=== PATIENT | female | born 1960 | race Caucasian/White ===

== ENCOUNTER → 2018-02-04 09:52 | Outpatient (CLI) | payer OTHER, SELFPAY ==
[2018-02-04 10:41] LABS: Cholesterol 270 mg/dL (200); High Density Lipoprotein 55 mg/dL; Triglycerides 98 mg/dL; Very Low Density Lipoprotein 20 mg/dL (5-40)
== END ==
LOC: LAB.FUTURE 08-08 00:41 → BFHLAB 04-24 11:56
PROVIDERS: Family Provider Internal Medicine; PCP Internal Medicine; Visit Provider Internal Medicine
DX: Z79.899 Other long term (current) drug therapy (principal)
CPT/HCPCS: 36415; 80061

== ENCOUNTER → 2018-04-27 11:24 | Outpatient (CLI) | payer OTHER, SELFPAY ==
[2018-04-27 13:14] LABS: AST(SGOT) 29 U/L (15-37); Alanine Aminotransfer ALT/SGPT 41 U/L (13-56); Albumin, Serum 3.7 g/dL (3.2-5.0); Alkaline Phosphatase 93 U/L (45-117); Anion Gap 7 (5-15); BUN 8 mg/dL (7-18); BUN/Creat Ratio 10.7 RATIO (10-20); Chloride 107 mmol/L (98-107); Creatinine, Serum 0.75 mg/dL (0.55-1.02); EST Glomerular Filtration Rate 85 mL/min (>60); Est Glom Filt Rate - Afr Amer 102 mL/min (>60); Globulin 3.7 g/dL (2.2-4.2); Glucose 87 mg/dL (74-106); Lipase 260 U/L (73-393); Potassium 3.9 mmol/L (3.5-5.1); Protein, Total 7.4 g/dL (6.4-8.2); Sodium Level 142 mmol/L (136-145); Thyroid Stim Hormone (TSH) 1.55 uIU/mL (0.358-3.74)
== END ==
PROVIDERS: Family Provider Family Medicine; PCP Family Medicine; Visit Provider Family Medicine
DX: R10.32 Left lower quadrant pain (principal); M79.7 Fibromyalgia
CPT/HCPCS: 36415; 80053; 83690; 84443

== ENCOUNTER → 2018-05-03 10:37 | Outpatient (CLI) | payer OTHER, SELFPAY ==
--- NOTE | 2018-05-03 10:41 | US_ITS ---
STUDY: ABDOMINAL ULTRASOUND - RIGHT UPPER QUADRANT REASON FOR VISIT: Female, 57 years old. Abdominal pain. Chronic gastroesophageal reflux. TECHNIQUE: Ultrasound evaluation of the right upper quadrant was performed with real-time and static garcia-scale imaging. TECHNICAL QUALITY: Limited. Examination limited by bowel gas. COMPARISON: None. FINDINGS: Liver: The liver measures 11.6 cm. There is normal echogenicity of the liver. The bile ducts are within normal limits. There is hepatic color flow. The direction of portal flow is hepatopetal. There is no demonstrated mass lesion. Gallbladder: Normal distended gallbladder. The gallbladder wall measures 3.0 mm. There is a negative sonographic Mansfield's sign. There is no pericholecystic fluid. There are no gallstones. Common Bile Duct (C.B.D.): The common bile duct measures 3.0 mm. Pancreas: Normal size of the head, body of the pancreas. The tail portion is obscured due to overlying bowel gas. There is normal echogenicity of the pancreas. There is no demonstrated pancreatic mass or cyst. Right Kidney: Normal size of the right kidney. The right kidney measures 9.2 cm x 3.2 cm x 3.7 cm. Normal renal cortex. The right cortex measures 1.0 cm. There is no demonstrated renal mass or cyst. There is no right hydronephrosis. US/Abdomen Limited IMPRESSION: Normal right upper quadrant ultrasound examination. Electronically Signed: Ranulfo Jon MD at 15:36 EDT Tel [phone], Service support ,
== END ==
PROVIDERS: Family Provider Family Medicine; PCP Family Medicine; Visit Provider Family Medicine
DX: R10.32 Left lower quadrant pain (principal); K58.9 Irritable bowel syndrome, unspecified
CPT/HCPCS: 76705

== ENCOUNTER → 2018-05-25 12:35 | Outpatient (CLI) | payer OTHER, SELFPAY ==
--- NOTE | 2018-05-25 12:37 | CT_ITS ---
STUDY: CT ABDOMEN AND PELVIS WITH CONTRAST REASON FOR EXAM: Female, 57 years old. 4 quadrant pain, chronic reflux and diarrhea. History of ESTEE/BSO, possible appendectomy. RADIATION DOSAGE (If Supplied By Facility): CTDIvol = ( 11.65 ) mGy, DLP = ( 604.15 ) mGycm TECHNIQUE: Transaxial images were obtained from the dome of the diaphragm to the symphysis pubis with oral contrast. 100CC ml of Isovue 300 contrast was administered. Sagittal and coronal images were reconstructed. Individualized dose optimization techniques were used for this CT. COMPARISON: CT abdomen August 27, 2014; right upper quadrant ultrasound May 03, 2018. FINDINGS: Curvilinear subsegmental atelectasis noted in the inferior lower lobes. The visualized portions of the heart are within normal limits. Normal liver. The patent portal vein diameter is 10.5 mm. Normal gallbladder and extrahepatic biliary system. Normal spleen. Normal pancreas. Normal bilateral adrenal glands. Normal right kidney. Normal left kidney. No hydronephrosis. Normal visualized stomach. Normal small intestine. Normal colon. There is non-visualization of the appendix. Normal abdominal aorta. Normal inferior vena cava. There are nonspecific periaortic lymph nodes of the retroperitoneum. Normal urinary bladder. There is absence of the uterus consistent with a prior hysterectomy. There is a small umbilical hernia containing fat. There is a small left-sided inguinal hernia containing adipose tissue. There is a smaller right-sided inguinal hernia containing adipose tissue. There is a 12 degree levoscoliosis of the spine centered at L2-3, and 11.6 degree dextroscoliosis centered at L5-S1. There is degenerative disc disease and reactive endplate osteophyte formation at L5-S1. CT/Abdomen/Pelvis WITH Contrast IMPRESSION: 1. No demonstrated abdominal/pelvic mass or fluid collection. 2. The bowel is unremarkable without signs of obstruction. The appendix is not visualized. 3. No hydronephrosis. 4. Prior hysterectomy. 5. Stable, small fat-containing umbilical hernia. 6. Degenerative changes L5-S1 have progressed since 2013. Electronically Signed: Hal Recinos MD at 18:43 EDT , Service support ,
== END ==
PROVIDERS: Family Provider Family Medicine; PCP Family Medicine; Visit Provider Family Medicine
DX: R10.32 Left lower quadrant pain (principal); K58.9 Irritable bowel syndrome, unspecified
CPT/HCPCS: 74177; Q9967

== ENCOUNTER → 2018-09-17 08:18 | Outpatient (CLI) | payer OTHER, SELFPAY ==
--- NOTE | 2018-09-17 08:28 | BI_ITS ---
MAMMOGRAPHY - BILATERAL SCREENING REASON FOR EXAM: Female, 57 years old. Routine annual screening examination. PERTINENT HISTORY: Non-contributory. Prior bilateral stereotactic breast biopsies. TECHNIQUE: Digital bilateral breast yvette (3D mammographic acquisition) in the CC and MLO projections. 2-D mediolateral oblique (MLO) and craniocaudad (CC) views of both breasts were obtained. CAD: Full Field Digital Mammography with Computer Added Detection was performed. COMPARISON: Comparison is made with prior study dated September 08, 2017 and September 04, 2015. FINDINGS: Breast Composition: The breasts are heterogeneously dense, which may obscure small masses. There are no dominant masses or suspicious calcifications. A tissue clip marker is seen in the anterior superior retroareolar region of the right breast. No other significant abnormalities are identified. There has been no significant change since the prior study. BI/SCREENING MAMM (CAD), BILAT IMPRESSION: Stable bilateral screening mammogram. Yearly follow-up mammogram recommended. (A) ASSESSMENT CATEGORY: BIRADS Category 2: Benign. A letter regarding these results will be sent to the patient by the facility within 30 days. Approximately 10% of breast cancers are not detected by mammography. A normal mammogram should not delay biopsy of a clinically suspicious abnormality. [id number] Electronically Signed: Ranulfo Jon MD at 14:33 EST Tel [phone], Service support ,
== END ==
PROVIDERS: Family Provider Family Medicine; PCP Family Medicine; Referring Provider Family Medicine; Visit Provider Family Medicine
DX: Z12.31 Encounter for screening mammogram for malignant neoplasm of breast (principal)
CPT/HCPCS: 77063; 77067

== ENCOUNTER → 2018-10-13 14:09 | Outpatient (CLI) | payer OTHER, SELFPAY ==
[2018-10-13 16:54] LABS: Vitamin D,25 Hydroxy 20.6 ng/mL (29.95-100.01)
--- OUTSIDE RECORDS SUMMARY | 2018-11-29 11:19 | XMS RPT_ITS ---
:1960 Author Organization OHIP Support Name Relationship Address Phone BAKARI GRIMES Unavailable [address] + [address] [place] [address] ODENKIRK, BRITTNEY Unavailable [address] + [place] [address] UE Unavailable Unavailable Unavailable BRADMARY ANNBAKARI Unavailable [address] [place] [address] ODENKIRK, BRITTNEY Unavailable [address] + [place] [address] UE Unavailable Unavailable Unavailable SYDNEYBAKARI Unavailable [address] [place] [address] ODENKIRK, BRITTNEY Unavailable [address] + [place] [address] UE Unavailable Unavailable Unavailable BAKARI GRIMES Unavailable [address] [place] [address] ODENKIRK, BRITTNEY Unavailable [address] + [place] [address] UE Unavailable Unavailable Unavailable SYDNEY BAKARI Unavailable [address] + [address] [place] [address] ODENKIRK, BRITTNEY Unavailable [address] + [place] [address] UE Unavailable Unavailable Unavailable SYDNEYBAKARI Unavailable [address] [place] [address] ODENKIRK, BRITTNEY Unavailable [address] + [place] [address] UE Unavailable Unavailable Unavailable Care Team Providers Name Role Phone PAUL SLAUGHTER Attending Unavailable PAUL SLAUGHTER Referring Unavailable TALAMPAS, FRANTZ Ivan Attending Unavailable Fascione, Queneie Attending Unavailable Fascione, Queenie Referring Unavailable Miedel, Mary Primary Care Unavailable Talampas, Frantz Attending Unavailable Talampas, Frantz Primary Care Unavailable Miedel, Mary Attending Unavailable Miedel, Mary Referring Unavailable Miedel, Mary Primary Care Unavailable Miedel, Mary Attending Unavailable Miedel, Mary Referring Unavailable Miedel, Mary Primary Care Unavailable Miedel, Mary Attending Unavailable Miedel, Mary Referring Unavailable Miedel, Mary Primary Care Unavailable Miedel, Mary Attending Unavailable Miedel, Mary Primary Care Unavailable Miedel, Mary Referring Unavailable PROBLEMS PROBLEMS DATE TYPE CONDITION / CODE ATTENDING STATUS SOURCE 10/13/2018 Unknown E55.9 - Vitamin D [facility]ione, Active [facility] E[facility]9(ICD-10[facility] Rep[facility] 04/27/2018 Unknown R10.32 - Left Miedel, Mary Active [place] lower quadrant Community pain / Hospital R10.32(ICD-10) Repository 04/27/2018 Unknown M79.7 - Miedel, Mary Active [place] Fibromyalgia / Community M79.7(ICD-10) Hospital Repository PROCEDURES PROCEDURES No Procedure Records FoundRESULTS RESULTS VITAMIN D,25 HYDROXY Collected: 10/13/2018 Status: F Source: [place] 2:[place] [facility] [place] CODE TESTS RESULT OUT OF REFERENCE UNITS RANGE LAB L506.1000 29.95-100.01 ng/mL Low Vitamin D 20.6 25-OH Result Comment: Vitamin D 25(OH) Status Range Deficiency <20 ng/mL (50nmol/L) Insuffciency 20 - 30 ng/mL (50 - 75 nmol/L) Sufficiency 30 - 100 ng/mL (75 - 250 nmol/L) Toxicity >100 ng/mL (>250 nmol/L) Performed By: #### L506.1000 #### [facility] [address] [place], [address] SCREENING MAMM (CAD), Observed: 09/17/2018 Status: F Source: [place] 8:28 AM [facility] [place] [facility] Imaging Services [address] [place] [address] SCREENING MAMM (CAD), BILAT MR#: [id number] Acct: [id number] Name: DARIELA GRIMES Rep #: [id number] : 1960 F 57 From: Ranulfo Jon MD PCP: Mary Ponce MD Status: REG CLI Study: SCREENING MAMM (CAD), BILAT Date of Exam: 09/17/18 Exam# [id number] Ordering Dr: Mary Ponce MD MAMMOGRAPHY - BILATERAL SCREENING REASON FOR EXAM: Female, 57 years old. Routine annual screening examination. PERTINENT HISTORY: Non-contributory. Prior bilateral stereotactic breast biopsies. TECHNIQUE: Digital bilateral breast yvette (3D mammographic acquisition) in the CC and MLO projections. 2-D mediolateral oblique (MLO) and craniocaudad (CC) views of both breasts were obtained. CAD: Full Field Digital Mammography with Computer Added Detection was performed. COMPARISON: Comparison is made with prior study dated September 08, 2017 and September 04, 2015. FINDINGS: Breast Composition: The breasts are heterogeneously dense, which may obscure small masses. There are no dominant masses or suspicious calcifications. A tissue clip marker is seen in the anterior superior retroareolar region of the right breast. No other significant abnormalities are identified. There has been no significant change since the prior study. BI/SCREENING MAMM (CAD), BILAT IMPRESSION: Stable bilateral screening mammogram. Yearly follow-up mammogram recommended. (A) ASSESSMENT CATEGORY: BIRADS Category 2: Benign. A letter regarding these results will be sent to the patient by the facility within 30 days. Approximately 10% of breast cancers are not detected by mammography. A normal mammogram should not delay biopsy of a clinically suspicious abnormality. [id number] Electronically Signed: Ranulfo Jon MD at 14:33 EST Tel [phone], Service support , CC: Mary Ponce MD Wire Coiner: Signed ABDOMEN/PELVIS WITH Observed: 05/25/2018 Status: F Source: [place] 12:38 PM [facility] [place] [facility] Imaging Services [address] [place] [address] Abdomen/Pelvis WITH Contrast MR#: [id number] Acct: [id number] Name: DARIELA GRIMES Rep #: [id number] : 1960 F 57 From: Fabio Recinos MD PCP: Mary Ponce MD Status: REG CLI Study: Abdomen/Pelvis WITH Contrast Date of Exam: 05/25/18 Exam# [id number] Ordering Dr: Mary Ponce MD STUDY: CT ABDOMEN AND PELVIS WITH CONTRAST REASON FOR EXAM: Female, 57 years old. 4 quadrant pain, chronic reflux and diarrhea. History of ESTEE/BSO, possible appendectomy. RADIATION DOSAGE (If Supplied By Facility): CTDIvol = ( 11.65 ) mGy, DLP = ( 604.15 ) mGycm TECHNIQUE: Transaxial images were obtained from the dome of the diaphragm to the symphysis pubis with oral contrast. 100CC ml of Isovue 300 contrast was administered. Sagittal and coronal images were reconstructed. Individualized dose optimization techniques were used for this CT. COMPARISON: CT abdomen August 27, 2014; right upper quadrant ultrasound May 03, 2018. FINDINGS: Curvilinear subsegmental atelectasis noted in the inferior lower lobes. The visualized portions of the heart are within normal limits. Normal liver. The patent portal vein diameter is 10.5 mm. Normal gallbladder and extrahepatic biliary system. Normal spleen. Normal pancreas. Normal bilateral adrenal glands. Normal right kidney. Normal left kidney. No hydronephrosis. Normal visualized stomach. Normal small intestine. Normal colon. There is non-visualization of the appendix. Normal abdominal aorta. Normal inferior vena cava. There are nonspecific periaortic lymph nodes of the retroperitoneum. Normal urinary bladder. There is absence of the uterus consistent with a prior hysterectomy. There is a small umbilical hernia containing fat. There is a small left-sided inguinal hernia containing adipose tissue. There is a smaller right-sided inguinal hernia containing adipose tissue. There is a 12 degree levoscoliosis of the spine centered at L2-3, and 11.6 degree dextroscoliosis centered at L5-S1. There is degenerative disc disease and reactive endplate osteophyte formation at L5-S1. CT/Abdomen/Pelvis WITH Contrast IMPRESSION: 1. No demonstrated abdominal/pelvic mass or fluid collection. 2. The bowel is unremarkable without signs of obstruction. The appendix is not visualized. 3. No hydronephrosis. 4. Prior hysterectomy. 5. Stable, small fat-containing umbilical hernia. 6. Degenerative changes L5-S1 have progressed since 2013. Electronically Signed: Hal Recinos MD at 18:43 EDT , Service support , CC: Mary Ponce MD Wire Coiner: Signed ABDOMEN LIMITED Observed: 05/03/2018 Status: F Source: [place] 10:41 AM [facility] [place] [facility] Imaging Services [address] [place] [address] Abdomen Limited MR#: [id number] Acct: [id number] Name: DARIELA GRIMES Rep #: [id number] : 1960 F 57 From: Ranulfo Jon MD PCP: Mary Ponce MD Status: REG CLI Study: Abdomen Limited Date of Exam: 05/03/18 Exam# [id number] Ordering Dr: Mary Ponce MD STUDY: ABDOMINAL ULTRASOUND - RIGHT UPPER QUADRANT REASON FOR VISIT: Female, 57 years old. Abdominal pain. Chronic gastroesophageal reflux. TECHNIQUE: Ultrasound evaluation of the right upper quadrant was performed with real-time and static garcia-scale imaging. TECHNICAL QUALITY: Limited. Examination limited by bowel gas. COMPARISON: None. FINDINGS: Liver: The liver measures 11.6 cm. There is normal echogenicity of the liver. The bile ducts are within normal limits. There is hepatic color flow. The direction of portal flow is hepatopetal. There is no demonstrated mass lesion. Gallbladder: Normal distended gallbladder. The gallbladder wall measures 3.0 mm. There is a negative sonographic Mansfield's sign. There is no pericholecystic fluid. There are no gallstones. Common Bile Duct (C.B.D.): The common bile duct measures 3.0 mm. Pancreas: Normal size of the head, body of the pancreas. The tail portion is obscured due to overlying bowel gas. There is normal echogenicity of the pancreas. There is no demonstrated pancreatic mass or cyst. Right Kidney: Normal size of the right kidney. The right kidney measures 9.2 cm x 3.2 cm x 3.7 cm. Normal renal cortex. The right cortex measures 1.0 cm. There is no demonstrated renal mass or cyst. There is no right hydronephrosis. US/Abdomen Limited IMPRESSION: Normal right upper quadrant ultrasound examination. Electronically Signed: Ranulfo Jon MD at 15:36 EDT Tel [phone], Service support , CC: Mary Ponce MD Wire Coiner: Signed COMPREHENSIVE METABOLIC Collected: 04/27/2018 Status: F Source: [place] 11:28 AM [facility] [place] TYPE CODE TESTS RESULT OUT OF RANGE REFERENCE UNITS LAB L501.0100 74-106 mg/dL Normal GLU 87 Result Comment: Please note revised GLUCOSE reference range effective 2017. LAB L501.1000 7-18 mg/dL Normal BUN 8 LAB L501.1100 0.55-1.02 mg/dL Normal CREAT,SERUM 0.75 Result Comment: The validity of the calculated GFR AND GFRAA in patients over 70 years has not been determined. Clinical correlation is essential. LAB L501.1110 >60 mL/min Normal EST GFR 85 Result Comment: Non- GFR Calc LAB L501.1115 >60 mL/min Normal EST GFR - AA 102 Result Comment: GFR Calc LAB L501.1300 10-20 RATIO Normal BUN/CRE 10.7 LAB L501.1500 6.4-8.2 g/dL T Normal PROT 7.4 LAB L501.1800 3.2-5.0 g/dL Normal ALB 3.7 LAB L501.1950 2.2-4.2 g/dL Normal GLOB 3.7 LAB L501.2000 0.9-2.4 RATIO Normal A/G 1.0 LAB L501.2200 8.5-10.1 mg/dL CA Normal 9.0 LAB L501.4100 15-37 U/L Normal AST 29 LAB L501.4305 45-117 U/L Normal ALK P 93 LAB L501.4405 13-56 U/L Normal ALT 41 LAB L501.4600 0.20-1.00 mg/dL T Normal BILI 0.70 LAB L501.5300 136-145 mmol/L NA Normal 142 LAB L501.5600 3.5-5.1 mmol/L K Normal 3.9 LAB L501.5900 98-107 mmol/L CL Normal 107 LAB L501.6100 21.0-32.0 mmol/L Normal CO2 28.0 LAB L501.6200 5-15 Normal GAP 7 Performed By: #### L500.4050, L501.2450, L501.9520 #### [facility] [address] [address] [place], [place], [address] LIPASE Collected: 04/27/2018 Status: F Source: [place] 11:28 AM [facility] [place] TYPE CODE TESTS RESULT OUT OF RANGE REFERENCE UNITS LAB L501.2450 73-393 U/L Normal LIPASE 260 Performed By: #### L500.4050, L501.2450, L501.9520 #### [facility] [address] [place], [place], [id number] THYROID STIM HORMONE Collected: 04/27/2018 Status: F Source: [place] (TSH) 11:28 AM [facility] [place] TYPE CODE TESTS RESULT OUT OF RANGE REFERENCE UNITS LAB L501.9520 0.358-3.74 uIU/mL Normal TSH 1.55 Performed By: #### L500.4050, L501.2450, L501.9520 #### [facility] [address] [place], [address] PROGRESS Observed: 02/15/2018 Status: COMPLETED Source: [place] 11:45 AM [facility] [place] RE[place] HNO ID: [id number] Author: Frantz Severino Service: (none) Author Type: Physician Type: Progress Notes Filed: 02/20/2018 10:58 PM Note Text: Patient presents with: Recheck SUBJECTIVE: Dariela Grimes is a 57 year old year old lady here today for 3 month follow up appointment for review of medical conditions. Headaches better. 3 to 4 times a monthly. Less severe. Ocular migraines still. Somewhat worse Left eye can be blurry or garcia spot. Suns sensitivity. Blood shot some AMs No crusting. No eye pain. Happens daily off and on. Did not tolerate Elavil--weight gain, breast more swollen and tender. Stopped after 3 weeks Aching along left jaw noted. Vertigo type issues noted. PAST MEDICAL HISTORY Diagnosis Date - Abdominal pain, left lower quadrant - Abdominal pain, left upper quadrant - Allergic rhinitis, cause unspecified - Backache, unspecified - Disorder of bone and cartilage, unspecified - Diverticulosis of colon (without mention of hemorrhage) - Dyspepsia and other specified disorders of function of stomach - Endometriosis 2004 - Headache(784.0) - Intramural leiomyoma of uterus 2004 - Irritable bowel syndrome Irritable bowel - Migraine with aura, without mention of intractable migraine without mention of status migrainosus - Muscle weakness (generalized) - Myalgia and myositis, unspecified - Osteoporosis - Other seborrheic keratosis - Pain in joint, lower leg - Personal history of colonic polyps - PMH - PAST MEDICAL HISTORY OF fibromyalgia - PMH - PAST MEDICAL HISTORY OF yeast infection - Unspecified symptom associated with female genital organs 2003 PAIN PELVIC (FEMALE) - Unspecified tinnitus Current Outpatient Prescriptions: Psyllium Seed-Sucrose (FIBER THERAPY, PSYLLIUM,) powd Take 0.3 Tablespoonsful by mouth every other day. COMPOUNDED PRESCRIPTION Lab draw: Lipids, Vitamin D25-OH , CMP, CBC Diagnoses: (E78.00) Hypercholesterolemia; (E55.9) Vitamin D deficiency; (Z79.899) Encounter for long-term (current) use of medications ranitidine (ZANTAC) 150 mg tablet Take 1 tablet by mouth once daily. Take as directed for 2 weeks to 2 months. May increase to twice daily if needed acetaminophen (TYLENOL) 325 mg tablet Take 650 mg by mouth every 6 hours as needed for Pain. Cholecalciferol, Vitamin D3, 1,000 unit ORAL Cap Take 1 capsule by mouth once daily. diphenhydrAMINE (BENADRYL) 25 mg ORAL Cap Take one(1) tablet daily as needed No current facility-administered medications for this visit. OBJECTIVE: BP 118/68 Pulse 80 Resp 17 Wt 66.7 kg (147 lb) BMI 24.84 kg/m2 Patient is alert, oriented times 3, no apparent distress, affect is bright, reactive. Last 5 Encounter BP Readings: Date: BP: 02/15/2018 118/68 02/02/2018 102/64 11/02/2017 102/72 08/04/2017 112/82 04/23/2017 110/72 HEENT: NCAT; no resting nystagmus; sclera clear; lids normal without crusting Heart: Regular rate, rhythm, no murmurs, gallops, rubs. Lungs: Clear to auscultation, bilaterally, breathing non labored. Ext: No cyanosis, clubbing, or edema. Neuro: no gross focal deficits; normal gait ASSESSMENT AND PLAN: Encounter Diagnosis ICD-10-CM 1. Ocular migraine G43.109 2. Vertigo R42 3. Need for vaccination Z23 TDAP VACCINE AGE 7+ IM Above issues addressed with patient. Patient involved in shared decision making for management of her medical issues. History and medications reviewed. Epic updated as needed Refills taken care of and meds adjusted as indicated after reviewed history, exam and labs. Health Maintenance reviewed. Updated record and/or ordered tests as recorded. Encouraged on efforts at healthy diet and regular exercise and adequate sleep. Further evaluation and treatment as indicated. Referral to ENT and/or neurology as indicated. Also follow up with ophthalmology as needed. The majority of the visit was spent counseling and/or coordinating care for the patient. Savo-gd-xjry time was at least 20 minutes. Frantz Severino MD CNOV Observed: 02/15/2018 Status: COMPLETED Source: [place] 11:20 AM [facility] REPOSITORY Office Visit (INTMWS) DARIELA GRIMES ([id number]) 1960 F Date Time Provider Department 02/15/18 11:20 AM FRANTZ SEVERINO INTMWS During your visit today, we recorded the following information about you: Pulse Respiration Blood pressure Weight 80/minute 17/minute 118/68 66.7 kg Frantz Severino MD 02/20/2018 10:58 PM Signed Patient presents with: Recheck SUBJECTIVE: Darielaalec Grimes is a 57 year old year old lady here today for 3 month follow up appointment for review of medical conditions. Headaches better. 3 to 4 times a monthly. Less severe. Ocular migraines still. Somewhat worse Left eye can be blurry or garcia spot. Suns sensitivity. Blood shot some AMs No crusting. No eye pain. Happens daily off and on. Did not tolerate Elavil--weight gain, breast more swollen and tender. Stopped after 3 weeks Aching along left jaw noted. Vertigo type issues noted. PAST MEDICAL HISTORY Diagnosis Date - Abdominal pain, left lower quadrant - Abdominal pain, left upper quadrant - Allergic rhinitis, cause unspecified - Backache, unspecified - Disorder of bone and cartilage, unspecified - Diverticulosis of colon (without mention of hemorrhage) - Dyspepsia and other specified disorders of function of stomach - Endometriosis 2003 - Headache(784.0) - Intramural leiomyoma of uterus 2003 - Irritable bowel syndrome Irritable bowel - Migraine with aura, without mention of intractable migraine without mention of status migrainosus - Muscle weakness (generalized) - Myalgia and myositis, unspecified - Osteoporosis - Other seborrheic keratosis - Pain in joint, lower leg - Personal history of colonic polyps - PMH - PAST MEDICAL HISTORY OF fibromyalgia - PMH - PAST MEDICAL HISTORY OF yeast infection - Unspecified symptom associated with female genital organs 2003 PAIN PELVIC (FEMALE) - Unspecified tinnitus Current Outpatient Prescriptions: Psyllium Seed-Sucrose (FIBER THERAPY, PSYLLIUM,) powd Take 0.3 Tablespoonsful by mouth every other day. COMPOUNDED PRESCRIPTION Lab draw: Lipids, Vitamin D25-OH , CMP, CBC Diagnoses: (E78.00) Hypercholesterolemia; (E55.9) Vitamin D deficiency; (Z79.899) Encounter for long-term (current) use of medications ranitidine (ZANTAC) 150 mg tablet Take 1 tablet by mouth once daily. Take as directed for 2 weeks to 2 months. May increase to twice daily if needed acetaminophen (TYLENOL) 325 mg tablet Take 650 mg by mouth every 6 hours as needed for Pain. Cholecalciferol, Vitamin D3, 1,000 unit ORAL Cap Take 1 capsule by mouth once daily. diphenhydrAMINE (BENADRYL) 25 mg ORAL Cap Take one(1) tablet daily as needed No current facility-administered medications for this visit. OBJECTIVE: BP 118/68 Pulse 80 Resp 17 Wt 66.7 kg (147 lb) BMI 24.84 kg/m2 Patient is alert, oriented times 3, no apparent distress, affect is bright, reactive. Last 5 Encounter BP Readings: Date: BP: 02/15/2018 118/68 02/02/2018 102/64 11/02/2017 102/72 08/04/2017 112/82 04/23/2017 110/72 HEENT: NCAT; no resting nystagmus; sclera clear; lids normal without crusting Heart: Regular rate, rhythm, no murmurs, gallops, rubs. Lungs: Clear to auscultation, bilaterally, breathing non labored. Ext: No cyanosis, clubbing, or edema. Neuro: no gross focal deficits; normal gait ASSESSMENT AND PLAN: Encounter Diagnosis ICD-10-CM 1. Ocular migraine G43.109 2. Vertigo R42 3. Need for vaccination Z23 TDAP VACCINE AGE 7+ IM Above issues addressed with patient. Patient involved in shared decision making for management of her medical issues. History and medications reviewed. Epic updated as needed Refills taken care of and meds adjusted as indicated after reviewed history, exam and labs. Health Maintenance reviewed. Updated record and/or ordered tests as recorded. Encouraged on efforts at healthy diet and regular exercise and adequate sleep. Further evaluation and treatment as indicated. Referral to ENT and/or neurology as indicated. Also follow up with ophthalmology as needed. The majority of the visit was spent counseling and/or coordinating care for the patient. Qtee-we-owmg time was at least 20 minutes. MD Frantz Hudson MD 02/15/2018 12:24 PM Signed Red Yeast Rice--has something like lovastatin that seems to help with lowering LDL without the muscle pain. [place] 3 oils to get HDL up as high as can get it. Consider Crestor 5mg half pill weekly (rosuvastatin) to see if might be able to tolerate. Referring Provider: SELF [200] Allergies As of Date: 02/15/2018 Noted Allergy Reaction ASPIRIN 04/01/2016 8 - GI Upset Comments: reflux and stomach pain CODEINE 04/27/2006 ELAVIL (AMITRIPTYLINE) 02/15/2018 14 - Other: See Comments Comments: Weight gain and breast swelling with tenderness (within 3 weeks) FLAGYL (METRONIDAZOLE HCL) 06/29/2007 NSAIDS (NON-STEROIDAL ANTI-INFLAM*07/08/2016 8 - GI Upset Comments: stomach pain and reflux PRILOSEC (OMEPRAZOLE) 04/01/2016 2 - Rash Comments: generalized rash; tried a second time and rash came back TIGAN (TRIMETHOBENZAMIDE HCL) 06/29/2007 Date Reviewed: 02/15/2018 Reviewed by: Felisha Trivedi Medical Insurance Clerk - Fully Assessed Reason for Visit: Recheck [92] Primary Visit Diagnosis:Ocular migraine [G43.109] Other Visit Diagnoses:Vertigo [R42] Need for vaccination [Z23] Order(s):TDAP VACCINE AGE 7+ IM [[id number]] Order #: [id number] Prescriptions as of 02/15/2018 Sig: PSYLLIUM SEED (SUGAR) ORAL PO* Take 0.3 Tablespoonsful by mo* COMPOUNDED PRESCRIPTION Lab draw: Lipids, Vitamin D2* RANITIDINE 150 MG TABLET Take 1 tablet by mouth once d* ACETAMINOPHEN 325 MG TABLET Take 650 mg by mouth every 6 * CHOLECALCIFEROL (VITAMIN D3) * Take 1 capsule by mouth once * BENADRYL 25 MG CAPSULE Take one(1) tablet daily as n* Problem List As Of Date 02/15/2018 Noted Resolved DIFFUS CYSTIC MASTOPATHY [N60.19] INVALID FOR* BONE AND CARTILAGE DIS NOS [M89.9, M94.9] INVALID FOR* ATROPHIC VAGINITIS [N95.2] INVALID FOR* ABDOMINAL PAIN UNSPEC SITE [R10.9] Osteoporosis [M81.0] Gastroesophageal reflux disease [K21.9] INVALID FOR* Dyspepsia and other specified disorders of func* Other instructions from your clinician: Red Yeast Rice--has something like lovastatin that seems to help with lowering LDL without the muscle pain. [place] 3 oils to get HDL up as high as can get it. Consider Crestor 5mg half pill weekly (rosuvastatin) to see if might be able to tolerate. Disposition: Return for Add August 3 months FU. Follow-up and Disposition History Recorded Encounter Status:Closed by FRANTZ SEVERINO MD on 02/20/18 LIPID PROFILE Collected: 02/04/2018 Status: F Source: [place] 9:[place] AM [facility] [place] CODE TESTS RESULT OUT OF RANGE REFERENCE UNITS LAB L501.4900 200 mg/dL High CHOL 270 Result Comment: <200 mg/dL Desirable 200-240 mg/dL Borderline >240 mg/dL High Risk LAB L501.5000 mg/dL Normal TRIG 98 Result Comment: The drugs N-Acetylcysteine and Metamizole may falsely depress this assay. Serum Triglycerides Reference Interval Normal <150 mg/dL Borderline high 150 - 199 mg/dL High 200 - 499 mg/dL Very High > or = 500 mg/dL LAB L501.6400 mg/dL Normal HDL 55 Result Comment: The drugs N-Acetylcysteine and Metamizole may falsely depress this assay. Reference Range HDL <40 mg/dL Low HDL Cholesterol HDL >or= 60 mg/dL High HDL Cholesterol LAB L501.6500 0-130 mg/dL High LDL 195 LAB L501.6600 5-40 mg/dL Normal VLDL 20 Performed By: #### L500.4100 #### [facility] [address] [place], [address] PROGRESS Observed: 02/02/2018 Status: COMPLETED Source: [place] 11:44 AM [facility] [place] REPOSITORY HNO ID: [id number] Author: Paul Slaughter Service: (none) Author Type: Physician Type: Progress Notes Filed: 02/02/2018 12:10 PM Note Text: Dariela Grimes is a 57 year old who presents for her annual gynecologic exam without complaints. Postmenopausal: yes HRT use: No. Last Pap: 2007 normal HPV: n/a N/A History of abnormal pap: Yes Last mammogram: 2016 normal History of abnormal mammogram: No Sexually active: No Obstetric History T0 L0 SAB0 TAB0 Ectopic0 Multiple0 Live Births0 PAST MEDICAL HISTORY Diagnosis Date - Abdominal pain, left lower quadrant - Abdominal pain, left upper quadrant - Allergic rhinitis, cause unspecified - Backache, unspecified - Disorder of bone and cartilage, unspecified - Diverticulosis of colon (without mention of hemorrhage) - Dyspepsia and other specified disorders of function of stomach - Endometriosis 2003 - Headache(784.0) - Intramural leiomyoma of uterus 2003 - Irritable bowel syndrome Irritable bowel - Migraine with aura, without mention of intractable migraine without mention of status migrainosus - Muscle weakness (generalized) - Myalgia and myositis, unspecified - Osteoporosis - Other seborrheic keratosis - Pain in joint, lower leg - Personal history of colonic polyps - PMH - PAST MEDICAL HISTORY OF fibromyalgia - PMH - PAST MEDICAL HISTORY OF yeast infection - Unspecified symptom associated with female genital organs 2003 PAIN PELVIC (FEMALE) - Unspecified tinnitus PAST SURGICAL HISTORY Procedure Laterality Date - BREAST BIOPSY 08/09 right - COLONOSCOP W/ OR W/O [facility] SPEC 11/05/04 Colonoscopy, normal - COLONOSCOP W/ OR W/O [facility] SPEC 2014 Colonoscopy - EGD - EGD W/O OR W/BRUSH/WASH 12/31/2016 EGD - TOTAL ABDOM HYSTERECTOMY 12/27/2003 Hysterectomy, ESTEE,BSO FAMILY HISTORY Problem Relation Age of Onset - Cancer Father melanoma - COPD Mother - Hypertension Mother - Stroke Mother - Other [OTHER] Mother kidney problems - Cancer Other maternal great aunt with possible ovarian cancer - Hypertension Sister - rheumatoid arthritis [OTHER] Sister - Hypertension Sister - rheumatoid arthritis [OTHER] Sister SOCIAL HISTORY Social History Substance Use Topics - Smoking status: Never Smoker - Smokeless tobacco: Never Used - Alcohol use No REVIEW OF SYSTEMS Abdomen: No abdominal pain, nausea, vomiting, diarrhea, or constipation. No bloating, early satiety, indigestion, or increased flatulence. Bladder: No dysuria, gross hematuria, urinary frequency, urinary urgency, or incontinence Breast: No breast lumps, nipple d/c, overlying skin changes, redness or skin retraction Allergies and current medication updated:Yes EXAM: Ht 5' 4.5 (1.64m) Wt 148 lb (67.1kg) BMI 25.02 kg/(m2). GENERAL: pleasant, female in no apparent distress HEENT: Normocephalic, atraumatic, mucus membranes moist and no lesions NECK: Supple, full range of motion, no adenopathy and thyroid normal DERMATOLOGY: Normal, without lesions, non-icteric and non-hirsute BREAST: soft, non-tender, symmetric, no dominant mass, normal nipple-areolar complex, no lymphadenopathy and no nipple discharge CHEST: Normal inspiratory effort ABDOMEN: soft, non-tender and no masses PELVIC: external genitalia normal, normal Bartholin's glands, urethra, Pioneer's glands, no vulvar lesions, good vaginal support, physiologic discharge present, normal appearing perineal body and perianal region, cervix surgically absent, tight introitus, atrophci BIMANUAL: no adnexal masses, non-tender and uterus surgically absent RECTOVAGINAL: deferred. NEURO: alert and oriented x3,exam grossly non-focal EXTREMITIES: normal ASSESSMENT/PLAN: 1) Health maintenance: Pap/HPV screening no longer needed Mammogram ordered Colon cancer screening: up to date with screening 2) Follow up one year or sooner as needed Paul Slaughter MD CNOV Observed: 02/02/2018 Status: COMPLETED Source: [place] 11:40 AM [facility] REPOSITORY Office Visit (WOOB) DARIELA GRIMES ([id number]) 1960 F Date Time Provider Department 02/02/18 11:40 AM PAUL SLAUGHTER During your visit today, we recorded the following information about you: Blood pressure Weight Height 102/64 67.1 kg 1.638 m Paul Slaughter MD 02/02/2018 12:10 PM Signed Dariela Grimes is a 57 year old who presents for her annual gynecologic exam without complaints. Postmenopausal: yes HRT use: No. Last Pap: 2007 normal HPV: n/a N/A History of abnormal pap: Yes Last mammogram: 2016 normal History of abnormal mammogram: No Sexually active: No Obstetric History T0 L0 SAB0 TAB0 Ectopic0 Multiple0 Live Births0 PAST MEDICAL HISTORY Diagnosis Date - Abdominal pain, left lower quadrant - Abdominal pain, left upper quadrant - Allergic rhinitis, cause unspecified - Backache, unspecified - Disorder of bone and cartilage, unspecified - Diverticulosis of colon (without mention of hemorrhage) - Dyspepsia and other specified disorders of function of stomach - Endometriosis 2003 - Headache(784.0) - Intramural leiomyoma of uterus 2003 - Irritable bowel syndrome Irritable bowel - Migraine with aura, without mention of intractable migraine without mention of status migrainosus - Muscle weakness (generalized) - Myalgia and myositis, unspecified - Osteoporosis - Other seborrheic keratosis - Pain in joint, lower leg - Personal history of colonic polyps - PMH - PAST MEDICAL HISTORY OF fibromyalgia - PMH - PAST MEDICAL HISTORY OF yeast infection - Unspecified symptom associated with female genital organs 2003 PAIN PELVIC (FEMALE) - Unspecified tinnitus PAST SURGICAL HISTORY Procedure Laterality Date - BREAST BIOPSY 08/09 right - COLONOSCOP W/ OR W/O [facility] SPEC 11/05/04 Colonoscopy, normal - COLONOSCOP W/ OR W/O [facility] SPEC 2014 Colonoscopy - EGD - EGD W/O OR W/BRUSH/WASH 12/31/2016 EGD - TOTAL ABDOM HYSTERECTOMY 12/27/2003 Hysterectomy, ESTEE,BSO FAMILY HISTORY Problem Relation Age of Onset - Cancer Father melanoma - COPD Mother - Hypertension Mother - Stroke Mother - Other [OTHER] Mother kidney problems - Cancer Other maternal great aunt with possible ovarian cancer - Hypertension Sister - rheumatoid arthritis [OTHER] Sister - Hypertension Sister - rheumatoid arthritis [OTHER] Sister SOCIAL HISTORY Social History Substance Use Topics - Smoking status: Never Smoker - Smokeless tobacco: Never Used - Alcohol use No REVIEW OF SYSTEMS Abdomen: No abdominal pain, nausea, vomiting, diarrhea, or constipation. No bloating, early satiety, indigestion, or increased flatulence. Bladder: No dysuria, gross hematuria, urinary frequency, urinary urgency, or incontinence Breast: No breast lumps, nipple d/c, overlying skin changes, redness or skin retraction Allergies and current medication updated:Yes EXAM: Ht 5' 4.5ANDquot; (1.64m) Wt 148 lb (67.1kg) BMI 25.02 kg/(m2). GENERAL: pleasant, female in no apparent distress HEENT: Normocephalic, atraumatic, mucus membranes moist and no lesions NECK: Supple, full range of motion, no adenopathy and thyroid normal DERMATOLOGY: Normal, without lesions, non-icteric and non-hirsute BREAST: soft, non-tender, symmetric, no dominant mass, normal nipple-areolar complex, no lymphadenopathy and no nipple discharge CHEST: Normal inspiratory effort ABDOMEN: soft, non-tender and no masses PELVIC: external genitalia normal, normal Bartholin's glands, urethra, Pioneer's glands, no vulvar lesions, good vaginal support, physiologic discharge present, normal appearing perineal body and perianal region, cervix surgically absent, tight introitus, atrophci BIMANUAL: no adnexal masses, non-tender and uterus surgically absent RECTOVAGINAL: deferred. NEURO: alert and oriented x3,exam grossly non-focal EXTREMITIES: normal ASSESSMENT/PLAN: 1) Health maintenance: Pap/HPV screening no longer needed Mammogram ordered Colon cancer screening: up to date with screening 2) Follow up one year or sooner as needed MD Maru Griffith Ma 02/02/2018 12:13 PM Signed Addended by: MARU PRAJAPATI MA on: 02/02/2018 12:13 PM Modules accepted: SmartSet Referring Provider: PAUL SLAUGHTER [[id number]] Allergies As of Date: 02/02/2018 Noted Allergy Reaction ASPIRIN 04/01/2016 8 - GI Upset Comments: reflux and stomach pain CODEINE 04/27/2006 FLAGYL (METRONIDAZOLE HCL) 06/29/2007 NSAIDS (NON-STEROIDAL ANTI-INFLAM*07/08/2016 8 - GI Upset Comments: stomach pain and reflux PRILOSEC (OMEPRAZOLE) 04/01/2016 2 - Rash Comments: generalized rash; tried a second time and rash came back TIGAN (TRIMETHOBENZAMIDE HCL) 06/29/2007 Date Reviewed: 02/02/2018 Reviewed by: Paul Slaughter - Fully Assessed Primary Visit Diagnosis:Encounter for gynecological examination (general) (routine) without abnormal findings [Z01.419] Prescriptions as of 02/02/2018 Sig: COMPOUNDED PRESCRIPTION Lab draw: Lipids, Vitamin D2* RANITIDINE 150 MG TABLET Take 1 tablet by mouth once d* ACETAMINOPHEN 325 MG TABLET Take 650 mg by mouth every 6 * CHOLECALCIFEROL (VITAMIN D3) * Take 1 capsule by mouth once * BENADRYL 25 MG CAPSULE Take one(1) tablet daily as n* PSYLLIUM SEED (SUGAR) ORAL PO* Take 0.3 Tablespoonsful by mo* Patient not taking: Reported on 02/02/2018 Problem List As Of Date 02/02/2018 Noted Resolved DIFFUS CYSTIC MASTOPATHY [N60.19] INVALID FOR* BONE AND CARTILAGE DIS NOS [M89.9, M94.9] INVALID FOR* ATROPHIC VAGINITIS [N95.2] INVALID FOR* ABDOMINAL PAIN UNSPEC SITE [R10.9] Osteoporosis [M81.0] Gastroesophageal reflux disease [K21.9] INVALID FOR* Dyspepsia and other specified disorders of func* Medications Discontinued During This Encounter amitriptyline (ELAVIL) 10 mg tablet 60 t* 1 11/02/2017 02/02/2018 Route: ORAL Sig: Take 1-2 tablets by mouth daily at bedtime. Patient not taking: Reported on 02/02/2018 Disc: Discontinued by Patient Disposition: Return in 1 year (on 02/02/2019) for Annual Exam. Follow-up and Disposition History Recorded Encounter Status:Closed by PAUL SLAUGHTER MD on 02/02/18 ELENTOUTREA Observed: 02/01/2018 Status: COMPLETED Source: [place] 12:00 AM [facility] REPOSIT[facility] Patient Outreach (FAMPST) DARIELA GRIMES ([id number]) 1960 F Date Time Provider Department 02/01/18 FRANTZ SEVERINO During your visit today, we recorded the following information about you: Allergies As of Date: 02/01/2018 Noted Allergy Reaction ASPIRIN 04/01/2016 8 - GI Upset Comments: reflux and stomach pain CODEINE 04/27/2006 FLAGYL (METRONIDAZOLE HCL) 06/29/2007 NSAIDS (NON-STEROIDAL ANTI-INFLAM*07/08/2016 8 - GI Upset Comments: stomach pain and reflux PRILOSEC (OMEPRAZOLE) 04/01/2016 2 - Rash Comments: generalized rash; tried a second time and rash came back TIGAN (TRIMETHOBENZAMIDE HCL) 06/29/2007 Date Reviewed: 11/02/2017 Reviewed by: Felisha Trivedi Medical Insurance Clerk - Fully Assessed Visit Diagnosis:Medication management [Z79.899] Order(s):LIPID PANEL BASIC [SQLIPB] Order #: [id number] FUTURE Prescriptions as of 02/01/2018 Sig: X AMITRIPTYLINE 10 MG TABLET Take 1-2 tablets by mouth lamar* Patient not taking: Reported on 02/02/2018 PSYLLIUM SEED (SUGAR) ORAL PO* Take 0.3 Tablespoonsful by mo* COMPOUNDED PRESCRIPTION Lab draw: Lipids, Vitamin D2* RANITIDINE 150 MG TABLET Take 1 tablet by mouth once d* ACETAMINOPHEN 325 MG TABLET Take 650 mg by mouth every 6 * CHOLECALCIFEROL (VITAMIN D3) * Take 1 capsule by mouth once * BENADRYL 25 MG CAPSULE Take one(1) tablet daily as n* Problem List As Of Date 02/01/2018 Noted Resolved DIFFUS CYSTIC MASTOPATHY [N60.19] INVALID FOR* BONE AND CARTILAGE DIS NOS [M89.9, M94.9] INVALID FOR* ATROPHIC VAGINITIS [N95.2] INVALID FOR* ABDOMINAL PAIN UNSPEC SITE [R10.9] Osteoporosis [M81.0] Gastroesophageal reflux disease [K21.9] INVALID FOR* Dyspepsia and other specified disorders of func* Encounter Status:Closed by CORTNEY PRODUSER on 08/12/18 ALLERGIES ALLERGIES DATE TYPE / NAME / CODE REACTION SEVERITY SOURCE CODE 07/08/2016 Drug NSAIDS (NON-STEROIDAL GI UPSET [place] Class/4195 ANTI-INFLAMMATORY DRUG) Clinic Main [id number](SNOM [place] [facility]) Repository 04/01/2016 DRUG ASPIRIN GI UPSET [place] [address] Clinic Main [id number]( [place] [facility]) Repository 04/01/2016 DRUG OMEPRAZOLE RASH [place] [address] Clinic Main [id number]( [place] [facility]) Repository 06/29/2007 DRUG METRONIDAZOLE HCL [address] Main [id number]( [place] [facility]) Repository 06/29/2007 DRUG TRIMETHOBENZAMIDE HCL [place] [address] Clinic Main [id number]( [place] [facility]) Repository 04/27/2006 DRUG CODEINE [address] Main [id number]([facility]) Repository ENCOUNTERS ENCOUNTERS ADMIT/DISCHARGE ACCOUNT ADMITTING ENCOUNTER LOCATION SOURCE NUMBER CLASS 10/13/2018 [id number] [facility] ing:LAB Repository 09/17/2018 [id number] [facility] ing:OPBI Repository 05/25/2018 [id number] [facility] ing:CT Repository 05/03/2018 [id number] [facility] ing:US Repository 04/27/2018 [id number] [facility] ing:LAB Repository 02/15/2018/02/23/20 [id number] Ambulatory [address] Repository 02/04/2018 [id number] [facility] ing:LAB.FUTUR Repository E 02/02/2018/02/05/20 [id number] Ambulatory [address] Repository PAYERS PAYERS ENCOUNTER GUARANTOR PAYER SUBSCRIBER SOURCE 10/13/2018 BAKARI Bailey [id number] Insurance:MEDICAL AUGENSTEINDOB: [facility] [id number] Number: Repository [address]Uen: [phone] [id number] [phone] () e Date:[id number] [address] [place] [address]XE: 10/13/2018 Secondary NOT GIVENUNK [place] Insurance:SELF PAY [facility] Number: Effective Repository Date:2018-10-13 09/17/2018 BAKARI Jefferson Primary DARIELA Jefferson [place] [id number] Insurance:MEDICAL AUGENSTEINDOB: [facility] [id number] Number: Repository [address]Ybk: 330 [id number] [phone] () e Date:8134-83-73IN [address] [address]MU: 09/17/2018 Secondary NOT GIVENUNK [place] Insurance:SELF PAY [facility] Number: Effective Repository Date:2018-08-17 05/25/2018 BAKARI Jefferson Primary DARIELA Jefferson [place] [id number] Insurance:MEDICAL AUGENSTEINDOB: [facility] [id number] Number: Repository [id number]: 330 [id number] [phone] () e Date:[id number] [address]AC: 05/25/2018 Secondary NOT GIVENUNK [place] Insurance:SELF PAY [facility] Number: Effective Repository Date:2018-05-06 05/03/2018 BAKARI [place] Primary DARIELA Jefferson [place] [id number] Insurance:MEDICAL AUGENSTEINDOB: [facility] [id number] Number: Repository [id number]: 330 [id number] [phone] () e Date:5386-75-06MQ [address] [place] [address]WR: 05/03/2018 Secondary NOT GIVENUNK [place] Insurance:SELF PAY [facility] Number: Effective Repository Date:2018-04-29 04/27/2018 BAKARI Jefferson Primary DARIELA Jefferson [place] [id number] Insurance:MEDICAL AUGENSTEINDOB: [facility] [id number] Number: Repository [id number]: 330 [id number] [phone] () e Date:[id number] [address] [address]CJ: 04/27/2018 Secondary NOT GIVENUNK [place] Insurance:SELF PAY [facility] Number: Effective Repository Date:2018-04-27 02/04/2018 BAKARI Bailey [id number] Insurance:MEDICAL AUGENSTEINDOB: [facility] [id number] Number: Repository [id number]: 330 [id number] [phone] () e Date:[id number] [address]GG: 02/04/2018 Secondary NOT GIVENUNK [place] Insurance:SELF PAY [facility] Number: Effective Repository Date:2018-02-03
== END ==
PROVIDERS: Family Provider Family Medicine; PCP Family Medicine; Referring Provider Podiatrist; Visit Provider Podiatrist
DX: E55.9 Vitamin D deficiency, unspecified (principal); S92.333A Displaced fracture of third metatarsal bone, unspecified foot, initial encounter for closed fracture
CPT/HCPCS: 36415; 82306

== ENCOUNTER → 2018-12-28 11:17 | Outpatient (CLI) | payer OTHER, SELFPAY ==
[2018-12-28 12:23] LABS: Absolute Lymphocyte Count 1.76 X10^3/ul (0.83-4.51); Absolute Neutrophil Count 2.3 X10^3/uL (2.0-7.7); Basophil# 0.08 X10^3/uL; Basophil% 1.7 % (0-1); Eosinophil# 0.07 X10^3/uL; Eosinophils% 1.5 % (0-5); Hematocrit 44.7 % (37-47); Hemoglobin 13.9 g/dl (12.0-15.0); Lymphocyte # 1.76 X10^3/ul (4.0); Lymphocyte % 37.4 % (19-41); Mean Corp Hgb Conc 31.1 g/gl (32-36); Mean Corpuscular Hgb 29.9 pg (27.0-32.0); Mean Corpuscular Volume 96.1 fL (81-99); Mean Platelet Vol. 11.2 fl (6.2-12.0); Monocyte# 0.52 X10^3/uL; Monocyte% 11.1 % (0-10); Neutrophil # 2.27 X10^3/uL (2.7-7.7); Neutrophil % 48.3 % (47-70); Platelet Count 324 K/mm3 (150-450); RBC Distribution Width CV 13.8 % (11.6-14.6); RBC Distribution Width SD 48.2 fl (35.1-43.9); Red Blood Count 4.65 M/mm3 (4.2-5.4); White Blood Count 4.7 K/mm3 (4.4-11.0)
[2018-12-28 12:28] LABS: POSITIVE COUNT NO; POSITIVE DIFFERENTIAL NO; POSITIVE MORPHOLOGY NO
[2018-12-28 13:24] LABS: Vitamin D,25 Hydroxy 30.6 ng/mL (29.95-100.01)
== END ==
PROVIDERS: Family Provider Family Medicine; PCP Family Medicine; Referring Provider Family Medicine; Visit Provider Family Medicine
DX: E55.9 Vitamin D deficiency, unspecified (principal); R53.83 Other fatigue
CPT/HCPCS: 36415; 82306; 85025

== ENCOUNTER → 2019-01-24 12:27 | Outpatient (CLI) | payer OTHER, SELFPAY ==
--- NOTE | 2019-01-24 12:33 | MRI_ITS ---
STUDY: MRI LEFT FOREFOOT WITHOUT CONTRAST REASON FOR EXAM: Female, 58 years old. Left foot pain. Stress fracture. Capsulitis. Nonhealing injury. Toe curling. TECHNIQUE: Standardized fat and water weighted pulse sequences were obtained in all 3 orthogonal planes. COMPARISON: None. FINDINGS: No acute fracture, dislocation or osseous destruction. Normal navicular cuneiform articulations. Normal tarsal metatarsal articulations. Normal Lisfranc ligament (axial image 11 series 6). Normal metatarsophalangeal articular cartilage. Normal first interphalangeal articular cartilage. Mild joint space narrowing at the distal interphalangeal joints with mild cartilage thinning. 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 Normal proximal interphalangeal joints at the second through fifth digits. Normal third through fifth metatarsophalangeal joints. Small volume first metatarsophalangeal joint effusion. Mild inflammatory changes surrounding the second metatarsal phalangeal joint without capsular tear (sagittal image 13 series 5). Normal flexor tendons. Normal extensor tendons. Mild dorsal soft tissue swelling. No focal collection. MRI/Lower Ext/No Jt/w/o IMPRESSION: No acute fracture, dislocation or bone marrow edema/stress reaction Mild second MTP joint capsular edema/capsulitis Small first MTP joint effusion Mild DIP joint space narrowing Mild soft tissue swelling without focal collection Electronically Signed: Carlos Basurto DO at 13:37 EDT Tel , Service support ,
== END ==
PROVIDERS: Family Provider Family Medicine; PCP Family Medicine; Referring Provider Podiatrist; Visit Provider Podiatrist
DX: M84.374D Stress fracture, right foot, subsequent encounter for fracture with routine healing (principal); M79.672 Pain in left foot; M77.52 Other enthesopathy of left foot and ankle
CPT/HCPCS: 73718

== ENCOUNTER 2019-02-12 18:48 | Emergency (ER) | payer OTHER, SELFPAY ==
[2019-02-12 18:49] VITALS: BP 148/93; PULSE 101; RESP 16; TEMP 36.7; O2SAT 98; BMI 24.9
[2019-02-12] MEDS: HYDROcodone Bitartrate/Apap 5/325 Tablet PO ×2 (19:19→20:22)
--- NOTE | 2019-02-12 19:20 | RAD_ITS ---
STUDY: X-RAY - LEFT FOOT CLINICAL: Female, 58 years old. Pain, trauma TECHNIQUE: 3 view(s) of the foot. COMPARISON: MRI 01/24/2019. FINDINGS: Normal talus, calcaneus, and tarsal bones. Normal visualized subtalar, talonavicular, calcaneocuboid, tarsal and tarsometatarsal articulations. There are no fractures of the phalanges however the exam is somewhat limited due to underpenetration. There is mild cortical deformity base of the fifth metatarsal on the AP view. RAD/Foot min 3 Views IMPRESSION: Soft tissue edema Mild cortical irregularity base of fifth metatarsal likely due to are overlap of bony artifact, if the patient is symptomatic in this region CT could be performed to exclude fracture. Electronically Signed: Ta Lema, at 19:54 EDT Tel , Service support ,
--- NOTE | 2019-02-12 19:53 | ED.VISSUMM ---
- ER Visit Summary Date of Service: 02/12/19 Chief Complaint: [Injury to left foot] History of Present Illness: The patient is a 58 F [presents to the emergency department complaint of injury to her left foot that occurred earlier today when she tripped over her dog. Patient states that she felt a pop in the foot and she is not having a hard time bearing weight. Patient states that she had been treated by book mender for stress fracture in her foot since October 2018. Patient had an MRI about 3 weeks ago that did not show any evidence of fracture. Patient denies any other injuries. Patient has history of fibromyalgia.] Physical Examination: [Left foot-patient has tenderness over the distal foot over the areas of the second, third, and fourth metatarsals. There is no ecchymosis or bruising. There is no significant soft tissue swelling noted. She is neurovascularly intact. No pain at the medial or lateral malleolus.] Test Results: [X-rays of the left foot obtained read by myself as no acute fractures. There was osteopenia noted. Official report from radiology pending.] Emergency Department Course and Treatment: [Patient will be given crutches and she has a walking boot.] Treatment Plan: [Patient will be given a prescription for [place] for pain and advised ice and elevate the extremity. Patient to follow-up with her book mender within the next 3-5 days.] Disposition: [Discharged home in stable condition] Impression: Left foot sprain] This note was generated with [employer] dictation software. It may contain incorrect words, spelling, and punctuation that were not noted in review of the chart prior to signing ED Disposition - Plan for ED Patient: Referrals: Mary Ponce MD [Primary Care Provider] -
--- NOTE | 2019-02-12 19:56 | ED.DCSUM_ITS ---
- ER Visit Summary Date of Service: 02/12/19 Chief Complaint: [Injury to left foot] History of Present Illness: The patient is a 58 F [presents to the emergency department complaint of injury to her left foot that occurred earlier today when she tripped over her dog. Patient states that she felt a pop in the foot and she is not having a hard time bearing weight. Patient states that she had been treated by lan engineer for stress fracture in her foot since October 2018. Patient had an MRI about 3 weeks ago that did not show any evidence of fracture. Patient denies any other injuries. Patient has history of fibromyalgia.] Physical Examination: [Left foot-patient has tenderness over the distal foot over the areas of the second, third, and fourth metatarsals. There is no ecchymosis or bruising. There is no significant soft tissue swelling noted. She is neurovascularly intact. No pain at the medial or lateral malleolus.] Test Results: [X-rays of the left foot obtained read by myself as no acute fractures. There was osteopenia noted. Official report from radiology pending.] Emergency Department Course and Treatment: [Patient will be given crutches and she has a walking boot.] Treatment Plan: [Patient will be given a prescription for [place] for pain and advised ice and elevate the extremity. Patient to follow-up with her lan engineer within the next 3-5 days.] Disposition: [Discharged home in stable condition] Impression: Left foot sprain] This note was generated with [employer] dictation software. It may contain incorrect words, spelling, and punctuation that were not noted in review of the chart prior to signing ED Disposition - Plan for ED Patient: Referrals: Mary Ponce MD [Primary Care Provider] -
--- NOTE | 2019-02-12 19:56 | ED.DEP ---
ED Disposition - Plan for ED Patient: Instructions: ED Sprain Foot Prescriptions: Hydrocodone Bitart/Apap 5-325 [[place] 5MG-325MG] 1 tab PO Q4H PRN PRN 2 Days #10 tab PRN Reason: Pain Referrals: Mary Ponce MD [Primary Care Provider] - Queenie Acosta DPM [STAFF PHYSICIAN] - 3-5 Days
[2019-02-12 20:29] VITALS: BP 134/71
== END 2019-02-12 20:30 | disposition home or self-care (01) ==
PROVIDERS: Emergency Provider Emergency Medicine; Family Provider Family Medicine; PCP Family Medicine
DX: S93.602A Unspecified sprain of left foot, initial encounter (principal); W01.0XXA Fall on same level from slipping, tripping and stumbling without subsequent striking against object, initial encounter; Y93.9 Activity, unspecified; Y92.9 Unspecified place or not applicable; Y99.9 Unspecified external cause status; M79.7 Fibromyalgia
CPT/HCPCS: 73630; 99284

== ENCOUNTER → 2019-09-18 10:55 | Outpatient (CLI) | payer OTHER, SELFPAY ==
--- NOTE | 2019-09-18 10:57 | BI_ITS ---
MAMMOGRAPHY - BILATERAL SCREENING REASON FOR EXAM: Female, 58 years old. Routine annual screening examination. PERTINENT HISTORY: Non-contributory. Remote bilateral stereotactic breast biopsies. TECHNIQUE: Digital bilateral breast tianna (3D mammographic acquisition) in the CC and MLO projections. 2-D mediolateral oblique (MLO) and craniocaudad (CC) views of both breasts were obtained. CAD: Full Field Digital Mammography with Computer Added Detection was performed. COMPARISON: Comparison is made with prior study dated September 17, 2018 and September 08, 2017. FINDINGS: Breast Composition: The breasts are heterogeneously dense, which may obscure small masses. There are no dominant masses or suspicious calcifications. A tissue clip marker is seen in the superior retroareolar region of the right breast. Stable small benign-appearing bilateral axillary lymph nodes. No other significant abnormalities are identified. There has been no significant change since the prior study. BI/SCREEN MAMM (CAD) W/TIANNA BILAT IMPRESSION: Stable bilateral screening mammogram. Yearly follow-up mammogram recommended. (A) ASSESSMENT CATEGORY: BIRADS Category 2: Benign. A letter regarding these results will be sent to the patient by the facility within 30 days. Approximately 10% of breast cancers are not detected by mammography. A normal mammogram should not delay biopsy of a clinically suspicious abnormality. [id number] Electronically Signed: Ranulfo Jon, at 13:06 EST , Service support ,
== END ==
PROVIDERS: Family Provider Family Medicine; PCP Family Medicine; Referring Provider Obstetrics & Gynecology; Visit Provider Obstetrics & Gynecology
DX: Z12.31 Encounter for screening mammogram for malignant neoplasm of breast (principal)
CPT/HCPCS: 77063; 77067

== ENCOUNTER → 2020-04-23 15:55 | Outpatient (CLI) | payer OTHER, SELFPAY ==
--- NOTE | 2020-04-23 15:59 | RAD_ITS ---
STUDY: X-RAY - CERVICAL SPINE REASON FOR EXAM: Female, 59 years old. Radiating neck pain TECHNIQUE: 7 view(s) of the cervical spine were obtained. COMPARISON: None FINDINGS: Normal anterior atlantoaxial articulation. Normal odontoid process. There is straightening of the normal cervical lordosis, this may be due to positioning or pain. There is multi-level endplate spondylosis. There is multi-level degenerative disc disease with multilevel disc space narrowing. Mild bilateral foraminal narrowing. The soft tissue structures are unremarkable. There is no demonstrated fracture of the cervical spine. RAD/Cerv Spine 4 or 5 Views IMPRESSION: Mild degenerative changes, no acute findings Electronically Signed: Hal Sam MD at 7:40 EDT , Service support ,
[2020-04-23 18:01] LABS: Absolute Lymphocyte Count 2.05 X10^3/uL (0.83-4.51); Absolute Neutrophil Count 3.5 X10^3/uL (2.0-7.7); Basophil# 0.07 X10^3/uL; Basophil% 1.1 % (0-1); Eosinophil# 0.06 X10^3/uL; Hematocrit 44.2 % (37-47); Lymphocyte # 2.05 X10^3/ul (4.0); Lymphocyte % 33.2 % (19-41); Mean Corp Hgb Conc 31.7 g/dL (32-36); Mean Corpuscular Hgb 30.8 pg (27.0-32.0); Mean Corpuscular Volume 97.1 fL (81-99); Mean Platelet Vol. 11.4 fl (6.2-12.0); Monocyte# 0.47 X10^3/uL; Monocyte% 7.6 % (0-10); NRBC Flagged by Analyzer 0 % (0-5); Neutrophil # 3.51 X10^3/uL (2.7-7.7); Neutrophil % 56.8 % (47-70); Platelet Count 345 K/mm3 (150-450); RBC Distribution Width CV 13.6 % (11.6-14.6); RBC Distribution Width SD 48.5 fl (35.1-43.9); Red Blood Count 4.55 M/mm3 (4.2-5.4); White Blood Count 6.2 K/mm3 (4.4-11.0)
== END ==
PROVIDERS: PCP Family Medicine; Referring Provider Family Medicine; Visit Provider Family Medicine
DX: M54.2 Cervicalgia (principal); K21.9 Gastro-esophageal reflux disease without esophagitis
CPT/HCPCS: 36415; 72050; 85025

== ENCOUNTER → 2020-07-19 08:22 | Outpatient (CLI) | payer OTHER, SELFPAY ==
[2020-07-16 14:24] VITALS: BMI 24.9
[2020-07-19 10:38] LABS: ALB/GLOB Ratio 1.1 RATIO (0.9-2.4); AST(SGOT) 21 U/L (15-37); Alanine Aminotransfer ALT/SGPT 30 U/L (13-56); Albumin, Serum 3.8 g/dL (3.2-5.0); Alkaline Phosphatase 92 U/L (45-117); Anion Gap 8 (5-15); BUN 9 mg/dL (7-18); BUN/Creat Ratio 11.4 RATIO (10-20); Calcium,Total 8.9 mg/dL (8.5-10.1); Chloride 106 mmol/L (98-107); Cholesterol 279 mg/dL (200); Creatinine, Serum 0.79 mg/dL (0.55-1.02); EST Glomerular Filtration Rate 79 mL/min (>60); Est Glom Filt Rate - Afr Amer 96 mL/min (>60); Globulin 3.6 g/dL (2.2-4.2); Glucose 87 mg/dL (74-106); High Density Lipoprotein 53 mg/dL; Potassium 3.6 mmol/L (3.5-5.1); Protein, Total 7.4 g/dL (6.4-8.2); Sodium Level 142 mmol/L (136-145); Thyroid Stim Hormone (TSH) 3.14 uIU/mL (0.358-3.74); Triglycerides 129 mg/dL; Very Low Density Lipoprotein 26 mg/dL (5-40)
== END ==
PROVIDERS: PCP Family Medicine; Referring Provider Obstetrics & Gynecology; Visit Provider Obstetrics & Gynecology
DX: Z01.411 Encounter for gynecological examination (general) (routine) with abnormal findings (principal); Z13.220 Encounter for screening for lipoid disorders; Z13.1 Encounter for screening for diabetes mellitus
CPT/HCPCS: 36415; 80053; 80061; 84443

== ENCOUNTER → 2020-09-19 10:08 | Outpatient (CLI) | payer OTHER, SELFPAY ==
[2020-07-16 14:24] VITALS: BMI 24.9
[2020-08-13 10:36] VITALS: BMI 24.2
--- NOTE | 2020-09-19 10:09 | BI_ITS ---
MAMMOGRAPHY - BILATERAL SCREENING REASON FOR EXAM: Female, 59 years old. Routine annual screening examination. PERTINENT HISTORY: Non-contributory. Remote bilateral stereotactic breast biopsies. TECHNIQUE: Digital bilateral breast tianna (3D mammographic acquisition) in the CC and MLO projections. 2-D mediolateral oblique (MLO) and craniocaudad (CC) views of both breasts were obtained. CAD: Full Field Digital Mammography with Computer Added Detection was performed. COMPARISON: Comparison is made with prior study dated 09/18/2019 and 09/17/2018. FINDINGS: Breast Composition: The breasts are heterogeneously dense, which may obscure small masses. There are no dominant masses or suspicious calcifications. A tissue clip marker was again seen in the superior retroareolar region of the right breast. Stable small benign appearing bilateral axillary lymph nodes. No other significant abnormalities are identified. There has been no significant change since the prior study. BI/SCREEN MAMM (CAD) W/TIANNA BILAT IMPRESSION: Stable bilateral screening mammogram. Yearly follow-up mammogram recommended. (A) ASSESSMENT CATEGORY: BIRADS Category 2: Benign. A letter regarding these results will be sent to the patient by the facility within 30 days. Approximately 10% of breast cancers are not detected by mammography. A normal mammogram should not delay biopsy of a clinically suspicious abnormality. [id number] Electronically Signed: Ranulfo Jon, at 11:15 EST , Service support ,
== END ==
PROVIDERS: PCP Family Medicine; Referring Provider Obstetrics & Gynecology; Visit Provider Obstetrics & Gynecology
DX: Z12.31 Encounter for screening mammogram for malignant neoplasm of breast (principal)
CPT/HCPCS: 77063; 77067

== ENCOUNTER → 2021-03-19 09:42 | Outpatient (CLI) | payer OTHER, SELFPAY ==
[2021-03-18 08:11] VITALS: BMI 24.2
[2021-03-19 11:09] LABS: Erythrocyte Sedimentation Rate 11 mm/hr (0-30)
[2021-03-19 11:10] LABS: Hematocrit 42.2 % (37-47); Hemoglobin 13.5 g/dL (12.0-15.0); Mean Corpuscular Hgb 30.3 pg (27.0-32.0); Mean Corpuscular Volume 94.8 fL (81-99); Mean Platelet Vol. 11.3 fl (6.2-12.0); Platelet Count 307 K/mm3 (150-450); RBC Distribution Width CV 13.5 % (11.6-14.6); RBC Distribution Width SD 47.2 fl (35.1-43.9); Red Blood Count 4.45 M/mm3 (4.2-5.4)
[2021-03-19 11:22] LABS: Vitamin B12 429 pg/mL (211-911)
[2021-03-19 11:56] LABS: ALB/GLOB Ratio 1.1 RATIO (0.9-2.4); AST(SGOT) 30 U/L (15-37); Alanine Aminotransfer ALT/SGPT 48 U/L (13-56); Albumin, Serum 3.8 g/dL (3.2-5.0); Alkaline Phosphatase 96 U/L (45-117); Anion Gap 4 (5-15); BUN 11 mg/dL (7-18); BUN/Creat Ratio 14.3 RATIO (10-20); CPK Total, Creatine Kinase 80 U/L (26-192); CRP < 2.90 mg/L (0.0-3.0); Calcium,Total 8.9 mg/dL (8.5-10.1); Chloride 110 mmol/L (98-107); Creatinine, Serum 0.77 mg/dL (0.55-1.02); EST Glomerular Filtration Rate 81 mL/min (>60); Est Glom Filt Rate - Afr Amer 98 mL/min (>60); Globulin 3.5 g/dL (2.2-4.2); Glucose 93 mg/dL (74-106); Potassium 3.8 mmol/L (3.5-5.1); Protein, Total 7.3 g/dL (6.4-8.2); Sodium Level 141 mmol/L (136-145); Thyroid Stim Hormone (TSH) 1.68 uIU/mL (0.358-3.74)
[2021-03-21 16:08] LABS: Vitamin D 1,25-Dihydroxy 59.6 pg/mL (19.9-79.3)
[2021-03-21 16:37] LABS: ANTINUCLEAR ANTIBODIES DIRECT Negative (Negative)
== END ==
PROVIDERS: PCP Family Medicine; Referring Provider Psychiatry & Neurology Neurology; Visit Provider Psychiatry & Neurology Neurology
DX: R53.83 Other fatigue (principal); E55.9 Vitamin D deficiency, unspecified
CPT/HCPCS: 36415; 80053; 82550; 82607; 82652; 82746; 84425; 84443; 85027; 85652; 86038; 86140; 86225; 86235

== ENCOUNTER → 2021-04-04 15:19 | Outpatient (CLI) | payer OTHER, SELFPAY ==
[2021-03-18 08:11] VITALS: BMI 24.2
--- NOTE | 2021-04-04 15:21 | MRI_ITS ---
STUDY: MRI CERVICAL SPINE WITHOUT CONTRAST REASON FOR EXAM: Female, 60 years old. neck pain; paresthesias TECHNIQUE: Standardized fat and water weighted pulse sequences were obtained in the sagittal and axial following administration of . COMPARISON: 23 April 2020 plain films FINDINGS: Normal foramen magnum and brainstem-cervical cord junction. Normal craniovertebral junction. Normal anterior atlantoaxial articulation. Normal odontoid process. Canal is congenitally stenotic. Normal cervical lordosis. Normal vertebral bodies and posterior osseous elements. C2-3: Mildly degenerated endplates. Normal disc height, signal and mildly degenerated morphology. Normal central canal and intervertebral neural foramina. C3-4: Mildly degenerated endplates. Normal disc height, signal and degenerative morphology. There is mild canal stenosis and cord compression. Facets are mildly degenerated. Foramina are patent. C4-5: Mildly degenerated endplates. Normal disc height, signal and degenerative morphology. Spinal cord is mildly compressed. There is mild left foraminal stenosis due to facet hypertrophic degenerative change. C5-6: Normal endplates. Normal disc height, signal and degenerative morphology. Spinal cord is mildly compressed. Foramina are patent. C6-7: Normal endplates. Normal disc height, signal and degenerative morphology. There is mild canal stenosis without cord compression. Foramina are patent. C7-T1: Normal endplates. Normal disc height, signal and degenerative morphology. Canal is mildly stenotic without cord compression. Foramina are patent. Spinal cord is normal in size and signal with minor flattening at the compressing levels. Normal visualized soft tissue structures. MRI/Spine Cervical (Routine) IMPRESSION: 1. 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 Neurosurgical consultation is advised. Electronically Signed: Nell Medrano MD at 20:26 EDT Tel , Service support ,
--- NOTE | 2021-04-04 15:21 | MRI_ITS ---
STUDY: MRI BRAIN WITH AND WITHOUT CONTRAST REASON FOR EXAM: Female, 60 years old. Migraine headaches; paresthesias TECHNIQUE: Standardized multiplanar fat and water weighted pulse sequences were obtained. 13ML Dotarem via IV was administered for the contrast portion of the examination. COMPARISON: 31 August 2014 FINDINGS: Normal size of the ventricles and extra-axial spaces for the patient''s age. Normal white matter tracts of the supratentorial brain. Normal bilateral basal ganglia. Normal thalami. There is no extra-axial fluid accumulation. Normal flow voids within the major intracranial circulation suggesting patency by spin echo criteria. Normal venous enhancement. There is no enhancing intra-axial or extra-axial abnormality. Normal sella turcica, pituitary gland, infundibular stalk, optic chiasm and hypothalamus. Normal tectal plate and pineal gland. Normal midbrain, olive and medulla. Normal cerebellum. Normal basal cisterns. Normal bilateral temporal bones. Normal bilateral internal auditory canals. No demonstrated orbital abnormality, within the constraints of a routine brain study. Normal visualized paranasal sinuses. Normal calvarium and skull base. Normal visualized soft tissue structures. Normal visualized upper cervical spine. MRI/Brain W/WO Contrast IMPRESSION: Normal brain. Electronically Signed: Nell Medrano MD at 17:39 EDT Tel , Service support ,
== END ==
PROVIDERS: PCP Family Medicine; Referring Provider Psychiatry & Neurology Neurology; Visit Provider Psychiatry & Neurology Neurology
DX: M54.2 Cervicalgia (principal); R20.2 Paresthesia of skin; G43.909 Migraine, unspecified, not intractable, without status migrainosus
CPT/HCPCS: 70553; 72141; A9575

== ENCOUNTER → 2021-05-23 14:27 | Outpatient (CLI) | payer OTHER, SELFPAY ==
[2021-04-28 14:51] VITALS: BMI 24.2
[2021-05-23 17:38] LABS: AST(SGOT) 22 U/L (15-37); Alanine Aminotransfer ALT/SGPT 33 U/L (13-56); Albumin, Serum 3.8 g/dL (3.2-5.0); Alkaline Phosphatase 88 U/L (45-117); Amylase 76 U/L (25-115); Bilirubin, Direct 0.14 mg/dL (0.00-0.30); Globulin 3.5 g/dL (2.2-4.2); Lipase 202 U/L (73-393); Protein, Total 7.3 g/dL (6.4-8.2)
== END ==
PROVIDERS: PCP Family Medicine; Visit Provider Family Medicine
DX: R10.12 Left upper quadrant pain (principal)
CPT/HCPCS: 36415; 80076; 82150; 83690

== ENCOUNTER → 2021-06-03 10:17 | Outpatient (CLI) | payer OTHER, SELFPAY ==
[2021-04-28 14:51] VITALS: BMI 24.2
[2021-05-26 13:18] VITALS: BMI 24.2
--- NOTE | 2021-06-03 10:21 | US_ITS ---
CLINICAL HISTORY: 60 years Female, LUQ AND EPIGASTRIC PAIN COMPARISON: Previous CT scan of the abdomen and pelvis obtained on 05/25/2018 TECHNIQUE: Serial longitudinal and transverse scans of the upper abdomen were obtained utilizing a real-time sector scanner. FINDINGS: The gallbladder is normal in size and shape. No echogenic structures are noted within the gallbladder which are casting acoustic shadows. The common bile duct measures 4 mm., which is normal. The liver is normal, and measures 13.3 cm in length.. The hepatic veins are patent and hepatopetal flow is noted in the main portal vein. The head, body and tail of the pancreas were examined and appear to be normal. The right and left kidneys are anatomically normal with the following measurements: Right Kidney: 10.0 cm. x 4.7 cm. x 4.0 cm. in size with a cortex measuring 0.8 cm in thickness. Left Kidney: 9.6 cm. x 5.4 cm. x 4.4 cm. in size with a cortex measuring 10.0 cm in thickness. No fluid is noted in Morison''s pouch. The right renal parenchyma has normal echogenic relationship to the liver. The spleen is normal in size measuring 9.1 cm. in length. The visualized abdominal aorta is normal and measures 2.3 cm in AP dimension proximally and 1.8 cm in AP dimension and 1.5 cm in AP dimension distally.. The intrahepatic portion of the inferior vena cava is normal. US/Abdomen Complete IMPRESSION: Normal abdomen ultrasound. Electronically Signed: Bob Aquino DO at 15:28 EDT Tel , Service support ,
== END ==
PROVIDERS: PCP Family Medicine; Referring Provider Family Medicine; Visit Provider Family Medicine
DX: R10.12 Left upper quadrant pain (principal)
CPT/HCPCS: 76700

== ENCOUNTER → 2021-07-03 08:45 | Outpatient (CLI) | payer OTHER, SELFPAY ==
--- NOTE | 2021-07-03 08:49 | NM_ITS ---
CLINICAL: 60-year-old female with reported history of abdominal pain and nausea. RADIONUCLIDE HEPATOBILIARY SCINTIGRAPHY COMPARISON: Abdominal ultrasound report 06/03/2021 FINDINGS: Following the intravenous administration of 5.3 mCi of 99m Tc Mebrofenin, hepatobiliary images reveal: 1. Relatively prompt and homogeneous radiopharmaceutical concentration is noted by a normal sized liver. No parenchymal defects are identified. 2. Gallbladder activity is identified at 15 minutes post radiopharmaceutical administration. 3. Small intestinal tract is observed at 30 minutes following tracer injection. 4. Washout of the radiopharmaceutical by the hepatic parenchyma appears qualitatively normal. The patient was administered a fatty meal (8 ounces BOOST-26 grams fat). The post fatty meal consumption gallbladder ejection fraction calculated at 20 minutes was noted to be 47.0% (normal greater than 30%). AR/Hepatobilliary Img w/Pharm Int IMPRESSION: 1. NORMAL 99m Tc Mebrofenin hepatobiliary imaging examination with fatty meal ingestion. A. A gallbladder ejection fraction calculated to be greater than 30% following the administration of a consumed fatty meal makes the probability of functional hepatobiliary disease (gallbladder and/or sphincter of Oddi dyskinesia) and/or organic hepatobiliary disease (chronic acalculous cholecystitis and/or cystic duct syndrome) to be low. (Dulce and Tray, J Nucl Med 43: 1603, 2002). Electronically Signed: Thierno Ortega DO at 23:01 EDT Tel , Service support ,
== END ==
PROVIDERS: PCP Family Medicine; Referring Provider Family Medicine; Visit Provider Family Medicine
DX: R10.12 Left upper quadrant pain (principal)
CPT/HCPCS: 78227; A9537

== ENCOUNTER → 2021-09-03 09:33 | Outpatient (CLI) | payer OTHER, SELFPAY ==
--- NOTE | 2021-09-03 09:52 | CT_ITS ---
STUDY: CT ABDOMEN AND PELVIS WITH CONTRAST REASON FOR EXAM: Female, 60 years old. LLQ PAIN RADIATION DOSAGE (If Supplied By Facility): CTDIvol = ( 12.85 ) mGy, DLP = ( 631.98 ) mGycm TECHNIQUE: Transaxial images were obtained from the dome of the diaphragm to the symphysis pubis with oral contrast. Oral and amp;amp; IV Gastrografin and amp;amp; 100mL Isovue-300 was administered. Sagittal and coronal images were reconstructed. Individualized dose optimization techniques were used for this CT. COMPARISON: Comparison is made with prior study dated 05/25/2018. FINDINGS: The visualized lung bases are unremarkable. The visualized portions of the heart are within normal limits. Normal liver. Normal gallbladder and extrahepatic biliary system. Normal spleen. Normal pancreas. Normal bilateral adrenal glands. Normal right kidney. Normal left kidney. Normal visualized stomach. Normal small intestine. Normal colon. The appendix is visualized and appears normal. Normal abdominal aorta. Normal inferior vena cava. Normal retroperitoneum. Normal urinary bladder. There is absence of the uterus consistent with a prior hysterectomy. Small bilateral inguinal hernias containing fat. There are mild degenerative changes of the visualized lumbar spine. Minimal levoscoliosis. CT/Abdomen/Pelvis WITH Contrast IMPRESSION: No acute abnormality is seen. Electronically Signed: Ranulfo Jon MD at 12:30 EDT , Service support ,
== END ==
PROVIDERS: PCP Family Medicine; Referring Provider Family Medicine; Visit Provider Family Medicine
DX: R10.32 Left lower quadrant pain (principal)
CPT/HCPCS: 74177; Q9967

== ENCOUNTER → 2021-09-22 10:49 | Outpatient (CLI) | payer OTHER, SELFPAY ==
--- NOTE | 2021-09-22 10:51 | BI_ITS ---
MAMMOGRAPHY - BILATERAL SCREENING 3-D TOMOSYNTHESIS REASON FOR EXAM: Female, 60 years old. Routine screening PERTINENT HISTORY: Previous biopsies. TECHNIQUE: 2-D mammograms and 3-D Tomosynthesis of the breast (s) were performed. CAD was performed. COMPARISON: 09/19/2020 FINDINGS: The breast composition is heterogeneously dense that can obscure small breast masses. Scattered benign calcifications are seen. No dense spiculated masses or suspicious microcalcifications are identified. No architectural distortion is identified. There is no skin thickening or retraction. There has been no significant change since the prior study. BI/SCRN MAMM (CAD)W/TIANNA BILAT IMPRESSION: No mammographic signs of malignancy. Routine yearly mammograms recommended. ASSESSMENT CATEGORY: BIRADS Category 2: Benign. A letter regarding these results will be sent to the patient by the facility within 30 days. FOLLOW UP RECOMMENDATION: Yearly follow up mammogram recommended. (A) Approximately 10% of breast cancers are not detected by mammography. A normal mammogram should not delay biopsy of a clinically suspicious abnormality. Electronically Signed: Hal Sam MD at 14:34 EST , Service support ,
== END ==
PROVIDERS: PCP Family Medicine; Referring Provider Family Medicine; Visit Provider Family Medicine
DX: Z12.31 Encounter for screening mammogram for malignant neoplasm of breast (principal)
CPT/HCPCS: 77063; 77067

== ENCOUNTER 2021-12-03 11:41 | Outpatient (CLI) | payer OTHER, SELFPAY ==
[2021-12-03 12:46] LABS: AST(SGOT) 25 U/L (15-37); Alanine Aminotransfer ALT/SGPT 34 U/L (13-56); Albumin, Serum 3.8 g/dL (3.2-5.0); Alkaline Phosphatase 90 U/L (45-117); Bilirubin, Direct 0.15 mg/dL (0.00-0.30); Cholesterol 277 mg/dL (200); Globulin 3.5 g/dL (2.2-4.2); High Density Lipoprotein 62 mg/dL; Protein, Total 7.3 g/dL (6.4-8.2); Triglycerides 110 mg/dL; Very Low Density Lipoprotein 22 mg/dL (5-40)
== END 2021-12-03 23:59 | disposition short-term general hospital (02) ==
LOC: LAB 11:43
PROVIDERS: PCP Family Medicine; Visit Provider Internal Medicine Cardiovascular Disease
DX: E78.5 Hyperlipidemia, unspecified (principal)
CPT/HCPCS: 36415; 80061; 80076

== ENCOUNTER 2022-01-20 09:58 | Outpatient (CLI) | payer OTHER, SELFPAY ==
[2022-01-20 11:22] LABS: Anion Gap 1 (5-15); BUN 13 mg/dL (7-18); BUN/Creat Ratio 15.9 RATIO (10-20); Calcium,Total 9.5 mg/dL (8.5-10.1); Chloride 107 mmol/L (98-107); Creatinine, Serum 0.82 mg/dL (0.55-1.02); EST Glomerular Filtration Rate 76 mL/min (>60); Est Glom Filt Rate - Afr Amer 91 mL/min (>60); Glucose 99 mg/dL (74-106); Magnesium 2.2 mg/dL (1.6-2.6); Sodium Level 140 mmol/L (136-145); Thyroid Stim Hormone (TSH) 2.62 uIU/mL (0.358-3.74)
== END 2022-01-20 23:59 | disposition home or self-care (01) ==
LOC: LAB 09:59
PROVIDERS: PCP Family Medicine; Referring Provider Internal Medicine Cardiovascular Disease; Visit Provider Internal Medicine Cardiovascular Disease
DX: R00.2 Palpitations (principal); R00.0 Tachycardia, unspecified; R53.82 Chronic fatigue, unspecified
CPT/HCPCS: 36415; 80048; 83735; 84443

== ENCOUNTER 2022-03-04 08:43 | Day surgery (SDC) | payer OTHER, SELFPAY ==
[2022-03-04] VITALS (8 sets, daily range): BP systolic 96–122; BP diastolic 53–66; PULSE 57–82; RESP 16; TEMP 36.1–36.4; O2SAT 98–100; BMI 24.2
--- NOTE | 2022-03-04 | IMM_PTH ---
PATIENT: CHAPITO GRIMES LOC: EN U#:[id number] AGE/SX: 61/F ROOM: RE03/04/[address]: Dr. Floyd Bellamy DO : 1960 BED: DIS: 03/04/2022 SPEC #: [id number] RECD: 03/06/22 13:51 STATUS: STEVIE REQ #: [id number] JESSY: 03/04/22 00:[address]: Floyd Bellamy DEPT: IMMUNOHISTOCHEMISTRY RECD BY: Donna Mckenzie ENTERED: 03/06/22 13:53 SP TYPE: IMMUNO OTHR DR: MD Dr. Mary Gilbert MD Tissues: B - Esophagus, NOS Procedures: P53 (initial) KI-67 (add) PHYSICIAN & INSTITUTION [place] [id number] SPECIMEN INFORMATION: Tissue Source: B ? Distal esophagus Clinical Info: Diarrhea Specimen Number: [id number] CPT code: 93637, 26771 METHODOLOGY: Deparaffinized sections of prefer/formalin-fixed tissue or PAP/DQ stained slides are incubated with monoclonal/polyclonal antibodies/oligonucleotide probes. Localization is made via biotin free immunoperoxidase method. Appropriate controls are performed and reacted as expected. Results on target cell population are indicated in the following table: RESULTS: ANTIBODY / CLONE RESULT Block B P53 (DO-7) negative Ki-67 (30-9) positive, low These tests were developed and their performance characteristics determined by [facility]. They may not have been cleared or approved by the U.S. Food and Drug Administration. The FDA has determined that such clearance or approval is not necessary. The above immunohistochemical/dualISH markers are ordered and reviewed by the Pathologist. INTERPRETATION: B. Distal esophagus, biopsy: No evidence of dysplasia. AM:vipin 03/09/2022
--- NOTE | 2022-03-04 | COLBX_PTH ---
PATIENT: CHAPITO GRIMES LOC: EN U#:[id number] AGE/SX: 61/F ROOM: RE03/04/[address]: Dr. Floyd Bellamy DO : 1960 BED: DIS: 03/04/2022 SPEC #: [id number] RECD: 03/04/22 13:11 STATUS: STEVIE REQ #: [id number] JESSY: 03/04/22 00:[address]: Floyd Bellamy DEPT: SURGICAL PATHOLOGY RECD BY: John Issa ENTERED: 03/05/22 07:58 SP TYPE: COLON BX OTHR DR: MD Dr. Mary Gilbert MD Tissues: A - Duodenum, NOS B - Esophageal mucous membrane Procedures: Special Stain Group II Surgery Specimen Level IV Alcian Blue/PAS (control) HEADER OPERATION: Colonoscopy, EGD ([facility]) PRE-OP DIAGNOSIS: Diarrhea TISSUE SUBMITTED: A ? Duodenum Biopsy, B - Distal Esophagus MICROSCOPIC DIAGNOSIS A. Duodenum, biopsy: No pathologic change. B. Distal esophagus, biopsy: Gastroesophageal junctional mucosa with chronic inflammation. Focal changes of reflux. Focal goblet cell metaplasia. No evidence of dysplasia. See comment. AM:vipin 03/06/2022 COMMENT B. Immunohistochemistry ([id number]) for P53 and Ki-67 will be performed and results will be reported separately. Alcian blue/PAS stain with matched control supports the above diagnosis. MICROSCOPIC DESCRIPTION Slides are reviewed. GROSS DESCRIPTION A - Received in fixative is one container labeled with the patient's name and designated duodenum biopsy. The specimen consists of multiple irregular fragments of light guevara soft tissue that in aggregate measure 1.2 x 0.3 x 0.1 cm. The specimen is totally submitted in one cassette. B - Received in fixative is one container labeled with the patient's name and designated distal esophagus biopsy. The specimen consists of multiple irregular fragments of light guevara soft tissue that in aggregate measure 1.5 x 0.8 x 0.1 cm. The specimen is totally submitted in one cassette. / SJ:vipin 03/05/2022 TC: CPT: 02047 x2, 15968
[2022-03-04] MEDS: Lactated Ringers 1,000 ML 15 ML IV (09:20)
--- NOTE | 2022-03-04 09:28 | HP.PCM_ITS ---
History and Physical Date of Admission: 03/04/22 CHAPITO GRIMES, is a 61 F who presents to the office today for For recent memory, with worsening in intensity and frequency in the last five years, she has been having difficulty with abdominal pain in the upper abdomen, acid reflux/chest pain, burning sensation in her mouth/tongue, bloating. Has attempted omeprazole in the pat (developed a rash and stopped), currently taking famotidine 20mg QD which has been helpful but does not stop symptoms. Reports last EGD 2016, colonoscopy last performed almost ten years prior. Reports history of irritable bowel. Has not identified triggers with her irritable bowel. She will get cramping with diarrhea and occasional abdominal pain. Occurs a couple day a month minimum. She does not treat with medications and symptoms resolve spontaneously. States she does not do well with medications as she often has weird reactions, this is common in her family. US abd 8..21 with no acute or chronic findings. HIDA scan performed 07.03.21 CT abd/pel 09.03.21 found bilateral inguinal hernias containing fat. Mild degenerative changes of lumbar spine. Minimal levoscoliosis. Additional medical history of hyperlipidemia, vitamin D deficiency, endometriosis status post hysterectomy and bilateral oophorectomy in 2003, gastroesophageal reflux disease, depression, anxiety, osteoporosis. She sees Dr. Carranza, neurologist for fibromyalgia, fatigue, migraine headache, cervical spinal stenosis. ROS Const Constitutional: No anorexia, fatigue, fever(s), weight change or sleep problems Eyes Eyes: No change in vision ENT ENT: No abnormal hearing, difficulty swallowing, mouth lesions, tongue swelling or throat swelling Resp Respiratory: No cough or shortness of breath Cardio Cardiology: No chest pain at rest, chest pain with exertion, shortness of breath or dyspnea on exertion Gastro GI: No difficulty swallowing Genitourinary-Female: No difficulty urinating or burning urination Musc Musculoskeletal: No joint pain, joint swelling, muscle weakness or decreased muscle mass Skin Skin: No hair loss in leg, yellowing of the eye, itchy eyes, rash, skin ulcer or skin swelling Neuro Neurology: No abnormal hearing, abnormal movements, confusion, unsteady gait/balance or memory loss Psych Psychiatric: No anxiety, No confusion and No memory loss Endo Endocrine: No fatigue or weight change Aller/Imm Allergy/Immunologic: No itchy eyes, throat swelling or tongue swelling Bryan/Lymp Hematologic/Lymphatic: No easy bleeding, easy bruising or enlarged lymph nodes Exam Const General: cooperative and comfortable Nutritional Appearance: average body habitus and well nourished [facility] Head: normal to inspection Ears: hearing grossly normal bilaterally Nose: external nose normal Face and sinus: normal facial exam Mouth: oral mucosae normal Throat: posterior oropharynx normal Eyes General: appearance normal, both eyes and all related structures Neck Neck: normal visual inspection Chest Chest palpation & inspection: normal inspection of the chest and normal palpation of entire chest wall Resp Effort & Inspection: normal respiratory effort Auscultation: Bilateral: Clear to Auscultation Cardio Palpation: normal PMI Rate: regular rate Rhythm: regular rhythm GI Inspection: normal to inspection Auscultation: normal bowel sounds Percussion: normal to percussion Palpation: no hepatosplenomegaly Skin General: no rashes or lesions noted Neuro General: patient alert Extrem General: normal to inspection Psych Affect: normal affect Quality Reporting Tobacco Screening ([facility] 138) Smoking Status: Never smoker Assessment and Plan Assessment and Plan (1) Diarrhea: Status: Acute Orders: Orders: CRP Today Erythrocyte Sed Rate Today ANCA Today Celiac Disease Profile Today Immunoglobulin E Today Immunoglobulin G Today LDH Today Immunoglobulin M Today Plan - Dr. Barrientos Friend, DO: The differential diagnosis for her diarrhea does include inflammatory bowel disease, celiac disease, ANCA associated enteritis, IBS with diarrhea, accelerated gastrocolic reflex. We will perform a biochemical work-up and perform an EGD and colonoscopy evaluation of the small bowel. She may also need a capsule endoscopy to evaluate her entire small bowel. She was okay with this plan. I have re-examined the patient. There are no clinical changes since date of exam.
--- NOTE | 2022-03-04 10:30 | OP.EGD_ITS ---
Patient Name: Dairela Horan Procedure Date: 03/04/2022 9:52 AM Date of : 1960 Age: 61 Procedure: Upper GI endoscopy Indications: Heartburn Providers: Floyd Bellamy DO Referring MD: Floyd Bellamy DO Medicines: Monitored Anesthesia Care Patient Profile: This is a 61 year old female. Refer to note in patient chart for documentation of history and physical. Patient has symptoms of chronic heartburn. Complications: No immediate complications. There are multiple small fundic gland polyps seen. Procedure: Pre-Anesthesia Assessment: - Prior to the procedure, a History and Physical was performed, and patient medications and allergies were reviewed. The patient is competent. The risks and benefits of the procedure and the sedation options and risks were discussed with the patient. All questions were answered and informed consent was obtained. Patient identification and proposed procedure were verified by the physician in the pre-procedure area. Mental Status Examination: alert and oriented. Airway Examination: normal oropharyngeal airway and neck mobility. Respiratory Examination: clear to auscultation. CV Examination: normal. Prophylactic Antibiotics: The patient does not require prophylactic antibiotics. Prior Anticoagulants: The patient has taken no previous anticoagulant or antiplatelet agents. ASA Grade Assessment: II - A patient with mild systemic disease. After reviewing the risks and benefits, the patient was deemed in satisfactory condition to undergo the procedure. The anesthesia plan was to use moderate sedation / analgesia (conscious sedation). Immediately prior to administration of medications, the patient was re-assessed for adequacy to receive sedatives. The heart rate, respiratory rate, oxygen saturations, blood pressure, adequacy of pulmonary ventilation, and response to care were monitored throughout the procedure. The physical status of the patient was re-assessed after the procedure. After obtaining informed consent, the endoscope was passed under direct vision. Throughout the procedure, the patient's blood pressure, pulse, and oxygen saturations were monitored continuously. The pediatric colonoscope was introduced through the mouth, and advanced to the second part of duodenum. The upper GI endoscopy was accomplished without difficulty. The patient tolerated the procedure well. Moderate Sedation: Moderate (conscious) sedation was personally administered by an anesthesia professional. The following parameters were monitored: oxygen saturation, heart rate, blood pressure, and response to care. Total physician intraservice time was 15 minutes. Scope In: 10:02:51 AM Scope Out: 10:09:23 AM Total Procedure Duration Time 0 hours 6 minutes 32 seconds Findings: LA Grade B (one or more mucosal breaks greater than 5 mm, not extending between the tops of two mucosal folds) esophagitis with bleeding was found 35 to 39 cm from the incisors. Biopsies were taken with a cold forceps for histology. Verification of patient identification for the specimen was done. Estimated blood loss was minimal. LA Grade B (one or more mucosal breaks greater than 5 mm, not extending between the tops of two mucosal folds) esophagitis with no bleeding was found 36 to 40 cm from the incisors. Biopsies were taken with a cold forceps for histology. Verification of patient identification for the specimen was done. Estimated blood loss was minimal. The second portion of the duodenum was normal. Biopsies were taken with a cold forceps for histology. Estimated blood loss was minimal. Impression: - LA Grade B reflux esophagitis. Rule out Ledbetter's esophagus. Biopsied. - LA Grade B reflux esophagitis. Biopsied. - Normal second portion of the duodenum. Biopsied. Recommendation: - Discharge patient to home. - Resume previous diet. - Continue present medications. - Await pathology results. - Repeat upper endoscopy today for surveillance based on pathology results. - Return to GI office in 2 weeks. Procedure Code(s): --- Professional --- 39991, Esophagogastroduodenoscopy, flexible, transoral; with biopsy, single or multiple CPT copyright 2017 [employer]. All rights reserved. The codes documented in this report are preliminary and upon dental therapist review may be revised to meet current compliance requirements. Floyd Bellamy DO 03/04/2022 10:29:45 AM This report has been signed electronically. Number of Addenda: 1 Note Initiated On: 03/04/2022 9:52 AM Addendum Number: 1 Addendum Date: 07/31/2022 6:32:36 AM MAC was used as sedation for this procedure. Floyd Bellamy DO 07/31/2022 6:32:40 AM This report has been signed electronically.
--- NOTE | 2022-03-04 10:31 | OP.CCLET_ITS ---
07/31/2022 Mary Ponce [place] [id number] [address] Re : Upper GI endoscopy procedure for Dariela Horan Dear Dr. Ponce This procedure was performed on Friday, March 04, 2022. My impressions and recommendations are as follows: Impressions : - LA Grade B reflux esophagitis. Rule out Ledbetter's esophagus. Biopsied. - LA Grade B reflux esophagitis. Biopsied. - Normal second portion of the duodenum. Biopsied. Recommendations : - Discharge patient to home. - Resume previous diet. - Continue present medications. - Await pathology results. - Repeat upper endoscopy today for surveillance based on pathology results. - Return to GI office in 2 weeks. My findings are described in the full procedure note, which is enclosed. If I can be of further assistance, please feel free to contact me at . Sincerely, Floyd Bellamy, 03/04/2022 10:29:45 AM This report has been signed electronically.
--- NOTE | 2022-03-04 10:38 | OP.COLON_ITS ---
Patient Name: Dariela Horan Procedure Date: 03/04/2022 10:09 AM Date of : 1960 Age: 61 Procedure: Colonoscopy Indications: Screening for colorectal malignant neoplasm Providers: Floyd Bellamy DO Referring MD: Floyd Bellamy DO Patient Profile: This is a 61 year old female. Refer to note in patient chart for documentation of history and physical. Patient has symptoms of chronic heartburn. Last Colonoscopy: more than 10 years ago. Complications: No immediate complications. Procedure: Pre-Anesthesia Assessment: - Prior to the procedure, a History and Physical was performed, and patient medications and allergies were reviewed. The patient is competent. The risks and benefits of the procedure and the sedation options and risks were discussed with the patient. All questions were answered and informed consent was obtained. Patient identification and proposed procedure were verified by the physician in the pre-procedure area. Mental Status Examination: alert and oriented. Airway Examination: normal oropharyngeal airway and neck mobility. Respiratory Examination: clear to auscultation. CV Examination: normal. Prophylactic Antibiotics: The patient does not require prophylactic antibiotics. Prior Anticoagulants: The patient has taken no previous anticoagulant or antiplatelet agents. ASA Grade Assessment: II - A patient with mild systemic disease. After reviewing the risks and benefits, the patient was deemed in satisfactory condition to undergo the procedure. The anesthesia plan was to use moderate sedation / analgesia (conscious sedation). Immediately prior to administration of medications, the patient was re-assessed for adequacy to receive sedatives. The heart rate, respiratory rate, oxygen saturations, blood pressure, adequacy of pulmonary ventilation, and response to care were monitored throughout the procedure. The physical status of the patient was re-assessed after the procedure. After I obtained informed consent, the scope was passed under direct vision. Throughout the procedure, the patient's blood pressure, pulse, and oxygen saturations were monitored continuously. The Colonoscope was introduced through the anus and advanced to the terminal ileum. The colonoscopy was performed without difficulty. The patient tolerated the procedure well. The quality of the bowel preparation was good. Moderate Sedation: The administration of moderate sedation was initiated at 09:01 AM. Scope In: 10:12:03 AM Scope Withdrawal Time 0 hours 7 minutes 45 seconds Scope Out: 10:22:56 AM Total Procedure Duration Time 0 hours 10 minutes 53 seconds Findings: The perianal and digital rectal examinations were normal. Multiple small and large-mouthed diverticula were found in the recto-sigmoid colon and sigmoid colon. The colon (entire examined portion) appeared normal. The colon (entire examined portion) appeared normal. Impression: - Diverticulosis in the recto-sigmoid colon and in the sigmoid colon. - The entire examined colon is normal. - The entire examined colon is normal. - No specimens collected. Recommendation: - Discharge patient to home. - Resume previous diet. - Continue present medications. - Await pathology results. - Repeat colonoscopy in 10 years for screening purposes. - Return to GI office in 1 week. Procedure Code(s): --- Professional --- 01473, Colonoscopy, flexible; diagnostic, including collection of specimen(s) by brushing or washing, when performed (separate procedure) CPT copyright 2017 [employer]. All rights reserved. The codes documented in this report are preliminary and upon field rep review may be revised to meet current compliance requirements. Floyd Bellamy DO 03/04/2022 10:37:56 AM This report has been signed electronically. Number of Addenda: 1 Note Initiated On: 03/04/2022 10:09 AM Addendum Number: 1 Addendum Date: 07/31/2022 6:32:47 AM MAC was used as sedation for this procedure. Floyd Bellamy DO 07/31/2022 6:32:52 AM This report has been signed electronically.
--- NOTE | 2022-03-04 10:39 | OP.CCLET_ITS ---
07/31/2022 Mary Ponce [place] [address] [place] [address] Re : Colonoscopy procedure for Dariela Horan Dear Dr. Ponce This procedure was performed on Friday, March 04, 2022. My impressions and recommendations are as follows: Impressions : - Diverticulosis in the recto-sigmoid colon and in the sigmoid colon. - The entire examined colon is normal. - The entire examined colon is normal. - No specimens collected. Recommendations : - Discharge patient to home. - Resume previous diet. - Continue present medications. - Await pathology results. - Repeat colonoscopy in 10 years for screening purposes. - Return to GI office in 1 week. My findings are described in the full procedure note, which is enclosed. If I can be of further assistance, please feel free to contact me at . Sincerely, Floyd Friend, 03/04/2022 10:37:56 AM This report has been signed electronically.
== END 2022-03-04 12:00 | disposition home or self-care (01) ==
LOC: EN 08:49 → AC 08:53
PROVIDERS: PCP Family Medicine; Referring Provider Internal Medicine Gastroenterology; Visit Provider Internal Medicine Gastroenterology
PROC: 0DJD8ZZ Inspection of Lower Intestinal Tract, Via Natural or Artificial Opening Endoscopic (ICD-10-PCS; CPT 45378; principal; 2022-03-04 09:55)
DX: Z12.11 Encounter for screening for malignant neoplasm of colon (principal); K21.00 Gastro-esophageal reflux disease with esophagitis, without bleeding; R19.7 Diarrhea, unspecified; K22.70 Barrett's esophagus without dysplasia; K57.30 Diverticulosis of large intestine without perforation or abscess without bleeding; E78.5 Hyperlipidemia, unspecified; K21.9 Gastro-esophageal reflux disease without esophagitis; F32.A Depression, unspecified; F41.9 Anxiety disorder, unspecified
CPT/HCPCS: 45378; 43239; 87426; 88305; 88313; 88341; 88342; C9803; J7120; J2405

== ENCOUNTER → 2022-03-25 | Outpatient (CLI) | payer OTHER, SELFPAY | END | disposition home or self-care (01) | LOC: LAB 09:09 | PROVIDERS: PCP Family Medicine; Referring Provider Nurse Practitioner Adult Health; Visit Provider Nurse Practitioner Adult Health | DX: R19.7 Diarrhea, unspecified (principal) | CPT/HCPCS: 36415; 82941 ==

== ENCOUNTER → 2022-06-03 | Outpatient (CLI) | payer OTHER, SELFPAY ==
[2022-06-03 14:34] LABS: Absolute Lymphocyte Count 1.76 X10^3/uL (0.83-4.51); Absolute Neutrophil Count 4.5 X10^3/uL (2.0-7.7); Basophil# 0.08 X10^3/uL; Basophil% 1.2 % (0-1); Eosinophil# 0.06 X10^3/uL; Eosinophils% 0.9 % (0-5); Hematocrit 42.7 % (37-47); Hemoglobin 14.2 g/dL (12.0-15.0); Lymphocyte # 1.76 X10^3/ul (0.83-4.51); Lymphocyte % 25.5 % (19-41); Mean Corp Hgb Conc 33.3 g/dL (32-36); Mean Corpuscular Hgb 31.5 pg (27.0-32.0); Mean Corpuscular Volume 94.7 fL (81-99); Mean Platelet Vol. 10.3 fl (6.2-12.0); Monocyte# 0.47 X10^3/uL; Monocyte% 6.8 % (0-10); NRBC Flagged by Analyzer 0 % (0-5); Neutrophil # 4.53 X10^3/uL (2.7-7.7); Neutrophil % 65.5 % (47-70); Platelet Count 306 K/mm3 (150-450); RBC Distribution Width CV 13.3 % (11.6-14.6); RBC Distribution Width SD 46.9 fl (35.1-43.9); Red Blood Count 4.51 M/mm3 (4.2-5.4); White Blood Count 6.9 K/mm3 (4.4-11.0)
[2022-06-03 15:20] LABS: ALB/GLOB Ratio 1.1 RATIO (0.9-2.4); AST(SGOT) 21 U/L (15-37); Alanine Aminotransfer ALT/SGPT 27 U/L (13-56); Alkaline Phosphatase 96 U/L (45-117); Anion Gap 5 (5-15); BUN 13 mg/dL (7-18); BUN/Creat Ratio 15.5 RATIO (10-20); Calcium,Total 9.4 mg/dL (8.5-10.1); Chloride 110 mmol/L (98-107); Creatinine, Serum 0.84 mg/dL (0.55-1.02); EST Glomerular Filtration Rate 73 mL/min (>60); Est Glom Filt Rate - Afr Amer 89 mL/min (>60); Globulin 3.7 g/dL (2.2-4.2); Glucose 103 mg/dL (74-106); Potassium 4.1 mmol/L (3.5-5.1); Protein, Total 7.7 g/dL (6.4-8.2); Sodium Level 142 mmol/L (136-145)
== END | disposition home or self-care (01) ==
LOC: LAB 14:23
PROVIDERS: PCP Family Medicine; Visit Provider Nurse Practitioner Adult Health
DX: K21.9 Gastro-esophageal reflux disease without esophagitis (principal)
CPT/HCPCS: 36415; 80053; 85025

== ENCOUNTER → 2022-09-03 | Outpatient (CLI) | payer OTHER, SELFPAY ==
--- NOTE | 2022-09-03 11:33 | RAD_ITS ---
STUDY: X-RAY - RIGHT SHOULDER REASON FOR EXAM: Female, 61 years old. Pain. TECHNIQUE: 4 view(s) of the shoulder. COMPARISON: None. FINDINGS: Osteopenia. Mild arthrosis of the glenohumeral joint. Mild arthrosis of the AC joint. Normal acromion. Normal humeral head and visualized proximal humerus. The soft tissue structures are unremarkable. Normal visualized pulmonary apex. RAD/Shoulder min 2 Views IMPRESSION: Osteopenia with mild arthrosis of the glenohumeral and acromioclavicular joints. No acute abnormality or erosive changes. Electronically Signed: Jim Gabriel, at 13:01 EDT ,
== END | disposition home or self-care (01) ==
LOC: MTRAD 11:32
PROVIDERS: PCP Family Medicine; Referring Provider Family Medicine; Visit Provider Family Medicine
DX: M25.519 Pain in unspecified shoulder (principal)
CPT/HCPCS: 73030

== ENCOUNTER → 2022-09-23 | Outpatient (CLI) | payer OTHER, SELFPAY ==
--- NOTE | 2022-09-23 10:47 | BI_ITS ---
DIGITAL MAMMOGRAPHY - BILATERAL SCREENING TOMOSYNTHESIS REASON FOR EXAM: Female, 61 years old. Routine annual screening examination. PERTINENT HISTORY: History of prior biopsies. TECHNIQUE: Digital bilateral breast tomosynthesis (3-D mammographic acquisition) in the CC and MLO projections. Synthesized 2-D images (C-View reconstruction from tomosynthesis acquisition) providing bilateral breast CC and MLO views. CAD: Computer Aided Detection was performed on this study. COMPARISON: September 22, 2021, September 19, 2020. FINDINGS: Breast Composition: The breasts are heterogeneously dense, which may obscure small masses. There are no dominant masses, suspicious microcalcifications, architectural distortion, skin thickening or skin retraction. Tissue clip marker in right breast, unchanged. Stable lymph nodes and benign calcifications. BI/SCRN MAMM (CAD)W/TIANNA BILAT IMPRESSION: Stable mammogram. Yearly follow-up recommended. ASSESSMENT CATEGORY: BIRADS Category 2: Benign. FOLLOW UP RECOMMENDATION: Follow up recommended within 12 months. STATISTICAL INFORMATION FOR PATIENTS AND PHYSICIANS: A. A negative report should not delay biopsy if a dominant mass or clinically suspicious mass is present. 5-8% of breast cancers are not identified by mammography. B. Comparison with prior films increases the sensitivity of mammography for detection of early malignancy. Screening mammography is done annually to evaluate subtle changes of the breasts that otherwise may not be apparent without comparison to previous examinations. While attempts to retrieve prior examinations will be made on your behalf when thought to be necessary in the workup of a suspicious finding, it is the patient''s responsibility to provide the examining facility with any prior examinations. All patients aged 40 years and older undergoing screening mammography are entered into a reminder system with a target date for the next mammogram. Electronically Signed: Jim Gabriel, at 12:02 EST ,
== END | disposition home or self-care (01) ==
LOC: OPBI 10:46
PROVIDERS: PCP Family Medicine; Visit Provider Nurse Practitioner Women's Health
DX: Z12.31 Encounter for screening mammogram for malignant neoplasm of breast (principal)
CPT/HCPCS: 77063; 77067

== ENCOUNTER 2022-12-03 08:15 | Day surgery (SDC) | payer OTHER, SELFPAY ==
[2022-12-03] VITALS (8 sets, daily range): BP systolic 114–142; BP diastolic 68–84; PULSE 59–73; RESP 16; TEMP 36.1–36.8; O2SAT 95–100; BMI 24.5
[2022-12-03] MEDS: Lactated Ringers 1,000 ML 15 ML IV (08:45)
--- NOTE | 2022-12-03 10:00 | IMM_PTH ---
PATIENT: CHAPITO GRIMES LOC: EN U#:[id number] AGE/SX: 62/F ROOM: RE12/03/[address]: Dr. Floyd Bellamy DO : 1960 BED: DIS: 12/03/2022 SPEC #: [id number] RECD: 12/04/22 13:34 STATUS: STEVIE REDoc #: [id number] JESSY: 12/03/22 10:[address]: Floyd Bellamy DEPT: IMMUNOHISTOCHEMISTRY RECD BY: Donna Mckenzie ENTERED: 12/04/22 13:35 SP TYPE: IMMUNO OTHR DR: Dr. Mary Ponce MD Tissues: B - Stomach, NOS C - Esophagus, NOS Procedures: H Pylori (initial) P53 (initial) KI-67 (add) PHYSICIAN & INSTITUTION [facility] [id number] SPECIMEN INFORMATION: Tissue Source: B ? Gastric biopsy, C ? Distal esophagus Clinical Info: GERD Specimen Number: [id number] B & C CPT code: 80636 x2, 77928 METHODOLOGY: Deparaffinized sections of prefer/formalin-fixed tissue or PAP/DQ stained slides are incubated with monoclonal/polyclonal antibodies/oligonucleotide probes. Localization is made via biotin free immunoperoxidase method. Appropriate controls are performed and reacted as expected. Results on target cell population are indicated in the following table: RESULTS: ANTIBODY / CLONE RESULT Block B H Pylori (polyclonal) negative Block C P53 (DO-7) negative Ki-67 (30-9) negative These tests were developed and their performance characteristics determined by [facility]. They may not have been cleared or approved by the U.S. Food and Drug Administration. The FDA has determined that such clearance or approval is not necessary. The above immunohistochemical/dualISH markers are ordered and reviewed by the Pathologist. INTERPRETATION: B. Gastric biopsy: Negative for Helicobacter pylori organisms. C. Distal esophagus, biopsy: No evidence of dysplasia. AM:lucrecia 12/09/2022
--- NOTE | 2022-12-03 10:00 | EGD_PTH ---
PATIENT: CHAPITO GRIMES LOC: EN U#:[id number] AGE/SX: 62/F ROOM: RE12/03/[address]: Dr. Floyd Bellamy DO : 1960 BED: DIS: 12/03/2022 SPEC #: [id number] RECD: 12/03/22 14:08 STATUS: STEVIE REDoc #: [id number] JESSY: 12/03/22 10:[address]: Floyd Bellamy DEPT: SURGICAL PATHOLOGY RECD BY: Dylan Starkey ENTERED: 12/04/22 12:42 SP TYPE: EGD BIOPSY OT DR: Dr. Mary Ponce MD Tissues: A - Duodenum, NOS B - Gastric mucous membrane C - Esophagus, NOS Procedures: Special Stain Group II Surgery Specimen Level IV Alcian Blue/PAS (control) HEADER OPERATION: EGD (MAC), dilation PRE-OP DIAGNOSIS: GERD TISSUE SUBMITTED: A ? Duodenum biopsy, B ? Gastric biopsy, C ? Distal esophagus MICROSCOPIC DIAGNOSIS A. Duodenum, biopsy: No pathologic change. B. Gastric mucosa, biopsy: Mild chronic inflammation. See comment. C. Distal esophagus, biopsy: Gastroesophageal junctional mucosa with chronic inflammation. Focal changes of reflux. Focal goblet cell metaplasia. No evidence of dysplasia. See comment. AM:vipin 12/07/2022 COMMENT B. The results of immunohistochemistry for Helicobacter pylori will be reported separately ([id number]). C. Immunohistochemistry ([id number]) for P53 and Ki-67 will be performed and results will be reported separately. Alcian blue/PAS stain with matched control supports the above diagnosis. MICROSCOPIC DESCRIPTION Slides are reviewed. GROSS DESCRIPTION A - Received in fixative is one container labeled with the patient's name and designated duodenum biopsy. The specimen consists of one irregular fragment of light guevara soft tissue that measures 0.3 x 0.3 x 0.1 cm. The specimen is totally submitted in one cassette. B - Received in fixative is one container labeled with the patient's name and designated gastric biopsy. The specimen consists of one irregular fragment of light guevara soft tissue that measures 0.4 x 0.4 x 0.1 cm. The specimen is totally submitted in one cassette. C - Received in fixative is one container labeled with the patient's name and designated distal esophageal biopsy. The specimen consists of multiple irregular fragments of light guevara soft tissue that in aggregate measure 0.5 x 0.6 x 0.1 cm. The specimen is totally submitted in one cassette. / SJ:vipin 12/04/2022 TC:3 CPT: 55335 x3, 96740
--- NOTE | 2022-12-03 10:06 | HP.PCM_ITS ---
History and Physical Date of Admission: 12/03/22 CHAPITO GRIMES, is a 61 F who presents to the office today for 2 month flare of acid reflux, dysphagia and epigastric pain. Symptoms are slightly better now than they were last month. At her last visit on 06/01/22 her GERD was controlled with pantoprazole 40 mg daily, she remains on the medication. Acid reflux despite PPI therapy; flared up about 2 mos ago; happens about 2x per week. Feels like food is getting stuck in upper/mid esophagus, especially when she first starts eating. Can feel like water is slow to pass through esophagus. Getting epigastric pain; happens at least 2x per wk; can be assoc with nausea. Can radiate through to the back but not every time. Pain occurs different times of the day, not necessarily related to eating. Intermittent diarrhea, no pattern, this is unchanged x years. We had communicated via the portal, she tried increasing PPI to BID dosing w/o relief of symptoms. She preferred to hold off on testing due to high deductible; I had suggested esophagram and gastric emptying study. 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 No pathology in the duodenum.? Entire examined colon was normal, other than diverticulosis. Patient established with this office on 11/18/2021 with complaints of upper abdominal pain, acid reflux/chest pain, bloating, diarrhea.? She had tried omeprazole in the past but developed a rash??she reports the rash covered her entire body, it was like a sunburn, she tried the medication twice with the same results.? She was taking famotidine which helped but did not resolve symptoms.? Bowels are loose and urgent.? She reports her typical pattern was a daily bowel movement, often diarrhea, and that this has been a lifelong pattern. History of IBS. US abd 8.01.19 with no acute or chronic findings. HIDA scan performed 07.03.21--normal CT abd/pel 09.03.21 found bilateral inguinal hernias containing fat. Mild degenerative changes of lumbar spine. Minimal levoscoliosis. ROS Const Constitutional: Positive for fatigue and headache(s) ENT ENT: Positive for headache(s) and difficulty swallowing Gastro GI: Positive for abdominal pain, bloating, diarrhea, difficulty swallowing, e xcessive flatus and nausea/dyspepsia; No belching, change in bowel habits, change in stool character, coffee ground emesis, constipation, cramping, heartburn, feeling full early, incontinent of stools, Vomiting blood/hematemesis, Blood in stool, loose stools, Black,tarry stools, pain with swallowing, vomiting or other Musc Musculoskeletal: Positive for joint pain, muscle weakness, stiffness and Arthritis Skin Skin: No yellowing of the eye or itchy eyes Neuro Neurology: Positive for headache(s) Psych Psychiatric: Positive for anxiety and Positive for depression Endo Endocrine: Positive for fatigue Aller/Imm Allergy/Immunologic: No itchy eyes Bryan/Lymp Hematologic/Lymphatic: No easy bleeding or easy bruising Exam Const General: cooperative and no acute distress Nutritional Appearance: average body habitus Orientation: alert, awake and oriented x3 Eyes General: appearance normal, both eyes and all related structures Resp Effort & Inspection: normal respiratory effort GI Inspection: normal to inspection Palpation: soft, no hepatosplenomegaly, no masses and tender in the epigastrum and in the LUQ Quality Reporting Tobacco Screening ([facility]) Smoking Status: Never smoker Assessment and Plan Assessment and Plan (1) GERD (gastroesophageal reflux disease): ?Status:?Acute ?Plan: 61 yr old female with flare of acid reflux, dysphagia and epigastric pain despite taking pantoprazole 40 mg daily for GERD and Lebdetter's esophagus. She was due for repeat EGD in 03/2023, we will move that up to 12/2022. She prefers to hold off on any tests such as esophagram or gastric emptying study due to high deductible. Will try liquid sucralfate QAC for one month for possible gastritis. She has IBS, may have some functional dyspepsia. Has prn baclofen for muscle pains, could consider trying it for possible esophageal spasms. (2) Dysphagia: ?Status:?Acute ?Plan: as above (3) Epigastric pain: ?Status:?Acute ?Plan: as above ? ? ? Medications: New sucralfate 10 mL? PO QAC 1,000 mL 0RF ? ? I have examined the patient and the H&P has been reviewed. There are no clinical changes since date of exam.
--- NOTE | 2022-12-03 10:33 | OP.EGD_ITS ---
Patient Name: Dariela Horan Procedure Date: 12/03/2022 10:05 AM Date of : 1960 Age: 62 Procedure: Upper GI endoscopy Indications: Epigastric abdominal pain, Dysphagia, Ledbetter's esophagus Providers: Floyd Bellamy DO Medicines: Monitored Anesthesia Care Patient Profile: This is a 62 year old female. Refer to note in patient chart for documentation of history and physical. Patient has symptoms of acute epigastric abdominal pain and acute dysphagia. Complications: No immediate complications. Procedure: Pre-Anesthesia Assessment: - Prior to the procedure, a History and Physical was performed, and patient medications and allergies were reviewed. The risks and benefits of the procedure and the sedation options and risks were discussed with the patient. All questions were answered and informed consent was obtained. Patient identification and proposed procedure were verified by the physician in the pre-procedure area. Mental Status Examination: alert and oriented. Airway Examination: normal oropharyngeal airway and neck mobility. Prophylactic Antibiotics: The patient does not require prophylactic antibiotics. Prior Anticoagulants: The patient has taken no previous anticoagulant or antiplatelet agents. After reviewing the risks and benefits, the patient was deemed in satisfactory condition to undergo the procedure. The anesthesia plan was to use monitored anesthesia care (MAC). Immediately prior to administration of medications, the patient was re-assessed for adequacy to receive sedatives. The heart rate, respiratory rate, oxygen saturations, blood pressure, adequacy of pulmonary ventilation, and response to care were monitored throughout the procedure. The physical status of the patient was re-assessed after the procedure. After obtaining informed consent, the endoscope was passed under direct vision. Throughout the procedure, the patient's blood pressure, pulse, and oxygen saturations were monitored continuously. The gastroscope was introduced through the mouth, and advanced to the second part of duodenum. The upper GI endoscopy was accomplished without difficulty. The patient tolerated the procedure well. Scope In: 10:13:53 AM Scope Out: 10:24:01 AM Total Procedure Duration Time 0 hours 10 minutes 8 seconds Findings: One benign-appearing, intrinsic stenosis was found 20 to 21 cm from the incisors. This stenosis was moderately severe and. The stenosis was traversed. A guidewire was placed and the scope was withdrawn. Dilation was performed with a Savary dilator with no resistance at 60 Fr. The dilation site was examined and showed moderate improvement in luminal narrowing. Estimated blood loss was minimal. 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 The maximum longitudinal extent of these mucosal changes was 3 cm in length. Mucosa was biopsied with a cold forceps for histology in a targeted manner at intervals of 1 cm in the lower third of the esophagus. One specimen bottle was sent to pathology. Verification of patient identification for the specimen was done. Estimated blood loss was minimal. A small hiatal hernia was present. Patchy mildly erythematous mucosa without bleeding was found in the gastric body. Biopsies were taken with a cold forceps for histology. Verification of patient identification for the specimen was done. Estimated blood loss was minimal. The second portion of the duodenum was normal. Biopsies were taken with a cold forceps for histology. Verification of patient identification for the specimen was done. Estimated blood loss was minimal. Impression: - Benign-appearing esophageal stenosis. Dilated. - Esophageal mucosal changes secondary to established short-segment Ledbetter's disease. Biopsied. - Small hiatal hernia. - Erythematous mucosa in the gastric body. Biopsied. - Normal second portion of the duodenum. Biopsied. Recommendation: - Discharge patient to home. - Resume previous diet. - Continue present medications. - Await pathology results. Procedure Code(s): --- Professional --- 42910, Esophagogastroduodenoscopy, flexible, transoral; with insertion of guide wire followed by passage of dilator(s) through esophagus over guide wire [id number], 59, Esophagogastroduodenoscopy, flexible, transoral; with biopsy, single or multiple CPT copyright 2017 [employer]. All rights reserved. The codes documented in this report are preliminary and upon paint pourer review may be revised to meet current compliance requirements. Floyd Bellamy DO 12/03/2022 10:32:50 AM This report has been signed electronically. Number of Addenda: 0 Note Initiated On: 12/03/2022 10:05 AM
--- NOTE | 2022-12-03 10:33 | OP.CCLET_ITS ---
12/03/2022 Mary Ponce [place] [id number] [address] Re : Upper GI endoscopy procedure for Dariela Horan Dear Dr. Ponce This procedure was performed on December. My impressions and recommendations are as follows: Impressions : - Benign-appearing esophageal stenosis. Dilated. - Esophageal mucosal changes secondary to established short-segment Ledbetter's disease. Biopsied. - Small hiatal hernia. - Erythematous mucosa in the gastric body. Biopsied. - Normal second portion of the duodenum. Biopsied. Recommendations : - Discharge patient to home. - Resume previous diet. - Continue present medications. - Await pathology results. My findings are described in the full procedure note, which is enclosed. If I can be of further assistance, please feel free to contact me at . Sincerely, Floyd Bellamy, 12/03/2022 10:32:50 AM This report has been signed electronically.
[2022-12-03 10:47] LABS: AST(SGOT) 19 U/L (15-37); Alanine Aminotransfer ALT/SGPT 25 U/L (13-56); Albumin, Serum 3.9 g/dL (3.2-5.0); Alkaline Phosphatase 96 U/L (45-117); Bilirubin, Direct 0.13 mg/dL (0.00-0.30); Cholesterol 303 mg/dL (200); Globulin 3.9 g/dL (2.2-4.2); High Density Lipoprotein 51 mg/dL; Protein, Total 7.8 g/dL (6.4-8.2); Triglycerides 190 mg/dL; Very Low Density Lipoprotein 38 mg/dL (5-40)
== END 2022-12-03 11:37 | disposition home or self-care (01) ==
LOC: EN 08:22 → AC 08:36
PROVIDERS: PCP Family Medicine; Referring Provider Family Medicine; Visit Provider Internal Medicine Gastroenterology
PROC: 0DJ08ZZ Inspection of Upper Intestinal Tract, Via Natural or Artificial Opening Endoscopic (ICD-10-PCS; CPT 43235; principal; 2022-12-03 09:55)
DX: K44.9 Diaphragmatic hernia without obstruction or gangrene (principal); R13.10 Dysphagia, unspecified; K22.2 Esophageal obstruction; K22.70 Barrett's esophagus without dysplasia; K58.9 Irritable bowel syndrome, unspecified; R10.13 Epigastric pain; R53.83 Other fatigue; R51.9 Headache, unspecified; F41.9 Anxiety disorder, unspecified; F32.A Depression, unspecified
CPT/HCPCS: 43239; 43248; 36415; 80061; 80076; 88305; 88313; 88341; 88342; J7120; C1769; J2405

== ENCOUNTER → 2023-02-16 | Outpatient (CLI) | payer OTHER, SELFPAY ==
[2023-02-16 15:19] LABS: Absolute Lymphocyte Count 1.08 X10^3/uL (0.83-4.51); Absolute Neutrophil Count 3.2 X10^3/uL (2.0-7.7); Basophil# 0.07 X10^3/uL; Basophil% 1.5 % (0-1); Eosinophil# 0.06 X10^3/uL; Eosinophils% 1.3 % (0-5); Hematocrit 43.1 % (37-47); Hemoglobin 13.7 g/dL (12.0-15.0); Lymphocyte # 1.08 X10^3/ul (0.83-4.51); Lymphocyte % 22.6 % (19-41); Mean Corp Hgb Conc 31.8 g/dL (32-36); Mean Corpuscular Hgb 30.3 pg (27.0-32.0); Mean Corpuscular Volume 95.4 fL (81-99); Mean Platelet Vol. 11.7 fl (6.2-12.0); Monocyte# 0.36 X10^3/uL; Monocyte% 7.5 % (0-10); NRBC Flagged by Analyzer 0 % (0-5); Neutrophil % 66.9 % (47-70); Platelet Count 300 K/mm3 (150-450); RBC Distribution Width CV 13.6 % (11.6-14.6); RBC Distribution Width SD 48.1 fl (35.1-43.9); Red Blood Count 4.52 M/mm3 (4.2-5.4); White Blood Count 4.8 K/mm3 (4.4-11.0)
[2023-02-16 15:47] LABS: Vitamin D,25 Hydroxy 30.8 ng/mL
[2023-02-17 08:18] LABS: PTHIN 44.1 pg/mL (18.4-80.1)
[2023-02-19 15:08] LABS: Vitamin D 1,25-Dihydroxy 51.7 pg/mL (24.8-81.5)
== END | disposition home or self-care (01) ==
PROVIDERS: PCP Family Medicine; Referring Provider Family Medicine; Visit Provider Family Medicine
DX: E83.52 Hypercalcemia (principal); M81.0 Age-related osteoporosis without current pathological fracture
CPT/HCPCS: 36415; 82306; 82330; 82652; 83970; 85025

== ENCOUNTER → 2023-03-03 | Outpatient (CLI) | payer OTHER, SELFPAY ==
--- NOTE | 2023-03-03 10:49 | BD_ITS ---
STUDY: DUAL ENERGY X-RAY ABSORPTIOMETRY / DXA REASON FOR EXAM: Female, 62 years old. M810 TECHNIQUE: Bone Mineral Density (BMD) measurements of lumbar spine and bilateral hips were obtained. COMPARISON: Comparison is made with prior examination dated February 02, 2017. FINDINGS: Lumbar Spine (L1-L4): g/cm2 (0.869) / T-score (-1.6) / Z-score (0.0) Findings are suggestive of osteopenia with a moderate fracture risk. Left Femur Total: g/cm2 (0.592) / T-score (-2.9) / Z-score (-1.8) Left Femoral Neck: g/cm2 (0.524) / T-score (-2.9) / Z-score (-1.5) Right Femur Total: g/cm2 (0.645) / T-score (-2.4) / Z-score (-1.4) Right Femoral Neck: g/cm2 (0.615) / T-score (-2.1) / Z-score (-0.7) The T-Scores on the most recent prior examination were: Lumbar Spine (L1-L4): There has been worsening of bone density since the previous examination. Left Femur Total: which represents an improvement of 0.4%. Right Femur Total: which represents an improvement of 0.6%. BD/Dexa Bone Density Study IMPRESSION: The patient is considered osteoporotic as outlined below according to World [employer] Organization (WHO) criteria with a high fracture risk. There has been improvement of bone density since the previous examination. Reference Information: The T-score is the number of standard deviations above or below the standard which is normal for young adults at their peak bone mineral density. The World Health Organization (WHO) interprets the T-scores as follows: Above -1 Normal bone density Between -1 and -2.5 Osteopenia Equal to / or below -2.5 Osteoporosis As a practical clinical guideline, osteopenia may be graded as follows: Mild -1 through -1.5 Moderate -1.6 through -2.0 Severe -2.1 through -2.4 The Z-score is the number of standard deviations above or below age-matched controls. A Z-score of less than -1.5 would be considered abnormal. References: 1. NIH Osteoporosis and Related Bone Diseases www osteo.org 2. International Society for Clinical Densitometry www iscd.org 3. National Osteoporosis Foundation www nof.org Electronically Signed: Ranulfo Jon MD at 14:52 EDT ,
== END | disposition home or self-care (01) ==
LOC: OPBD 10:40
PROVIDERS: PCP Family Medicine; Referring Provider Family Medicine; Visit Provider Family Medicine
DX: M81.0 Age-related osteoporosis without current pathological fracture (principal)
CPT/HCPCS: 77080

== ENCOUNTER → 2023-04-13 | Outpatient (CLI) | payer OTHER, SELFPAY ==
[2023-04-13 09:46] LABS: AST(SGOT) 23 U/L (15-37); Alanine Aminotransfer ALT/SGPT 28 U/L (13-56); Albumin, Serum 3.8 g/dL (3.2-5.0); Alkaline Phosphatase 93 U/L (45-117); Bilirubin, Direct 0.16 mg/dL (0.00-0.30); Cholesterol 273 mg/dL (200); Globulin 3.6 g/dL (2.2-4.2); High Density Lipoprotein 61 mg/dL; Protein, Total 7.4 g/dL (6.4-8.2); Triglycerides 133 mg/dL; Very Low Density Lipoprotein 27 mg/dL (5-40)
== END | disposition home or self-care (01) ==
LOC: LAB 08:50
PROVIDERS: PCP Family Medicine; Referring Provider Physician Assistant Medical; Visit Provider Physician Assistant Medical
DX: E78.5 Hyperlipidemia, unspecified (principal)
CPT/HCPCS: 80061; 80076

== ENCOUNTER → 2023-04-22 | Outpatient (CLI) | payer OTHER, SELFPAY ==
--- NOTE | 2023-04-22 13:25 | CT_ITS ---
STUDY: CT CHEST WITHOUT CONTRAST REASON FOR EXAM: Female, 62 years old. CP Limited chest OVER READ ONLY. RADIATION DOSAGE (If Supplied By Facility): CTDIvol = ( 24.91 ) mGy, DLP = ( 1052.91 ) mGycm TECHNIQUE: Transaxial imaging was performed without the administration of intravenous contrast material. Individualized dose optimization techniques were used for this CT. COMPARISON: No relevant priors. FINDINGS: CHEST Minimal increased linear markings at the lung bases suggestive of a mild linear atelectasis and/or scarring. There is no demonstrated pleural abnormality. No coronary artery calcification is seen. Normal mediastinum. Normal hilar regions. Normal unenhanced pulmonary arteries. Normal aorta arch and descending thoracic aorta. Normal osseous structures. There is no demonstrated abnormality of the visualized upper abdomen. CT/Limited Chest CT Cardiac Only IMPRESSION: No coronary artery calcification. Mild increased linear markings at the lung bases suggestive of linear atelectasis and/or scarring. Electronically Signed: Ranulfo Jon MD at 15:02 EDT ,
[2023-04-22 13:32] VITALS: BP 138/76; PULSE 68; RESP 18; O2SAT 99
[2023-04-22 13:52] LABS: CREATININE FINGERSTICK < 0.9 mg/dL (0.55-1.02); EGFR FINGERSTICK > 60.0000 mL/min (>60)
[2023-04-22] MEDS: 0.9% Saline Lock 10 ML Syringe IV (13:57)
[2023-04-22 13:59] VITALS: PULSE 62
[2023-04-22] MEDS: Nitroglycerin SL (ED/IMG/CATH) 0.4 MG TABLET SL (13:59)
[2023-04-22 14:09] VITALS: BP 133/72
--- NOTE | 2023-04-23 09:50 | CCTA.WCONT ---
CCTA w/Cont Coronary Arteries Date of Study:: 04/23/23 Chest pain High-resolution computed tomographic imaging of the chest was performed on 04/22/2023 with particular attention paid to the coronary arteries. Images from the examination were analyzed for the presence and extent of coronary artery calcification using coronary calcification quantification software. Intravenous contrast agent was also injected and images were reconstructed and analyzed. LEFT MAIN CORONARY ARTERY: This arose from the left coronary cusp. It bifurcates into left anterior descending artery and left circumflex artery. No significant stenosis was noted in this vessel. [] LEFT ANTERIOR DESCENDING CORONARY ARTERY: This vessel continued giving off diagonal branch and coursing towards the apex of the ventricle. There was no evidence of atherosclerotic plaquing noted. [] LEFT CIRCUMFLEX CORONARY ARTERY: This was a nondominant vessel arising from the left main coronary artery. No significant stenosis was noted in this vessel as well. [] RIGHT CORONARY ARTERY: This is a dominant vessel arising from the right coronary cusp. It gives off an acute marginal branch and then bifurcating to posterior descending artery and posterolateral vessel. No significant stenosis was noted in this vessel. AORTIC VALVE: Trileaflet valve. CORONARY CALCIUM SCORE: Left main coronary artery 0 Left anterior descending artery 0 Left circumflex artery score 0 Right coronary artery score 0 Total Agatston score 0 Percentile ranking 25% Conclusion: No significant atherosclerotic plaquing noted Coronary calcium score of 0 []
== END | disposition home or self-care (01) ==
PROVIDERS: PCP Family Medicine; Referring Provider Physician Assistant Medical; Visit Provider Physician Assistant Medical
DX: R07.9 Chest pain, unspecified (principal); E78.5 Hyperlipidemia, unspecified; R00.2 Palpitations
CPT/HCPCS: 75571; 75574; 76380; Q9967; A4216

== ENCOUNTER → 2023-07-09 | Outpatient (CLI) | payer OTHER, SELFPAY ==
[2023-07-14 09:09] LABS: Beef <0.10 kU/L (Class 0); Chocolate <0.10 kU/L (Class 0); Codfish <0.10 kU/L (Class 0); Corn 0.19 kU/L (Class 0/I); Egg, White 0.14 kU/L (Class 0/I); Egg, Whole 0.13 kU/L (Class 0/I); Milk (Cow) 0.12 kU/L (Class 0/I); Peanut 0.26 kU/L (Class 0/I); Pork <0.10 kU/L (Class 0); SCALLOP 0.36 kU/L (Class I); SESAME SEED 0.27 kU/L (Class 0/I); Shrimp 0.65 kU/L (Class II); Soybean 0.12 kU/L (Class 0/I); Wheat 0.18 kU/L (Class 0/I)
== END | disposition home or self-care (01) ==
LOC: LAB 11:05
PROVIDERS: PCP Family Medicine; Referring Provider Internal Medicine Gastroenterology; Visit Provider Internal Medicine Gastroenterology
DX: K58.9 Irritable bowel syndrome, unspecified (principal)
CPT/HCPCS: 36415; 86003; 86005

== ENCOUNTER → 2023-08-03 | Outpatient (CLI) | payer OTHER, SELFPAY ==
--- NOTE | 2023-08-03 18:35 | STRESSREP ---
Stress Test Report Exercise myocardial perfusion stress test. 62-year-old lady with a history of chest pain Stress protocol: Resting EKG demonstrates normal sinus rhythm with a rate of 69 bpm resting blood pressure is 124/84 mmHg. The patient exercised according to the regular Steven protocol for a total duration of 6 minutes attaining a maximum heart rate of 153 bpm which was 96% of maximum predicted heart rate; the maximum workload was 7 metabolic equivalents. At rest there were no ST or T wave changes noted to suggest ischemia and at peak exercise upsloping ST changes only were noted which did not meet the criteria for ischemia. No clinical angina was noted the test was terminated due to the target heart rate being achieved/fatigue. The peak blood pressure was 144/84 mmHg. Rate-pressure product was 21,400 Myocardial perfusion protocol. 11.3 mCi of technetium 99m sestamibi was injected at rest. The patient exercised according to regular Steven protocol for total duration of 6 minutes and at peak exercise 32.8 mCi of technetium 99m sestamibi was injected stress images were obtained stress and rest images were reconstructed in comparing the short axis vertical long and horizontal long axis. Gated images were also obtained. Perfusion SPECT analysis: Review of the stress images demonstrate normal uptake of tracer noted in all areas of the myocardium. The resting images similarly demonstrate normal uptake of tracer noted in all areas of the myocardium. No areas of reversibility are noted to suggest ischemia no previous infarct was noted. Gated SPECT analysis: The gated ejection fraction is 76%. Conclusion: Normal exercise myocardial perfusion stress test at a moderate workload Preserved ejection fraction.
== END | disposition home or self-care (01) ==
PROVIDERS: PCP Family Medicine; Referring Provider Internal Medicine Cardiovascular Disease; Visit Provider Internal Medicine Cardiovascular Disease
DX: R00.2 Palpitations (principal); R07.9 Chest pain, unspecified
CPT/HCPCS: 78452; 93017; 93225; 93226; A9500; A4216

== ENCOUNTER 2023-08-30 13:58 | Outpatient (CLI) | payer OTHER, SELFPAY ==
[2023-08-30 14:34] VITALS: BP 133/76; PULSE 66; RESP 16; TEMP 36.4; O2SAT 99; BMI 24.7
[2023-08-30] MEDS: 0.9% NaCl Peripheral Flush Adult/Peds IV (15:06)
[2023-08-30] MEDS: Zoledronic Acid 5 MG 100 ML 300 MG IV (15:06)
[2023-08-30 15:31] VITALS: BP 129/69; PULSE 68; RESP 16; TEMP 36.4; O2SAT 100
== END 2023-08-30 13:59 | disposition home or self-care (01) ==
LOC: MEDOUTP 13:59
PROVIDERS: PCP Family Medicine; Referring Provider Internal Medicine Endocrinology, Diabetes & Metabolism; Visit Provider Internal Medicine Endocrinology, Diabetes & Metabolism
DX: M81.0 Age-related osteoporosis without current pathological fracture (principal)
CPT/HCPCS: 96365; A4216; J3489

== ENCOUNTER → 2023-09-24 | Outpatient (CLI) | payer OTHER, SELFPAY ==
--- NOTE | 2023-09-24 11:46 | BI_ITS ---
MAMMOGRAPHY - BILATERAL SCREENING REASON FOR EXAM: Female, 62 years old. Routine annual screening examination. PERTINENT HISTORY: Non-contributory. Prior right and left stereotactic breast biopsies. TECHNIQUE: Digital bilateral breast tianna (3D mammographic acquisition) in the CC and MLO projections. 2-D mediolateral oblique (MLO) and craniocaudad (CC) views of both breasts were obtained. CAD: Full Field Digital Mammography with Computer Added Detection was performed. COMPARISON: Comparison is made with prior study dated September 23, 2022 and September 22, 2021. FINDINGS: Breast Composition: The breasts are extremely dense, which lowers the sensitivity of mammography. There are no dominant masses or suspicious calcifications. A tissue clip marker is seen in the anterior slightly upper retroareolar region of the right breast. No other significant abnormalities are identified. There has been no significant change since the prior study. BI/SCRN MAMM (CAD)W/TIANNA BILAT IMPRESSION: Stable bilateral screening mammogram. Yearly follow-up mammogram recommended. (A) ASSESSMENT CATEGORY: BIRADS Category 2: Benign. A letter regarding these results will be sent to the patient by the facility within 30 days. Approximately 10% of breast cancers are not detected by mammography. A normal mammogram should not delay biopsy of a clinically suspicious abnormality. [id number] Electronically Signed: Ranulfo Jon MD at 10:00 EST ,
== END | disposition home or self-care (01) ==
LOC: OPBI 11:41
PROVIDERS: PCP Family Medicine; Visit Provider Family Medicine
DX: Z12.31 Encounter for screening mammogram for malignant neoplasm of breast (principal)
CPT/HCPCS: 77063; 77067

== ENCOUNTER 2023-10-11 08:25 | Day surgery (SDC) | payer OTHER, SELFPAY ==
[2023-10-11] MEDS: Lactated Ringers 1,000 ML 15 ML IV (08:49)
[2023-10-11 08:50] VITALS: BP 122/66; PULSE 76; RESP 18; TEMP 36.4; O2SAT 96; BMI 24.7
--- NOTE | 2023-10-11 09:08 | PCM.HP.BLA ---
History and Physical Date of Admission: 10/11/23 62 F who presents to the office today for follow up. PMH HLD, Vit D deficiency, endometriosis s/p hysterectomy and bilateral oophorectomy 2004, GERD, depression/anxiety, osteoporosis. Neurology fibromyalgia, fatigue, migraine, cervical spine stenosis.? *BGI established 11.18.21 upper abdominal pain extending into chest with a burning sensation of mouth/tongue for many years with worsening intensity/frequent. Omeprazole (rash); famotidine 20mg QD somewhat helpful. Intermittent loose stools with abdominal discomfort several days a month.?Biochemical 11.18.21?ESR, CRP, LDH, GAME, ANCA, celiac WNL?EGD and colonoscopy 03.04.22?EGD LA Grade B esophagitis, metaplasia +.?Colonoscopy diverticulosis? OV 03.18.22?start pantoprazole?Biochemical 03.25.22?gastrin? OV 06.01.22?continue pantoprazole?Biochemical 8.01.20?CBC, CMP without pertinent abnormality? Contact 08.04.22 with worsened acid reflux, dysphagia and epigastric discomfort.?Esophagram 08.04.22?not performed, cost prohibitive.?GET 08.04.22?not performed, cost prohibitive? OV 10.12.22 with worsened acid reflux, dysphagia and epigastric discomfort despite protonix use.?Start sucralfate.?EGD .12.24?intrinsic stenosis, Savary 60F; short-segment Ledbetter?s; small hiatal hernia, gastritis.? OV 12.18.22?continue PPI.? ? OV 9 Pt continues to have problems with acid reflux and inconsistent bowels. Takes Pantoprazole 40mg QD but feels like it doesnt agree with her. Has increased gas, bloating and burning in throat. Feels pressure and reflux when leaning forward. Has constant epigastric pain. Nothing makes this worse or better. Bowels are back and forth between diarrhea and constipation. Cannot identify a trigger. ROS Const Constitutional: Positive for fatigue ENT ENT: Positive for difficulty swallowing Gastro GI: Positive for abdominal pain, bloating, constipation, diarrhea, difficulty swallowing, excessive flatus and nausea/dyspepsia; No belching, change in bowel habits, change in stool character, coffee ground emesis, cramping, heartburn, feeling full early, incontinent of stools, Vomiting blood/hematemesis, Blood in stool, loose stools, Black,tarry stools, pain with swallowing, vomiting or other Musc Musculoskeletal: Positive for back pain, muscle cramps, stiffness and Arthritis; No joint pain Skin Skin: No yellowing of the eye or itchy eyes Psych Psychiatric: Positive for anxiety and Positive for depression Endo Endocrine: Positive for fatigue Aller/Imm Allergy/Immunologic: No itchy eyes Bryan/Lymp Hematologic/Lymphatic: No easy bleeding or easy bruising Exam Const General: cooperative, healthy appearing and no acute distress Nutritional Appearance: average body habitus Orientation: alert, awake and oriented x3 Quality Reporting Tobacco Screening ([facility] 138) Smoking Status: Never smoker Assessment and Plan Assessment and Plan (1) IBS (irritable bowel syndrome): Status: Chronic Qualifiers: Irritable bowel syndrome type: without diarrhea Qualified Code(s): K58.9 - Irritable bowel syndrome without diarrhea Plan: Lifelong IBS symptoms and functional dyspepsia (2) Ledbetter's esophagus: Status: Chronic Qualifiers: Ledbetter's esophagus type: without dysplasia Qualified Code(s): K22.70 - Ledbetter's esophagus without dysplasia Plan: Discussed EGD findings, +Ledbetter's still, no dysplasia, continue PPI, f/u one yr, repeat EGD 2 yrs (3) Dysphagia: Status: Chronic Qualifiers: Dysphagia type: esophageal phase Qualified Code(s): R13.19 - Other dysphagia Plan: May be part of functional dyspepsia. Will see if improved following dilation of stenosis. Continue PPI. Orders: Orders Allergen, Food Profile Today K58.9 - Irritable bowel syndrome without diarrhea Allergen, Rast Food Profile Today K58.9 - Irritable bowel syndrome without diarrhea Medications: New doxycycline hyclate 100 mg PO BID 60 caps 0RF Refilled pantoprazole 40 mg PO QAM 180 tabs 3RF I have examined the patient and the H&P has been reviewed. There are no clinical changes since date of exam.
[2023-10-11 09:53] VITALS: BP 106/57; BP 122/66; PULSE 68; RESP 18; TEMP 36.1; O2SAT 96
[2023-10-11 09:55] VITALS: BP 122/66; BP 99/60; PULSE 68; RESP 12; O2SAT 95
--- NOTE | 2023-10-11 09:55 | OP.CCLET_ITS ---
10/11/2023 Mary Ponce [place] [id number] [address] Re : Upper GI endoscopy procedure for Dariela Ledezmalizbet Dear Dr. Ponce This procedure was performed on Wednesday, October 11, 2023. My impressions and recommendations are as follows: Impressions : - Esophageal mucosal changes consistent with short-segment Ledbetter's esophagus. Biopsied. - Multiple gastric polyps. - Erythematous duodenopathy. Biopsied. Recommendations : - Continue present medications. My findings are described in the full procedure note, which is enclosed. If I can be of further assistance, please feel free to contact me at . Sincerely, Floyd Bellamy, 10/11/2023 9:55:02 AM This report has been signed electronically.
--- NOTE | 2023-10-11 09:55 | OP.EGD_ITS ---
Patient Name: Dariela Horan Procedure Date: 10/11/2023 9:37 AM Date of : 1960 Age: 62 Procedure: Upper GI endoscopy Indications: Esophageal reflux, Ledbetter's esophagus Providers: Floyd Bellamy DO Medicines: Monitored Anesthesia Care Patient Profile: This is a 62 year old female. Refer to note in patient chart for documentation of history and physical. Patient has symptoms of dysphagia with both liquids and solids, chronic heartburn and chronic nausea. Complications: No immediate complications. Procedure: Pre-Anesthesia Assessment: - Prior to the procedure, a History and Physical was performed, and patient medications and allergies were reviewed. The patient is competent. The risks and benefits of the procedure and the sedation options and risks were discussed with the patient. All questions were answered and informed consent was obtained. Patient identification and proposed procedure were verified by the physician. Mental Status Examination: normal. Airway Examination: normal oropharyngeal airway and neck mobility. Respiratory Examination: clear to auscultation. CV Examination: normal. Prophylactic Antibiotics: The patient does not require prophylactic antibiotics. Prior Anticoagulants: The patient has taken no anticoagulant or antiplatelet agents. ASA Grade Assessment: II - A patient with mild systemic disease. After reviewing the risks and benefits, the patient was deemed in satisfactory condition to undergo the procedure. The anesthesia plan was to use monitored anesthesia care (MAC). Immediately prior to administration of medications, the patient was re-assessed for adequacy to receive sedatives. The heart rate, respiratory rate, oxygen saturations, blood pressure, adequacy of pulmonary ventilation, and response to care were monitored throughout the procedure. The physical status of the patient was re-assessed after the procedure. After obtaining informed consent, the endoscope was passed under direct vision. Throughout the procedure, the patient's blood pressure, pulse, and oxygen saturations were monitored continuously. The Endoscope was introduced through the mouth, and advanced to the second part of duodenum. The upper GI endoscopy was accomplished without difficulty. The patient tolerated the procedure well. Scope In: 9:42:38 AM Scope Out: 9:47:43 AM Total Procedure Duration Time 0 hours 5 minutes 5 seconds Findings: There were esophageal mucosal changes consistent with short-segment Ledbetter's esophagus present in the lower third of the esophagus. The maximum longitudinal extent of these mucosal changes was 2 cm in length. Mucosa was biopsied with a cold forceps for histology in a targeted manner at intervals of 1 cm in the lower third of the esophagus. One specimen bottle was sent to pathology. Biopsies were taken with a cold forceps for histology. Verification of patient identification for the specimen was done. Estimated blood loss was minimal. Multiple medium hyperplastic polyps with no bleeding and no stigmata of recent bleeding were found in the stomach. Mildly erythematous mucosa without active bleeding and with no stigmata of bleeding was found in the duodenal bulb. Biopsies were taken with a cold forceps for histology. Verification of patient identification for the specimen was done. Estimated blood loss was minimal. Abnormal motility was noted in the proximal esophagus. The cricopharyngeus was normal. There is spasticity of the esophageal body. The distal esophagus/lower esophageal sphincter is spastic, but gives up passage to the endoscope. Secondary peristaltic waves are noted. Impression: - Esophageal mucosal changes consistent with short-segment Ledbetter's esophagus. Biopsied. - Multiple gastric polyps. - Erythematous duodenopathy. Biopsied. Recommendation: - Continue present medications. Procedure Code(s): --- Professional --- 49357, Esophagogastroduodenoscopy, flexible, transoral; with biopsy, single or multiple CPT copyright 2021 [employer]. All rights reserved. The codes documented in this report are preliminary and upon certified medical coder review may be revised to meet current compliance requirements. Floyd Bellamy DO 10/11/2023 9:55:02 AM This report has been signed electronically. Number of Addenda: 0 Note Initiated On: 10/11/2023 9:37 AM
[2023-10-11 10:00] VITALS: BP 122/66; BP 99/67; PULSE 63; RESP 12; O2SAT 100
--- NOTE | 2023-10-11 10:00 | EGD_PTH ---
PATIENT: CHAPITO GRIMES LOC: EN U#:[id number] AGE/SX: 62/F ROOM: RE10/11/[address]: Dr. Floyd Bellamy DO : 1960 BED: DIS: 10/11/2023 SPEC #: [id number] RECD: 10/11/23 13:27 STATUS: STEVIE REDoc #: [id number] JESSY: 10/11/23 10:[address]: Floyd Bellamy DEPT: SURGICAL PATHOLOGY RECD BY: Brooklynn Kimbrough ENTERED: 10/11/23 13:42 SP TYPE: EGD BIOPSY OT DR: Dr. Mary Ponce MD Tissues: A - Esophagus, NOS B - Duodenum, NOS Procedures: Special Stain Group II Surgery Specimen Level IV Alcian Blue/PAS (control) HEADER OPERATION: EGD with biopsies PRE-OP DIAGNOSIS: IBS, Ledbetter's esophagus, dysphagia TISSUE SUBMITTED: A - Distal esophagus biopsy, B - Duodenum biopsy MICROSCOPIC DIAGNOSIS A. Distal esophagus, biopsy: Gastroesophageal junctional mucosa with chronic inflammation. No evidence of goblet cell metaplasia. Focal changes of reflux. See comment. B. Duodenum, biopsy: Focal gastric metaplasia with associated mild chronic inflammation. AM:vipin 10/12/2023 COMMENT A. Alcian blue/PAS stain with matched control supports the above diagnosis. MICROSCOPIC DESCRIPTION Slides are reviewed. GROSS DESCRIPTION A - Received in fixative is one container labeled with the patient's name and designated distal esophagus biopsy. The specimen consists of multiple irregular fragments of light guevara soft tissue that in aggregate measure 0.7 x 0.3 x 0.1 cm. The specimen is totally submitted in one cassette. B - Received in fixative is one container labeled with the patient's name and designated duodenum biopsy. The specimen consists of two irregular fragments of light guevara soft tissue that in aggregate measure 0.6 x 0.3 x 0.1 cm. The specimen is totally submitted in one cassette. / SJ:vipin 10/11/2023 TC:3 CPT: 84882 x2, 58506
[2023-10-11 10:05] VITALS: BP 107/69; BP 122/66; PULSE 62; RESP 18; TEMP 36.1; O2SAT 100
[2023-10-11 10:22] VITALS: BP 122/66
== END 2023-10-11 10:38 | disposition home or self-care (01) ==
LOC: EN 08:25 → AC 08:27
PROVIDERS: PCP Family Medicine; Referring Provider Family Medicine; Visit Provider Internal Medicine Gastroenterology
PROC: 0DJ08ZZ Inspection of Upper Intestinal Tract, Via Natural or Artificial Opening Endoscopic (ICD-10-PCS; CPT 43235; principal; 2023-10-11 09:55)
DX: K22.70 Barrett's esophagus without dysplasia (principal); K58.9 Irritable bowel syndrome, unspecified; K31.7 Polyp of stomach and duodenum; R13.19 Other dysphagia; K31.89 Other diseases of stomach and duodenum
CPT/HCPCS: 43239; 88305; 88313; J7120; J2405

== ENCOUNTER → 2023-10-19 | Outpatient (CLI) | payer OTHER, SELFPAY ==
[2023-10-19 11:15] LABS: AST(SGOT) 26 U/L (15-37); Alanine Aminotransfer ALT/SGPT 27 U/L (13-56); Albumin, Serum 3.6 g/dL (3.2-5.0); Alkaline Phosphatase 79 U/L (45-117); Bilirubin, Direct 0.12 mg/dL (0.00-0.30); Cholesterol 268 mg/dL (200); Globulin 3.7 g/dL (2.2-4.2); High Density Lipoprotein 58 mg/dL; Protein, Total 7.3 g/dL (6.4-8.2); Triglycerides 89 mg/dL; Very Low Density Lipoprotein 18 mg/dL (5-40)
== END | disposition home or self-care (01) ==
LOC: LAB 08:46
PROVIDERS: PCP Family Medicine; Referring Provider Physician Assistant Medical; Visit Provider Physician Assistant Medical
DX: E78.5 Hyperlipidemia, unspecified (principal)
CPT/HCPCS: 36415; 80061; 80076

== ENCOUNTER → 2024-04-13 | Outpatient (CLI) | payer OTHER, SELFPAY ==
[2024-04-13 15:56] LABS: AST(SGOT) 23 U/L (15-37); Alanine Aminotransfer ALT/SGPT 30 U/L (13-56); Albumin, Serum 3.6 g/dL (3.2-5.0); Alkaline Phosphatase 74 U/L (45-117); Bilirubin, Direct 0.16 mg/dL (0.00-0.30); Cholesterol 240 mg/dL (200); Globulin 3.4 g/dL (2.2-4.2); High Density Lipoprotein 52 mg/dL; Triglycerides 127 mg/dL; Very Low Density Lipoprotein 25 mg/dL (5-40)
== END | disposition home or self-care (01) ==
PROVIDERS: PCP Family Medicine; Referring Provider Physician Assistant Medical; Visit Provider Physician Assistant Medical
DX: E78.5 Hyperlipidemia, unspecified (principal)
CPT/HCPCS: 36415; 80061; 80076

== ENCOUNTER → 2024-04-21 | Outpatient (CLI) | payer OTHER, SELFPAY ==
[2024-04-21 09:42] LABS: Absolute Lymphocyte Count 1.33 X10^3/uL (0.83-4.51); Absolute Neutrophil Count 2.2 X10^3/uL (2.0-7.7); Basophil# 0.08 X10^3/uL; Basophil% 1.9 % (0-1); Eosinophil# 0.13 X10^3/uL; Eosinophils% 3.1 % (0-5); Hematocrit 42.7 % (37-47); Hemoglobin 13.2 g/dL (12.0-15.0); Lymphocyte # 1.33 X10^3/ul (0.83-4.51); Mean Corp Hgb Conc 30.9 g/dL (32-36); Mean Corpuscular Hgb 29.7 pg (27.0-32.0); Mean Platelet Vol. 11.1 fl (6.2-12.0); Monocyte% 9.6 % (0-10); NRBC Flagged by Analyzer 0 % (0-5); Neutrophil # 2.16 X10^3/uL (2.7-7.7); Neutrophil % 52.2 % (47-70); Platelet Count 306 K/mm3 (150-450); RBC Distribution Width CV 13.5 % (11.6-14.6); RBC Distribution Width SD 48.5 fl (35.1-43.9); Red Blood Count 4.45 M/mm3 (4.2-5.4); White Blood Count 4.2 K/mm3 (4.4-11.0)
[2024-04-21 10:11] LABS: AST(SGOT) 40 U/L (15-37); Alanine Aminotransfer ALT/SGPT 45 U/L (13-56); Albumin, Serum 3.6 g/dL (3.2-5.0); Alkaline Phosphatase 90 U/L (45-117); Anion Gap 3 (5-15); BUN 11 mg/dL (7-18); BUN/Creat Ratio 15.3 RATIO (10-20); Chloride 108 mmol/L (98-107); Creatinine, Serum 0.72 mg/dL (0.55-1.02); EST Glomerular Filtration Rate 87 mL/min (>60); Est Glom Filt Rate - Afr Amer 105 mL/min (>60); Globulin 3.6 g/dL (2.2-4.2); Glucose 103 mg/dL (74-106); Magnesium 2.1 mg/dL (1.6-2.6); Potassium 3.9 mmol/L (3.5-5.1); Protein, Total 7.2 g/dL (6.4-8.2); Sodium Level 139 mmol/L (136-145); T4 Free Direct 1.09 ng/dL (0.76-1.46)
== END | disposition home or self-care (01) ==
LOC: LAB 08:45
PROVIDERS: PCP Family Medicine; Referring Provider Physician Assistant Medical; Visit Provider Physician Assistant Medical
DX: M79.7 Fibromyalgia (principal); R25.2 Cramp and spasm
CPT/HCPCS: 36415; 80053; 83735; 84439; 84443; 84481; 85025

== ENCOUNTER → 2024-05-08 | Outpatient (CLI) | payer OTHER, SELFPAY | END | disposition home or self-care (01) | LOC: PSN 10:22 | PROVIDERS: PCP Family Medicine; Referring Provider Physician Assistant Medical; Visit Provider Physician Assistant Medical | DX: R93.89 Abnormal findings on diagnostic imaging of other specified body structures (principal) | CPT/HCPCS: 94060; 94726; 94729 ==

== ENCOUNTER → 2024-06-02 | Outpatient (CLI) | payer OTHER, SELFPAY ==
[2024-06-02 17:37] LABS: Absolute Lymphocyte Count 1.35 X10^3/uL (0.83-4.51); Absolute Neutrophil Count 3.3 X10^3/uL (2.0-7.7); Basophil# 0.07 X10^3/uL; Basophil% 1.3 % (0-1); Eosinophil# 0.06 X10^3/uL; Eosinophils% 1.2 % (0-5); Hematocrit 42.5 % (37-47); Hemoglobin 13.2 g/dL (12.0-15.0); Lymphocyte # 1.35 X10^3/ul (0.83-4.51); Lymphocyte % 25.9 % (19-41); Mean Corp Hgb Conc 31.1 g/dL (32-36); Mean Corpuscular Hgb 29.8 pg (27.0-32.0); Mean Corpuscular Volume 95.9 fL (81-99); Mean Platelet Vol. 11.5 fl (6.2-12.0); Monocyte# 0.42 X10^3/uL; Monocyte% 8.1 % (0-10); NRBC Flagged by Analyzer 0 % (0-5); Neutrophil % 63.3 % (47-70); Platelet Count 344 K/mm3 (150-450); RBC Distribution Width CV 13.8 % (11.6-14.6); RBC Distribution Width SD 49.1 fl (35.1-43.9); Red Blood Count 4.43 M/mm3 (4.2-5.4); White Blood Count 5.2 K/mm3 (4.4-11.0)
[2024-06-02 18:04] LABS: ALB/GLOB Ratio 1.1 RATIO (0.9-2.4); AST(SGOT) 29 U/L (15-37); Alanine Aminotransfer ALT/SGPT 36 U/L (13-56); Albumin, Serum 3.9 g/dL (3.2-5.0); Alkaline Phosphatase 87 U/L (45-117); Anion Gap 7 (5-15); BUN 14 mg/dL (7-18); BUN/Creat Ratio 18.7 RATIO (10-20); Calcium,Total 9.2 mg/dL (8.5-10.1); Chloride 107 mmol/L (98-107); Creatinine, Serum 0.75 mg/dL (0.55-1.02); EST Glomerular Filtration Rate 83 mL/min (>60); Est Glom Filt Rate - Afr Amer 100 mL/min (>60); Globulin 3.4 g/dL (2.2-4.2); Glucose 103 mg/dL (74-106); Potassium 4.3 mmol/L (3.5-5.1); Protein, Total 7.3 g/dL (6.4-8.2); Sodium Level 140 mmol/L (136-145); Thyroid Stim Hormone (TSH) 1.85 uIU/mL (0.358-3.74)
== END | disposition home or self-care (01) ==
LOC: BFHLAB 15:56
PROVIDERS: PCP Family Medicine; Referring Provider Family Medicine; Visit Provider Family Medicine
DX: K58.0 Irritable bowel syndrome with diarrhea (principal)
CPT/HCPCS: 36415; 80053; 84443; 85025

== ENCOUNTER 2024-07-29 10:15 | Emergency (ER) | payer OTHER, SELFPAY ==
[2024-07-29 10:16] VITALS: BP 128/75; PULSE 101; RESP 16; TEMP 37.2; O2SAT 98; BMI 24.5
--- NOTE | 2024-07-29 10:53 | CT_ITS ---
EXAM: CT ABDOMEN AND PELVIS WITH INTRAVENOUS CONTRAST CLINICAL INDICATION: LLQ abdominal pain TECHNIQUE: Helically acquired images were obtained of the abdomen and pelvis with intravenous contrast. This CT exam was performed using one or more of the following dose reduction techniques: automated exposure control, adjustment of the mA and/or kV according to patient size, and/or use of iterative reconstruction technique. CONTRAST: IV 100mL [id number]-370 COMPARISON: CT Abdomen Pelvis dated 05/25/2018 FINDINGS: LOWER THORAX: Normal. Lung bases are clear. No cardiomegaly. No pericardial effusion. ABDOMEN: LIVER: Normal. Homogeneous. No focal mass. GALLBLADDER AND BILE DUCTS: Normal. No calcified gallstones. No gallbladder distention or wall edema. No intra- or extrahepatic biliary ductal dilation. PANCREAS: Normal. No focal cystic or solid mass. SPLEEN: Normal. Normal size without focal cystic or solid mass. ADRENALS: Normal. No nodules. KIDNEYS AND URETERS: Normal. Normal renal size and position. No hydronephrosis. STOMACH AND BOWEL: Wall thickening of the sigmoid colon noted associated with adjacent fat stranding suggestive of acute diverticulitis. No evidence of perforation or abscess. PELVIS: APPENDIX: Appendix is visualized and normal in appearance. BLADDER: Normal. REPRODUCTIVE: Hysterectomy noted.. ABDOMEN and PELVIS: INTRAPERITONEAL SPACE: Normal. No ascites or other fluid collection. No free air. BONES/JOINTS: No suspicious lytic or blastic abnormality. SOFT TISSUES: Small fat-containing umbilical hernia is present. VASCULATURE: Normal. Abdominal aorta is non-dilated. LYMPH NODES: Normal. No enlarged lymph nodes. CT/Abdomen/Pelvis W IV Cont ONLY IMPRESSION: Acute sigmoid diverticulitis without evidence of abscess or perforation. Electronically Signed: Tuan Rodriguez MD at 12:34 EDT ,
[2024-07-29] MEDS: 0.9% Normal Saline (1000mL) 1,000 ML 999 ML IV (10:57)
[2024-07-29 11:12] LABS: Absolute Neutrophil Count 7.8 X10^3/uL (2.0-7.7); Basophil# 0.06 X10^3/uL; Basophil% 0.6 % (0-1); Eosinophil# 0.03 X10^3/uL; Eosinophils% 0.3 % (0-5); Hematocrit 42.8 % (37-47); Hemoglobin 13.8 g/dL (12.0-15.0); Lymphocyte % 13.3 % (19-41); Mean Corp Hgb Conc 32.2 g/dL (32-36); Mean Corpuscular Hgb 30.5 pg (27.0-32.0); Mean Corpuscular Volume 94.7 fL (81-99); Mean Platelet Vol. 11.2 fl (6.2-12.0); Monocyte# 0.59 X10^3/uL; NRBC Flagged by Analyzer 0 % (0-5); Neutrophil # 7.78 X10^3/uL (2.7-7.7); Neutrophil % 79.5 % (47-70); Platelet Count 319 K/mm3 (150-450); RBC Distribution Width CV 13.8 % (11.6-14.6); RBC Distribution Width SD 48.3 fl (35.1-43.9); Red Blood Count 4.52 M/mm3 (4.2-5.4); White Blood Count 9.8 K/mm3 (4.4-11.0)
--- NOTE | 2024-07-29 11:12 | EDS_ITS ---
HPI History of Present Illness Chief Complaint: Abd Pain Narrative Narrative: Chief complaint and HPI: Abdominal pain. 63-year-old female with history of diverticulosis, IBS, HLD, fibromyalgia presents for evaluation of left lower quadrant abdominal pain. Patient states she has felt generally unwell all week. She endorses constipation and nausea. Has had decreased p.o. intake. She states yesterday she developed left lower quadrant pain. She endorses a small amount of diarrhea this morning. She denies any fever, chills, URI symptoms, chest pain, shortness of breath, vomiting, dysuria, hematuria. She denies any bloody bowel movements. Denies any sick contacts. History of a hysterectomy. No blood thinners. Last ate yesterday evening. History of diverticulosis on previous colonoscopy. Review of systems: See HPI Medications: As listed on the chart Allergies: As listed on the chart PFSH: Per chart Vital signs: As listed on the chart. Reviewed. Physical exam: Gen: A&O x3, NAD Head: Normocephalic, atraumatic Eyes: No sclera icterus, conjunctiva clear ENT: Moist mucous membranes Neck: Trachea midline, No JVD CV: RRR, no murmurs, no peripheral edema Resp: Lungs CTA BL, no w/r/c GI: Abd soft, non-distended, tender to palpation in the left lower quadrant, no rebound or rigidity Musc: Full ROM, no deformity Skin: Warm, dry Neuro: Alert, oriented, grossly intact, sensation intact Psych: Cooperative, appropriate mood and affect [facility] Medical History Post-menopausal Depression Anxiety Back pain Migraine headache Syncope Difficulty swallowing Gastric reflux Leg cramps Ledbetter's esophagus Wears glasses Arthritis History of IBS History of diverticulitis Non-smoker PONV (postoperative nausea and vomiting) History of echocardiogram History of stress test Cardiology follow-up encounter History of irregular heartbeat Diarrhea Hyperlipidemia Vitamin D deficiency Degeneration of intervertebral disc of cervical region Segmental and somatic dysfunction of thoracic region Segmental and somatic dysfunction of cervical region Cervicogenic headache GERD (gastroesophageal reflux disease) Cataracts, bilateral Fibromyalgia Anxiety and depression Migraine with aura Migraine headache Osteoporosis Myalgia and myositis Dyspepsia Diverticula of colon Home Medications ?Medication ?Instructions ?Recorded ?Last Taken ?Type acetaminophen 500 mg tablet 500 mg PO Q6H PRN Pain 03/12/21 Unknown History (Tylenol Extra Strength) diphenhydramine HCl 25 mg capsule 25 mg PO QHS PRN seasonal allergies 12/03/21 Unknown History (Benadryl) zoledronic acid 5 mg/100 mL in 1 ea .Route ONCE #100 mL 08/06/23 Unknown Rx mannitol 5 %-water intravenous piggybck cholecalciferol (vitamin D3) 25 1,000 unit PO DAILY 08/30/23 Unknown History mcg (1,000 unit) tablet (Vitamin D3) cholestyramine (with sugar) 4 gram ea PO QDAY PRN 07/21/24 Unknown History oral powder amoxicillin 875 mg-potassium 1 tab PO BID #10 tabs 07/29/24 Unknown Rx clavulanate 125 mg tablet ondansetron 4 mg disintegrating 4 mg PO Q8H PRN PRN Nausea #10 tabs 07/29/24 Unknown Rx tablet Allergy/AdvReac Type Severity Reaction Status Date / Time [id number] Reductase AdvReac Severe mylagias Verified 07/29/24 10:16 Inhibitor ezetimibe (From Zetia) AdvReac Intermediate Myalgias Verified 07/29/24 11:02 omeprazole AdvReac Intermediate Rash Verified 07/29/24 11:02 aspirin (ASA) AdvReac Gastric Verified 07/29/24 11:02 Reflux/ burning codeine AdvReac Other Verified 07/29/24 11:02 erythromycin base AdvReac Other Verified 07/29/24 11:02 Family History Mother Hypertension COPD (chronic obstructive pulmonary disease) CVA (cerebral vascular accident) Kidney disease Anemia Arthritis Heart disease Osteoporosis Emphysema, unspecified Ascending aortic aneurysm Father , Melanoma Melanoma Sister Hypertension Rheumatoid arthritis Brother , Suicide Suicide attempt Sister Rheumatoid arthritis Hypertension Grandmother Arthritis Heart disease Hypertension Osteoporosis Grandfather CVA (cerebral vascular accident) Aunt CVA (cerebral vascular accident) Uncle Skin cancer Cancer Uncle Cancer Uncle Cancer Uncle Cancer Surgical History Hx of colonoscopy H/O bilateral salpingo-oophorectomy History of total abdominal hysterectomy Normal colonoscopy History of breast biopsy Social History Smoking Status: Never smoker Electronic Cigarette Use: not used second hand exposure: No alcohol intake: never substance use type: does not use caffeine: Yes Type: carbonated beverages Number of servings: 1 what type of physical activity do you participate in: none seatbelt use: always do you feel safe at home: Yes additional social history: David- retired retired EXAM Physical Exam Const Vital Signs: 07/29/24 10:16 07/29/24 12:15 07/29/24 13:56 Temperature 98.9 F 98 F Temperature Source Oral Pulse Rate 101 H 83 83 Respiratory Rate 16 16 Blood Pressure 128/75 H 125/77 H 125/77 H Blood Pressure Mean 92 93 93 Pulse Ox 98 98 98 Oxygen Delivery Method Room Air MDM MDM MDM Narrative Medical decision making narrative: 63-year-old female presents for evaluation of left lower quadrant abdominal pain. History of diverticulosis on colonoscopy. Differential diagnosis includes but is not limited to diverticulitis, UTI, gastroenteritis, viral illness, electrolyte abnormality. NS bolus ordered. Patient was offered pain medication as well as antinausea medication. She declined both. Abdominal pain workup ordered including CT abdomen pelvis. CBC without leukocytosis or anemia. CMP relatively unremarkable except for mildly elevated total bilirubin, ALT, alk phos. Patient is not endorsing any right upper quadrant or epigastric abdominal pain. Lipase is unremarkable. UA shows mild dehydration with ketones. No UTI. CT abdomen pelvis shows acute sigmoid diverticulitis without evidence of abscess or perforation. Patient was updated on all her results and the findings. She confirmed understanding. Patient states she is still having some left lower quadrant abdominal pain but that it is controlled. She was able to tolerate p.o. intake in the ED without any vomiting or increase in abdominal pain. Given patient's uncomplicated diverticulitis she will be discharged home on a 10-day course of Augmentin. Will give zofran. Return precautions were explained such as fevers, increased abdominal pain, constipation, vomiting. She confirmed understanding of plan. Patient is to follow-up with her PCP as well as GI that is provided to her as she will likely need repeat colonoscopy once infection has resolved. She confirmed understanding. Impression: 1. Acute uncomplicated diverticulitis Lab Data Labs: Laboratory Results - last 24 hr 07/29/24 07/29/24 10:26 11:27 WBC 9.8 RBC 4.52 Hgb 13.8 Hct 42.8 MCV 94.7 MCH 30.5 MCHC 32.2 RDW Std Deviation 48.3 H RDW Coeff of Brooks 13.8 Plt Count 319 MPV 11.2 Immature Gran % (Auto) 0.300 Neut % (Auto) 79.5 H Lymph % (Auto) 13.3 L Forrest % (Auto) 6.0 Eos % (Auto) 0.3 Baso % (Auto) 0.6 Absolute Neuts (auto) 7.8 H Absolute Lymphs (auto) 1.30 Nucleated RBC % 0 Sodium 139 Potassium 3.5 Chloride 107 Carbon Dioxide 26.0 Anion Gap 6 BUN 8 Creatinine 0.82 Estim Creat Clear Calc 60.64 Est GFR (MDRD) Af Amer 90 Est GFR (MDRD) Non-Af 75 BUN/Creatinine Ratio 9.8 L Glucose 115 H Calcium 9.1 Total Bilirubin 1.20 H AST 35 ALT 71 H Alkaline Phosphatase 159 H Total Protein 7.4 Albumin 3.6 Globulin 3.8 Albumin/Globulin Ratio 0.9 Lipase 37 Urine Color Yellow Urine Clarity Clear Urine pH 7.0 Ur Specific [place] 1.005 Urine Protein Negative Urine Glucose (UA) Normal Urine Ketones 5 H Urine Occult Blood Negative Urine Nitrite Negative Urine Bilirubin Negative Urine Urobilinogen Normal Ur Leukocyte Esterase Negative Urine RBC 0 SEEN Urine WBC 0 SEEN Ur Squamous Epith Cells 0-5 SEEN Urine Bacteria RARE Urine Mucus 0 SEEN Radiography Diagnostic Testing: Clinical Impression(s) from Imaging Studies Abdomen/Pelvis CT 07/29/24 10:53 IMPRESSION: Acute sigmoid diverticulitis without evidence of abscess or perforation. Electronically Signed: Tuan Rodriguez MD at 12:34 EDT , Discharge Plan Triage Chief Complaint: Abd Pain ED Provider: Harshal Cordero Dx/Rx/DC Orders Clinical Impression: Diverticulitis large intestine w/o perforation or abscess w/o bleeding Instructions: Diverticulosis and Diverticulitis, ED Diverticulitis Prescriptions: New amoxicillin-pot clavulanate 875-125 mg tablet 1 tab PO BID Qty: 10 0RF ondansetron 4 mg tablet,disintegrating 4 mg PO Q8H PRN PRN (Reason: Nausea) Qty: 10 0RF No Action diphenhydramine HCl [Benadryl] 25 mg capsule 25 mg PO QHS PRN (Reason: seasonal allergies) acetaminophen [Tylenol Extra Strength] 500 mg tablet 500 mg PO Q6H PRN (Reason: Pain) zoledronic qidv-obkzsqlb-teeyi 5 mg/100 mL piggyback 1 ea .Route ONCE Qty: 100 0RF Rx Instructions: infuse over 20 minutes. cholestyramine (with sugar) 4 gram powder PO QDAY PRN cholecalciferol (vitamin D3) [Vitamin D3] 25 mcg (1,000 unit) tablet 1,000 unit PO DAILY Primary Care Provider: Mary Ponce Referrals: Mary Ponce MD [Primary Care Provider] - 3-5 Days Floyd Bellamy DO [Med Staff - Active Staff] - 3-5 Days (You will need a colonoscopy after your diverticulitis has resolved) Activity Restrictions/Additional Instructions: Return back to the emergency department if you develop fevers, worsening abdominal pain, inability to eat or drink, bloody bowel movements, inability to poop, or any worsening symptoms Print Language: Citizen Of [place] Disposition Disposition: Home, Self Care Discharge Date/Time: 07/29/24 14:14
[2024-07-29 11:27] LABS: ALB/GLOB Ratio 0.9 RATIO (0.9-2.4); AST(SGOT) 35 U/L (15-37); Alanine Aminotransfer ALT/SGPT 71 U/L (13-56); Albumin, Serum 3.6 g/dL (3.2-5.0); Alkaline Phosphatase 159 U/L (45-117); Anion Gap 6 (5-15); BUN 8 mg/dL (7-18); BUN/Creat Ratio 9.8 RATIO (10-20); Calcium,Total 9.1 mg/dL (8.5-10.1); Chloride 107 mmol/L (98-107); Creatinine, Serum 0.82 mg/dL (0.55-1.02); EST Glomerular Filtration Rate 75 mL/min (>60); Est Glom Filt Rate - Afr Amer 90 mL/min (>60); Estimated Creatinine Clearance 60.64 ml/min; Globulin 3.8 g/dL (2.2-4.2); Glucose 115 mg/dL (74-106); Lipase 37 U/L (13-75); Potassium 3.5 mmol/L (3.5-5.1); Protein, Total 7.4 g/dL (6.4-8.2); Sodium Level 139 mmol/L (136-145)
[2024-07-29 11:30] LABS: Mucous, Urine 0 SEEN /hpf (<or=2+); Red Blood Cells-Urine 0 SEEN /hpf (0-5); White Blood Cells 0 SEEN /hpf (0-5)
[2024-07-29 11:38] LABS: Color, Urine Yellow (Yellow); Glucose, Dipstick Normal (Normal); Ketone-Dipstick 5 mg/dl (Negative); Leukocyte Esterase-Dipstick Negative /ul (Negative); Nitrite-Dipstick Negative (Negative); Occult Blood-Urine Negative /ul (Negative); Protein-Dipstick Negative (Negative); Specific Gravity, Urine 1.005 (1.002-1.030); Urine Bilirubin Dipstick Negative (Negative); Urine Clarity Clear (Clear); Urine Urobilinogen Normal (Normal)
[2024-07-29 11:45] LABS: Bacteria RARE /hpf (None Seen); Squamous Epithelial Cells - UA 0-5 SEEN /hpf (5-10)
[2024-07-29 12:15] VITALS: BP 125/77; PULSE 83; O2SAT 98
[2024-07-29 13:56] VITALS: BP 125/77; PULSE 83; RESP 16; TEMP 36.6; O2SAT 98
== END 2024-07-29 14:14 | disposition home or self-care (01) ==
PROVIDERS: Emergency Provider Surgery; PCP Family Medicine; Visit Provider Surgery
DX: K57.32 Diverticulitis of large intestine without perforation or abscess without bleeding (principal); E78.5 Hyperlipidemia, unspecified; E86.0 Dehydration; Z90.710 Acquired absence of both cervix and uterus; M79.7 Fibromyalgia
CPT/HCPCS: 74177; 80053; 81001; 83690; 85025; 96360; 99283; J7030; Q9967; A4216

== ENCOUNTER 2024-09-08 10:02 | Outpatient (CLI) | payer OTHER, SELFPAY ==
[2024-09-08 10:48] VITALS: BP 120/61; PULSE 67; RESP 16; TEMP 35.6; O2SAT 99
[2024-09-08] MEDS: 0.9% NaCl Peripheral Flush Adult/Peds IV (10:55)
[2024-09-08] MEDS: Zoledronic Acid 5 MG 5 MG in Premixed Bag 1 BAG 300 MG IV (10:57)
[2024-09-08 11:27] VITALS: BP 124/67; PULSE 64
== END 2024-09-08 23:59 | disposition home or self-care (01) ==
LOC: MEDOUTP 10:03
PROVIDERS: PCP Family Medicine; Referring Provider Family Medicine; Visit Provider Family Medicine
DX: M81.0 Age-related osteoporosis without current pathological fracture (principal)
CPT/HCPCS: 96365; A4216; J3489

== ENCOUNTER → 2024-09-25 | Outpatient (CLI) | payer OTHER, SELFPAY ==
--- NOTE | 2024-09-25 10:45 | BI_ITS ---
MAMMOGRAPHY - BILATERAL SCREENING 3-D TOMOSYNTHESIS REASON FOR EXAM: Female, 63 years old. SCREENING PERTINENT HISTORY: No significant family history. TECHNIQUE: 2-D mammograms and 3-D Tomosynthesis of the breast (s) were performed. CAD was performed. COMPARISON: 09/24/2023 FINDINGS: The breast composition is Extermely dense tissue. Scattered benign calcifications are seen. No dense spiculated masses or suspicious microcalcifications are identified. No architectural distortion is identified. There is no skin thickening or retraction. There has been no significant change since the prior study. BI/SCRN MAMM (CAD)W/TIANNA BILAT IMPRESSION: No mammographic signs of malignancy. Routine yearly mammograms recommended. ASSESSMENT CATEGORY: BIRADS Category 1: Negative. A letter regarding these results will be sent to the patient by the facility within 30 days. FOLLOW UP RECOMMENDATION: Yearly follow up mammogram recommended. (A) Approximately 10% of breast cancers are not detected by mammography. A normal mammogram should not delay biopsy of a clinically suspicious abnormality. Electronically Signed: Thierno Calixto MD at 16:41 EST ,
== END | disposition home or self-care (01) ==
LOC: OPBI 10:43
PROVIDERS: PCP Family Medicine; Referring Provider Family Medicine; Visit Provider Family Medicine
DX: Z12.31 Encounter for screening mammogram for malignant neoplasm of breast (principal)
CPT/HCPCS: 77063; 77067

== ENCOUNTER → 2024-11-07 | Outpatient (CLI) | payer OTHER, SELFPAY ==
--- NOTE | 2024-11-07 12:26 | RAD_ITS ---
HISTORY: PAIN. TECHNIQUE: XR Spine Thoracic 2 Views. COMPARISON: None. FINDINGS: VERTEBRAE: Vertebral body heights maintained. No acute fracture identified. ALIGNMENT: No significant anterior or posterior subluxation. Mild S-shaped scoliosis. INTERVERTEBRAL DISCS: Mild degenerative changes and osteophytes. SOFT TISSUES: Unremarkable paraspinal soft tissues. RAD/Thoracic Spine 2 Views IMPRESSION: No acute fracture or dislocation identified in the thoracic spine. Mild degenerative change. Mild scoliosis. Electronically Signed: Char Smith MD at 8:40 EST ,
== END | disposition home or self-care (01) ==
LOC: RAD 12:17
PROVIDERS: PCP Family Medicine; Referring Provider Nurse Practitioner Family; Visit Provider Nurse Practitioner Family
DX: M54.6 Pain in thoracic spine (principal)
CPT/HCPCS: 72070

== ENCOUNTER → 2024-11-17 | Outpatient (CLI) | payer OTHER, SELFPAY ==
[2024-11-17 10:28] LABS: Hematocrit 41.5 % (37-47); Hemoglobin 13.1 g/dL (12.0-15.0); Mean Corp Hgb Conc 31.6 g/dL (32-36); Mean Corpuscular Hgb 30.3 pg (27.0-32.0); Mean Corpuscular Volume 96.1 fL (81-99); Mean Platelet Vol. 10.9 fl (6.2-12.0); Platelet Count 323 K/mm3 (150-450); RBC Distribution Width CV 13.5 % (11.6-14.6); RBC Distribution Width SD 48.5 fl (35.1-43.9); Red Blood Count 4.32 M/mm3 (4.2-5.4); White Blood Count 3.6 K/mm3 (4.4-11.0)
[2024-11-17 11:26] LABS: Vitamin B12 628 pg/mL (211-911)
[2024-11-17 12:06] LABS: AST(SGOT) 27 U/L (15-37); Alanine Aminotransfer ALT/SGPT 32 U/L (13-56); Albumin, Serum 3.5 g/dL (3.2-5.0); Alkaline Phosphatase 73 U/L (45-117); Anion Gap 6 (5-15); BUN 11 mg/dL (7-18); BUN/Creat Ratio 14.5 RATIO (10-20); Chloride 111 mmol/L (98-107); Creatinine, Serum 0.76 mg/dL (0.55-1.02); EST Glomerular Filtration Rate 82 mL/min (>60); Est Glom Filt Rate - Afr Amer 99 mL/min (>60); Globulin 3.6 g/dL (2.2-4.2); Glucose 93 mg/dL (74-106); Potassium 3.9 mmol/L (3.5-5.1); Protein, Total 7.1 g/dL (6.4-8.2); Sodium Level 143 mmol/L (136-145)
[2024-11-20 11:07] LABS: Vitamin D 1,25-Dihydroxy 63.9 pg/mL (24.8-81.5)
== END | disposition home or self-care (01) ==
PROVIDERS: PCP Family Medicine; Referring Provider Psychiatry & Neurology Neurology; Visit Provider Psychiatry & Neurology Neurology
DX: M79.7 Fibromyalgia (principal); R20.2 Paresthesia of skin; Z86.39 Personal history of other endocrine, nutritional and metabolic disease
CPT/HCPCS: 36415; 80053; 82607; 82652; 82746; 84425; 84443; 85027

== ENCOUNTER → 2024-12-05 | Outpatient (CLI) | payer OTHER, SELFPAY | END | disposition home or self-care (01) | LOC: SL 11:53 | PROVIDERS: PCP Family Medicine; Referring Provider Psychiatry & Neurology Neurology; Visit Provider Psychiatry & Neurology Neurology | DX: G47.10 Hypersomnia, unspecified (principal) | CPT/HCPCS: 95806 ==

== ENCOUNTER → 2024-12-19 | Outpatient (CLI) | payer OTHER, SELFPAY ==
--- NOTE | 2024-12-19 06:38 | MRI_ITS ---
PROCEDURE: MRI SPINE LUMBAR (ROUTINE) REASON FOR EXAM: Low back pain. TECHNIQUE: Noncontrast lumbar spine MRI. COMPARISON: None. FINDINGS: Lumbar vertebral bodies maintain a normal height. There is levoscoliosis of the lumbar spine. There is diminished signal intensity involving the discs of the lumbar spine from L2-S1 related to degenerative disc disease with disc space narrowing and endplate spurring. There are Modic type 2 endplate degenerative changes on the left at L5-S1. No acute fracture or subluxation is present. The tip of the conus medullaris terminates at L1 and signal intensity of the included spinal cord is within normal limits. There is atrophy of the paraspinous musculature from L5 to the sacrum. Individual levels: L1-2: No disc herniation, central canal stenosis, or neural foraminal narrowing. Mild facet arthropathy is present. L2-3: Left foraminal disc protrusion results in mild left neural foraminal narrowing. There is a superimposed mild disc bulge. Right neural foramina and central canal are patent. There is mild facet/flavum hypertrophy. L3-4: Circumferential disc bulge and facet/flavum hypertrophy results in mild central canal stenosis. No significant neural foraminal narrowing. L4-5: Mild disc bulge and facet/flavum hypertrophy with no significant central canal stenosis. There is mild bilateral neural foraminal narrowing. L5-S1: Mild disc bulge and facet arthropathy with no significant central canal stenosis or right neural foraminal narrowing. There is mild left neural foraminal narrowing. MRI/Spine Lumbar (Routine) IMPRESSION: 1. At L2-L3, left foraminal disc protrusion results in mild left neural foramin al narrowing. 2. Multilevel degenerative disc disease and spondylosis with mild central canal stenosis at L3-L4. Mild neural foraminal narrowing is present from L4-S1. 3. Levoscoliosis. Reading Location: [facility]
--- NOTE | 2024-12-19 06:38 | MRI_ITS ---
PROCEDURE: SPINE CERVICAL (ROUTINE) REASON FOR EXAM: Neck pain, paresthesias. TECHNIQUE: Noncontrast cervical spine MRI. COMPARISON: 04/04/2021 FINDINGS: Vertebrae: Cervical vertebral body heights are preserved. Bone marrow signal is unremarkable. Alignment: Normal. No spondylolisthesis. Spinal Cord: Cervical spinal cord is of normal size and signal intensities. Structures at the foramen magnum are unremarkable. C2-3: Mild disc osteophyte complex with facet and ligamentum flavum hypertrophy. Flattening of the ventral thecal sac. C3-4: Disc osteophyte complex with facet and uncovertebral hypertrophy with mild left foraminal stenosis. C4-5: Disc osteophyte complex with facet and uncovertebral hypertrophy with mild flattening of the ventral thecal sac and mild bilateral foraminal stenosis. C5-6: Disc osteophyte complex with facet and uncovertebral hypertrophy with mild flattening of the ventral thecal sac. C6-7: Disc osteophyte complex with facet and uncovertebral hypertrophy with mild flattening of the ventral thecal sac. Mild left foraminal stenosis. C7-T1: No central canal or foraminal stenosis. Craniocervical junction is intact atlantodental interval is normal. A 6 mm T2 hyperintense nodule is seen in the right thyroid MRI/Spine Cervical (Routine) IMPRESSION: MILD MULTILEVEL DEGENERATIVE CHANGES IN THE CERVICAL SPINE. 6 MM NODULE IN THE LOWER POLE OF THE RIGHT THYROID GLAND. FOLLOW-UP ULTRASOUND IN 6 MONTHS IS SUGGESTED. Reading Location: [id number]
--- NOTE | 2024-12-19 06:38 | MRI_ITS ---
PROCEDURE: BRAIN AND IAC'S W/WO CONTRAST REASON FOR EXAM: Migraine headaches. Worsening tinnitus. TECHNIQUE: Multiplanar, multisequence MRI of the brain and internal auditory canals without and with intravenous gadolinium-based contrast. COMPARISON: None. FINDINGS: Midline structures are normal. The intracranial flow voids are preserved. The parenchyma is normal in signal intensity. The ventricles are normal in size and configuration, without midline shift or mass effect. There is no restricted diffusion to indicate acute infarct. No acute intracranial hemorrhage or extra-axial collection. The cochlea and semicircular canals are normal. The 7th and 8th nerve roots are normal. On the left side, a small-vessel traverses very close to the 7th nerve at the level of the internal auditory canal without extending into the IAC. On the right side, an AICA loop extends more than 50% into the internal auditory canal. There is no abnormal intracranial enhancement. Globes and orbits are normal. Paranasal sinuses are clear. MRI/Brain W/WO Contrast IMPRESSION: RIGHT-SIDED AICA LOOP EXTENDING MORE THAN 50% INTO THE RIGHT INTERNAL AUDITORY CANAL. GIVEN THE HISTORY OF TINNITUS, THE FINDING COULD BE CLINICALLY SIGNIFICANT BUT IS OFTEN INCIDENTAL. Reading Location: [id number]
== END | disposition home or self-care (01) ==
PROVIDERS: PCP Family Medicine; Referring Provider Psychiatry & Neurology Neurology; Visit Provider Psychiatry & Neurology Neurology
DX: M54.2 Cervicalgia (principal); R20.2 Paresthesia of skin; G43.009 Migraine without aura, not intractable, without status migrainosus; H93.19 Tinnitus, unspecified ear; M54.50 Low back pain, unspecified; M54.16 Radiculopathy, lumbar region
CPT/HCPCS: 70553; 72141; 72148; A9575

== ENCOUNTER 2024-12-25 14:03 | Emergency (ER) | payer OTHER, SELFPAY ==
[2024-12-25 14:04] VITALS: BP 146/71; PULSE 78; RESP 15; TEMP 37; O2SAT 98; BMI 25.7
[2024-12-25 14:06] VITALS: BP 146/71; PULSE 76; RESP 12; TEMP 37; O2SAT 99
--- NOTE | 2024-12-25 14:38 | EDS_ITS ---
<Statement entered by Ranjith Vides DO - 12/25/24 23:49> Patient was seen and examined with nurse janine Ramirez All components of the history and physical confirmed and agreed. History of present illness and physical exam: Patient is a 64-year-old female past medical history fibromyalgia, IBS, diverticulitis, hypertension who presents to the emergency department with a chief complaint of 3 days worth of generalized not feeling well. She states that she developed sore throat, headache and just overall fatigue. She states that she feels like she cannot do anything or get out of bed as she feels very weak overall. States that her headache is mainly posterior and has been going on for approximately 1-1/2 days that has just gradually came on in nature. States that she is nauseous denies any sick contacts. Review of systems: Constitutional: Complains of headache, generalized weakness as noted above denies lightheadedness or dizziness Eyes: Denies change in vision double vision blurry vision Cardiovascular: Denies chest pain or palpitations Respiratory: Denies coughing wheezing shortness of breath Abdomen: Complains of nausea as noted above denies abdominal pain vomiting or diarrhea : Denies any urinary symptoms Neurological: Complains of generalized weakness as noted above denies numbness or tingling Musculoskeletal: Denies back pain Skin: Denies rashes or lesions Physical exam: General: Patient was lying in bed rest comfortably did not appear to be in acute distress Head: Atraumatic, normocephalic Eyes: PERRL bilaterally, EOMI bilaterally, no conjunctival injection noted Neck: Soft, supple, trachea midline, patient has full range of motion of neck no concern for meningitis Cardiovascular: Regular rate and rhythm no murmurs gallops rubs noted Respiratory: Clear to auscultation bilaterally Abdomen: Soft, nondistended, nontender to palpation, bowel sounds present x 4 Extremities: +5/5 strength noted in the bilateral upper and lower extremities, no pedal edema on exam, radial pulses +2/4 in the bilateral upper extremities Neurological: Patient following commands knew that she was at [facility] years 2024 Skin: Warm, dry, intact no rashes or lesions noted MDM Patient is a 64-year-old female who presented to the emerged part with a chief complaint of not feeling well for the past few days as well as generalized weakness and fatigue. On the differential diagnose includes but not limited to upper respiratory infection secondary to viral etiology, pneumonia, ACS, electrolyte abnormality, dehydration. Once workup is obtained and reviewed she will be reevaluated. Patient was given fluids, Zofran and Toradol. She was later given Reglan and Benadryl. Patient CBC was largely unremarkable no evidence leukocytosis white blood cell count normal at 8.5, hemoglobin is 14.3, platelet count normal at 362. Patient sodium normal 139, potassium was 3.4, creatinine normal at 0.70. Patient's AST and ALT were 25 and 33 respectively, lipase was noted to be 50. Patient's COVID flu and RSV were negative. Patient CT head and brain without contrast was reviewed showed 2 mm radiodensity noted at the roof of the third ventricle possible small colloid cyst no CT evidence of acute intracranial pathology. Minimal right maxillary sinus mucosal thickening partial opacification of the left ethmoid sinus. Reevaluation the patient again she is feeling much improved and would like to go home at this point time. Patient was given Zofran for home and is advised to continue supportive care and return with worsening symptoms or concerns. She is advised to follow-up with her primary care physician outpatient setting. She is agreeable this plan as well as family members at bedside all question concerns answered she was discharged home in stable condition. Final impression: Headache Generalized fatigue Disposition: Patient will be discharged home in stable condition Supervising attending attestation: Ranjith VINSON History of Present Illness Chief Complaint: General Illness Narrative Narrative: Patient is a 64-year-old female with history of fibromyalgia, IBS, diverticulitis, hypertension presents to the [facility] apartment with 3 days of generalized malaise. Pay states she developed a sore throat for the last 3 days, developed a headache and now significant weakness. Patient states that she just feels like she cannot do anything or get out of bed. Her headache is mostly posterior, states this has been ongoing for the last 1.5 days. She states she feels extremely nauseous and just full body weakness. Patient denies any sick contacts. [facility] Medical History (Updated 12/25/24 @ 18:07 by PHU Parra) Neck pain Post-menopausal Depression Anxiety Back pain Migraine headache Syncope Difficulty swallowing Gastric reflux Leg cramps Ledbetter's esophagus Wears glasses Arthritis History of IBS History of diverticulitis Non-smoker PONV (postoperative nausea and vomiting) History of echocardiogram History of stress test Cardiology follow-up encounter History of irregular heartbeat Diarrhea Hyperlipidemia Vitamin D deficiency Degeneration of intervertebral disc of cervical region Segmental and somatic dysfunction of thoracic region Segmental and somatic dysfunction of cervical region Cervicogenic headache GERD (gastroesophageal reflux disease) Cataracts, bilateral Fibromyalgia Anxiety and depression Migraine with aura Migraine headache Osteoporosis Myalgia and myositis Dyspepsia Diverticula of colon Home Medications ?Medication ?Instructions ?Recorded ?Last Taken ?Type acetaminophen 500 mg tablet 500 mg PO Q6H PRN Pain 10/21 Unknown History (Tylenol Extra Strength) diphenhydramine HCl 25 mg capsule 25 mg PO QHS PRN sea rashel allergies 12/03/21 Unknown History (Benadryl) cholecalciferol (vitamin D3) 25 1,000 unit PO DAILY Unknown History mcg (1,000 unit) tablet (Vitamin D3) pantoprazole 40 mg tablet,delayed 40 mg PO QDAY #30 ta bs 08/08/24 Unknown Rx release cyclobenzaprine 5 mg tablet 5 mg PO TID PRN muscle Unknown Rx spasm/muscle pain #90 tabs duloxetine 30 mg capsule,delayed 30 mg PO DAILY #30 ca ps 11/15/24 Unknown Rx release zoledronic acid 5 mg/100 mL in 1 ea .Route ONCE Unknown History mannitol 5 %-water intravenous piggybck celecoxib 50 mg capsule 50 mg PO BID 1 month #60 cap s 12/04/24 Unknown Rx meloxicam 15 mg tablet 15 mg PO QDAY #30 tabs 12/21 Unknown Rx ondansetron 4 mg disintegrating 4 mg PO Q8H PRN PRN Na usea #10 tabs 12/25/24 Unknown Rx tablet Allergy/AdvReac Type Severity Reaction Status Date / Time amoxicillin Allergy Rash Verified 12/25/24 14:07 doxycycline Allergy Rash Verified 12/25/24 14:07 Mnmfsrs-EOS-LlV Reductase AdvReac Severe mylagias Verified 12/25/24 14:07 Inhibitor ezetimibe (From Zetia) AdvReac Intermediate Myalgias Verified 12/25/24 14:07 omeprazole AdvReac Intermediate Rash Verified 12/25/24 14:07 aspirin (ASA) AdvReac Gastric Verified 12/25/24 14:07 Reflux/ burning codeine AdvReac Other Verified 12/25/24 14:07 erythromycin base AdvReac Other Verified 12/25/24 14:07 Family History Mother Hypertension COPD (chronic obstructive pulmonary disease) CVA (cerebral vascular accident) Kidney disease Anemia Arthritis Heart disease Osteoporosis Emphysema, unspecified Ascending aortic aneurysm Father , Melanoma Melanoma Sister Hypertension Rheumatoid arthritis Brother , Suicide Suicide attempt Sister Rheumatoid arthritis Hypertension Grandmother Arthritis Heart disease Hypertension Osteoporosis Grandfather CVA (cerebral vascular accident) Aunt CVA (cerebral vascular accident) Uncle Skin cancer Cancer Uncle Cancer Uncle Cancer Uncle Cancer Surgical History Hx of colonoscopy H/O bilateral salpingo-oophorectomy History of total abdominal hysterectomy Normal colonoscopy History of breast biopsy Social History Smoking Status: Never smoker Electronic Cigarette Use: not used second hand exposure: No alcohol intake: never substance use type: does not use caffeine: Yes Type: carbonated beverages Number of servings: 1 what type of physical activity do you participate in: none seatbelt use: always do you feel safe at home: Yes additional social history: David- retired retired ROS ROS ED ROS Narrative Constitutional: Negative for fever, chills, weight loss, weakness Eyes: Negative for vision loss, vision change, double vision ENT: Negative for any sore throat, ear pain, congestion Cardiovascular: Negative for any chest pain, tightness, palpitations Respiratory: Negative for any cough, sputum production, hemoptysis, dyspnea, dyspnea on exertion, orthopnea Gastrointestinal: Negative for any abdominal pain, nausea, vomiting, diarrhea, constipation, blood in stool, blood in vomit : Negative for any urinary frequency, dysuria, retention, blood in urine Muscle skeletal: Negative for any neck pain, back pain Neurological: Negative for any headache, syncope, dizziness Skin: Negative for any rashes, itching, abrasions, lacerations Psychiatric: Negative for any depression, anxiety, stress, suicidal ideation, homicidal ideation Hematologic: Negative for any excessive bruising, easy bleeding EXAM Physical Exam Const Vital Signs: 12/25/24 14:04 12/25/24 14:06 12/25/24 14:09 Temperature 98.6 F 98.6 F Temperature Source Oral Oral Pulse Rate 78 76 Respiratory Rate 15 12 Respiratory Effort Normal Non-Labored Respiratory Pattern Normal Blood Pressure 146/71 H 146/71 H Blood Pressure Mean 96 96 Pulse Ox 98 99 Oxygen Delivery Method Room Air Room Air 12/25/24 15:26 12/25/24 16:04 Temperature 98.2 F Temperature Source Oral Pulse Rate 75 90 Respiratory Rate 16 18 Respiratory Effort Respiratory Pattern Blood Pressure 134/63 H 142/69 H Blood Pressure Mean 86 93 Pulse Ox 98 97 Oxygen Delivery Method Room Air Room Air [facility] Lab Data Labs: Laboratory Results - last 24 hr 12/25/24 14:12 WBC 8.5 RBC 4.58 Hgb 14.3 Hct 43.5 MCV 95.0 MCH 31.2 MCHC 32.9 RDW Std Deviation 46.7 H RDW Coeff of Brooks 13.3 Plt Count 362 MPV 10.9 Immature Gran % (Auto) 0.400 Neut % (Auto) 82.7 H Lymph % (Auto) 10.2 L [place] % (Auto) 5.8 Eos % (Auto) 0.1 Baso % (Auto) 0.8 Absolute Neuts (auto) 7.0 Absolute Lymphs (auto) 0.86 Nucleated RBC % 0 Sodium 139 Potassium 3.4 L Chloride 107 Carbon Dioxide 23.0 Anion Gap 10 BUN 10 Creatinine 0.70 Estim Creat Clear Calc 76.98 Est GFR (MDRD) Af Amer 108 Est GFR (MDRD) Non-Af 89 BUN/Creatinine Ratio 14.2 Glucose 124 H Calcium 8.8 Total Bilirubin 0.70 AST 25 ALT 33 Alkaline Phosphatase 85 Total Protein 7.3 Albumin 3.7 Globulin 3.6 Albumin/Globulin Ratio 1.0 Lipase 50 L Radiography Diagnostic Testing: Clinical Impression(s) from Imaging Studies Brain CT 12/25/24 16:32 IMPRESSION: 2 mm radiodensity noted at the roof of the 3rd ventricle possible small colloid cyst. No CT evidence of acute intracranial pathology. Minimal right maxillary sinus mucosal thickening. Partial opacification of the left ethmoid sinus. Reading Location: [facility] Treatment and Re-Evaluation :: Differential diagnosis includes however is not limited to: Migraine headache, intracranial bleeding, COVID-19, influenza, RSV, dehydration, electrolyte abnormality Patient appears generally well, vital signs are stable, patient is nontoxic-
--- NOTE | 2024-12-25 14:38 | EX.ED.DYSGE1 ---
HPI History of Present Illness Chief Complaint: General Illness Narrative Narrative: Patient is a 64-year-old female with history of fibromyalgia, IBS, diverticulitis, hypertension presents to the [facility] apartment with 3 days of generalized malaise. Pay states she developed a sore throat for the last 3 days, developed a headache and now significant weakness. Patient states that she just feels like she cannot do anything or get out of bed. Her headache is mostly posterior, states this has been ongoing for the last 1.5 days. She states she feels extremely nauseous and just full body weakness. Patient denies any sick contacts. [facility] Medical History (Updated 12/25/24 @ 18:07 by PHU Parra) Neck pain Post-menopausal Depression Anxiety Back pain Migraine headache Syncope Difficulty swallowing Gastric reflux Leg cramps Ledbetter's esophagus Wears glasses Arthritis History of IBS History of diverticulitis Non-smoker PONV (postoperative nausea and vomiting) History of echocardiogram History of stress test Cardiology follow-up encounter History of irregular heartbeat Diarrhea Hyperlipidemia Vitamin D deficiency Degeneration of intervertebral disc of cervical region Segmental and somatic dysfunction of thoracic region Segmental and somatic dysfunction of cervical region Cervicogenic headache GERD (gastroesophageal reflux disease) Cataracts, bilateral Fibromyalgia Anxiety and depression Migraine with aura Migraine headache Osteoporosis Myalgia and myositis Dyspepsia Diverticula of colon Home Medications ?Medication ?Instructions ?Recorded ?Last Taken ?Type acetaminophen 500 mg tablet 500 mg PO Q6H PRN Pain 03/12/21 Unknown History (Tylenol Extra Strength) diphenhydramine HCl 25 mg capsule 25 mg PO QHS PRN seasonal allergies 12/03/21 Unknown History (Benadryl) cholecalciferol (vitamin D3) 25 1,000 unit PO DAILY 08/30/23 Unknown History mcg (1,000 unit) tablet (Vitamin D3) pantoprazole 40 mg tablet,delayed 40 mg PO QDAY #30 tabs 08/08/24 Unknown Rx release cyclobenzaprine 5 mg tablet 5 mg PO TID PRN muscle 11/15/24 Unknown Rx spasm/muscle pain #90 tabs duloxetine 30 mg capsule,delayed 30 mg PO DAILY #30 caps 11/15/24 Unknown Rx release zoledronic acid 5 mg/100 mL in 1 ea .Route ONCE 11/15/24 Unknown History mannitol 5 %-water intravenous piggybck celecoxib 50 mg capsule 50 mg PO BID 1 month #60 caps 12/04/24 Unknown Rx meloxicam 15 mg tablet 15 mg PO QDAY #30 tabs 12/21/24 Unknown Rx ondansetron 4 mg disintegrating 4 mg PO Q8H PRN PRN Nausea #10 tabs 12/25/24 Unknown Rx tablet Allergy/AdvReac Type Severity Reaction Status Date / Time amoxicillin Allergy Rash Verified 12/25/24 14:07 doxycycline Allergy Rash Verified 12/25/24 14:07 [id number] Reductase AdvReac Severe mylagias Verified 12/25/24 14:07 Inhibitor ezetimibe (From Zetia) AdvReac Intermediate Myalgias Verified 12/25/24 14:07 omeprazole AdvReac Intermediate Rash Verified 12/25/24 14:07 aspirin (ASA) AdvReac Gastric Verified 12/25/24 14:07 Reflux/ burning codeine AdvReac Other Verified 12/25/24 14:07 erythromycin base AdvReac Other Verified 12/25/24 14:07 Family History Mother Hypertension COPD (chronic obstructive pulmonary disease) CVA (cerebral vascular accident) Kidney disease Anemia Arthritis Heart disease Osteoporosis Emphysema, unspecified Ascending aortic aneurysm Father , Melanoma Melanoma Sister Hypertension Rheumatoid arthritis Brother , Suicide Suicide attempt Sister Rheumatoid arthritis Hypertension Grandmother Arthritis Heart disease Hypertension Osteoporosis Grandfather CVA (cerebral vascular accident) Aunt CVA (cerebral vascular accident) Uncle Skin cancer Cancer Uncle Cancer Uncle Cancer Uncle Cancer Surgical History Hx of colonoscopy H/O bilateral salpingo-oophorectomy History of total abdominal hysterectomy Normal colonoscopy History of breast biopsy Social History Smoking Status: Never smoker Electronic Cigarette Use: not used second hand exposure: No alcohol intake: never substance use type: does not use caffeine: Yes Type: carbonated beverages Number of servings: 1 what type of physical activity do you participate in: none seatbelt use: always do you feel safe at home: Yes additional social history: David- retired retired ROS ROS ED ROS Narrative Constitutional: Negative for fever, chills, weight loss, weakness Eyes: Negative for vision loss, vision change, double vision ENT: Negative for any sore throat, ear pain, congestion Cardiovascular: Negative for any chest pain, tightness, palpitations Respiratory: Negative for any cough, sputum production, hemoptysis, dyspnea, dyspnea on exertion, orthopnea Gastrointestinal: Negative for any abdominal pain, nausea, vomiting, diarrhea, constipation, blood in stool, blood in vomit : Negative for any urinary frequency, dysuria, retention, blood in urine Muscle skeletal: Negative for any neck pain, back pain Neurological: Negative for any headache, syncope, dizziness Skin: Negative for any rashes, itching, abrasions, lacerations Psychiatric: Negative for any depression, anxiety, stress, suicidal ideation, homicidal ideation Hematologic: Negative for any excessive bruising, easy bleeding EXAM Physical Exam Const Vital Signs: 12/25/24 14:04 12/25/24 14:06 12/25/24 14:09 Temperature 98.6 F 98.6 F Temperature Source Oral Oral Pulse Rate 78 76 Respiratory Rate 15 12 Respiratory Effort Normal Non-Labored Respiratory Pattern Normal Blood Pressure 146/71 H 146/71 H Blood Pressure Mean 96 96 Pulse Ox 98 99 Oxygen Delivery Method Room Air Room Air 12/25/24 15:26 12/25/24 16:04 Temperature 98.2 F Temperature Source Oral Pulse Rate 75 90 Respiratory Rate 16 18 Respiratory Effort Respiratory Pattern Blood Pressure 134/63 H 142/69 H Blood Pressure Mean 86 93 Pulse Ox 98 97 Oxygen Delivery Method Room Air Room Air [facility] MDM Lab Data Labs: Laboratory Results - last 24 hr 12/25/24 14:12 WBC 8.5 RBC 4.58 Hgb 14.3 Hct 43.5 MCV 95.0 MCH 31.2 MCHC 32.9 RDW Std Deviation 46.7 H RDW Coeff of Brooks 13.3 Plt Count 362 MPV 10.9 Immature Gran % (Auto) 0.400 Neut % (Auto) 82.7 H Lymph % (Auto) 10.2 L Dale % (Auto) 5.8 Eos % (Auto) 0.1 Baso % (Auto) 0.8 Absolute Neuts (auto) 7.0 Absolute Lymphs (auto) 0.86 Nucleated RBC % 0 Sodium 139 Potassium 3.4 L Chloride 107 Carbon Dioxide 23.0 Anion Gap 10 BUN 10 Creatinine 0.70 Estim Creat Clear Calc 76.98 Est GFR (MDRD) Af Amer 108 Est GFR (MDRD) Non-Af 89 BUN/Creatinine Ratio 14.2 Glucose 124 H Calcium 8.8 Total Bilirubin 0.70 AST 25 ALT 33 Alkaline Phosphatase 85 Total Protein 7.3 Albumin 3.7 Globulin 3.6 Albumin/Globulin Ratio 1.0 Lipase 50 L Radiography Diagnostic Testing: Clinical Impression(s) from Imaging Studies Brain CT 12/25/24 16:32 IMPRESSION: 2 mm radiodensity noted at the roof of the 3rd ventricle possible small colloid cyst. No CT evidence of acute intracranial pathology. Minimal right maxillary sinus mucosal thickening. Partial opacification of the left ethmoid sinus. Reading Location: [facility] Treatment and Re-Evaluation :: Differential diagnosis includes however is not limited to: Migraine headache, intracranial bleeding, COVID-19, influenza, RSV, dehydration, electrolyte abnormality Patient appears generally well, vital signs are stable, patient is nontoxic-appearing. Presenting to the emergency department for complaints of nausea, headache. Patient CBC was unremarkable, patient's chemistries were unremarkable, lipase was 50. Patient was given IV fluids, Zofran, Toradol. On reevaluation the patient still had a headache, did not feel that much improved. Patient will be given Reglan, Benadryl and a CT scan of the brain. Patient need to be reevaluated. Patient on reevaluation was feeling much improvement. Patient at this time will be discharged home.Patient's laboratories are unremarkable. Patient CT scan showed a 2 mm radiodensity noted on the roof of the third ventricle possible small colloid cyst. No CT evidence of acute intracranial pathology. Minimal maximal right sinus mucosal thickening. Patient at this time feels much better. Patient be given Zofran for home, will continue to try to eat and drink. She is happy the plan of care, all questions answered, I did have the patient ambulate, patient did well. Stable for discharge. Discharge Plan Triage Chief Complaint: General Illness ED Midlevel Provider: James Gates ED Provider: Ranjith Vides Dx/Rx/DC Orders Clinical Impression: Headache, migraine, Nausea Instructions: ED, Migraine (Classical) Prescriptions: New ondansetron 4 mg tablet,disintegrating 4 mg PO Q8H PRN PRN (Reason: Nausea) Qty: 10 0RF No Action diphenhydramine HCl [Benadryl] 25 mg capsule 25 mg PO QHS PRN (Reason: seasonal allergies) acetaminophen [Tylenol Extra Strength] 500 mg tablet 500 mg PO Q6H PRN (Reason: Pain) celecoxib 50 mg capsule 50 mg PO BID 30 Days Qty: 60 0RF zoledronic eyop-nytnynca-keomz 5 mg/100 mL piggyback 1 ea .Route ONCE Rx Instructions: infuse over 20 minutes once a year cyclobenzaprine 5 mg tablet 5 mg PO TID PRN (Reason: muscle spasm/muscle pain) Qty: 90 5RF duloxetine 30 mg capsule,delayed release(DR/EC) 30 mg PO DAILY Qty: 30 5RF cholecalciferol (vitamin D3) [Vitamin D3] 25 mcg (1,000 unit) tablet 1,000 unit PO DAILY pantoprazole 40 mg tablet,delayed release (DR/EC) 40 mg PO QDAY Qty: 30 6RF meloxicam 15 mg tablet 15 mg PO QDAY Qty: 30 2RF Primary Care Provider: Mary Ponce Referrals: Mary Ponce MD [Primary Care Provider] - Activity Restrictions/Additional Instructions: Please follow-up outpatient. Use the Zofran as needed. Return for any worsening symptoms. Print Language: Arabic Disposition Disposition: Home, Self Care
[2024-12-25 14:41] LABS: Absolute Lymphocyte Count 0.86 X10^3/uL (0.83-4.51); Basophil# 0.07 X10^3/uL; Basophil% 0.8 % (0-1); Eosinophil# 0.01 X10^3/uL; Eosinophils% 0.1 % (0-5); Hematocrit 43.5 % (37-47); Hemoglobin 14.3 g/dL (12.0-15.0); Lymphocyte # 0.86 X10^3/ul (0.83-4.51); Lymphocyte % 10.2 % (19-41); Mean Corp Hgb Conc 32.9 g/dL (32-36); Mean Corpuscular Hgb 31.2 pg (27.0-32.0); Mean Platelet Vol. 10.9 fl (6.2-12.0); Monocyte# 0.49 X10^3/uL; Monocyte% 5.8 % (0-10); NRBC Flagged by Analyzer 0 % (0-5); Neutrophil % 82.7 % (47-70); Platelet Count 362 K/mm3 (150-450); RBC Distribution Width CV 13.3 % (11.6-14.6); RBC Distribution Width SD 46.7 fl (35.1-43.9); Red Blood Count 4.58 M/mm3 (4.2-5.4); White Blood Count 8.5 K/mm3 (4.4-11.0)
[2024-12-25] MEDS: Ketorolac 15 MG/ML Vial IV (14:51)
[2024-12-25] MEDS: Ondansetron 4 MG/2 ML Vial IV (14:51)
[2024-12-25] MEDS: 0.9% Normal Saline (1000mL) 1,000 ML 999 ML IV (14:51)
[2024-12-25 15:05] LABS: AST(SGOT) 25 U/L (15-37); Alanine Aminotransfer ALT/SGPT 33 U/L (13-56); Albumin, Serum 3.7 g/dL (3.2-5.0); Alkaline Phosphatase 85 U/L (45-117); Anion Gap 10 (5-15); BUN 10 mg/dL (7-18); BUN/Creat Ratio 14.2 RATIO (10-20); Calcium,Total 8.8 mg/dL (8.5-10.1); Chloride 107 mmol/L (98-107); EST Glomerular Filtration Rate 89 mL/min (>60); Est Glom Filt Rate - Afr Amer 108 mL/min (>60); Estimated Creatinine Clearance 76.98 ml/min; Globulin 3.6 g/dL (2.2-4.2); Glucose 124 mg/dL (74-106); Lipase 50 U/L (73-393); Potassium 3.4 mmol/L (3.5-5.1); Protein, Total 7.3 g/dL (6.4-8.2); Sodium Level 139 mmol/L (136-145)
[2024-12-25 15:26] VITALS: BP 134/63; PULSE 75; RESP 16; TEMP 36.8; O2SAT 98
[2024-12-25 16:04] VITALS: BP 142/69; PULSE 90; RESP 18; O2SAT 97
[2024-12-25] MEDS: DiphenhydrAMINE 50 MG/ML Syringe 25 MG IV (16:19)
[2024-12-25] MEDS: Metoclopramide 10 MG/2 ML Vial IV (16:19)
[2024-12-25] MEDS: 0.9% Normal Saline (500mL Bag) 500 ML 999 ML IV (16:25)
--- NOTE | 2024-12-25 16:32 | CT_ITS ---
EXAM: BRAIN/HEAD WITHOUT CONTRAST CLINICAL HISTORY: Nausea dizziness and sore throat for 3 days. COMPARISON: MRI dated 12/19/2024. TECHNIQUE: Noncontrast images of the head with multiplanar reconstructions. Dose reduction techniques were used including intermediate exposure control (AEC),iterative reconstruction technique, and/or mA and/or KV dose adjustments based on patient's size. FINDINGS: No acute intracranial hemorrhage, mass effect, midline shift or pathologic extra-axial fluid collection. 2 mm radiodensity noted at the roof of the 3rd ventricle possible small colloid cyst. No hydrocephalus. Preservation of the garcia- white parenchymal differentiation. The orbits are symmetrically unremarkable. Visualized mastoid air cells are clear. Minimal right maxillary sinus mucosal thickening. Partial opacification of the left ethmoid sinus. The calvarium is grossly intact. CT/Brain/Head without Contrast IMPRESSION: 2 mm radiodensity noted at the roof of the 3rd ventricle possible small colloid cyst. No CT evidence of acute intracranial pathology. Minimal right maxillary sinus mucosal thickening. Partial opacification of the left ethmoid sinus. Reading Location: [id number]
[2024-12-25] MEDS: Acetaminophen 500 MG Tablet 1000 MG PO (16:45)
[2024-12-25 18:24] VITALS: BP 128/61; PULSE 75; RESP 16; TEMP 36.4; O2SAT 98
== END 2024-12-25 18:25 | disposition home or self-care (01) ==
PROVIDERS: Nurse Practitioner; Emergency Provider Emergency Medicine; PCP Family Medicine; Visit Provider Emergency Medicine
DX: G43.909 Migraine, unspecified, not intractable, without status migrainosus (principal); R53.83 Other fatigue
CPT/HCPCS: 70450; 80053; 83690; 85025; 87631; 96361; 96374; 96375; 99285; A4216; J2405

== ENCOUNTER → 2025-02-14 | Outpatient (CLI) | payer OTHER, SELFPAY ==
--- NOTE | 2025-02-14 13:25 | CT_ITS ---
PROCEDURE: ABDOMEN/PELVIS WITH CONTRAST 02/14/2025 REASON FOR EXAM: DIVERTICULITIS Prior hysterectomy. TECHNIQUE: Abdomen and pelvis CT with intravenous contrast. Coronal and Sagittal reconstruction series were provided. PATIENT PREPARATION: Per protocol ORAL CONTRAST TYPE: Gastrografin CONTRAST: Isovue-300 VOLUME: 95 mL Gauge IV One or more dose reduction techniques were used (e.g., Automated exposure control, adjustment of the mA and/or kV according to patient size, use of iterative reconstruction technique. RADIATION DOSE SUMMARY: CTDlvol: 14.4 mGy DLP: 685.10 mGycm COMPARISON: None FINDINGS: Lung bases: Mild dependent atelectasis Liver: Diffuse fatty infiltration. Gallbladder: Unremarkable Spleen: Normal size. Pancreas: Normal size without evidence of mass surrounding inflammation or ductal dilation. Adrenals: Unremarkable Kidneys: Normal renal sizes. No hydronephrosis. Bladder: Unremarkable Reproductive Organs: Prior hysterectomy. Adnexal regions are unremarkable. Bowel: Colonic diverticulosis without diverticulitis. Appendix: The appendix is not identified. There is no inflammatory process identified in the right lower quadrant to suggest appendicitis. Lymph nodes: Unremarkable. Vasculature: The abdominal aorta and IVC are normal. Peritoneum / Retroperitoneum: Unremarkable Bones: Degenerative changes of the spine. CT/Abdomen/Pelvis WITH Contrast IMPRESSION: Fatty infiltration of the liver. Scattered sigmoid diverticula. No evidence of diverticulitis. Reading Location: [place] [id number]
== END | disposition home or self-care (01) ==
LOC: CT 13:03
PROVIDERS: PCP Family Medicine; Referring Provider Internal Medicine Gastroenterology; Visit Provider Internal Medicine Gastroenterology
DX: K57.32 Diverticulitis of large intestine without perforation or abscess without bleeding (principal)
CPT/HCPCS: 74177; Q9967; A4216

== ENCOUNTER → 2025-02-15 | Outpatient (CLI) | payer OTHER, SELFPAY ==
[2025-02-15 16:21] LABS: Hemoglobin A1c 5.4 % (<=5.6)
== END | disposition home or self-care (01) ==
LOC: MTLAB 13:38
PROVIDERS: PCP Family Medicine; Referring Provider Psychiatry & Neurology Neurology; Visit Provider Psychiatry & Neurology Neurology
DX: R73.9 Hyperglycemia, unspecified (principal)
CPT/HCPCS: 36415; 83036

== ENCOUNTER → 2025-03-27 | Outpatient (CLI) | payer OTHER, SELFPAY ==
--- NOTE | 2025-03-27 12:59 | NEURO ---
NCS and/or EMG Patient Report Ordering Doctor: Hugh Carranza DATE OF SERVICE: 03/27/25 Clinical Summary: 64 year old female patient presenting with symptoms of numbness in the big toe of the left foot as well as tingling in the lateral thigh region. Nerve Conduction Studies Summary: Nerve conduction studies of the left lower extremity were normal. Needle Examination Summary: Needle examination of select muscles of the left lower extremity was normal. Impression: This is a normal study. There is no electrodiagnostic evidence of a large-fiber peripheral polyneuropathy, left lumbosacral radiculopathy, or left peroneal mononeuropathy. Multi Select Codes Neurology Neurology Interp Codes: 63640-60 Musc test done w/n test comp (interp) (1) and 20444-10 Nrv cndj tst 3-4 studies (interp)
== END | disposition home or self-care (01) ==
LOC: PSN 12:02
PROVIDERS: PCP Family Medicine; Referring Provider Psychiatry & Neurology Neurology; Visit Provider Psychiatry & Neurology Neurology
DX: R20.2 Paresthesia of skin (principal); M54.16 Radiculopathy, lumbar region
CPT/HCPCS: 95886; 95908

== ENCOUNTER → 2025-06-01 | Outpatient (CLI) | payer OTHER, SELFPAY ==
--- NOTE | 2025-06-01 11:42 | US_ITS ---
PROCEDURE: THYROID 06/01/2025 REASON FOR EXAM: 6 MM RIGHT SIDED THYROID NODULE ON C-SPINE MRI TECHNIQUE: THYROID COMPARISON: Prior MRI scan. FINDINGS: Right thyroid lobe size: 4.8 cm x 1.2 cm 1.7 cm Left thyroid lobe size: 4.8 cm 1.2 cm with a 1.4 cm Isthmus: 0.25 cm Background parenchymal echotexture is homogeneous Nodules: . Lobe: Right, Location: Upper pole, Size: 0.7 cm x 0.7 cm x 0.4 cm, Stability: N/A Composition: Mixed cystic and solid (+1) Echogenicity: Hypoechoic (+2) Margin: Smooth (+0) Shape: Wider than tall (+0) Echogenic Foci: None (+0) TI-RADS: TI-RADS category 3 . Lobe: Left, Location: Inferior, Size: 1 cm x 0.9 cm x 0.6 cm, Stability: N/A Composition: Mixed cystic and solid (+1) Echogenicity: Hypoechoic (+2) Margin: Smooth (+0) Shape: Wider than tall (+0) Echogenic Foci: None (+0) TI-RADS: TI-RADS category 3 US/Thyroid IMPRESSION: Small hypoechoic complex nodules as described. Routine follow-up recommended. RECOMMENDATION: Based on most suspicious nodule. Nodule size = largest diameter Only evaluate nodule if =>5 mm. Growth > 20% in 2 dimensions = worsening. Follow up to 4 nodules. Recommend biopsy for no more than 2 nodules. Reading Location: [facility]
--- OUTSIDE RECORDS SUMMARY | 2025-06-01 18:31 | XMS RPT_ITS | CCD ---
Author Organization [facility] Care Team Providers Care [employer] Internship Name Role Phone Maribell Kwok Unavailable Abdias Dani Unavailable Damien Piper Unavailable Rosario Cool Unavailable DERREK Cha Unavailable Unavailable RebekaKeoyn mimsha Unavailable Unavailable Unavailable Unavailable Dr. Mary Ponce Primary Care Provider [phone] Dr. Mary Ponce Referring Provider [phone] Dr. Ly Cuevas Attending Provider [phone] Cody MANAGER TREASURY, MANAGER TREASURY-C Felisha Attending Provider [phone] Dr. Floyd Bellamy Attending Provider [phone] Dr. Ochoa Hernandez Attending Provider [phone] Mary Ponce Primary Care Provider [phone] Dr. Mary Ponce Referring Provider [phone] Dr. Ly Cuevas Attending Provider [phone] Dr. Floyd Bellamy Referring Provider [phone] Dr. Floyd Bellamy Other Provider [phone] Michael Miles Other Provider Dr. Mary Ponce Primary Care Provider [phone] Dr. Mary Ponce Referring Provider [phone] Floyd Bellamy Attending Provider [phone] Magdi IRVIN, MANAGER TREASURY-C Lakisha Patterson Attending Provider [phone] Dr. Mary Pnoce Primary Care Provider [phone] Dr. Mary Ponce Referring Provider MONALISA Penny Attending Provider Dr. Mary Ponce Primary Care Provider [phone] Dr. Mary Ponce Referring Provider Magdi IRVIN, MANAGER TREASURY-Jose Patterson Attending Provider [phone] MONALISA Penny Attending Provider Dr. Mary Ponce Primary Care Provider [phone] Dr. Mary Ponce Referring Provider [phone] Dr. Mary Ponce Primary Care Provider [phone] Dr. Mary Ponce Referring Provider Dr. Floyd Bellamy Attending Provider [phone] Dr. Floyd Bellamy Other Provider Magdi IRVIN, ALBARO-Jose Patterson Attending Provider [phone] MONALISA Penny Attending Provider Dr. Mary Ponce Primary Care Provider [phone] Dr. Mary Ponce Referring Provider [phone] Dr. Mary Ponce Primary Care Provider [phone] Mary Ponce Referring Provider Dr. Ochoa Hernandez Attending Provider [phone] Ochoa Hernandez Other Provider MONALISA Penny Referring Provider MONALISA Penny Other Provider [phone] Dr. Mary Ponce Primary Care Provider [phone] Mary Ponce Referring Provider Dr. Floyd Bellamy Attending Provider [phone] Dr. Mary Ponce Primary Care Provider [phone] David, Dr. Packer Attending Provider [phone] David, Dr. Packer Referring Provider [phone] David, Dr. Packer Other Provider Dr. Scott Do Attending Provider Dr. Mary Ponce Primary Care Provider [phone] Mary Ponce Referring Provider Dr. Floyd Bellamy Attending Provider [phone] David, Dr. Packer Attending Provider [phone] David, Dr. Packer Referring Provider [phone] David, Dr. Packer Other Provider Dr. Scott Do Attending Provider Dr. Floyd Bellamy Other Provider [phone] Mary Ponce MD Primary Care Provider Dr. Mary Ponce MD Referring Provider [phone] [place] MANAGER TREASURY-CFelisha Attending Provider Elías MANAGER TREASURY-C, Fallon Attending Provider Elías MANAGER TREASURY-C, [place]on Referring Provider Dr. Hugh Carranza MD Attending Provider Dr. Hugh Carranza MD Referring Provider [phone] Dr. Floyd Bellamy DO Attending Provider Dr. Ranjith Vides DO Attending Provider Dr. Ranjith Vides DO Emergency Provider Dr. Floyd Bellamy DO Referring Provider Dr. Mary Ponce MD Primary Care Provider Dr. Mary Ponce MD Referring Provider [phone] Dillon BOURGEOIS, Dr. Reese Attending Provider Dillon BOURGEOIS, Dr. Reese Referring Provider Dillon BOURGEOIS, Dr. Reese Other Provider Abby BOURGEOIS, Dr. Morley Attending Provider Miedel, Mary Primary Care Unavailable Carmelina Penny Referring Unavail able Carmelina Penny Attending Unavail able Miedel, Mary Primary Care Unavailable Ranjith Vides Attending Unavailable Floyd Bellamy Attending Unavailable Miedel, Mary Referring Unavailable Miedel, Mary Primary Care Unavailable Miedel, Mary Primary Care Unavailable Dillon Hugh Referring Unavailable BadHugh baca Attending Unavailable Miedel, Mary Referring Unavailable Miedel, Mary Primary Care Unavailable Miedel, Mary Attending Unavailable Harshal Cordero Attending Unavailabl e Miedel, Mary Primary Care Unavailable Miedel, Mary Referring Unavailable Miedel, Mary Primary Care Unavailable Miedel, Mary Attending Unavailable Janiya Mckinleyhel Referring Unavailable Fallon Mckinley Attending Unavailable Miedel, Mary Primary Care Unavailable Miedel, Mary Primary Care Unavailable Miedel, Mary Referring Unavailable Hugh Carranza Attending Unavailable Miedel, Mary Primary Care Unavailable Miedel, Mary Referring Unavailable Floyd Bellamy Attending Unavailable FriendFloyd Attending Unavailable Miedel, Mary Primary Care Unavailable Miedel, Mary Referring Unavailable Miedel, Mary Primary Care Unavailable Miedel, Mary Referring Unavailable Carmelina Penny Attending Unavail able Miedel, Mary Referring Unavailable Miedel, Mary Primary Care Unavailable Felisha Ross NP Attending Unavailable Miedel, Mary Primary Care Unavailable Miedel, Mary Referring Unavailable Hugh Carranza Attending Unavailable Bertrand Feliz Attending Unavailable Miedel, Mary Primary Care Unavailable Baddour, Hugh Referring Unavailable Baddour, Hugh Consulting Unavailable Abby, Ahmad Attending Unavailable Baddour, Hugh Referring Unavailable Miedel, Mary Primary Care Unavailable Baddour, Hugh Attending Unavailable Miedel, Mary Primary Care Unavailable Baddour, Hugh Attending Unavailable Baddour, Hugh Referring Unavailable Miedel, Mary Primary Care Unavailable Miedel, Mary Referring Unavailable Miedel, Mary Attending Unavailable Miedel, Mary Primary Care Unavailable Baddour, Hugh Referring Unavailable Baddour, Hugh Attending Unavailable Friend, Floyd Referring Unavailable Friend, Floyd Attending Unavailable Miedel, Mary Primary Care Unavailable Baddour, Hugh Referring Unavailable Miedel, Mary Primary Care Unavailable Baddour, Hugh Attending Unavailable Baddour, Hugh Referring Unavailable Miedel, Mary Primary Care Unavailable Baddour, Hugh Attending Unavailable Allergies Allergy Classification Reported Allergen(s) Allergy Type Date of Onset Reaction(s) Facility (1 source) Benzocaine / trimethobenzamid e; Translations: [Tigan *ANTIEMETICS*] Drug Allergy [facility]; [facility] Work Phone: (1 source) metroNIDAZOLE; Translations: [Flagyl *ANTI-INFECTIVE AGENTS - MISC.*] Drug Allergy [facility]; [facility] Work Phone: (18 sources) Omeprazole; Translations: [Omeprazole *ULCER DRUGS*] Drug Allergy 10-14-20 21 Hives [facility]; [facility] Work Phone: (1 source) Codeine/Codeine Derivatives; Translations: [Codeine/Codeine Derivatives] Allergy to substance (finding) [facility] Work Phone: (1 source) trazadone-headac hes worse Allergy to substance (finding) [facility]; [facility] Work Phone: (17 sources) Aspirin Drug Allergy 12-03-19 22 Gastric Reflux/ burning [facility] (17 sources) Codeine Drug Allergy 10-14-20 [address] [facility] (17 sources) Erythromycin Drug Allergy 10-14-20 21 Other, Rash [facility] (3 sources) Amoxicillin Drug Allergy 02-16-[address] [facility] Comment on above: pt unsure if allergy is amoxicillin or doxycycline (3 sources) Doxycycline Drug Allergy 02-16-[address] [facility] Comment on above: pt unsure if allergy is doxycycline or amoxicillin (3 sources) ezetimibe Drug Allergy 02-16-[address] [facility] (3 sources) Hnqlsoc-Brm-Wqf Reductase Inhibitor Propensity to adverse reactions 02-16-[address] [facility] (1 source) Amoxicillin Drug Allergy 02-16-[address] [facility] (1 source) Aspirin Drug Allergy 02-16-[address] [facility] (1 source) Codeine Drug Allergy 02-16-[address] [facility] (1 source) Doxycycline Drug Allergy 02-16-[address] [facility] (1 source) Erythromycin Drug Allergy 02-16-[address] [facility] (1 source) ezetimibe Drug Allergy 02-16-[address] [facility] (1 source) Omeprazole Drug Allergy 02-16-[address] [facility] (1 source) Vusgrlf-Res-Pdl Reductase Inhibitor Drug allergy (disorder) 02-16-[address] [facility] Medications Current Medications Medication Drug Class(es) Dates Sig (Normalized) Sig (Original) acetaminophen 500 mg oral tablet (20 sources) Start: 03-12-2021 take 1 tablet by mouth every six hours as needed for pain Acetaminophen (Tylenol Extra Strength) 500 mg tablet Active 500 mg PO EVERY 6 HOURS as needed for Pain March 12, 2021 12:00am Start: 07-16-2020 End: 03-12-2021 take 1 tablet by mouth once as needed Acetaminophen (Tylenol) 325 mg tablet Discontinued 325 mg PO ONCE as needed July 16, 2020 12:00am March 12, 2021 11:46am baclofen 10 mg oral tablet (20 sources) gamma-Aminobutyric Acid-ergic Agonist Start: 12-03-2021 take 5 mg by mouth three times daily Baclofen Active 5 MG PO THREE TIMES A DAY December 03, 2021 11:09am Start: 09-04-2021 End: 12-03-2021 take 1 tablet by mouth three times daily as needed for pain Baclofen 5 mg tablet Discontinued 5 mg PO THREE TIMES A DAY as needed for muscle pain 90 September 04 2021 12:00am December 03, 2021 12:09pm Start: 05-19-2021 End: 12-03-2021 take 1 tablet by mouth three times daily as needed for pain Baclofen 10 mg tablet Discontinued 10 mg PO THREE TIMES A DAY as needed for muscle pain/spasm May 19, 2021 12:00am December 03, 2021 12:09pm cholecalciferol 0.025 mg oral tablet (20 sources) Vitamin D Start: 08-30-2023 take 1 tablet by mouth once daily Cholecalciferol (Vitamin D3) (Vitamin D3) 25 mcg (1,000 unit) tablet Active 1000 U PO DAILY August 30, 2023 12:00am Start: 03-12-2021 End: 01-12-2023 take 1 capsule by mouth once daily Cholecalciferol (Vitamin D3) 25 mcg (1,000 unit) capsule Discontinued 25 ug PO DAILY March 12, 2021 12:00am January 12, 2023 1:45pm take 1-2 capsules by mouth every week VITAMIN D3, 1000UNIT (Oral Capsule) 1 to 2 weekly (1000 UNIT) Inactive cyclobenzaprine hydrochloride 5 mg oral tablet (20 sources) Muscle Relaxant Start: 11-15-2024 End: 02-15-2025 take 1 tablet by mouth three times daily as needed for pain Cyclobenzaprine 5 mg tablet Active 5 mg PO THREE TIMES A DAY as needed for muscle spasm/muscle pain February 15, 2025 1:45pm Start: 03-18-2021 End: 05-19-2021 take 1 tablet by mouth once daily as needed Cyclobenzaprine 10 mg tablet Discontinued 10 mg PO DAILY as needed March 18, 2021 12:00am May 19, 2021 5:09pm Start: 10-02-2011 End: 08-22-2012 take 1 tablet by mouth three times daily as needed FLEXERIL, 10MG (Oral Tablet) 1 (one) Tablet TID/PRN for 0 days Quantity: 30 {Tablet} Refills: 1 Ordered: 22-Aug-2012 DERREK Cha LPN Start : 02-Oct-2011 End : 22-Aug-2012 Inactive diphenhydrAMINE hydrochloride 25 mg oral capsule (20 sources) Histamine-1 Receptor Antagonist Start: 07-16-2020 End: 12-03-2021 take 1 capsule by mouth at bedtime as needed Diphenhydramine Hcl (Benadryl) 25 mg capsule Active 25 mg PO AT BEDTIME as needed for seasonal allergies December 03, 2021 12:09pm DULoxetine 30 mg delayed release oral capsule (3 sources) Serotonin and Norepinephrine Reuptake Inhibitor Start: 11-15-2024 take 1 capsule by mouth once daily Duloxetine 30 mg capsule,delayed release(DR/EC) Active 30 mg PO DAILY November 15, 2024 1:00am meloxicam 15 mg oral tablet (3 sources) Nonsteroidal Anti-inflammatory Drug Start: 12-21-2024 take 1 tablet by mouth once daily Meloxicam 15 mg tablet Active 15 mg PO daily December 21, 2024 1:00am ondansetron 4 mg disintegrating oral tablet (6 sources) Serotonin-3 Receptor Antagonist Start: 12-25-2024 take 1 tablet by mouth every eight hours as needed for nausea Ondansetron 4 mg tablet,disintegrati ng Active 4 mg PO EVERY 8 HOURS NEEDED as needed for Nausea December 25, 2024 1:00am Start: 07-29-2024 End: 10-30-2024 take 1 tablet by mouth every eight hours as needed for nausea Ondansetron 4 mg tablet,disintegrating Discontinued 4 mg PO EVERY 8 HOURS NEEDED as needed for Nausea July 29, 2024 12:00am October 30, 2024 2:18pm pantoprazole 40 mg delayed release oral tablet (20 sources) Proton Pump Inhibitor Start: 08-08-2024 End: 03-01-2025 take 1 tablet by mouth once daily Pantoprazole 40 mg tablet,delayed release (DR/EC) Active 40 mg PO daily March 01, 2025 8:14am Start: 03-24-2022 End: 07-21-2024 take 1 tablet by mouth once daily in the morning Pantoprazole 40 mg tablet,delayed release (DR/EC) Discontinued 40 mg PO EVERY MORNING August 13, 2022 1:27pm July 09, 2023 10:56am 100 ml zoledronic acid 0.05 mg/ml injection (8 sources) Bisphosphonate Start: 11-15-2024 Zoledronic Tcfk-Vmkawagx-Qnjpy 5 mg/100 mL piggyback Active 1 NMA .Route ONCE November 15, 2024 9:49am infuse over 20 minutes once a year Start: 08-06-2023 End: 11-15-2024 Zoledronic Itui-Tfcavvaj-Vrf er 5 mg/100 mL piggyback Discontinued 1 NMA .Route ONCE August 06, 2023 12:00am November 15, 2024 9:50am infuse over 20 minutes. Completed/Discontinued Medications Medication Drug Class(es) Dates Sig (Normalized) Sig (Original) acetaminophen 325 mg / HYDROcodone bitartrate 5 mg oral tablet (17 sources) Opioid Agonist Start: 02-12-2019 End: 02-14-2019 Hydrocodone-Acetami nophen 1 TABLET tablet Discontinued 1 {tbl} PO EVERY 4 HOURS NEEDED as needed for Pain 08 02February 12, 2019 12:00am February 13, 2019 12:00am February 14, 2019 12:09am Start: 02-12-2019 End: 02-14-2019 take 1 tablet by mouth every four hours as needed Hydrocodone-Acetaminophen Discontinued 1 TABLET PO EVERY 4 HOURS NEEDED 08 02February 11, 2019 11:00pm February 13, 2019 11:09pm alendronic acid 70 mg oral tablet (1 source) Bisphosphonate Start: 10-27-2013 End: 01-23-2014 take 1 tablet by mouth every week ALENDRONATE SODIUM, 70MG (Oral Tablet) 1 Tablet weekly for 0 days Quantity: 4 {Tablet} Refills: 12 Ordered: 23-Jan-2014 Teresa Patten CMA Start : 27-Oct-2013 End : 23-Jan-2014 Inactive amitriptyline hydrochloride 25 mg oral tablet (1 source) Tricyclic Antidepressant Start: 07-04-2013 End: 07-04-2013 take 1 tablet by mouth once daily AMITRIPTYLINE HCL, 25MG (Oral Tablet) 1 Tablet qd for 0 days Quantity: 30 {Tablet} Refills: 2 Ordered: 04-Jul-2013 Sundar BOURGEOIS, Maribell Kwok MD, Maribell Patterson Start : 04-Jul-2013 End : 04-Jul-2013 Discontinued amLODIPine 5 mg oral tablet (5 sources) Dihydropyridine Calcium Channel Nan Start: 07-23-2023 End: 10-07-2023 take 1 tablet by mouth once daily Amlodipine 5 mg tablet Discontinued 5 mg PO DAILY July 23, 2023 12:00am October 07, 2023 9:27am amoxicillin 875 mg / clavulanate 125 mg oral tablet (4 sources) Penicillin-class Antibacterial Start: 07-29-2024 End: 10-19-2024 Amoxicillin-Pot Clavulanate 875-125 mg tablet Discontinued 1 {tbl} PO TWICE A DAY July 29, 2024 12:00am October 19, 2024 11:28am Start: 11-23-2006 End: 12-16-2006 take 1 tablet by mouth twice daily AUGMENTIN, 875-125MG (Oral Tablet) 1 Tablet BID for 10 days Quantity: 20 {Tablet} Refills: 0 Ordered: 23-Nov-2006 Maribell Kwok MD, MD, Dana M Start : 23-Nov-2006 End : 16-Dec-2006 Inactive Comments: Pt only to take if symptoms worsen. Comment on above: Pt only to take if s ymptoms worsen. aspirin 81 mg chewable tablet (1 source) Platelet Aggregation Inhibitor, Nonsteroidal Anti-inflammatory Drug Start: 10-18-20 End: 10-18-20 15 take 1 tablet by mouth once daily ASPIRIN ADULT LOW STRENGTH, 81MG (Oral Tablet Chewable) 1 (one) Tablet Chewable Tablet Chewable daily for 0 days Quantity: 30 {Tablet} Refills: 0 Ordered: 18-Oct-2015 Maribell Kwok MD, MD, Dana M Start : 18-Oct-2015 End : 18-Oct-2015 Discontinued celecoxib 50 mg oral capsule (3 sources) Nonsteroidal Anti-inflammatory Drug Start: 12-04-19 End: 01-04-20 take 1 capsule by mouth twice daily Celecoxib 50 mg capsule Discontinued 50 mg PO TWICE A DAY December 04, 2024 1:00am January 02, 2025 1:00am January 03, 2025 1:10am cetirizine hydrochloride 5 mg oral tablet (1 source) Histamine-1 Receptor Antagonist End: 11-23-19 07 ZYRTEC, 5MG (Oral Tablet) Unsure Unsure for 0 days Refills: 0 Ordered: 31-Dec-2006 Sundar BOURGEOIS, Maribell Curry MD End : 23-Nov-2006 Discontinued cholestyramine resin 4000 mg powder for oral suspension (6 sources) Bile Acid Sequestrant Start: 07-21-20 24 End: 10-30-20 Cholestyramine (With Sugar) 4 gram powder Discontinued NMA PO daily as needed July 21, 2024 12:00am October 30, 2024 2:18pm Start: 06-20-2024 End: 07-20-2024 take 1 dose by mouth twice daily Cholestyramine (With Sugar) 4 gram powder Discontinued 4 g PO TWICE A DAY 378 30 June 20, 2024 12:00am July 19, 2024 12:00am July 20, 2024 12:05am administer w/meal; avoid other meds within 1hr before or 4-6hr after dose desoximetasone 2.5 mg/ml topical cream (1 source) Corticosteroid Start: 03-25-2010 TOPICORT, 0.25% (External Cream) 1 (one) Cream bid for 0 days Quantity: 60 {Gram(s)} Refills: 0 Ordered: 20-Jun-2010 Start : 25-Mar-2010 Inactive doxycycline hyclate 100 mg oral capsule (6 sources) Tetracycline-class Drug Start: 07-09-2023 End: 08-06-2023 take 1 capsule by mouth twice daily Doxycycline Hyclate 100 mg capsule Discontinued 100 mg PO TWICE A DAY 60 July 09, 2023 12:00am August 06, 2023 10:58am ergocalciferol 16167 unt oral capsule (2 sources) Provitamin D2 Compound Start: 02-17-2010 End: 02-16-2012 take 1 capsule by mouth two times weekly DRISDOL, [id number] (Oral Capsule) 1 Capsule twice weekly for 0 days Quantity: 8 {Capsule} Refills: 6 Ordered: 16-Feb-2012 DERREK Cha LPN Start : 24-Mar-2011 End : 16-Feb-2012 Inactive Comment on above: This order discontin ued per [facility]. esomeprazole 40 mg delayed release oral capsule (1 source) Proton Pump Inhibitor Start: 01-29-2009 NEXIUM, 40MG (Oral Capsule Delayed Release) Capsule DR QD for 0 days Quantity: 30 {Capsule_DR} Refills: 2 Ordered: 29-Jan-2009 DERREK Cha LPN Start : 29-Jan-2009 Inactive estradiol 0.01 mg vaginal tablet (1 source) Estrogen Start: 09-17-2014 End: 10-18-2015 VAGIFEM, 10MCG (Vaginal Tablet) UAD Tablet 2 x week for 0 days Quantity: 10 {Tablet} Refills: 0 Ordered: 18-Oct-2015 Lindsey Upton LPN Start : 17-Sep-2014 End : 18-Oct-2015 Discontinued ezetimibe 10 mg oral tablet (4 sources) Dietary Cholesterol Absorption Inhibitor Start: 01-20-2024 End: 06-20-2024 take 1 tablet by mouth once daily Ezetimibe (Zetia) 10 mg tablet Discontinued 10 mg PO DAILY January 20, 2024 12:00am June 20, 2024 10:50am Start: 01-18-2015 End: 01-18-2015 take 1 tablet by mouth once daily ZETIA, 10MG (Oral Tablet) 1 (one) Tablet daily for 0 days Quantity: 30 {Tablet} Refills: 4 Ordered: 18-Jan-2015 Maribell Kwok MD, MD, Dana M Start : 18-Jan-2015 End : 18-Jan-2015 Discontinued famotidine 20 mg oral tablet (20 sources) Histamine-2 Receptor Antagonist Start: 03-18-2021 End: 06-01-2022 take 1 tablet by mouth once daily Famotidine 20 mg tablet Discontinued 20 mg PO DAILY March 18, 2021 12:00am June 01, 2022 9:48am Start: 08-13-2020 End: 03-12-2021 take 1 tablet by mouth once daily as needed Famotidine 20 mg tablet Discontinued 20 mg PO DAILY as needed August 13, 2020 12:00am March 12, 2021 11:46am FLUoxetine 10 mg oral tablet (1 source) Serotonin Reuptake Inhibitor Start: 08-07-2008 End: 09-04-2008 PROZAC, 10MG (Oral Tablet) Tablet 1/2 a day for 5 days then 1 aday for 5 day stay on for 0 days Quantity: 30 {Tablet} Refills: 3 Ordered: 07-Aug-2008 DERREK Cha LPN Start : 07-Aug-2008 End : 04-Sep-2008 Inactive Comments: can give generic Comment on above: can give generic fluticasone propionate 0.05 mg/actuat metered dose nasal spray (1 source) Corticosteroid Start: 02-16-2012 End: 08-22-2012 take 1 spray(s) nasal route once daily as needed FLONASE, 50MCG/ACT (Nasal Suspension) 1 Suspension spray each nostril daily as needed for 0 days Quantity: 1 {Suspension} Refills: 6 Ordered: 22-Aug-2012 DERREK Cha LPN Start : 16-Feb-2012 End : 22-Aug-2012 Inactive Comments: Medication taken as needed. Comment on above: Medication taken as needed. lansoprazole 30 mg delayed release oral capsule (2 sources) Proton Pump Inhibitor Start: 01-15-2009 End: 01-29-2009 PREVACID, 30MG (Oral Capsule Delayed Release) Capsule DR QD for 0 days Refills: 0 Ordered: 29-Jan-2009 Sundar BOURGEOIS, Maribell Kwok MD, Maribell Patterson Start : 15-Jan-2009 End : 29-Jan-2009 Discontinued Start: 03-04-2007 End: 06-16-2007 PREVACID, 30MG (Oral Packet) Packet QD for 0 days Refills: 0 Ordered: 04-Mar-2007 DERREK Cha LPN Start : 04-Mar-2007 End : 16-Jun-2007 Inactive loratadine 10 mg oral capsule (1 source) Start: 03-24-2011 End: 02-16-2012 take 1 capsule by mouth once daily CLARITIN, 10MG (Oral Capsule) 1 Capsule daily for 0 days Quantity: 30 {Capsule} Refills: 0 Ordered: 16-Feb-2012 DERREK Cha LPN Start : 24-Mar-2011 End : 16-Feb-2012 Inactive metoprolol tartrate 50 mg oral tablet (9 sources) beta-Adrenergic Nan Start: 02-26-2023 End: 07-23-2023 take 1 tablet by mouth every hour Metoprolol Tartrate 50 mg tablet Discontinued 50 mg PO .COMPLEX February 26, 2023 12:00am July 23, 2023 9:56am 50 mg orally take 1 tablet by mouth 1 hour prior to coronary CTA; naproxen sodium 220 mg oral tablet (1 source) Nonsteroidal Anti-inflammatory Drug End: 01-15-2009 ALEVE, 220MG (Oral Tablet) 1 4-6 hrs prn for 0 days Refills: 0 Ordered: 15-Jan-2009 DERREK Cha LPN End : 15-Jan-2009 Inactive [place]-3 Fatty Acids (Fish Oil Concentrate) 1,000 mg capsule (17 sources) Start: 03-12-2021 End: 05-18-2021 take 1 capsule by mouth once daily [place]-3 Fatty Acids (Fish Oil Concentrate) 1,000 mg capsule Discontinued 1000 MG PO DAILY March 12, 2021 11:45am March 18, 2021 8:04am Start: 03-12-2021 End: 03-18-2021 take 1 capsule by mouth once daily [place]-3 Fatty Acids (Fish Oil Concentrate) 1,000 mg capsule Discontinued 1000 mg PO DAILY March 12, 2021 12:00am March 18, 2021 8:04am Start: 03-12-2021 End: 03-18-2021 take 1 capsule by mouth once daily [place]-3 Fatty Acids (Fish Oil Concentrate) 1,000 mg capsule Discontinued 1000 MG PO DAILY March 11, 2021 11:00pm March 18, 2021 7:04am Start: 03-12-2021 End: 03-18-2021 take 1 capsule by mouth once daily [place]-3 Fatty Acids (Fish Oil Concentrate) 1,000 mg capsule Discontinued 1000 MG PO DAILY March 12, 2021 12:00am March 18, 2021 8:04am omeprazole 40 mg delayed release oral capsule (2 sources) Proton Pump Inhibitor Start: 08-21-2015 End: 10-18-2015 take 1 capsule by mouth once daily OMEPRAZOLE, 40MG (Oral Capsule Delayed Release) 1 (one) Capsule DR qd for 0 days Quantity: 30 {Capsule} Refills: 2 Ordered: 18-Oct-2015 Lindsey Upton LPN Start : 21-Aug-2015 End : 18-Oct-2015 Discontinued Start: 07-04-2013 End: 01-23-2014 OMEPRAZOLE, 40MG (Oral Capsu le Delayed Release) [address] qd/prn for 0 days Quantity: 30 {Capsule_DR} Refills: 6 Ordered: 23-Jan-2014 Teresa Patten CMA Start : 04-Jul-2013 End : 23-Jan-2014 Inactive pravastatin sodium 10 mg oral tablet (9 sources) HMG-CoA Reductase Inhibitor Start: 04-06-2023 End: 07-23-2023 take 1 tablet by mouth once daily Pravastatin 10 mg tablet Discontinued 10 mg PO DAILY April 06, 2023 12:00am July 23, 2023 9:56am Start: 10-27-2013 End: 10-27-2013 take 1 tablet by mouth once daily PRAVASTATIN SODIUM, 10MG (Oral Tablet) 1 Tablet daily for 0 days Quantity: 30 {Tablet} Refills: 6 Ordered: 27-Oct-2013 Maribell Kwok MD, MD, Dana M Start : 27-Oct-2013 End : 27-Oct-2013 Discontinued Comments: elevated liver enzymes Comment on above: elevated liver enzym es pregabalin 50 mg oral capsule (1 source) Start: 07-03-2008 End: 01-15-2009 take 1 capsule by mouth twice daily LYRICA, 50MG (Oral Capsule) Capsule bid for 0 days Quantity: 60 {Capsule} Refills: 2 Ordered: 03-Jul-2008 DERREK Cha LPN Start : 03-Jul-2008 End : 15-Jan-2009 Inactive raNITIdine 300 mg oral tablet (2 sources) Histamine-2 Receptor Antagonist Start: 01-10-2016 End: 01-10-2016 take 2 tablets by mouth twice daily ZANTAC 150 MAXIMUM STRENGTH, 150MG (Oral Tablet) 2 (two) Tablet bid for 0 days Quantity: 120 {Tablet} Refills: 3 Ordered: 10-Jan-2016 Maribell Kwok MD, MD, Dana M Start : 10-Jan-2016 End : 10-Jan-2016 Inactive Start: 01-10-2016 take [address] tablet [address] [facility] twice daily ZANTAC, 300MG (Oral Tablet) 1 (one) Tablet Tablet bid for 0 days Quantity: 60 {Tablet} Refills: 5 Ordered: 10-Jan-2016 DERREK Cha LPN Start : 10-Jan-2016 Active rizatriptan 10 mg oral tablet (1 source) Serotonin-1b and Serotonin-1d Receptor Agonist Start: 02-16-2013 End: 10-27-2013 take 1 tablet by mouth every two hours as needed for headache, then take 2 tablets by mouth every twenty-four hours as needed for headache MAXALT, 10MG (Oral Tablet) 1 Tablet prn headache may repeat in 2 hours no more than 2 in 24 hours for 0 days Quantity: 10 {Tablet} Refills: 0 Ordered: 27-Oct-2013 DERREK Cha LPN Start : 16-Feb-2013 End : 27-Oct-2013 Inactive rosuvastatin calcium 10 mg oral tablet (10 sources) HMG-CoA Reductase Inhibitor Start: 01-12-2023 End: 04-06-2023 take 1 tablet by mouth once daily Rosuvastatin (Crestor) 10 mg tablet Discontinued 10 mg PO DAILY January 12, 2023 12:00am April 06, 2023 3:55pm On Hold: myalgias sertraline 25 mg oral tablet (1 source) Serotonin Reuptake Inhibitor Start: 10-02-2011 End: 02-16-2012 SERTRALINE HCL, 25MG (Oral Tablet) 1 Tablet 1/2 tablet a day for 2 week then 1 a day for 2 week for 0 days Quantity: 30 {Tablet} Refills: 6 Ordered: 16-Feb-2012 DERREK Cha LPN Start : 02-Oct-2011 End : 16-Feb-2012 Inactive sucralfate 100 mg/ml oral suspension (11 sources) Aluminum Complex Start: 10-12-2022 End: 01-12-2023 take 1 mL by mouth before mealtime Sucralfate 100 mg/mL suspension Discontinued 10 mL PO before meals [id number] 12, 2022 1:00am January 12, 2023 1:45pm Start: 10-12-2022 End: 01-12-2023 take 1 mL by mouth before mealtime Sucralfate Discontinued 10 ML PO before meals [id number] 12, 2022 12:00am January 12, 2023 12:45pm Start: 02-21-2016 take 1 tablet by scooter th before mealtime SUCRALFATE, 1GM (Oral Tablet) 1 (one) Tablet before meals and at night for 0 days Quantity: 120 {Tablet} Refills: 0 Ordered: 21-Feb-2016 Sundar BOURGEOIS, Maribell Kwok MD, Maribell Patterson Start : 21-Feb-2016 Active traZODone hydrochloride 50 mg oral tablet (1 source) Serotonin Reuptake Inhibitor Start: 05-22-2008 End: 07-03-2008 take 1 tablet by mouth once daily at bedtime TRAZODONE HCL, 50MG (Oral Tablet) Tablet QHS / HS for 0 days Quantity: 30 {Tablet} Refills: 6 Ordered: 22-May-2008 DERREK Cha LPN Start : 22-May-2008 End : 03-Jul-2008 Inactive Triamcinolone (1 source) Corticosteroid Start: 03-24-2011 End: 02-16-2012 NASACORT AQ, 55MCG/ACT (Nasal Aerosol Solution) 1 (one) Aerosol Soln 1spray each nostril daily for 0 days Quantity: 1 {Aerosol_Soln} Refills: 0 Ordered: 16-Feb-2012 DERREK Cha LPN Start : 24-Mar-2011 End : 16-Feb-2012 Inactive Vitamin B Complex (14 sources) Start: 03-12-2021 End: 12-03-2021 take 1 tablet by mouth once daily Vitamin B Complex Discontinued 1 TABLET PO DAILY March 12, 2021 11:47am December 03, 2021 12:09pm Start: 03-12-2021 End: 12-03-2021 take 1 tablet by mouth once daily Vitamin B Complex Discontinued 1 TABLET PO DAILY March 11, 2021 11:00pm December 03, 2021 11:09am Start: 03-12-2021 End: 12-03-2021 take 1 tablet by mouth once daily Vitamin B Complex Discontinued 1 TABLET PO DAILY March 12, 2021 12:00am December 03, 2021 12:09pm Vitamin B Complex tablet (3 sources) Start: 03-12-2021 End: 12-03-2021 Vitamin B Complex tablet Discontinued 1 {tbl} PO DAILY March 12, 2021 12:00am December 03, 2021 12:09pm vitamin b12 1 mg/ml injectable solution (12 sources) Vitamin B12 Start: 09-04-2021 End: 09-04-2021 inject 1500 ug by intramuscular injection once cyanocobalamin (vitamin B-12) 1,000 mcg/mL injection solution Discontinued 1500 MCG IM ONCE 1.5 September 04, 2021 1:16pm September 04, 2021 2:09pm Start: 07-01-2021 End: 07-01-2021 inject 1500 ug by intramuscular injection once cyanocobalamin (vitamin B-12) 1,000 mcg/mL injection solution Discontinued 1500 MCG IM ONCE 1.5 July 01, 2021 1:18pm July 01, 2021 3:46pm Start: 05-19-2021 End: 05-19-2021 inject 1000 ug by intramuscular injection once cyanocobalamin (vitamin B-12) 1,000 mcg/mL injection solution Discontinued 1000 MCG IM ONCE May 19, 2021 1:50pm May 19, 2021 3:15pm Vonoprazan (Voquezna) 20 mg tablet (3 sources) Start: 08-09-2024 End: 10-30-2024 take 1 tablet by mouth once Vonoprazan (Voquezna) 20 mg tablet Discontinued 20 mg PO ONCE August 09, 2024 12:00am October 30, 2024 2:18pm NEGATED: Highlighted row has not occurred!drug or medication (1 source) No Known Histori rafael Medications Problems Active Problems Problem Classification Problem Date Documented Date Episodic/Chronic Allergic reactions (2 sources) Dermatitis Episodic Benign neoplasm of uterus (17 sources) Intramural leiomyoma of uterus; Translations: [Intramural leiomyoma of uterus] 07-16-2020 Episodic Cardiac dysrhythmias (20 sources) Palpitations; Translations: [Palpitations] Onset: 0 Resolved: 3 11-25-2012 Episodic Conditions associated with dizziness or vertigo (20 sources) Dizziness; Translations: [Lightheadedness] Resolved: 5 01-18-2015 Episodic Comment on above: carotids, mri brain echo good. labs good refer to PT think BPPV or allergies. will take benadryl or claritin. pt better see gabriel still little off if not bakc to self in another 4-6 weeks then to ENT for ENG. Diabetes mellitus without complication (7 sources) Hyperglycemia; Translations: [Hyperglycemia, unspecified] Onset: 5 02-15-2025 Episodic Disorders of lipid metabolism (20 sources) Hypercholesterolemia; Translations: [Hyperlipidemia] 02-21-2016 Chronic Comment on above: reveiwed with patien t recent tests adn chol back up eating more carbs, alot pizza. not tolerate meds talkabout SP natural. needs to adjust intolerant to statin s Diverticulosis and diverticulitis (20 sources) Diverticulosis of colon; Translations: [Diverticulosis of large intestine without perforation or abscess without bleeding] Onset: 5 11-28-2021 Chronic Endometriosis (17 sources) Endometriosis (clinical); Translations: [Endometriosis, unspecified] 07-16-2020 Chronic Esophageal disorders (20 sources) Gastroesophageal reflux disease; Translations: [Gastro-esophageal reflux disease with ulceration] Onset: 4 02-21-2016 Chronic Comment on above: gave GI cocktailhelp in past. zantac 300 bid. talk about SP product add carafate no PPI rash. more in middle. does taste acid and belch not not think heart. consider GB but not sound like it Genitourinary symptoms and ill-defined conditions (3 sources) Urinary frequency; Translations: [Increased frequency of urination] 02-21-2016 Episodic Headache; including migraine (20 sources) Migraine with aura; Translations: [Migraine with aura, not intractable, without status migrainosus] 02-21-2016 Chronic Comment on above: stable Headache; including migraine (20 sources) Headache; Translations: [Cervicogenic headache] Resolved: 3 08-06-2015 Episodic Comment on above: now has them and wit h new neuro signs and symptoms and she swears something different so will mri brain. will try migraine meds talk about triggers. with few weeks off not do proph yet. tried tca in past.and ssri in past Headache; including migraine (20 sources) Headache; including migraine; Translations: [Headache, unspecified] Onset: 5 Immunizations and screening for infectious disease (9 sources) Need for prophylactic vaccination and inoculation against influenza Episodic Influenza (4 sources) Influenza Malaise and fatigue (20 sources) Fatigue; Translations: [Asthenia] Resolved: 5 09-24-2015 Episodic Comment on above: cesar with over heat-- feel weak and shakey and presyncope--? fibro? low BP? vasodepressor syncope. see how do once get sleep and fibro better. told to call if SOB, chest pain, syncope or rapid heart rate. Menopausal disorders (20 sources) Menopausal flushing; Translations: [Atrophic vaginitis] 02-21-2016 Chronic Comment on above: heat intolerance. fr ustarating but not want meds. talk about SSRI. labs good. at this point not want any meds right now. if not able to handle then will call. declines interventio n; coconut oil Nausea and vomiting (5 sources) Nausea; Translations: [Nausea] Resolved: 5 01-18-2015 Episodic Nonspecific chest pain (20 sources) Chest pain, unspecified; Translations: [Chest pain] Onset: 0 Resolved: 0 09-17-2015 Episodic Comment on above: Resolved 02/03 Nutritional deficiencies (19 sources) Vitamin D deficiency; Translations: [Vitamin D deficiency, unspecified] 02-21-2016 Chronic Comment on above: not able tke prescip tion vit d because hives. take 1000 mg butbeen off it and low now. Osteoporosis (20 sources) Osteoporosis; Translations: [Age-related osteoporosis without current pathological fracture] Onset: 4 02-21-2016 Chronic Comment on above: reviewed with freddy baird recent tests and now in hip worsen more. need to get on med. fosamax recommended. pt worry about ONJ. no history of chmoe or XRT to jaw. she will talk to sand analyst. aunt had ONJ from bisphosph. consider fosamax. Other and unspecified benign neoplasm (5 sources) Fibroadenoma of breast Episodic Other bone disease and musculoskeletal deformities (15 sources) Osteopenia; Translations: [Osteopenia] Resolved: 4 09-17-2014 Episodic Comment on above: Dr. cha orders. Other bone disease and musculoskeletal deformities (20 sources) Segmental and somatic dysfunction; Translations: [Segmental and somatic dysfunction of cervical region] 11-28-2021 Episodic Other circulatory disease (1 source) Disorder of carotid artery; Translations: [Arteriosclerosis of both carotid arteries] 02-21-2016 Chronic Comment on above: mild <50% 09-14 not able to tolerate asa so will just take fish oil Other connective tissue disease (20 sources) Primary fibromyalgia syndrome Episodic Other connective tissue disease (20 sources) Fibromyalgia; Translations: [Fibromyalgia] 02-21-2016 Episodic Comment on above: stable but some cost ochondritis. Other connective tissue disease (17 sources) Muscle pain; Translations: [Myalgia and myositis] 11-28-2021 Episodic Other disorders of stomach and duodenum (4 sources) Dyspepsia and other specified disorders of function of stomach Episodic Other ear and sense organ disorders (6 sources) Tinnitus; Translations: [Tinnitus, unspecified ear] Resolved: 9 09-20-2015 Episodic Other gastrointestinal disorders (20 sources) Irritable bowel syndrome; Translations: [Irritable bowel syndrome without diarrhea] 02-21-2016 Chronic Comment on above: stable Other gastrointestinal disorders (9 sources) Irritable bowel syndrome without diarrhea; Translations: [Irritable bowel syndrome] Onset: 4 Chronic Other gastrointestinal disorders (1 source) Irritable bowel syndrome with diarrhea; Translations: [Irritable bowel syndrome with diarrhea] Onset: 4 Chronic Other gastrointestinal disorders (19 sources) Diarrhea; Translations: [Diarrhea, unspecified] Resolved: 4 09-17-2014 Episodic Other gastrointestinal disorders (5 sources) Diarrhea, unspecified; Translations: [Diarrhea] Episodic Other gastrointestinal disorders (18 sources) Dysphagia; Translations: [Dysphagia, unspecified] 12-18-2022 Episodic Other gastrointestinal disorders (6 sources) Dysphagia, unspecified; Translations: [Dysphagia, unspecified] 12-18-2022 Episodic Other lower respiratory disease (2 sources) Dyspnea; Translations: [Shortness of breath] Resolved: 4 09-17-2014 Episodic Other nervous system disorders (20 sources) Paresthesia; Translations: [Paresthesia of skin] 03-18-2021 Episodic Other nervous system disorders (2 sources) Paresthesia of skin; Translations: [Paresthesia of skin] Onset: 5 Episodic Other non-traumatic joint disorders (5 sources) Knee pain; Translations: [Knee pain] Onset: 0 Resolved: 3 11-25-2012 Episodic Other nutritional; endocrine; and metabolic disorders (5 sources) History of nutritional deficiency; Translations: [Personal history of other endocrine, nutritional and metabolic disease] 11-15-2024 Episodic Other screening for suspected conditions (not mental disorders or infectious disease) (1 source) Abnormal findings on diagnostic imaging of other specified body structures; Translations: [Abnormal findings on diagnostic imaging of other specified body structures] Onset: 4 Chronic Other skin disorders (3 sources) Other seborrheic keratosis Episodic Other upper respiratory disease (18 sources) Allergic rhinitis Chronic Other upper respiratory disease (1 source) Seasonal allergic rhinitis; Translations: [Seasonal allergic reaction] 02-21-2016 Chronic Comment on above: claritin helps.help more with flonase Residual codes; unclassified (1 source) Hypersomnia, unspecified; Translations: [Hypersomnia, unspecified] Onset: 5 Chronic Residual codes; unclassified (4 sources) Memory loss; Translations: [Memory impairment] Resolved: 5 04-19-2015 Episodic Comment on above: with vision test and tinnitus check MRI. not sound like seizures because will be absent minded and do something that then realize silly. really think anxiety. check neuropsych testing Residual codes; unclassified (12 sources) Early satiety; Translations: [Early satiety] 08-04-2022 Episodic Spondylosis; intervertebral disc disorders; other back problems (17 sources) Degeneration of cervical intervertebral disc; Translations: [Other cervical disc degeneration, unspecified cervical region] 11-28-2021 Chronic Spondylosis; intervertebral disc disorders; other back problems (20 sources) Low back pain; Translations: [Backache] Onset: 0 Resolved: 0 11-25-2012 Episodic Comment on above: better better now Thyroid disorders (7 sources) Thyroid nodule; Translations: [Nontoxic single thyroid nodule] Onset: 5 02-15-2025 Chronic Unclassified (20 sources) Unclassified (5 sources) Backache, unspecified (724.5) Unclassified (5 sources) Abdominal Pain,LLQ (789.04) Unclassified (5 sources) Abdominal Pain,LUQ (789.02) Unclassified (3 sources) WWV-[facility] Unclassified (13 sources) DEFICIENCY, VITAMIN D NOS (268.9) Unclassified (2 sources) Symptom, Weakness (728.87) Unclassified (20 sources) Hypercholesteremia (272.0) Unclassified (8 sources) Diverticulosis (562.10) Unclassified (7 sources) Hot Flashes (782.62) Unclassified (5 sources) Left face pain Resolved: 9 11-25-2012 Comment on above: see ent --no structu ral problem ct scan neg, ?trigeminal neuralgia. try trazadone, not want to start lyrica--right now trying chiropactor Unclassified (2 sources) TINNITUS, UNSPECIFIED (388.30) Unclassified (1 source) Colon Polyps, History of (V12.72) Unclassified (2 sources) PROBLEMS W/SMELL/TASTE (V41.5) Unclassified (2 sources) Disequilibrium of Gait(781.2) Unclassified (3 sources) WW (Renamed from WW-Silver) Resolved: 9 11-25-2012 Comment on above: see [facility] Unclassified (6 sources) WWV V73.21 (Renamed from [facility]) Resolved: 5 04-19-2015 Comment on above: [facility]15 Unclassified (1 source) Irritable bowel syndrome with constipation and diarrhea Unclassified (1 source) Arteriosclerosis of both carotid arteries Unclassified (1 source) Seasonal allergic reaction Unclassified (1 source) Fibroadenoma of left breast Unclassified (1 source) Hot flashes Unclassified (1 source) Hypercholesteremia Unclassified (2 sources) WWV Unclassified (1 source) Migraine with aura and without status migrainosus, not intractable Unclassified (1 source) Pharyngitis, chronic (472.1) Unclassified (3 sources) Carotid Stenosis (433.10) Unclassified (3 sources) Abnormal Mammogram (793.80) Unclassified (1 source) Change in vision Unclassified (1 source) Night sweat (780.8) Viral infection (3 sources) Viral infection, unspecified; Translations: [Viral disease] Resolved: 7 09-16-2015 Episodic Past or Other Problems Problem Classification Problem Date Documented Da te Episodic/Chronic Abdominal pain (20 sources) Epigastric pain; Translations: [Left upper quadrant pain] Onset: 08-21-2024 Resolved: 04-19-2015 04-19-2015 Episodic Comment on above: though PPI helping b ut side effects add pepcid thought muscular/cos talchondrial-- had for years with ctscan and gi work up negative Chronic, stable Blindness and vision defects (1 source) Blurring of visual image; Translations: [Blurred vision] Resolved: 01-18-2015 01-18-2015 Episodic Comment on above: with nausea Diverticulosis and diverticulitis (1 source) Diverticulosis of large intestine; Translations: [Diverticulosis of colon] Resolved: 02-16-2013 09-17-2015 Esophageal disorders (1 source) Esophageal disorders Neoplasms of unspecified nature or uncertain behavior (1 source) Neoplasm of uncertain behavior of skin; Translations: [Neoplasm of uncertain behavior of skin] Resolved: 11-25-2012 09-18-2015 Episodic Other and unspecified benign neoplasm (1 source) Fibroadenoma of left breast; Translations: [Fibroadenoma of left breast] 02-21-2016 Other connective tissue disease (1 source) Fibromyalgia; Translations: [Fibromyalgia] Onset: 12-11-2024 Episodic Other disorders of stomach and duodenum (1 source) Disorder of function of stomach; Translations: [Dyspepsia and other specified disorders of function of stomach] Resolved: 07-30-2009 11-25-2012 Chronic Comment on above: better Other eye disorders (1 source) Eye / vision finding; Translations: [Change in vision] Resolved: 09-17-2014 09-17-2014 Episodic Comment on above: pt have blurred visi on and Dr. subramanian work up negative Other gastrointestinal disorders (1 source) Other dysphagia; Translations: [Other dysphagia] Onset: 06-21-2024 Episodic Other nervous system disorders (1 source) Problems with smell and taste; Translations: [PROBLEMS W/SMELL/TASTE] Resolved: 02-16-2013 02-16-2013 Episodic Comment on above: flonase help some th en bad again. it wax and wanes. not sure what this is. to ent consider viral ? need steriod po to anahi loss Other nervous system disorders (1 source) Abnormal gait; Translations: [Gait abnormality] Resolved: 11-25-2012 09-20-2015 Episodic Other nervous system disorders (1 source) Abnormal involuntary movements; Translations: [Shakiness] Resolved: 05-22-2013 05-22-2013 Episodic Comment on above: again think anxiety also coulg be hypoglycemia. BS in 80's when had. talk about small freq meals lower corbs add protien or fiber to help. Other screening for suspected conditions (not mental disorders or infectious disease) (3 sources) Mammography abnormal; Translations: [Breast neoplasm screening status] Onset: 10-30-2024 Resolved: 10-18-2015 09-17-2014 Episodic Comment on above: left breast with fib roadenoma an drecommend repeat and good Other skin disorders (1 source) Senile hyperkeratosis; Translations: [Other seborrheic keratosis] Resolved: 04-29-2009 11-25-2012 Episodic Comment on above: reveiwed with patien t recent tests Other skin disorders (1 source) Generalized hyperhidrosis; Translations: [Night sweat] Resolved: 09-17-2014 09-17-2014 Episodic Other skin disorders (1 source) Unspecified hypertrophic and atrophic conditions of skin; Translations: [skin tags (Renamed from Skin Tag, Irritated)] Resolved: 04-07-2009 11-25-2012 Episodic Other skin disorders (1 source) Inflammatory dermatosis; Translations: [Dermatitis] Resolved: 11-25-2012 11-25-2012 Episodic Other upper respiratory disease (1 source) Chronic pharyngitis; Translations: [Pharyngitis, chronic] Resolved: 11-25-2012 11-25-2012 Chronic Residual codes; unclassified (3 sources) Needs influenza immunization; Translations: [Need for prophylactic vaccination and inoculation against influenza] Resolved: 10-18-2015 08-06-2015 Episodic Unclassified (1 source) Lesion-Unknown behavior (238.2) Unclassified (3 sources) Unspecified Diagnosis Resolved: 11-25-2012 02-21-2016 Unclassified (4 sources) Finding of region of thorax; Translations: [Chest heaviness] Resolved: 01-18-2015 01-18-2015 Comment on above: stress good 10-14 no signs and symptoms now Unclassified (1 source) Immunization Hx: Tetanus/Diphtheria - 07/03/2008 (Renamed from Tetanus/Diphtheria - 07/03/2008) 11-25-2012 Unclassified (1 source) Shakiness (781.0) Unclassified (2 sources) Current non-smoker ; Translations: [Current nonsmoker (Renamed from Current non-smoker)] 02-21-2016 Unclassified (2 sources) SCREENING FOR BREAST CANCER (V76.10) Unclassified (1 source) skin tags (Renamed from Skin Tag, Irritated (701.9)) Unclassified (3 sources) Dizzy Unclassified (1 source) Blurred vision Results Test Name Value Interpretation Reference Range Facility NCS and/or EMG Patienton NCS and/or EMG Patient [facility] Pulmonary Services/Neurology [address] [place] [address] MR#: [id number] Acct: [id number] Name: DARIELA GRIMES Rep #: [id number] : 1960 64 From: Peyman Mora MD Referring Dr: Hugh Carranza MD Status: REG CL I Location: [facility] Date: 03/27/25 Sex: F C NCS and/or EMG Patient Report Ordering Doctor: Hugh Carranza DATE OF SERVICE: 03/27/25 Clinical Summary: 64 year old female patient presenting with symptoms of numbness in the big toe of the left foot as well as tingling in the lateral thigh region. Nerve Conduction Studies Summary: Nerve conduction studies of the left lower extremity were normal. Needle Examination Summary: Needle examination of select muscles of the left lower extremity was normal. Impression: This is a normal study. There is no electrodiagnostic evidence of a large-fiber peripheral polyneuropathy, left lumbosacral radiculopathy, or left peroneal mononeuropathy. Multi Select Codes Neurology Neurology Interp Codes: 40009-82 Musc test done w/n test comp (interp) (1) and 63450-84 Nrv cndj tst 3-4 studies (interp) 03/27/25 1321 Date Peyman Mora MD CC: Dr. Peyman Mora MD; Dr. Mary Ponce MD; Dr. Hugh Carranza MD Date Dictated: 03/27/25 1259 Date Transcribed: 03/27/251258 Hydraulics Engineer: Signed Normal [facility] Hemoglobin A1con 02-15-2025 HbA1c (Bld) [Mass fraction] 5.4 % Normal <=5.[address] [facility] Comment on above: Result Comment: Norm al < 5.7 % Prediabetic 5.7 - 6.4 % Diabetic >or= 6.5 % Please note range changes. Performed By: #### L [id number] ####[facility] [id number] [place], [place], [id number] Hemoglobin A1c percentageOrd ered By: Hugh Carranza on 02-15-2025 HbA1c (Bld) [Mass fraction] 5.4 % <5.[address] [facility] Comment on above: Normal < 5.7 % Predi abetic 5.7 - 6.4 % Diabetic >or= 6.5 % Please note range changes. Neurology Visit Reporton Neurology Visit Report [facility] [address], [address] [place] [address] OFFICE VISIT Date of Service: 02/15/25 MR#: [id number] Acct: [id number] Name: DARIELA GRIMES Rep #: [id number] : 1960 Provider: Dr. Hugh jimenez MD Age/Sex: 64/F Location: [facility] [place] Status: Signed HPI HPI Chief Complaint: Details: Interim History: Kaila presents for follow-up visit. She has a history of hyperlipidemia, vitamin D deficiency, endometriosis status post hysterectomy and bilateral oophorectomy in 2003, gastroesophageal reflux disease, Ledbetter's esophagus depression, anxiety, and osteoporosis. She was diagnosed with fibromyalgia in 1994. She has had chronic fatigue and diffuse muscle pain and tenderness involving the neck, mid back, lower back, arms and legs. Since 2019, however she has had other symptoms including intermittent numbness and tingling in the mid back and increased muscle spasms and she has had intermittent electric shock type sensation in the legs and occasionally affecting the whole body that more frequently occurs at night. Baclofen 5 mg 3 times daily as needed lost efficacy for her musculoskeletal pain. She now uses cyclobenzaprine and this has been of some benefit. She has numbness and tingling in the left first toe that has been present for years and left lateral calf tingling. She experiences a vague internal vibratory sensation throughout her body. Her lumbar MRI (2024) reveals multilevel degenerative joint/disc disease as well as a small disc herniation at L2-3; no significant central canal stenosis or severe neuroforaminal compromise is noted. Her cervical spine MRI (2024) reveals multilevel degenerative joint/disc disease producing mild to moderate multilevel central canal stenosis; no abnormal cord signal was noted. She has had headaches since she was a child. Her headaches are, at times, throbbing in character and vary in location over the calvarium (typically the temporal or occipital head regions). She has associated nausea. She denies having associated photophobia or phonophobia. Her headaches vary in frequency and, at times, may occur daily for several days then she may have a period lasting 1 to 2 weeks that she is headache free. She uses Tylenol PM for her headaches and this is generally effective. Her head MRI (2024) reveals a normal brain. Her head CT (2024) revealed a 2 mm area of radiodensity in the region of the third ventricle raising concern for the presence of a small colloid cyst; no hydrocephalus was noted; no corresponding lesion was noted on her head MRI performed earlier in 2024. She has chronic bilateral hearing loss. She had previously seen an ENT specialist. The patient did not pursue obtaining hearing aids due to cost. She has bilateral tinnitus and this at times sounds like music or people talking. She has depression and anxiety. She has been under some emotional stress due to domestic issues (caring for ill family members). She has some insomnia. She has difficulty falling asleep. She snores. She does not feel well rested when she awakens in the morning and has daytime sleepiness as well as fatigue. An unattended sleep study did not reveal evidence of sleep apnea. B12 1500 mcg IM injection for her fatigue lost efficacy and was discontinued. She has a prior history of vitamin D deficiency that resolved with vitamin D supplementation. She did not tolerate vitamin D 1.25 mg weekly (the formulation caused a rash). She is taking vitamin D 1000 IU daily and is tolerating this well. Her last vitamin D level (November 2024) was normal. She has received Reclast for osteoporosis. Due to a side effect of dyspepsia she is unable to tolerate NSAIDs apart from acetaminophen. She reported that in years past, she was treated with antidepressants (she does not recall the names) for her fibromyalgia and that these medications were not well-tolerated. She has chronic neck, mid back and low back pain. Cervical spine x-rays from years past revealed multilevel degenerative joint disease. 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 She had an orthopedic evaluation with Dr. Moeller in April 2021 and surgical intervention for her spinal pathology was not felt to be warranted; the possibility of cervical epidural steroid injections may be considered. She has had 1 fall since her last visit in November 2024. In October 2024, she had a 2-minute episode during which she did not understand what someone was speaking to her (she stated that it sounded like gibberish). She did not have any other confusion (she remained fully aware of her surroundings). She did not have any change in level of consciousness. A 6 mm nodule was noted in the thyroid gland on her cervical MRI from December 2024. Her TSH in November 02 (more content not included)... Normal [facility] Abdomen/Pelvis WITH Contrast on 02-14-2025 Abdomen/Pelvis WITH Contrast [facility] Imaging Services [address] [place] [address] Abdomen/Pelvis WITH Contrast MR#: [id number] Acct: [id number] Name: DARIELA GRIMES Rep #: [id number] : 1960 F 64 From: Ranulfo houston MD PCP: Dr. Mary Ponce MD Status: REG CLI Study: Abdomen/Pelvis WITH Contrast Date of Exam: Exam# [id number] Ordering Dr: Floyd Bellamy DO PROCEDURE: ABDOMEN/PELVIS WITH CONTRAST 02/14/2025 REASON FOR EXAM: DIVERTICULITIS Prior hysterectomy. TECHNIQUE: Abdomen and pelvis CT with intravenous contrast. Coronal and Sagittal reconstruction series were provided. PATIENT PREPARATION: Per protocol ORAL CONTRAST TYPE: Gastrografin CONTRAST: Isovue-300 VOLUME: 95 mL Gauge IV One or more dose reduction techniques were used (e.g., Automated exposure control, adjustment of the mA and/or kV according to patient size, use of iterative reconstruction technique. RADIATION DOSE SUMMARY: CTDlvol: 14.4 mGy DLP: 685.10 mGycm COMPARISON: None FINDINGS: Lung bases: Mild dependent atelectasis Liver: Diffuse fatty infiltration. Gallbladder: Unremarkable Spleen: Normal size. Pancreas: Normal size without evidence of mass surrounding inflammation or ductal dilation. Adrenals: Unremarkable Kidneys: Normal renal sizes. No hydronephrosis. Bladder: Unremarkable Reproductive Organs: Prior hysterectomy. Adnexal regions are unremarkable. Bowel: Colonic diverticulosis without diverticulitis. Appendix: The appendix is not identified. There is no inflammatory process identified in the right lower quadrant to suggest appendicitis. Lymph nodes: Unremarkable. Vasculature: The abdominal aorta and IVC are normal. Peritoneum / Retroperitoneum: Unremarkable Bones: Degenerative changes of the spine. CT/Abdomen/Pelvis WITH Contrast IMPRESSION: Fatty infiltration of the liver. Scattered sigmoid diverticula. No evidence of diverticulitis. Reading Location: [place] [address] CC: Dr. Mary Ponce MD; Floyd Bellamy DO Hydraulics Engineer: Signed Normal [facility] Gastroenterology Visit Repor ton 01-15-2025 Gastroenterology Visit Report [facility] Gastroenterology [address] [place] [address] OFFICE VISIT Date of Service: 01/15/25 MR#: [id number] Acct: [id number] Name: DARIELA GRIMES Rep #: [id number] : 1960 Provider: Floyd Bellamy DO Age/Sex: 64/F Location: [facility] [place] Status: Signed Intake Vital Signs 11/15/24 08:45 12/25/24 14:04 Height 5 ft 4 in 5 ft 4 in Intake Visit Reasons: 6 wk FU Allergies amoxicillin Allergy (Verified 12/25/24 14:07) Rash doxycycline Allergy (Verified 12/25/24 14:07) Rash Naoqomh-NDJ-QmA Reductase Inhibitor Adverse Reaction (Severe, Verified 12/25/24 14:07) mylagias ezetimibe (From Zetia) Adverse Reaction (Intermediate, Verified 12/25/24 14:07) Myalgias omeprazole Adverse Reaction (Intermediate, Verified 12/25/24 14:07) Rash aspirin (ASA) Adverse Reaction (Verified 12/25/24 14:07) Gastric Reflux/ burning codeine Adverse Reaction (Verified 12/25/24 14:07) Other erythromycin base Adverse Reaction (Verified 12/25/24 14:07) Other Medications ???Medication ???Instructions ???Recorded ???Confirmed ???Type acetaminophen 500 mg tablet 500 mg PO Q6H PRN Pain 03/12/21 History (Tylenol Extra Strength) diphenhydramine HCl 25 mg capsule 25 mg PO QHS PRN seasonal allergi es 12/03/21 01/15/25 History (Benadryl) cholecalciferol (vitamin D3) 25 1,000 unit PO DAILY 08/30/2301/15 History mcg (1,000 unit) tablet (Vitamin D3) pantoprazole 40 mg tablet,delayed 40 mg PO QDAY #30 tabs 08/08/24 0 01/15/25 Rx release cyclobenzaprine 5 mg tablet 5 mg PO TID PRN muscle 11/15/24 Rx spasm/muscle pain #90 tabs duloxetine 30 mg capsule,delayed 30 mg PO DAILY #30 caps 11/15/24 0 01/15/25 Rx release zoledronic acid 5 mg/100 mL in 1 ea .Route ONCE 11/15/24 01/15/25 History mannitol 5 %-water intravenous piggybck meloxicam 15 mg tablet 15 mg PO QDAY #30 tabs 12/21/24 Rx ondansetron 4 mg disintegrating 4 mg PO Q8H PRN PRN Nausea #10 tab s 12/25/24 01/15/25 Rx tablet PFSH Medical History (Updated 01/02/25 @ 00:01 by Nasreen Castillo) Neck pain Post-menopausal Depression Anxiety Back pain Migraine headache Syncope Difficulty swallowing Gastric reflux Leg cramps Ledbetter's esophagus Wears glasses Arthritis History of IBS History of diverticulitis Non-smoker PONV (postoperative nausea and vomiting) History of echocardiogram History of stress test Cardiology follow-up encounter History of irregular heartbeat Diarrhea Hyperlipidemia Vitamin D deficiency Degeneration of intervertebral disc of cervical region Segmental and somatic dysfunction of thoracic region Segmental and somatic dysfunction of cervical region Cervicogenic headache GERD (gastroesophageal reflux disease) Cataracts, bilateral Fibromyalgia Anxiety and depression Migraine with aura Migraine headache Osteoporosis Myalgia and myositis Dyspepsia Diverticula of colon Surgical History Hx of colonoscopy H/O bilateral salpingo-oophorectomy History of total abdominal hysterectomy Normal colonoscopy History of breast biopsy Family History Mother Hypertension COPD (chronic obstructive pulmonary disease) CVA (cerebral vascular accident) Kidney disease Anemia Arthritis Heart disease Osteoporosis Emphysema, unspecified Ascending aortic aneurysm Father , Melanoma Melanoma Sister Hypertension Rheumatoid arthritis Brother , Suicide Suicide attempt Sister Rheumatoid arthritis Hypertension Grandmother Arthritis Heart disease Hypertension Osteoporosis Grandfather CVA (cerebral vascular accident) Aunt CVA (cerebral vascular accident) Uncle Skin cancer Cancer Uncle Cancer Uncle Cancer Uncle Cancer Social History Smoking Status: Never smoker Electronic Cigarette Use: not used second hand exposure: No alcohol intake: never substance use type: does not use caffeine: Yes Type: carbonated beverages Number of servings: 1 what type of physical activity do you participate in: none seatbelt use: always do you feel safe at home: Yes additional social history: Bak[employer]- retired retired HPI HPI Details: DARIELA GRIMES, is a 64 F who presents to the office today for follow up. PMH HLD, Vit D deficiency, endometriosis s/p hysterectomy and bilateral oophorectomy 2004, GERD, depression/anxiety, osteoporosis. Neurology fibromyalgia, fatigue, migraine, cervical spine stenosis. *BGI established 1.18.22 upper abdominal pain extending into chest with a burning sensation of mouth/tongue for many years with worsening intensity/frequent. Omeprazole ( (more content not included)... Normal [facility] Absolute lymphocyte countOrd ered By: James Gates on 12-25-2024 Lymphocytes Auto (Unsp spec) [#/Vol] 0.86 10*3/uL 0.83-4.[address] [facility] Absolute neutrophil countOrd ered By: James Gates on 12-25-2024 Neutrophils (Bld) [#/Vol] 7.0 10*3/uL 2.0-7.[address] [facility] Albumin to globulin ratioOrd ered By: James Gates on 12-25-2024 Albumin/Globulin [Mass ratio] 1.0 {ratio} 0.9-2.[address] [facility] Automated lymphocyte count a s percentage of total leukocytesOrdered By: James Gates on 12-25-2024 Lymphocytes/100 WBC Auto (Unsp spec) 10.2 % Low 19-[address] [facility] Basophil percentageOrdered B y: James Gates on 12-25-2024 Basophils/100 WBC (Bld) 0.8 % 0-[address] [facility] Bilirubin, totalOrdered By: James Gates on 12-25-2024 Bilirubin [Mass/Vol] 0.70 mg/dL 0.20-1.00 [facility] Comment on above: For patients on eltr ombopag therapy, use of Dimension Davidson TBIL is not recommended. Blood urea nitrogen (BUN)/cr eatinine ratioOrdered By: James Gates on 12-25-2024 Urea nitrogen/Creatinine [Mass ratio] 14.2 mg/mg 10-[address] [facility] Brain/Head without Contrasto n 12-25-2024 Brain/Head without Contrast [facility] Imaging Services [address] [place] [address] Brain/Head without Contrast MR#: [id number] Acct: [id number] Name: DARILEA GRIMES Rep #: [id number] : 1960 F 64 From: Caroline mccall MD PCP: Dr. Mary Ponce MD Status: REG ER Study: Brain/Head without Contrast Date of Exam: 12/03 02/23 Exam# [id number] Ordering Dr: James Gates MANAGER TREASURY-C EXAM: BRAIN/HEAD WITHOUT CONTRAST CLINICAL HISTORY: Nausea dizziness and sore throat for 3 days. COMPARISON: MRI dated 12/19/2024. TECHNIQUE: Noncontrast images of the head with multiplanar reconstructions. Dose reduction techniques were used including intermediate exposure control (AEC),iterative reconstruction technique, and/or mA and/or KV dose adjustments based on patient's size. FINDINGS: No acute intracranial hemorrhage, mass effect, midline shift or pathologic extra-axial fluid collection. 2 mm radiodensity noted at the roof of the 3rd ventricle possible small colloid cyst. No hydrocephalus. Preservation of the garcia- white parenchymal differentiation. The orbits are symmetrically unremarkable. Visualized mastoid air cells are clear. Minimal right maxillary sinus mucosal thickening. Partial opacification of the left ethmoid sinus. The calvarium is grossly intact. CT/Brain/Head without Contrast IMPRESSION: 2 mm radiodensity noted at the roof of the 3rd ventricle possible small colloid cyst. No CT evidence of acute intracranial pathology. Minimal right maxillary sinus mucosal thickening. Partial opacification of the left ethmoid sinus. Reading Location: [facility] CC: MANAGER TREASURYChristine Gates; Dr. Mary Ponce MD Hydraulics Engineer: Signed Normal [facility] CBC W/Diff, Automatedon 12-03 Absolute Lymph 0.86 X10 3/uL Normal 0.83-4.[address] [facility] Comment on above: Performed By: #### L 100.0100, L500.4050, L501.2450 #### [facility] Laboratory [address] [place], [address] Absolute Neut 7.0 X10 3/uL Normal 2.0-7.[address] [facility] Comment on above: Performed By: #### L 100.0100, L500.4050, L501.2450 #### [facility] [address] [place], [address] Basophils/100 WBC (Bld) 0.8 % Normal 0-[address] [facility] Comment on above: Performed By: #### L 100.0100, L500.4050, L501.2450 #### [facility] [address] [place], [address] Eosinophils/100 WBC (Bld) 0.1 % Normal 0-[address] [facility] Comment on above: Performed By: #### L 100.0100, L500.4050, L501.2450 #### [facility] [address] [place], [address] Erythrocyte distribution width (RBC) [Ratio] 13.3 % Normal 11.6-14.[address] [facility] Comment on above: Performed By: #### L 100.0100, L500.4050, L501.2450 #### [facility] [address] [place], [address] Hematocrit (Bld) [Volume fraction] 43.5 % Normal 37-[address] [facility] Comment on above: Performed By: #### L 100.0100, L500.4050, L501.2450 #### [facility] [address] [place], [address] Hemoglobin (Bld) [Mass/Vol] 14.3 g/dL Normal 12.0-15.[address] [facility] Comment on above: Performed By: #### L 100.0100, L500.4050, L501.2450 #### [facility] [address] [place], [address] IG% 0.400 Normal 0.0-0.[address] [facility] Comment on above: Result Comment: IG% - Immature Granulocytes (promyelocytes, myelocytes and metamyelocytes) > 1% indicates that a LEFT SHIFT is Present. Performed By: #### L 100.0100, L500.4050, L501.2450 #### [facility] [address] [place], [address] Lymphocytes/100 WBC (Bld) 10.2 % Low 19-[address] [facility] Comment on above: Performed By: #### L 100.0100, L500.4050, L501.2450 #### [facility] [address] [place], [address] MCH (RBC) [Entitic mass] 31.2 pg Normal 27.0-32.[address] [facility] Comment on above: Performed By: #### L 100.0100, L500.4050, L501.2450 #### [facility] [address] [place], [address] MCHC (RBC) [Mass/Vol] 32.9 g/dL Normal 32-36 [facility] Comment on above: Performed By: #### L 100.0100, L500.4050, L501.2450 #### [facility] [address] [place], [address] MCV (RBC) [Entitic vol] 95.0 fL Normal 81-[address] [facility] Comment on above: Performed By: #### L 100.0100, L500.4050, L501.2450 #### [facility] [address] [place], [address] Monocytes/100 WBC (Bld) 5.8 % Normal 0-[address] [facility] Comment on above: Performed By: #### L 100.0100, L500.4050, L501.2450 #### [facility] [address] [place], [address] Neutrophils/100 WBC (Bld) 82.7 % High 47-[address] [facility] Comment on above: Performed By: #### L 100.0100, L500.4050, L501.2450 #### [facility] [address] [place], [address] Nucleated RBC (Bld) [#/Vol] 0 10*3/uL Normal 0-[address] [facility] Comment on above: Performed By: #### L 100.0100, L500.4050, L501.2450 #### [facility] [address] [place], [address] Platelet mean volume (Bld) [Entitic vol] 10.9 fL Normal 6.2-12.[address] [facility] Comment on above: Performed By: #### L 100.0100, L500.4050, L501.2450 #### [facility] [address] [place], [address] Platelets (Bld) [#/Vol] 362 10*3/uL Normal 150-[address] [facility] Comment on above: Performed By: #### L 100.0100, L500.4050, L501.2450 #### [facility] [address] [place], [address] RBC (Bld) [#/Vol] 4.58 10*6/uL Normal 4.2-5.4 [facility] Comment on above: Performed By: #### L 100.0100, L500.4050, L501.2450 #### [facility] [address] [place], [address] RDW SD 46.7 fl High 35.1-43.[address] [facility] Comment on above: Performed By: #### L 100.0100, L500.4050, L501.2450 #### [facility] [address] [place], [address] WBC (Bld) [#/Vol] 8.5 10*3/uL Normal 4.4-11.0 [facility] Comment on above: Performed By: #### L 100.0100, L500.4050, L501.2450 #### [facility] [address] [place], [address] Carbon dioxide measurementOr dered By: James Gates on 12-25-2024 CO2 [Moles/Vol] 23.0 mmol/L 21.0-32.[address] [facility] Chloride measurementOrdered By: James Gates on 12-25-2024 Chloride [Moles/Vol] 107 mmol/L 98-107 [facility] Comprehensive Metabolic Prof ilon 12-25-2024 Albumin [Mass/Vol] 3.7 g/dL Normal 3.2-5.0 [facility] Comment on above: Performed By: #### L 100.0100, L500.4050, L501.2450 #### [facility] [address] [place], [address] Albumin/Globulin [Mass ratio] 1.0 {ratio} Normal 0.9-2.[address] [facility] Comment on above: Performed By: #### L 100.0100, L500.4050, L501.2450 #### [facility] [address] [place], [address] ALK P 85 U/L Normal 45-[address] [facility] Comment on above: Performed By: #### L 100.0100, L500.4050, L501.2450 #### [facility] [address] [place], [address] ALT [Catalytic activity/Vol] 33 U/L Normal 13-[address] [facility] Comment on above: Performed By: #### L 100.0100, L500.4050, L501.2450 #### [facility] [address] [place], [address] AST [Catalytic activity/Vol] 25 U/L Normal 15-[address] [facility] Comment on above: Performed By: #### L 100.0100, L500.4050, L501.2450 #### [facility] [address] [place], [address] Bilirubin [Mass/Vol] 0.70 mg/dL Normal 0.20-1.00 [facility] Comment on above: Result Comment: For patients on eltrombopag therapy, use of Dimension Davidson TBIL is not recommended. Performed By: #### L 100.0100, L500.4050, L501.2450 #### [facility] [address] [place], [address] BUN/CRE 14.2 RATIO Normal 10-[address] [facility] Comment on above: Performed By: #### L 100.0100, L500.4050, L501.2450 #### [facility] [address] [place], [address] CA,Total 8.8 mg/dL Normal 8.5-10.[address] [facility] Comment on above: Performed By: #### L 100.0100, L500.4050, L501.2450 #### [facility] [address] [place], [address] Chloride [Moles/Vol] 107 mmol/L Normal 98-107 [facility] Comment on above: Performed By: #### L 100.0100, L500.4050, L501.2450 #### [facility] [address] [place], [address] CO2 [Moles/Vol] 23.0 mmol/L Normal 21.0-32.[address] [facility] Comment on above: Performed By: #### L 100.0100, L500.4050, L501.2450 #### [facility] [address] [place], [address] Creatinine [Mass/Vol] 0.70 mg/dL Normal 0.55-1.02 [facility] Comment on above: Result Comment: The validity of the calculated GFR GFRAA in patients over 70 years has not been determined. Clinical correlation is essential. Performed By: #### L 100.0100, L500.4050, L501.2450 #### [facility] [address] [place], [address] ECRCL 76.98 ml/min Normal [facility] Comment on above: Performed By: #### L 100.0100, L500.4050, L501.2450 #### [facility] [address] [place], [address] EST GFR - AA 108 mL/min Normal >[address] [facility] Comment on above: Result Comment: Afri can Guamanian GFR Calc Performed By: #### L 100.0100, L500.4050, L501.2450 #### [facility] [address] [place], [address] GAP 10 Normal 5-[address] [facility] Comment on above: Performed By: #### L 100.0100, L500.4050, L501.2450 #### [facility] [address] [place], [address] GFR/1.73 sq M.predicted among non-blacks MDRD (S/P/Bld) [Vol rate/Area] 89 mL/min/{1.73_m2} Normal >[address] [facility] Comment on above: Result Comment: Non- GFR Calc Performed By: #### L 100.0100, L500.4050, L501.2450 #### [facility] [address] [place], [address] Globulin (S) [Mass/Vol] 3.6 g/dL Normal 2.2-4.[address] [facility] Comment on above: Performed By: #### L 100.0100, L500.4050, L501.2450 #### [facility] [address] [place], [address] Glucose [Mass/Vol] 124 mg/dL High 74-106 [facility] Comment on above: Result Comment: Fast ing Glucose result from 100 to 125 mg/dL suggests IMPAIRED HOMEOSTASIS per A.D.A. criteria. Performed By: #### L 100.0100, L500.4050, L501.2450 #### [facility] [address] [place], [address] Potassium [Moles/Vol] 3.4 mmol/L Low 3.5-5.1 [facility] Comment on above: Performed By: #### L 100.0100, L500.4050, L501.2450 #### [facility] [address] [place], [address] Sodium [Moles/Vol] 139 mmol/L Normal 136-145 [facility] Comment on above: Performed By: #### L 100.0100, L500.4050, L501.2450 #### [facility] [address] [place], [address] T PROT 7.3 g/dL Normal 6.4-8.[address] [facility] Comment on above: Performed By: #### L 100.0100, L500.4050, L501.2450 #### [facility] [address] [place], [address] Urea nitrogen [Mass/Vol] 10 mg/dL Normal 7-[address] [facility] Comment on above: Performed By: #### L 100.0100, L500.4050, L501.2450 #### [facility] [address] [place], [address] Emergency Department Summary on 12-25-2024 Emergency Department Summary [facility] Medical Records Department [address] [place] [address] Emergency Department Summary 12/25/24 MR#: [id number] Acct: [id number] Name: DARIELA GRIMES Rep #: [id number] : 1960 64 From: James Gates MANAGER T[employer]-C PCP: Dr. Mary Ponce MD Status:DEP ER Location: ED Patient was seen and examined with nurse practitioner James All components of the history and physical confirmed and agreed. History of present illness and physical exam: Patient is a 64-year-old female past medical history fibromyalgia, IBS, diverticulitis, hypertension who presents to the emergency department with a chief complaint of 3 days worth of generalized not feeling well. She states that she developed sore throat, headache and just overall fatigue. She states that she feels like she cannot do anything or get out of bed as she feels very weak overall. States that her headache is mainly posterior and has been going on for approximately 1-1/2 days that has just gradually came on in nature. States that she is nauseous denies any sick contacts. Review of systems: Constitutional: Complains of headache, generalized weakness as noted above denies lightheadedness or dizziness Eyes: Denies change in vision double vision blurry vision Cardiovascular: Denies chest pain or palpitations Respiratory: Denies coughing wheezing shortness of breath Abdomen: Complains of nausea as noted above denies abdominal pain vomiting or diarrhea : Denies any urinary symptoms Neurological: Complains of generalized weakness as noted above denies numbness or tingling Musculoskeletal: Denies back pain Skin: Denies rashes or lesions Physical exam: General: Patient was lying in bed rest comfortably did not appear to be in acute distress Head: Atraumatic, normocephalic Eyes: PERRL bilaterally, EOMI bilaterally, no conjunctival injection noted Neck: Soft, supple, trachea midline, patient has full range of motion of neck no concern for meningitis Cardiovascular: Regular rate and rhythm no murmurs gallops rubs noted Respiratory: Clear to auscultation bilaterally Abdomen: Soft, nondistended, nontender to palpation, bowel sounds present x 4 Extremities: +5/5 strength noted in the bilateral upper and lower extremities, no pedal edema on exam, radial pulses +2/4 in the bilateral upper extremities Neurological: Patient following commands knew that she was at [facility] years 2024 Skin: Warm, dry, intact no rashes or lesions noted MDM Patient is a 64-year-old female who presented to the [facility] part with a chief complaint of not feeling well for the past few days as well as generalized weakness and fatigue. On the differential diagnose includes but not limited to upper respiratory infection secondary to viral etiology, pneumonia, ACS, electrolyte abnormality, dehydration. Once workup is obtained and reviewed she will be reevaluated. Patient was given fluids, Zofran and Toradol. She was later given Reglan and Benadryl. Patient CBC was largely unremarkable no evidence leukocytosis white blood cell count normal at 8.5, hemoglobin is 14.3, platelet count normal at 362. Patient sodium normal 139, potassium was 3.4, creatinine normal at 0.70. Patient's AST and ALT were 25 and 33 respectively, lipase was noted to be 50. Patient's COVID flu and RSV were negative. Patient CT head and brain without contrast was reviewed showed 2 mm radiodensity noted at the roof of the third ventricle possible small colloid cyst no CT evidence of acute intracranial pathology. Minimal right maxillary sinus mucosal thickening partial opacification of the left ethmoid sinus. Reevaluation the patient again she is feeling much improved and would like to go home at this point time. Patient was given Zofran for home and is advised to continue supportive care and return with worsening symptoms or concerns. She is advised to follow-up with her primary care physician outpatient setting. She is agreeable this plan as well as family members at bedside all question concerns answered she was discharged home in stable condition. Final impression: Headache Generalized fatigue Disposition: Patient will be discharged home in stable condition Supervising attending attestation: Ranjith VINSON History of Present Illness Chief Complaint: General Illness Narrative Narrative: Patient is a 64-year-old female with history of fibromyalgia, IBS, diverticulitis, hypertension presents to the [facility] with 3 days of generalized malaise. Pay states she developed a sore throat for the last 3 days, developed a headache and now significant weakness. Patient states that she just feels like she cannot do anything or get out of bed. Her headache is mostly posterior, states this has been ongoing for the last 1.5 days. She states she feels extremely nauseous and just full body (more content not included)... Normal [facility] Eosinophil percentageOrdered By: James Gates on 12-25-2024 Eosinophils/100 WBC (Bld) 0.1 % 0-[address] [facility] Erythrocyte distribution wid th (RBC) [Ratio]Ordered By: James Gates on 12-25-2024 Erythrocyte distribution width (RBC) [Entitic vol] 46.7 fL High 35.1-43.[address] [facility] Erythrocyte distribution wid th ratioOrdered By: James Gates on 12-25-2024 Erythrocyte distribution width (RBC) [Ratio] 13.3 % 11.6-14.[address] [facility] Erythrocyte distribution wid th standard deviationOrdered By: James Gates on 12-25-2024 Erythrocyte distribution width (RBC) [Ratio] 46.7 fl High 35.1-43.[address] [facility] Estimated glomerular filtrat ion rate (GFR) AmericanOrdered By: James Gates on 12-25-2024 Estimated GFR (MDRD) Amer 108 mL/min >[address] [facility] Comment on above: GFR Calc Estimation of creatinine maritza aranceOrdered By: James Gates on 12-25-2024 Estimated Creatinine Clearance Calc 76.98 ml/min [facility] Glomerular filtration rate ( GFR) estimationOrdered By: James Gates on 12-25-2024 Estimated GFR (MDRD) Non-Af Amer 89 mL/min >[address] [facility] Comment on above: Non- GFR Calc GFR/1.73 sq M.predicted among non-blacks MDRD (S/P/Bld) [Vol rate/Area] 89 mL/min/{1.73_m2} >[address] [facility] Comment on above: Non- GFR Calc Glucose measurementOrdered B y: James Gates on 12-25-2024 Glucose [Mass/Vol] 124 mg/dL High 74-106 [facility] Comment on above: Fasting Glucose resu lt from 100 to 125 mg/dL suggests IMPAIRED HOMEOSTASIS per A.D.A. criteria. Hematocrit Auto (Bld) [Volum e fraction]Ordered By: James Gates on 12-25-2024 Hematocrit (Bld) [Volume fraction] 43.5 % 37-[address] [facility] Hemoglobin measurementOrdere d By: James Gates on 12-25-2024 Hemoglobin (Bld) [Mass/Vol] 14.3 g/dL 12.0-15.[address] [facility] Immature granulocytes/100 WB C Auto (Bld)Ordered By: James Gates on 12-25-2024 Immature granulocytes/100 WBC (Bld) 0.400 % 0.0-0.[address] [facility] Comment on above: IG% - Immature Granu locytes (promyelocytes, myelocytes and metamyelocytes) > 1% indicates that a LEFT SHIFT is Present. Influenza virus A and B and SARS-CoV-2 (COVID-19) and Respiratory syncytial virus RNAOrdered By: James Gates on 12-25-2024 SARS-CoV-2 (COVID-19) RNA HEIDI+probe Ql (Unsp spec) [facility] Laboratory - Chemistry and C hemistry - challengeOrdered By: James Gates on 12-25-2024 AST [Catalytic activity/Vol] 25 U/L 15-[address] [facility] Lipaseon 12-25-2024 Lipase [Catalytic activity/Vol] 50 U/L Low 73-[address] [facility] Comment on above: Performed By: #### L 100.0100, L500.4050, L501.2450 #### [facility] Laboratory [address] [place] [address], [address] Lipase measurementOrdered By : James Gates on 12-25-2024 Lipase [Catalytic activity/Vol] 50 U/L Low 73-[address] [facility] Lymphocytes Auto (Unsp spec) [#/Vol]Ordered By: James Gates on 12-25-2024 Lymphocytes (Bld) [#/Vol] 0.86 10*3/uL 0.83-4.[address] [facility] Lymphocytes/100 WBC Auto (Un sp spec)Ordered By: James Gates on 12-25-2024 Lymphocytes/100 WBC (Bld) 10.2 % Low 19-[address] [facility] M100.678on 12-25-2024 M100.678 SARS-CoV-2 (COVID 19 ) Negative INFLUENZA A Negative INFLUENZA B Negative RSV PCR Negative Normal [facility] Comment on above: Performed By: #### M 100.520 ####[facility] [id number] [place], [place], [id number] MCV (mean corpuscular volume ) determinationOrdered By: James Gates on 12-25-2024 MCV (RBC) [Entitic vol] 95.0 fL 81-[address] [facility] Mean corpuscular hemoglobin (MCH) determinationOrdered By: James Gates on 12-25-2024 MCH (RBC) [Entitic mass] 31.2 pg 27.0-32.[address] [facility] Mean corpuscular hemoglobin concentration (MCHC) determinationOrdered By: James Gates on 12-25-2024 MCHC (RBC) [Mass/Vol] 32.9 g/dL 32-36 [facility] Mean platelet volume determi nationOrdered By: James Gates on 12-25-2024 Platelet mean volume (Bld) [Entitic vol] 10.9 fL 6.2-12.[address] [facility] Monocyte percentageOrdered B y: James Gates on 12-25-2024 Monocytes/100 WBC (Bld) 5.8 % 0-[address] [facility] Neutrophil percentageOrdered By: James Gates on 12-25-2024 Neutrophils/100 WBC (Bld) 82.7 % High 47-[address] [facility] Nucleated red blood cell per centageOrdered By: James Gates on 12-25-2024 Nucleated RBC/100 WBC (Bld) [Ratio] 0 % 0-[address] [facility] Platelet countOrdered By: Monalisa ul Yajaira on 12-25-2024 Platelets (Bld) [#/Vol] 362 10*3/uL 150-[address] [facility] Potassium measurementOrdered By: James Gates on 12-25-2024 Potassium [Moles/Vol] 3.4 mmol/L Low 3.5-5.1 [facility] RBC Auto (Bld) [#/Vol]Ordere d By: James Gates on 12-25-2024 RBC (Bld) [#/Vol] 4.58 10*6/uL 4.2-5.4 [facility] Serum anion gap measurementO rdered By: James Gates on 12-25-2024 Anion gap [Moles/Vol] 10 mmol/L 5-15 [facility] Serum globulin measurementOr dered By: James Gates on 12-25-2024 Globulin (S) [Mass/Vol] 3.6 g/dL 2.2-4.[address] [facility] Serum or plasma alanine spencer otransferase (ALT) measurementOrdered By: James Gates on 12-25-2024 ALT [Catalytic activity/Vol] 33 U/L 13-[address] [facility] Serum or plasma albumin artie urement (mass/volume)Ordered By: James Gates on 12-25-2024 Albumin [Mass/Vol] 3.7 g/dL 3.2-5.0 [facility] Serum or plasma alkaline lauren sphatase measurementOrdered By: James Gates on 12-25-2024 ALP [Catalytic activity/Vol] 85 U/L 45-[address] [facility] Serum or plasma calcium artie urement (mass/volume)Ordered By: James Gates on 12-25-2024 Calcium [Mass/Vol] 8.8 mg/dL 8.5-10.1 [facility] Serum or plasma creatinine m easurement (mass/volume)Ordered By: James Gates on 12-25-2024 Creatinine [Mass/Vol] 0.70 mg/dL 0.55-1.02 [facility] Comment on above: The validity of the calculated GFR & GFRAA in patients over 70 years has not been determined. Clinical correlation is essential. Serum or plasma urea nitroge n measurement (mass/volume)Ordered By: James Gates on 12-25-2024 Urea nitrogen [Mass/Vol] 10 mg/dL 7-[address] [facility] Sodium levelOrdered By: James Gates on 12-25-2024 Sodium [Moles/Vol] 139 mmol/L 136-145 [facility] Total proteinOrdered By: Flaquita Gates on 12-25-2024 Protein [Mass/Vol] 7.3 g/dL 6.4-8.2 [facility] White blood cell (WBC) count Ordered By: James Gates on 12-25-2024 WBC (Bld) [#/Vol] 8.5 10*3/uL 4.4-11.0 [facility] Brain W/WO Contraston 2024 Brain W/WO Contrast [facility] Imaging Services [address] [place], [place] [address] Brain W/WO Contrast MR#: [id number] Acct: [id number] Name: DARIELA GRIMES Rep #: [id number] : 1960 F 64 From: Fatemeh Michelle MD PCP: Dr. Mary Ponce MD Status: DEP CLI Study: Brain W/WO Contrast Date of Exam: 12/19/24 Exam# [id number] Ordering Dr: Hugh Carranza MD ADDENDUM by Dr. Jaydon Holliday MD on 01/18/25 at 1454 Addendum with limited evaluation only of the area of a 2 mm colloid cyst at the roof of the 3rd ventricle mentioned on the report from the CT of 12/25/2024: No cyst or mass is seen in the region of the 3rd ventricle. No area of abnormal postcontrast enhancement is seen Reading Location: [id number] 01/18/25 1454 Date cc: Dr. Mary Ponce MD; Dr. Hugh Carranza MD * Signed ADDENDUM by Dr. Fatemeh Michelle MD on 12/30/24 at 0833 A total of 15 mL Clariscan was administered intravenously. Reading Location: [facility] 12/30/24 0834 Date cc: Dr. Mary Ponce MD; Dr. Hugh Carranza MD * Signed PROCEDURE: BRAIN AND IAC'S W/WO CONTRAST REASON FOR EXAM: Migraine headaches. Worsening tinnitus. TECHNIQUE: Multiplanar, multisequence MRI of the brain and internal auditory canals without and with intravenous gadolinium-based contrast. COMPARISON: None. FINDINGS: Midline structures are normal. The intracranial flow voids are preserved. The parenchyma is normal in signal intensity. The ventricles are normal in size and configuration, without midline shift or mass effect. There is no restricted diffusion to indicate acute infarct. No acute intracranial hemorrhage or extra-axial collection. The cochlea and semicircular canals are normal. The 7th and 8th nerve roots are normal. On the left side, a small-vessel traverses very close to the 7th nerve at the level of the internal auditory canal without extending into the IAC. On the right side, an AICA loop extends more than 50% into the internal auditory canal. There is no abnormal intracranial enhancement. Globes and orbits are normal. Paranasal sinuses are clear. MRI/Brain W/WO Contrast IMPRESSION: RIGHT-SIDED AICA LOOP EXTENDING MORE THAN 50% INTO THE RIGHT INTERNAL AUDITORY CANAL. GIVEN THE HISTORY OF TINNITUS, THE FINDING COULD BE CLINICALLY SIGNIFICANT BUT IS OFTEN INCIDENTAL. Reading Location: [facility] CC: Dr. Mary Ponce MD; Dr. Hugh Carranza MD Hydraulics Engineer: Signed Normal [facility] Spine Cervical (Routine)on 0 12-19-2024 Spine Cervical (Routine) [facility] Imaging Services [address] [place] [id number] Spine Cervical (Routine) MR#: [id number] Acct: [id number] Name: DARIELA GRIMES Rep #: [id number] : 1960 F 64 From: Fatemeh Michelle MD PCP: Dr. Mary Ponce MD Status: REG CLI Study: Spine Cervical (Routine) Date of Exam: Exam# [id number] Ordering Dr: Hugh Carranza MD PROCEDURE: SPINE CERVICAL (ROUTINE) REASON FOR EXAM: Neck pain, paresthesias. TECHNIQUE: Noncontrast cervical spine MRI. COMPARISON: 04/04/2021 FINDINGS: Vertebrae: Cervical vertebral body heights are preserved. Bone marrow signal is unremarkable. Alignment: Normal. No spondylolisthesis. Spinal Cord: Cervical spinal cord is of normal size and signal intensities. Structures at the foramen magnum are unremarkable. C2-3: Mild disc osteophyte complex with facet and ligamentum flavum hypertrophy. Flattening of the ventral thecal sac. C3-4: Disc osteophyte complex with facet and uncovertebral hypertrophy with mild left foraminal stenosis. C4-5: Disc osteophyte complex with facet and uncovertebral hypertrophy with mild flattening of the ventral thecal sac and mild bilateral foraminal stenosis. C5-6: Disc osteophyte complex with facet and uncovertebral hypertrophy with mild flattening of the ventral thecal sac. C6-7: Disc osteophyte complex with facet and uncovertebral hypertrophy with mild flattening of the ventral thecal sac. Mild left foraminal stenosis. C7-T1: No central canal or foraminal stenosis. Craniocervical junction is intact atlantodental interval is normal. A 6 mm T2 hyperintense nodule is seen in the right thyroid MRI/Spine Cervical (Routine) IMPRESSION: MILD MULTILEVEL DEGENERATIVE CHANGES IN THE CERVICAL SPINE. 6 MM NODULE IN THE LOWER POLE OF THE RIGHT THYROID GLAND. FOLLOW-UP ULTRASOUND IN 6 MONTHS IS SUGGESTED. Reading Location: [facility] CC: Dr. Mary Ponce MD; Dr. Hugh Carranza MD Hydraulics Engineer: Signed Normal [facility] Spine Lumbar (Routine)on Spine Lumbar (Routine) [facility] Imaging Services [address] [place] [address] Spine Lumbar (Routine) MR#: [id number] Acct: [id number] Name: DARIELA GRIMES Rep #: [id number] : 1960 F 64 [facility] PCP: Dr. Mary Ponce MD Status: REG CLI Study: Spine Lumbar (Routine) Date of Exam: 12/19/24 Exam# [id number] Ordering Dr: Hugh Carranza MD PROCEDURE: MRI SPINE LUMBAR (ROUTINE) REASON FOR EXAM: Low back pain. TECHNIQUE: Noncontrast lumbar spine MRI. COMPARISON: None. FINDINGS: Lumbar vertebral bodies maintain a normal height. There is levoscoliosis of the lumbar spine. There is diminished signal intensity involving the discs of the lumbar spine from L2-S1 related to degenerative disc disease with disc space narrowing and endplate spurring. There are Modic type 2 endplate degenerative changes on the left at L5-S1. No acute fracture or subluxation is present. The tip of the conus medullaris terminates at L1 and signal intensity of the included spinal cord is within normal limits. There is atrophy of the paraspinous musculature from L5 to the sacrum. Individual levels: L1-2: No disc herniation, central canal stenosis, or neural foraminal narrowing. Mild facet arthropathy is present. L2-3: Left foraminal disc protrusion results in mild left neural foraminal narrowing. There is a superimposed mild disc bulge. Right neural foramina and central canal are patent. There is mild facet/flavum hypertrophy. L3-4: Circumferential disc bulge and facet/flavum hypertrophy results in mild central canal stenosis. No significant neural foraminal narrowing. L4-5: Mild disc bulge and facet/flavum hypertrophy with no significant central canal stenosis. There is mild bilateral neural foraminal narrowing. L5-S1: Mild disc bulge and facet arthropathy with no significant central canal stenosis or right neural foraminal narrowing. There is mild left neural foraminal narrowing. MRI/Spine Lumbar (Routine) IMPRESSION: 1. At L2-L3, left foraminal disc protrusion results in mild left neural foraminal narrowing. 2. Multilevel degenerative disc disease and spondylosis with mild central canal stenosis at L3-L4. Mild neural foraminal narrowing is present from L4-S1. 3. Levoscoliosis. Reading Location: [facility] CC: Dr. Mary Ponce MD; Dr. Hugh Carranza MD Hydraulics Engineer: Signed Normal [facility] Gastroenterology Visit Repor ton 12-04-2024 Gastroenterology Visit Report [facility] Gastroenterology [address] [place] [address] OFFICE VISIT Date of Service: 12/04/24 MR#: [id number] Acct: [id number] Name: DARIELA GRIMES Rep #: [id number] : 1960 Provider: Floyd Bellamy DO Age/Sex: 64/F Location: [facility] Status: Signed Intake Vital Signs 01/20/24 10:57 11/15/24 08:45 Height 5 ft 4 in 5 ft 4 in Intake Visit Reasons: 6 Month f/u Chief Complaint: Annual Allergies amoxicillin Allergy (Verified 11/15/24 08:49) Rash doxycycline Allergy (Verified 11/15/24 08:49) Rash Uoimzny-ZRM-YpD Reductase Inhibitor Adverse Reaction (Severe, Verified 11/15/24 08:49) mylagias ezetimibe (From Zetia) Adverse Reaction (Intermediate, Verified 11/15/24 08:49) Myalgias omeprazole Adverse Reaction (Intermediate, Verified 11/15/24 08:49) Rash aspirin (ASA) Adverse Reaction (Verified 11/15/24 08:49) Gastric Reflux/ burning codeine Adverse Reaction (Verified 11/15/24 08:49) Other erythromycin base Adverse Reaction (Verified 11/15/24 08:49) Other Medications ???Medication ???Instructions ???Recorded ???Confirmed ???Type acetaminophen 500 mg tablet 500 mg PO Q6H PRN Pain 03/12/21 History (Tylenol Extra Strength) diphenhydramine HCl 25 mg capsule 25 mg PO QHS PRN seasonal allergi es 12/03/21 12/04/24 History (Benadryl) cholecalciferol (vitamin D3) 25 1,000 unit PO DAILY 08/30/2312/04 History mcg (1,000 unit) tablet (Vitamin D3) pantoprazole 40 mg tablet,delayed 40 mg PO QDAY #30 tabs 08/08/24 0 12/04/24 Rx release cyclobenzaprine 5 mg tablet 5 mg PO TID PRN muscle 11/15/24 Rx spasm/muscle pain #90 tabs duloxetine 30 mg capsule,delayed 30 mg PO DAILY #30 caps 11/15/24 0 12/04/24 Rx release zoledronic acid 5 mg/100 mL in 1 ea .Route ONCE 11/15/24 12/04/24 History mannitol 5 %-water intravenous piggybck celecoxib 50 mg capsule 50 mg PO BID 1 month #60 caps 01/2312/04/24 Rx PFSH Medical History (Updated 11/15/24 @ 12:[address] Hugh Carranza MD) Neck pain Post-menopausal Depression Anxiety Back pain Migraine headache Syncope Difficulty swallowing Gastric reflux Leg cramps Ledbetter's esophagus Wears glasses Arthritis History of IBS History of diverticulitis Non-smoker PONV (postoperative nausea and vomiting) History of echocardiogram History of stress test Cardiology follow-up encounter History of irregular heartbeat Diarrhea Hyperlipidemia Vitamin D deficiency Degeneration of intervertebral disc of cervical region Segmental and somatic dysfunction of thoracic region Segmental and somatic dysfunction of cervical region Cervicogenic headache GERD (gastroesophageal reflux disease) Cataracts, bilateral Fibromyalgia Anxiety and depression Migraine with aura Migraine headache Osteoporosis Myalgia and myositis Dyspepsia Diverticula of colon Surgical History Hx of colonoscopy H/O bilateral salpingo-oophorectomy History of total abdominal hysterectomy Normal colonoscopy History of breast biopsy Family History Mother Hypertension COPD (chronic obstructive pulmonary disease) CVA (cerebral vascular accident) Kidney disease Anemia Arthritis Heart disease Osteoporosis Emphysema, unspecified Ascending aortic aneurysm Father , Melanoma Melanoma Sister Hypertension Rheumatoid arthritis Brother , Suicide Suicide attempt Sister Rheumatoid arthritis Hypertension Grandmother Arthritis Heart disease Hypertension Osteoporosis Grandfather CVA (cerebral vascular accident) Aunt CVA (cerebral vascular accident) Uncle Skin cancer Cancer Uncle Cancer Uncle Cancer Uncle Cancer Social History Smoking Status: Never smoker Electronic Cigarette Use: not used second hand exposure: No alcohol intake: never substance use type: does not use caffeine: Yes Type: carbonated beverages Number of servings: 1 what type of physical activity do you participate in: none seatbelt use: always do you feel safe at home: Yes additional social history: [employer]- retired retired HPI HPI Chief Complaint: Annual Details: DARIELA GRIMES, is a 64 F who presents to the office today for follow up. PMH HLD, Vit D deficiency, endometriosis s/p hysterectomy and bilateral oophorectomy 2004, GERD, depression/anxiety, osteoporosis. Neurology fibromyalgia, fatigue, migraine, cervical spine stenosis. *BGI established 11.18.21 upper abdominal pain extending into chest with a burning sensation of mouth/tongue for many years with worsening intensity/frequent. Omeprazole (rash); famotidine 20mg QD somewhat (more content not included)... Normal [facility] Vitamin B1, Thiamineon 11-22 VIT B1 THIAMINE 84.0 nmol/L Normal 66.5-200.[address] [facility] Comment on above: Order Comment: Test( s) 494235-Kbq. B1, Whole Bloodwas developed and its performance characteristicsdetermined by [employer]. It has not been cleared or approvedby the Food and Drug Administration. Result Comment: Perf ormed at: [address] [id number] Buyer Intern: Clay Mathis MD, Phone: [phone] Performed By: #### L 501.9520, L3300.8000, L100.0500, L3300.0960, L500.4050, L506.0250, L503.0105 ####[facility] [facility] [address] [place], [address] Vitamin D 1,25-Dihydroxyon 0 11-20-2024 VIT D 1,25 DIHY 63.9 pg/mL Normal 24.8-81.[address] [facility] Comment on above: Result Comment: Perf ormed at: [address] [id number] Buyer Intern: Clay Mathis MD, Phone: [phone] Performed By: #### L 501.9520, L3300.8000, L100.0500, L3300.0960, L500.4050, L506.0250, L503.0105 ####[facility] [address] [place], [place], [id number] 1,25-dihydroxyvitamin D3 [Ma ss/Vol]Ordered By: Hugh Carranza on 11-17-2024 Vitamin D 1,25-Dihydroxy 63.9 pg/mL 24.8-81.[address] [facility] Comment on above: Performed at: [address] [id number] Director: Clay Mathis MD, Phone: [phone] Albumin to globulin ratioOrd ered By: Hugh Carranza on 11-17-2024 Albumin/Globulin [Mass ratio] 1.0 {ratio} Normal 0.9-2.[address] [facility] Comment on above: Order Comment: N Performed By: #### L 501.9520, L3300.8000, L100.0500, L3300.0960, L500.4050, L506.0250, L503.0105 ####[facility] [address] [place], [address] Automated blood erythrocyte countOrdered By: Hugh Carranza on 11-17-2024 RBC (Bld) [#/Vol] 4.32 10*6/uL Normal 4.2-5.4 [facility] Comment on above: Performed By: #### L 501.9520, L3300.8000, L100.0500, L3300.0960, L500.4050, L506.0250, L503.0105 #### [facility] Laboratory [address] [place], [address] Automated blood hematocrit ( percentage)Ordered By: Hugh Carranza on 11-17-2024 Hematocrit (Bld) [Volume fraction] 41.5 % Normal 37-[address] [facility] Comment on above: Performed By: #### L 501.9520, L3300.8000, L100.0500, L3300.0960, L500.4050, L506.0250, L503.0105 #### [facility] [address] [place], [place], [phone] Bilirubin, totalOrdered By: Hugh Carranza on 11-17-2024 Bilirubin [Mass/Vol] 0.60 mg/dL Normal 0.20-1.00 [facility] Comment on above: For patients on eltr ombopag therapy, use of Dimension Davidson TBIL is not recommended. Order Comment: N Result Comment: For patients on eltrombopag therapy, use of Dimension Davidson TBIL is not recommended. Performed By: #### L 501.9520, L3300.8000, L100.0500, L3300.0960, L500.4050, L506.0250, L503.0105 ####[facility] [address] [place], [address] Blood urea nitrogen (BUN)/cr eatinine ratioOrdered By: Hugh Carranza on 11-17-2024 Urea nitrogen/Creatinine [Mass ratio] 14.5 mg/mg 10- [facility] CBC-Complete Blood Cnt No Di ffon 11-17-2024 RDW SD 48.5 fl High 35.1-43.[address] [facility] Comment on above: Performed By: #### L 501.9520, L3300.8000, L100.0500, L3300.0960, L500.4050, L506.0250, L503.0105 #### [facility] [address] [place], [place], [phone] Carbon dioxide measurementOr dered By: Hugh Carranza on 11-17-2024 CO2 [Moles/Vol] 26.0 mmol/L Normal 21.0-32.[address] [facility] Comment on above: Order Comment: N Performed By: #### L 501.9520, L3300.8000, L100.0500, L3300.0960, L500.4050, L506.0250, L503.0105 ####[facility] [address] [place], [place], [phone] Chloride measurementOrdered By: Hugh Carranza on 11-17-2024 Chloride [Moles/Vol] 111 mmol/L High 98-107 [facility] Comment on above: Order Comment: N Performed By: #### L 501.9520, L3300.8000, L100.0500, L3300.0960, L500.4050, L506.0250, L503.0105 ####[facility] [address] [place], [address] Comprehensive Metabolic Prof amelie 11-17-2024 ALK P 73 U/L Normal 45-[address] [facility] Comment on above: Order Comment: N Performed By: #### L 501.9520, L3300.8000, L100.0500, L3300.0960, L500.4050, L506.0250, L503.0105 ####[facility] [address] [place], [address] BUN/CRE 14.5 RATIO Normal 10-[address] [facility] Comment on above: Order Comment: N Performed By: #### L 501.9520, L3300.8000, L100.0500, L3300.0960, L500.4050, L506.0250, L503.0105 ####[facility] [address] [place], [place], [phone] CA,Total 9.0 mg/dL Normal 8.5-10.[address] [facility] Comment on above: Order Comment: N Performed By: #### L 501.9520, L3300.8000, L100.0500, L3300.0960, L500.4050, L506.0250, L503.0105 ####[facility] [address] [place], [place], [phone] EST GFR - AA 99 mL/min Normal >[address] [facility] Comment on above: Order Comment: N Result Comment: Afri can Guamanian GFR Calc Performed By: #### L 501.9520, L3300.8000, L100.0500, L3300.0960, L500.4050, L506.0250, L503.0105 ####[facility] [address] [place], [address] GAP 6 Normal 5-[address] [facility] Comment on above: Order Comment: N Performed By: #### L 501.9520, L3300.8000, L100.0500, L3300.0960, L500.4050, L506.0250, L503.0105 ####[facility] [address] [place], [address] GFR/1.73 sq M.predicted among non-blacks MDRD (S/P/Bld) [Vol rate/Area] 82 mL/min/{1.73_m2} Normal >[address] [facility] Comment on above: Order Comment: N Result Comment: Non- GFR Calc Performed By: #### L 501.9520, L3300.8000, L100.0500, L3300.0960, L500.4050, L506.0250, L503.0105 ####[facility] [address] [place], [address] T PROT 7.1 g/dL Normal 6.4-8.[address] [facility] Comment on above: Order Comment: N Performed By: #### L 501.9520, L3300.8000, L100.0500, L3300.0960, L500.4050, L506.0250, L503.0105 ####[facility] [address] [place], [address] Comprehensive Metabolic Prof ilOrdered By: Hugh Carranza on 11-17-2024 AST [Catalytic activity/Vol] 27 U/L Normal 15-[address] [facility] Comment on above: Order Comment: N Performed By: #### L 501.9520, L3300.8000, L100.0500, L3300.0960, L500.4050, L506.0250, L503.0105 ####[facility] [address] [place], [address] Erythrocyte distribution wid th (RBC) [Ratio]Ordered By: Hugh Carranza on 11-17-2024 Erythrocyte distribution width (RBC) [Entitic vol] 48.5 fL High 35.1-43.[address] [facility] Erythrocyte distribution wid th ratioOrdered By: Hugh Carranza on 11-17-2024 Erythrocyte distribution width (RBC) [Ratio] 13.5 % Normal 11.6-14.[address] [facility] Comment on above: Performed By: #### L 501.9520, L3300.8000, L100.0500, L3300.0960, L500.4050, L506.0250, L503.0105 #### [facility] [address] [place], [address] Estimated glomerular filtrat ion rate (GFR) AmericanOrdered By: Hugh Carranza on 11-17-2024 Estimated GFR (MDRD) Amer 99 mL/min >[address] [facility] Comment on above: GFR Calc Folates, (Folic Acid)on 11-01 FOLATES 29.10 ng/mL Normal 3.1-55.[address] [facility] Comment on above: Order Comment: N Performed By: #### L 501.9520, L3300.8000, L100.0500, L3300.0960, L500.4050, L506.0250, L503.0105 ####[facility] [address] [place], [place], [phone] Folic acid measurementOrdere d By: Hugh Carranza on 11-17-2024 Folate 29.10 ng/mL 3.1-55.[address] [facility] Glomerular filtration rate ( GFR) estimationOrdered By: Hugh Carranza on 11-17-2024 Estimated GFR (MDRD) Non-Af Amer 82 mL/min >[address] [facility] Comment on above: Non- GFR Calc Glucose measurementOrdered B y: Hugh Carranza on 11-17-2024 Glucose [Mass/Vol] 93 mg/dL Normal 74-106 [facility] Comment on above: Order Comment: N Performed By: #### L 501.9520, L3300.8000, L100.0500, L3300.0960, L500.4050, L506.0250, L503.0105 ####[facility] [address] [place], [place], [phone] Hemoglobin measurementOrdere d By: Hugh Carranza on 01-17-2025 Hemoglobin (Bld) [Mass/Vol] 13.1 g/dL Normal 12.0-15.[address] [facility] Comment on above: Performed By: #### L 501.9520, L3300.8000, L100.0500, L3300.0960, L500.4050, L506.0250, L503.0105 #### [facility] [address] [place], [place], [phone] MCV (mean corpuscular volume ) determinationOrdered By: Hugh Carranza on 11-17-2024 MCV (RBC) [Entitic vol] 96.1 fL Normal 81-[address] [facility] Comment on above: Performed By: #### L 501.9520, L3300.8000, L100.0500, L3300.0960, L500.4050, L506.0250, L503.0105 #### [facility] [address] [facility] [place], [address] (355) Mean corpuscular hemoglobin (MCH) determinationOrdered By: Hugh Carranza on 11-17-2024 MCH (RBC) [Entitic mass] 30.3 pg Normal 27.0-32.[address] [facility] Comment on above: Performed By: #### L 501.9520, L3300.8000, L100.0500, L3300.0960, L500.4050, L506.0250, L503.0105 #### [facility] [address] [place], [place], [phone] Mean corpuscular hemoglobin concentration (MCHC) determinationOrdered By: Hugh Carranza on 11-17-2024 MCHC (RBC) [Mass/Vol] 31.6 g/dL Low 32-36 [facility] Comment on above: Performed By: #### L 501.9520, L3300.8000, L100.0500, L3300.0960, L500.4050, L506.0250, L503.0105 #### [facility] [address] [place], [place], [address] Mean platelet volume determi nationOrdered By: Hugh Carranza on 11-17-2024 Platelet mean volume (Bld) [Entitic vol] 10.9 fL Normal 6.2-12.[address] [facility] Comment on above: Performed By: #### L 501.9520, L3300.8000, L100.0500, L3300.0960, L500.4050, L506.0250, L503.0105 #### [facility] [address] [facility] [place], [place], [phone] Platelet countOrdered By: Ra keren Carranza on 11-17-2024 Platelets (Bld) [#/Vol] 323 10*3/uL Normal 150-[address] [facility] Comment on above: Performed By: #### L 501.9520, L3300.8000, L100.0500, L3300.0960, L500.4050, L506.0250, L503.0105 #### [facility] [address] [facility] [place], [place], [phone] Potassium measurementOrdered By: Hugh Carranza on 11-17-2024 Potassium [Moles/Vol] 3.9 mmol/L Normal 3.5-5.1 [facility] Comment on above: Order Comment: N Performed By: #### L 501.9520, L3300.8000, L100.0500, L3300.0960, L500.4050, L506.0250, L503.0105 ####[facility] [address] [place], [place], [phone] Serum anion gap measurementO rdered By: Hugh Carranza on 11-17-2024 Anion gap [Moles/Vol] 6 mmol/L 5-15 [facility] Serum globulin measurementOr dered By: Hugh Carranza on 11-17-2024 Globulin (S) [Mass/Vol] 3.6 g/dL Normal 2.2-4.[address] [facility] Comment on above: Order Comment: N Performed By: #### L 501.9520, L3300.8000, L100.0500, L3300.0960, L500.4050, L506.0250, L503.0105 ####[facility] [address] [facility] [place], [place], [phone] Serum or plasma alanine spencer otransferase (ALT) measurementOrdered By: Hugh Carranza on 11-17-2024 ALT [Catalytic activity/Vol] 32 U/L Normal 13-[address] [facility] Comment on above: Order Comment: N Performed By: #### L 501.9520, L3300.8000, L100.0500, L3300.0960, L500.4050, L506.0250, L503.0105 ####[facility] [address] [place], [address] Serum or plasma albumin artie urement (mass/volume)Ordered By: Hugh Carranza on 11-17-2024 Albumin [Mass/Vol] 3.5 g/dL Normal 3.2-5.0 [facility] Comment on above: Order Comment: N Performed By: #### L 501.9520, L3300.8000, L100.0500, L3300.0960, L500.4050, L506.0250, L503.0105 ####[facility] [address] [facility] [place], [place], [phone] Serum or plasma alkaline lauren sphatase measurementOrdered By: Hugh Carranza on 11-17-2024 ALP [Catalytic activity/Vol] 73 U/L 45-[address] [facility] Serum or plasma calcium artie urement (mass/volume)Ordered By: Hugh Carranza on 11-17-2024 Calcium [Mass/Vol] 9.0 mg/dL 8.5-10.1 [facility] Serum or plasma creatinine m easurement (mass/volume)Ordered By: Hugh Carranza on 11-17-2024 Creatinine [Mass/Vol] 0.76 mg/dL Normal 0.55-1.02 [facility] Comment on above: The validity of the calculated GFR & GFRAA in patients over 70 years has not been determined. Clinical correlation is essential. Order Comment: N Result Comment: The validity of the calculated GFR GFRAA in patients over 70 years has not been determined. Clinical correlation is essential. Performed By: #### L 501.9520, L3300.8000, L100.0500, L3300.0960, L500.4050, L506.0250, L503.0105 ####[facility] [address] [place], [place], [address] Serum or plasma urea nitroge n measurement (mass/volume)Ordered By: Hugh Carranza on 11-17-2024 Urea nitrogen [Mass/Vol] 11 mg/dL Normal 7-[address] [facility] Comment on above: Order Comment: N Performed By: #### L 501.9520, L3300.8000, L100.0500, L3300.0960, L500.4050, L506.0250, L503.0105 ####[facility] [address] [place], [place], [address] Sodium levelOrdered By: Giorgi Carranza on 11-17-2024 Sodium [Moles/Vol] 143 mmol/L Normal 136-145 [facility] Comment on above: Order Comment: N Performed By: #### L 501.9520, L3300.8000, L100.0500, L3300.0960, L500.4050, L506.0250, L503.0105 ####[facility] [address] [place], [place], [address] TSH QnOrdered By: Hugh dodge on 11-17-2024 Thyroid Stimulating Hormone (TSH) 2.850 uIU/mL 0.358-3.[address] [facility] Thiamine [Mass/Vol]Ordered B y: Hugh Carranza on 11-17-2024 Whole Blood Vitamin B1 Level 84.0 nmol/L 66.5-200.[address] [facility] Comment on above: Performed at: [address] [id number] Director: Clay Mathis MD, Phone: [phone] Thyroid Stim Hormone (TSH)on 11-17-2024 TSH 2.850 uIU/mL Normal 0.358-3.[address] [facility] Comment on above: Order Comment: N Performed By: #### L 501.9520, L3300.8000, L100.0500, L3300.0960, L500.4050, L506.0250, L503.0105 ####[facility] [address] [place], [place], [phone] Total proteinOrdered By: Jeferson Carranza on 11-17-2024 Protein [Mass/Vol] 7.1 g/dL 6.4-8.2 [facility] Vitamin B12 measurementOrder ed By: Hugh Carranza on 11-17-2024 Cobalamin (Vitamin B12) [Mass/Vol] 628 pg/mL Normal 211-[address] [facility] Comment on above: Performed By: #### L 501.9520, L3300.8000, L100.0500, L3300.0960, L500.4050, L506.0250, L503.0105 #### [facility] [address] [place], [place], [phone] White blood cell (WBC) count Ordered By: Hugh Carranza on 11-17-2024 WBC (Bld) [#/Vol] 3.6 10*3/uL Low 4.4-11.0 [facility] Comment on above: Performed By: #### L 501.9520, L3300.8000, L100.0500, L3300.0960, L500.4050, L506.0250, L503.0105 #### [facility] [address] [place], [place], [id number] Neurology Visit Reporton Neurology Visit Report [facility] [address] [place] [address], [address] [place], [place] [address] OFFICE VISIT Date of Service: 11/15/24 MR#: [id number] Acct: [id number] Name: DARIELA GRIMES Rep #: [id number] : 1960 Provider: Dr. Hugh jimenez MD Age/Sex: 64/F Location: [facility] [place] Status: Signed HPI HPI Details: History: Kaila presents for neurological evaluation. She was last seen in this office in 2020. She has a history of hyperlipidemia, vitamin D deficiency, endometriosis status post hysterectomy and bilateral oophorectomy in 2003, gastroesophageal reflux disease, Ledbetter's esophagus depression, anxiety, and osteoporosis. She was diagnosed with fibromyalgia in 1994. She has had chronic fatigue and diffuse muscle pain and tenderness involving the neck, mid back, lower back, arms and legs. Since 2019, however she has experienced other symptoms including intermittent numbness and tingling in the mid back and increased muscle spasms and she has had intermittent electric shock type sensation in the legs and occasionally affecting the whole body that more frequently occurs at night. Baclofen 5 mg 3 times daily as needed lost efficacy for her musculoskeletal pain. She now uses cyclobenzaprine and this has been of some benefit. She has numbness and tingling in the left first toe that has been present for years. She experiences a vague internal vibratory sensation. She has had headaches since she was a child. Her headaches are, at times, throbbing in character and vary in location over the calvarium (typically the temporal or occipital head regions). She has associated nausea. She denies having associated photophobia or phonophobia. Her headaches vary in frequency and, at times, may occur daily for several days then she may have a period lasting 1 to 2 weeks that she is headache free. She uses Tylenol PM for her headaches and this is generally effective. She has chronic bilateral hearing loss. She had previously seen an ENT specialist. The patient did not pursue obtaining hearing aids due to cost. She has tinnitus and this at times sounds like music or people talking. Her tinnitus has worsened over time. She has depression and anxiety. She has been under some emotional stress due to domestic issues (caring for ill family members). She has some insomnia. She has difficulty falling asleep. She snores. She does not feel well rested when she awakens in the morning and has daytime sleepiness as well as fatigue. B12 1500 mcg IM injection for her fatigue lost efficacy and were discontinued. She has a prior history of vitamin D deficiency that resolved with vitamin D supplementation. She did not tolerate vitamin D 1.25 mg weekly (the formulation caused a rash). She is taking vitamin D 1000 IU daily and is tolerating this well. She receives Reclast for osteoporosis. Due to a side effect of dyspepsia she is unable to tolerate NSAIDs apart from acetaminophen. She reported that in years past she was treated with antidepressants (she does not recall the names) for her fibromyalgia and that these medications were not well-tolerated. She has chronic neck, mid back and low back pain. Cervical spine x-rays from years past revealed multilevel degenerative joint disease. 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 She had an orthopedic evaluation with Dr. Moeller in April 2021 and surgical intervention for her spinal pathology was not felt to be warranted; the possibility of cervical epidural steroid injections may be considered. Her head MRI was normal. In October 2024, she had a 2-minute episode during which she states she did not understand what someone was speaking to her (she states that it sounded like gibberish). She did not have any other confusion (she remained fully aware of her surroundings). She did not have any change in level of consciousness. Past Medical History: There is no history of hypertension, diabetes mellitus, myocardial infarction, sleep apnea, thyroid disease, cancer, or kidney disease. Social History: She does not smoke tobacco. There is no history of alcohol abuse. Review of Systems: As above. The patient has not had any recent fever, rash, weight change, shortness of breath, or urinary problems. She experiences some lower sternal chest pain in association with her mid back pain. She had a fever within recent months. She had a rash within recent months that was a side effect to an antibiotic that was prescribed for treatment of diverticulitis. She has gastroesophageal reflux symptoms. Physical Exam: General: Well-developed, well-nourished female in no acute distress. Neuro: The patient is awake and alert and responds appropriately; speech is fluent; language function is within normal limits Cranial nerves: (more content not included)... Normal [facility] Thoracic Spine 2 Viewson Thoracic Spine 2 Views [facility] Services [address] [place] [address] Thoracic Spine 2 Views MR#: [id number] Acct: [id number] Name: DARIELA GRIMES Rep #: [id number] : 1960 F 64 From: Char adames MD PCP: Dr. Mary Ponce MD Status: REG CLI Study: Thoracic Spine 2 Views Date of Exam: 11/07/24 Exam# [id number] Ordering Dr: Fallon Mckinley [id number] HISTORY: PAIN. TECHNIQUE: XR Spine Thoracic 2 Views. COMPARISON: None. FINDINGS: VERTEBRAE: Vertebral body heights maintained. No acute fracture identified. ALIGNMENT: No significant anterior or posterior subluxation. Mild S-shaped scoliosis. INTERVERTEBRAL DISCS: Mild degenerative changes and osteophytes. SOFT TISSUES: Unremarkable paraspinal soft tissues. RAD/Thoracic Spine 2 Views IMPRESSION: No acute fracture or dislocation identified in the thoracic spine. Mild degenerative change. Mild scoliosis. Electronically Signed: Char Smith MD at 8:40 EST Reading Location ID and State: [facility] / [place] Tel , Service support , CC: [facility] Mckinley; Dr. Mary Ponce MD Hydraulics Engineer: Signed Normal [facility] Dive Supervisor Office Visit Reporton 10-30-2024 Dive Supervisor Office Visit Report [facility] [address], [address] [place] [address] OFFICE VISIT Date of Service: 10/30/24 MR#: [id number] Acct: [id number] Name: DARIELA GRIMES Rep #: [id number] : 1960 Provider: [facility]U hartley Age/Sex: 63/F Location: [facility] Status: Signed Intake Vital Signs 01/20/24 10:57 07/29/24 10:16 10/30/24 13:14 10/30/24 13:19 Height 5 ft 4 in 5 ft 4.17 in 5 ft 4.17 in 5 ft 4.17 in Weight: 142 lb 2 oz BMI 24.3 BP 110/80 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 Automatic Required: No Is patient in pain?: No Allergies amoxicillin Allergy (Verified 10/30/24 13:23) Rash doxycycline Allergy (Verified 10/30/24 13:23) Rash Gboyrqf-URL-LyX Reductase Inhibitor Adverse Reaction (Severe, Verified 10/30/24 13:23) mylagias ezetimibe (From Zetia) Adverse Reaction (Intermediate, Verified 10/30/24 13:23) Myalgias omeprazole Adverse Reaction (Intermediate, Verified 10/30/24 13:23) Rash aspirin (ASA) Adverse Reaction (Verified 10/30/24 13:23) Gastric Reflux/ burning codeine Adverse Reaction (Verified 10/30/24 13:23) Other erythromycin base Adverse Reaction (Verified 10/30/24 13:23) Other Medications ???Medication ???Instructions ???Recorded ???Confirmed ???Type acetaminophen 500 mg tablet 500 mg PO Q6H PRN Pain 03/12/21 10/30/24 History (Tylenol Extra Strength) diphenhydramine HCl 25 mg capsule 25 mg PO QHS PRN seasonal allergies 12/03/21 10/30/24 History (Benadryl) zoledronic acid 5 mg/100 mL in 1 ea .Route ONCE #100 mL 08/06/23 10/30/24 Rx mannitol 5 %-water intravenous piggybck cholecalciferol (vitamin D3) 25 1,000 unit PO DAILY 08/30/23 10/30/24 History mcg (1,000 unit) tablet (Vitamin D3) pantoprazole 40 mg tablet,delayed 40 mg PO QDAY #30 tabs 08/08/24 10/30/24 Rx release Is last menstrual period known: No Post menopausal: Yes Patient : No : No PFSH Medical History Post-menopausal Depression Anxiety Back pain Migraine headache Syncope Difficulty swallowing Gastric reflux Leg cramps Ledbetter's esophagus Wears glasses Arthritis History of IBS History of diverticulitis Non-smoker PONV (postoperative nausea and vomiting) History of echocardiogram History of stress test Cardiology follow-up encounter History of irregular heartbeat Diarrhea Hyperlipidemia Vitamin D deficiency Degeneration of intervertebral disc of cervical region Segmental and somatic dysfunction of thoracic region Segmental and somatic dysfunction of cervical region Cervicogenic headache GERD (gastroesophageal reflux disease) Cataracts, bilateral Fibromyalgia Anxiety and depression Migraine with aura Migraine headache Osteoporosis Myalgia and myositis Dyspepsia Diverticula of colon Surgical History Hx of colonoscopy H/O bilateral salpingo-oophorectomy History of total abdominal hysterectomy Normal colonoscopy History of breast biopsy Family History Mother Hypertension COPD (chronic obstructive pulmonary disease) CVA (cerebral vascular accident) Kidney disease Anemia Arthritis Heart disease Osteoporosis Emphysema, unspecified Ascending aortic aneurysm Father , Melanoma Melanoma Sister Hypertension Rheumatoid arthritis Brother , Suicide Suicide attempt Sister Rheumatoid arthritis Hypertension Grandmother Arthritis Heart disease Hypertension Osteoporosis Grandfather CVA (cerebral vascular accident) Aunt CVA (cerebral vascular accident) Uncle Skin cancer Cancer Uncle Cancer Uncle Cancer Uncle Cancer Social History Smoking Status: Never smoker Electronic Cigarette Use: not used second hand exposure: No alcohol intake: never substance use type: does not use caffeine: Yes Type: carbonated beverages Number of servings: 1 what type of physical activity do you participate in: none seatbelt use: always do you feel safe at home: Yes additional social history: [employer]- retired retired History 0 Elective abortions Hx Para Spontaneous abortions Hx # Term Pregnancies Ectopic pregnancies Hx # Pregnancies Multiple births # of living children HPI Encounter for routine gynecological examination Details: DARIELA GRIMES is a 63 year old who presents for annual exam. Denies concerns Last PAP: na History of abnormal PAP: no Last mammogram: 09/2024 History of abnormal mammogram: no Colon cancer screenin Other preventative health care screenings: [facility] Female Reproductive Histor (more content not included)... Normal [facility] SCRN MAMM (CAD)W/TIANNAGeovanny Dempsey n 09-25-2024 SCRN MAMM (CAD)W/TIANNA BILAT [facility] Imaging Services [address] [place] [id number] SCRN MAMM (CAD)W/TIANNA BILSCOTT MR#: [id number] Acct: [id number] Name: DARIELA GRIMES Rep #: [id number] : 1960 F 63 From: Thierno Calixto MD PCP: Dr. Mary Ponce MD Status: REG CLI Study: SCRN MAMM (CAD)W/TIANNA BILAT Date of Exam: 09/02 03/24 Exam# [id number] Ordering Dr: Mary Ponce MD [id number] MAMMOGRAPHY - BILATERAL SCREENING 3-D TOMOSYNTHESIS REASON FOR EXAM: Female, 63 years old. SCREENING PERTINENT HISTORY: No significant family history. TECHNIQUE: 2-D mammograms and 3-D Tomosynthesis of the breast (s) were performed. CAD was performed. COMPARISON: 09/24/2023 FINDINGS: The breast composition is Extermely dense tissue. Scattered benign calcifications are seen. No dense spiculated masses or suspicious microcalcifications are identified. No architectural distortion is identified. There is no skin thickening or retraction. There has been no significant change since the prior study. BI/SCRN MAMM (CAD)W/TIANNA BILAT IMPRESSION: No mammographic signs of malignancy. Routine yearly mammograms recommended. ASSESSMENT CATEGORY: BIRADS Category 1: Negative. A letter regarding these results will be sent to the patient by the facility within 30 days. FOLLOW UP RECOMMENDATION: Yearly follow up mammogram recommended. (A) Approximately 10% of breast cancers are not detected by mammography. A normal mammogram should not delay biopsy of a clinically suspicious abnormality. Electronically Signed: Thierno Calixto MD at 16:41 EST , CC: Dr. Mary Ponce MD Hydraulics Engineer: Signed Normal [facility] Abdomen/Pelvis W IV Cont ONL Yon 07-29-2024 Abdomen/Pelvis W IV Cont ONLY [facility] Imaging Services [address] [place] [address] [id number] Abdomen/Pelvis W IV Cont ONLY MR#: [id number] Acct: [id number] Name: DARIELA GRIMES Rep #: [id number] : 1960 F 63 From: Tuan Rodriguez MD PCP: Dr. Mary Ponce MD Status: REG ER Study: Abdomen/Pelvis W IV Cont ONLY Date of Exam: Exam# [id number] Ordering Dr: Harshal Cordero DO [id number] EXAM: CT ABDOMEN AND PELVIS WITH INTRAVENOUS CONTRAST CLINICAL INDICATION: LLQ abdominal pain TECHNIQUE: Helically acquired images were obtained of the abdomen and pelvis with intravenous contrast. This CT exam was performed using one or more of the following dose reduction techniques: automated exposure control, adjustment of the mA and/or kV according to patient size, and/or use of iterative reconstruction technique. CONTRAST: IV 100mL [id number]-370 COMPARISON: CT Abdomen Pelvis dated 05/25/2018 FINDINGS: LOWER THORAX: Normal. Lung bases are clear. No cardiomegaly. No pericardial effusion. ABDOMEN: LIVER: Normal. Homogeneous. No focal mass. GALLBLADDER AND BILE DUCTS: Normal. No calcified gallstones. No gallbladder distention or wall edema. No intra- or extrahepatic biliary ductal dilation. PANCREAS: Normal. No focal cystic or solid mass. SPLEEN: Normal. Normal size without focal cystic or solid mass. ADRENALS: Normal. No nodules. KIDNEYS AND URETERS: Normal. Normal renal size and position. No hydronephrosis. STOMACH AND BOWEL: Wall thickening of the sigmoid colon noted associated with adjacent fat stranding suggestive of acute diverticulitis. No evidence of perforation or abscess. PELVIS: APPENDIX: Appendix is visualized and normal in appearance. BLADDER: Normal. REPRODUCTIVE: Hysterectomy noted.. ABDOMEN and PELVIS: INTRAPERITONEAL SPACE: Normal. No ascites or other fluid collection. No free air. BONES/JOINTS: No suspicious lytic or blastic abnormality. SOFT TISSUES: Small fat-containing umbilical hernia is present. VASCULATURE: Normal. Abdominal aorta is non-dilated. LYMPH NODES: Normal. No enlarged lymph nodes. CT/Abdomen/Pelvis W IV Cont ONLY IMPRESSION: Acute sigmoid diverticulitis without evidence of abscess or perforation. Electronically Signed: Tuan Rodriguez MD at 12:34 EDT , CC: Dr. Harshal Cordero DO; Dr. Mary Ponce MD Hydraulics Engineer: Signed Normal [facility] CBC W/Diff, Automatedon 07-03 Absolute Lymph 1.30 X10 3/uL Normal 0.83-4.[address] [facility] Comment on above: Performed By: #### L 100.0100, L501.2450, L500.4050 ####[facility] [address] [place], [address] Absolute Neut 7.8 X10 3/uL High 2.0-7.[address] [facility] Comment on above: Performed By: #### L 100.0100, L501.2450, L500.4050 ####[facility] [address] [place], [address] Basophils/100 WBC (Bld) 0.6 % Normal 0-[address] [facility] Comment on above: Performed By: #### L 100.0100, L501.2450, L500.4050 ####[facility] [address] [place], [address] Eosinophils/100 WBC (Bld) 0.3 % Normal 0-[address] [facility] Comment on above: Performed By: #### L 100.0100, L501.2450, L500.4050 ####[facility] [address] [place], [address] Erythrocyte distribution width (RBC) [Ratio] 13.8 % Normal 11.6-14.[address] [facility] Comment on above: Performed By: #### L 100.0100, L501.2450, L500.4050 ####[facility] [address] [place], [address] Hematocrit (Bld) [Volume fraction] 42.8 % Normal 37-[address] [facility] Comment on above: Performed By: #### L 100.0100, L501.2450, L500.4050 ####[facility] [address] [place], [address] Hemoglobin (Bld) [Mass/Vol] 13.8 g/dL Normal 12.0-15.[address] [facility] Comment on above: Performed By: #### L 100.0100, L501.2450, L500.4050 ####[facility] [address] [place], [address] IG% 0.300 Normal 0.0-0.[address] [facility] Comment on above: Result Comment: IG% - Immature Granulocytes (promyelocytes, myelocytes and metamyelocytes) > 1% indicates that a LEFT SHIFT is Present. Performed By: #### L 100.0100, L501.2450, L500.4050 ####[facility] [address] [place], [address] Lymphocytes/100 WBC (Bld) 13.3 % Low 19-[address] [facility] Comment on above: Performed By: #### L 100.0100, L501.2450, L500.4050 ####[facility] [address] [place], [address] MCH (RBC) [Entitic mass] 30.5 pg Normal 27.0-32.[address] [facility] Comment on above: Performed By: #### L 100.0100, L501.2450, L500.4050 ####[facility] [address] [place], [address] MCHC (RBC) [Mass/Vol] 32.2 g/dL Normal 32-36 [facility] Comment on above: Performed By: #### L 100.0100, L501.2450, L500.4050 ####[facility] [address] [place], [address] MCV (RBC) [Entitic vol] 94.7 fL Normal 81-[address] [facility] Comment on above: Performed By: #### L 100.0100, L501.2450, L500.4050 ####[facility] [address] [place], [address] Monocytes/100 WBC (Bld) 6.0 % Normal 0-[address] [facility] Comment on above: Performed By: #### L 100.0100, L501.2450, L500.4050 ####[facility] [address] [place], [address] Neutrophils/100 WBC (Bld) 79.5 % High 47-[address] [facility] Comment on above: Performed By: #### L 100.0100, L501.2450, L500.4050 ####[facility] [address] [place], [address] Nucleated RBC (Bld) [#/Vol] 0 10*3/uL Normal 0-[address] [facility] Comment on above: Performed By: #### L 100.0100, L501.2450, L500.4050 ####[facility] [address] [place], [address] Platelet mean volume (Bld) [Entitic vol] 11.2 fL Normal 6.2-12.[address] [facility] Comment on above: Performed By: #### L 100.0100, L501.2450, L500.4050 ####[facility] [address] [place], [address] Platelets (Bld) [#/Vol] 319 10*3/uL Normal 150-[address] [facility] Comment on above: Performed By: #### L 100.0100, L501.2450, L500.4050 ####[facility] [address] [place], [address] RBC (Bld) [#/Vol] 4.52 10*6/uL Normal 4.2-5.4 [facility] Comment on above: Performed By: #### L 100.0100, L501.2450, L500.4050 ####[facility] [address] [place], [address] RDW SD 48.3 fl High 35.1-43.[address] [facility] Comment on above: Performed By: #### L 100.0100, L501.2450, L500.4050 ####[facility] [address] [place], [address] WBC (Bld) [#/Vol] 9.8 10*3/uL Normal 4.4-11.0 [facility] Comment on above: Performed By: #### L 100.0100, L501.2450, L500.4050 ####[facility] [address] [place], [address] Comprehensive Metabolic Prof [facility] 07-29-2024 Albumin [Mass/Vol] 3.6 g/dL Normal 3.2-5.0 [facility] Comment on above: Performed By: #### L 100.0100, L501.2450, L500.4050 ####[facility] [address] [place], [address] Albumin/Globulin [Mass ratio] 0.9 {ratio} Normal 0.9-2.[address] [facility] Comment on above: Performed By: #### L 100.0100, L501.2450, L500.4050 ####[facility] [address] [place], [address] ALK P 159 U/L High 45-[address] [facility] Comment on above: Performed By: #### L 100.0100, L501.2450, L500.4050 ####[facility] [address] [place], [address] ALT [Catalytic activity/Vol] 71 U/L High 13-[address] [facility] Comment on above: Performed By: #### L 100.0100, L501.2450, L500.4050 ####[facility] [address] [place], [address] AST [Catalytic activity/Vol] 35 U/L Normal 15-[address] [facility] Comment on above: Performed By: #### L 100.0100, L501.2450, L500.4050 ####[facility] [address] [place], [address] Bilirubin [Mass/Vol] 1.20 mg/dL High 0.20-1.00 [facility] Comment on above: Result Comment: For patients on eltrombopag therapy, use of Dimension Davidson TBIL is not recommended. Performed By: #### L 100.0100, L501.2450, L500.4050 ####[facility] [address] [place], [address] BUN/CRE 9.8 RATIO Low 10-[address] [facility] Comment on above: Performed By: #### L 100.0100, L501.2450, L500.4050 ####[facility] [address] [place], [address] CA,Total 9.1 mg/dL Normal 8.5-10.[address] [facility] Comment on above: Performed By: #### L 100.0100, L501.2450, L500.4050 ####[facility] [address] [place], [address] Chloride [Moles/Vol] 107 mmol/L Normal 98-107 [facility] Comment on above: Performed By: #### L 100.0100, L501.2450, L500.4050 ####[facility] [address] [place], [address] CO2 [Moles/Vol] 26.0 mmol/L Normal 21.0-32.[address] [facility] Comment on above: Performed By: #### L 100.0100, L501.2450, L500.4050 ####[facility] [address] [place], [address] Creatinine [Mass/Vol] 0.82 mg/dL Normal 0.55-1.02 [facility] Comment on above: Result Comment: The validity of the calculated GFR GFRAA in patients over 70 years has not been determined. Clinical correlation is essential. Performed By: #### L 100.0100, L501.2450, L500.4050 ####[facility] [address] [place], [address] ECRCL 60.64 ml/min Normal [facility] Comment on above: Performed By: #### L 100.0100, L501.2450, L500.4050 ####[facility] [address] [place], [address] EST GFR - AA 90 mL/min Normal >[address] [facility] Comment on above: Result Comment: Afri can Guamanian GFR Calc Performed By: #### L 100.0100, L501.2450, L500.4050 ####[facility] [address] [place], [address] GAP 6 Normal 5-[address] [facility] Comment on above: Performed By: #### L 100.0100, L501.2450, L500.4050 ####[facility] [address] [place], [address] GFR/1.73 sq M.predicted among non-blacks MDRD (S/P/Bld) [Vol rate/Area] 75 mL/min/{1.73_m2} Normal >[address] [facility] Comment on above: Result Comment: Non- GFR Calc Performed By: #### L 100.0100, L501.2450, L500.4050 ####[facility] [address] [place], [address] Globulin (S) [Mass/Vol] 3.8 g/dL Normal 2.2-4.[address] [facility] Comment on above: Performed By: #### L 100.0100, L501.2450, L500.4050 ####[facility] [address] [place], [address] Glucose [Mass/Vol] 115 mg/dL High 74-106 [facility] Comment on above: Result Comment: Fast ing Glucose result from 100 to 125 mg/dL suggests IMPAIRED HOMEOSTASIS per A.D.A. criteria. Performed By: #### L 100.0100, L501.2450, L500.4050 ####[facility] [address] [place], [address] Potassium [Moles/Vol] 3.5 mmol/L Normal 3.5-5.1 [facility] Comment on above: Performed By: #### L 100.0100, L501.2450, L500.4050 ####[facility] [address] [place], [address] Sodium [Moles/Vol] 139 mmol/L Normal 136-145 [facility] Comment on above: Performed By: #### L 100.0100, L501.2450, L500.4050 ####[facility] [address] [place], [address] T PROT 7.4 g/dL Normal 6.4-8.[address] [facility] Comment on above: Performed By: #### L 100.0100, L501.2450, L500.4050 ####[facility] [address] [place], [address] Urea nitrogen [Mass/Vol] 8 mg/dL Normal 7-[address] [facility] Comment on above: Performed By: #### L 100.0100, L501.2450, L500.4050 ####[facility] [address] [place], [address] Emergency Department Summary on 07-29-2024 Emergency Department Summary [facility] Medical Records Department [address] [place] [address] Emergency Department Summary 07/29/24 MR#: [id number] Acct: [id number] Name: DARIELA GRIMES Rep #: [id number] : 1960 63 From: Harshal Cordero DO PCP: Dr. Mary Ponce MD Status:DEP ER Location: ED HPI History of Present Illness Chief Complaint: Abd Pain Narrative Narrative: Chief complaint and HPI: Abdominal pain. 63-year-old female with history of diverticulosis, IBS, HLD, fibromyalgia presents for evaluation of left lower quadrant abdominal pain. Patient states she has felt generally unwell all week. She endorses constipation and nausea. Has had decreased p.o. intake. She states yesterday she developed left lower quadrant pain. She endorses a small amount of diarrhea this morning. She denies any fever, chills, URI symptoms, chest pain, shortness of breath, vomiting, dysuria, hematuria. She denies any bloody bowel movements. Denies any sick contacts. History of a hysterectomy. No blood thinners. Last ate yesterday evening. History of diverticulosis on previous colonoscopy. Review of systems: See HPI Medications: As listed on the chart Allergies: As listed on the chart PFSH: Per chart Vital signs: As listed on the chart. Reviewed. Physical exam: Gen: A O x3, NAD Head: Normocephalic, atraumatic Eyes: No sclera icterus, conjunctiva clear ENT: Moist mucous membranes Neck: Trachea midline, No JVD CV: RRR, no murmurs, no peripheral edema Resp: Lungs CTA BL, no w/r/c GI: Abd soft, non-distended, tender to palpation in the left lower quadrant, no rebound or rigidity Musc: Full ROM, no deformity Skin: Warm, dry Neuro: Alert, oriented, grossly intact, sensation intact Psych: Cooperative, appropriate mood and affect [facility] Medical History Post-menopausal Depression Anxiety Back pain Migraine headache Syncope Difficulty swallowing Gastric reflux Leg cramps Ledbetter's esophagus Wears glasses Arthritis History of IBS History of diverticulitis Non-smoker PONV (postoperative nausea and vomiting) History of echocardiogram History of stress test Cardiology follow-up encounter History of irregular heartbeat Diarrhea Hyperlipidemia Vitamin D deficiency Degeneration of intervertebral disc of cervical region Segmental and somatic dysfunction of thoracic region Segmental and somatic dysfunction of cervical region Cervicogenic headache GERD (gastroesophageal reflux disease) Cataracts, bilateral Fibromyalgia Anxiety and depression Migraine with aura Migraine headache Osteoporosis Myalgia and myositis Dyspepsia Diverticula of colon Home Medications ???Medication ???Instructions ???Recorded ???Last Taken ???Type acetaminophen 500 mg tablet 500 mg PO Q6H PRN Pain 03/12/21 Unknown History (Tylenol Extra Strength) diphenhydramine HCl 25 mg capsule 25 mg PO QHS PRN seasonal allergies 12/03/21 Unknown History (Benadryl) zoledronic acid 5 mg/100 mL in 1 ea .Route ONCE #100 mL 08/06/23 Unknown Rx mannitol 5 %-water intravenous piggybck cholecalciferol (vitamin D3) 25 1,000 unit PO DAILY 08/30/23 Unknown History mcg (1,000 unit) tablet (Vitamin D3) cholestyramine (with sugar) 4 gram ea PO QDAY PRN 07/21/24 Unknown History oral powder amoxicillin 875 mg-potassium 1 tab PO BID #10 tabs 07/29/24 Unknown Rx clavulanate 125 mg tablet ondansetron 4 mg disintegrating 4 mg PO Q8H PRN PRN Nausea #10 tabs 07/29/24 Unknown Rx tablet Allergy/AdvReac Type Severity Reaction Status Date / Time Zfghzuh-VQK-NvA Reductase AdvReac Severe mylagias Verified 07/29/24 10:16 Inhibitor ezetimibe (From Zetia) AdvReac Intermediate Myalgias Verified 07/29/24 11:02 omeprazole AdvReac Intermediate Rash Verified 07/29/24 11:02 aspirin (ASA) AdvReac Gastric Verified 07/29/24 11:02 Reflux/ burning codeine AdvReac Other Verified 07/29/24 11:02 erythromycin base AdvReac Other Verified 07/29/24 11:02 Family History Mother Hypertension COPD (chronic obstructive pulmonary disease) CVA (cerebral vascular accident) Kidney disease Anemia Arthritis Heart disease Osteoporosis Emphysema, unspecified Ascending aortic aneurysm Father , Melanoma Melanoma Sister Hypertension Rheumatoid arthritis Brother , Suicide Suicide attempt Sister Rheumatoid arthritis Hypertension Grandmother Arthritis Heart disease Hypertension Osteoporosis Grandfather CVA (cerebral vascular accident) Aunt CVA (cerebral vascular accident) Uncle Skin cancer Cancer Uncle Cancer Uncle Cancer Uncle Cancer Surgical History ... Normal [facility] Lipaseon 07-29-2024 Lipase [Catalytic activity/Vol] 37 U/L Normal 13-[address] [facility] Comment on above: Result Comment: Elena schumacher note: LIPASE revised reference range effective 23. New Lipase methodology. Expected to produce lower values than the previous assay method. NEW Reference Range: 13 - 75 U/L Performed By: #### L 100.0100, L501.2450, L500.4050 ####[facility] [address] [place] [address] Urinalysis, Completeon 07-29 BACTERIA RARE Normal None Seen [facility] Comment on above: Order Comment: CLEAN CATCH Performed By: #### L 400.0001 ####[facility] [address] [place] [phone] EPI,SQUAMOUS 0-5 SEEN Normal 5-[address] [facility] Comment on above: Order Comment: CLEAN CATCH Performed By: #### L 400.0001 ####[facility] [address] [place] [phone] Mucus Ql (Urine sed) 0 SEEN Normal [facility] Comment on above: Order Comment: CLEAN CATCH Performed By: #### L 400.0001 ####[facility] [address] [place] [phone] RBC 0 SEEN Normal 0-[address] [facility] Comment on above: Order Comment: CLEAN CATCH Performed By: #### L 400.0001 ####[facility] [address] [place], [address] WBC 0 SEEN Normal 0-[address] [facility] Comment on above: Order Comment: CLEAN CATCH Performed By: #### L 400.0001 ####[facility] [address] [place], [address] Cardiology Visit Reporton Cardiology Visit Report [facility] [address] [place] [place] [address] OFFICE VISIT Date of Service: 07/21/24 MR#: [id number] Acct: [id number] Name: DARIELA GRIMES Rep #: [id number] : 1960 Provider: MONALISA Biggs Age/Sex: 63/F Location: [facility] Status: Signed HPI HPI History of Present Illness Details: Dariela Grimes is a 63 year old female who presents for a follow-up visit. She does have a history of chest pain, palpitations. Stress test in 2013 with no evidence of ischemia and also an echocardiogram at that same time which demonstrated preserved left ventricular ejection fraction. She underwent a coronary CTA as well as calcium score both of which were normal. Stress test in 08/2023 was negative for ischemia. She still continues to have chest heaviness at times. This has not changed. She does have reflux. She does see Dr. Bellamy. She does have fatigue and let cramps. She thinks she talked to her PCP about this. She does have issues with low Bp. She can not tell me how much fluid she drinks. She does not have any worsening SOB. She does have palpitations. These are more so at night. This comes and goes. She stopped taking her Vitamin D. STOP-BANG Assessment: 1. Do you snore? y 2. Are you frequently tired during the day? y 3. Have you been observed gasping or choking while asleep? y 4. Do you have high blood pressure? n 5. BMI - greater than 35kg/m2? n 6. Age - over 50 years old? y 7. Neck Circumference - greater than 37 cm for females or 40 cm for males? n 8. Gender - male? n Total STOP-BANG score = 4 which indicates positive risk for obstructive sleep apnea (yes to 3 or more questions = high risk of sleep apnea). 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Type acetaminophen 500 mg tablet 500 mg PO Q6H PRN Pain 03/12/21 07/21/24 History (Tylenol Extra Strength) diphenhydramine HCl 25 mg capsule 25 mg PO QHS PRN seasonal allergies 12/03/21 07/21/24 History (Benadryl) zoledronic acid 5 mg/100 mL in 1 ea .Route ONCE #100 mL 08/06/23 07/21/24 Rx mannitol 5 %-water intravenous piggybck cholecalciferol (vitamin D3) 25 1,000 unit PO DAILY 08/30/23 07/21/24 History mcg (1,000 unit) tablet (Vitamin D3) cholestyramine (with sugar) 4 gram ea PO QDAY PRN 07/21/24 07/21/24 History oral powder PFSH Medical History Post-menopausal Depression Anxiety Back pain Migraine headache Syncope Difficulty swallowing Gastric reflux Leg cramps Ledbetter's esophagus Wears glasses Arthritis History of IBS History of diverticulitis Non-smoker PONV (postoperative nausea and vomiting) History of echocardiogram History of stress test Cardiology follow-up encounter History of irregular heartbeat Diarrhea Hyperlipidemia Vitamin D deficiency Degeneration of intervertebral disc of cervical region Segmental and somatic dysfunction of thoracic region Segmental and somatic dysfunction of cervical region Cervicogenic headache GERD (gastroesophageal reflux disease) Cataracts, bilateral Fibromyalgia Anxiety and depression Migraine with aura Migraine headache Osteoporosis Myalgia and myositis Dyspepsia Diverticula of colon Surgical History Hx of colonoscopy H/O bilateral salpingo-oophorectomy History of total abdominal hysterectomy Normal colonoscopy History of breast biopsy Family History Mother Hypertension COPD (chronic obstructive pulmonary disease) CVA (cerebral vascular accident) Kidney disease Anemia Arthritis Heart disease Osteoporosis Emphysema, unspecified Ascending aortic aneurysm Father , Melanoma Melanoma Sister Hypertension Rheumatoid arthritis Brother , Suicide (more content not included)... Normal [facility] Gastroenterology Visit Repor ton 06-20-2024 Gastroenterology Visit Report [facility] Gastroenterology [address] [place] [address] OFFICE VISIT Date of Service: 06/20/24 MR#: [id number] Acct: [id number] Name: DARIELA GRIMES Ronny Rep #: [id number] : 1960 Provider: Floyd Bellamy, Age/Sex: 63/F Location: [facility] [place] Status: Signed Intake Vital Signs 12/28/23 08:57 01/20/24 10:57 Height 5 ft 4 in 5 ft 4 in Intake Visit Reasons: 6 M FU Allergies Rjbazsq-FTL-MqA Reductase Inhibitor Adverse Reaction (Severe, Verified 01/20/24 11:21) mylagias ezetimibe (From Zetia) Adverse Reaction (Intermediate, Verified 04/10/24 09:37) Myalgias omeprazole Adverse Reaction (Intermediate, Verified 01/20/24 11:02) Rash aspirin (ASA) Adverse Reaction (Verified 01/20/24 11:02) Gastric Reflux/ burning codeine Adverse Reaction (Verified 01/20/24 11:02) Other erythromycin base Adverse Reaction (Verified 01/20/24 11:02) Other Medications ???Medication ???Instructions ???Recorded ???Confirmed ???Type acetaminophen 500 mg tablet 500 mg PO Q6H PRN Pain 03/12/21 06/20/24 History (Tylenol Extra Strength) diphenhydramine HCl 25 mg capsule 25 mg PO QHS PRN seasonal allergies 12/03/21 06/20/24 History (Benadryl) pantoprazole 40 mg tablet,delayed 40 mg PO QAM #180 tabs 07/09/23 06/20/24 Rx release zoledronic acid 5 mg/100 mL in 1 ea .Route ONCE #100 mL 08/06/23 06/20/24 Rx mannitol 5 %-water intravenous piggybck cholecalciferol (vitamin D3) 25 1,000 unit PO DAILY 08/30/23 06/20/24 History mcg (1,000 unit) tablet (Vitamin D3) cholestyramine (with sugar) 4 gram 4 g PO BID 1 month #378 grams 06/20/24 06/20/24 Rx oral powder PFSH Medical History Anxiety Anxiety and depression Arthritis Back pain Ledbetter's esophagus Cardiology follow-up encounter Cataracts, bilateral Cervicogenic headache Degeneration of intervertebral disc of cervical region Depression Diarrhea Difficulty swallowing Diverticula of colon Dyspepsia Fibromyalgia Gastric reflux GERD (gastroesophageal reflux disease) History of diverticulitis History of echocardiogram History of IBS History of irregular heartbeat History of stress test Hyperlipidemia Leg cramps Migraine headache Migraine headache Migraine with aura Myalgia and myositis Non-smoker Osteoporosis PONV (postoperative nausea and vomiting) Post-menopausal Segmental and somatic dysfunction of cervical region Segmental and somatic dysfunction of thoracic region Syncope Vitamin D deficiency Wears glasses Surgical History H/O bilateral salpingo-oophorectomy History of breast biopsy History of total abdominal hysterectomy Hx of colonoscopy Normal colonoscopy Family History Mother Hypertension COPD (chronic obstructive pulmonary disease) CVA (cerebral vascular accident) Kidney disease Anemia Arthritis Heart disease Osteoporosis Emphysema, unspecified Ascending aortic aneurysm Father , Melanoma Melanoma Sister Hypertension Rheumatoid arthritis Brother , Suicide Suicide attempt Sister Rheumatoid arthritis Hypertension Grandmother Arthritis Heart disease Hypertension Osteoporosis Grandfather CVA (cerebral vascular accident) Aunt CVA (cerebral vascular accident) Uncle Skin cancer Cancer Uncle Cancer Uncle Cancer Uncle Cancer Social History Smoking Status: Never smoker Electronic Cigarette Use: not used second hand exposure: No alcohol intake: never substance use type: does not use caffeine: Yes Type: carbonated beverages Number of servings: 1 what type of physical activity do you participate in: none seatbelt use: always do you feel safe at home: Yes additional social history: Bak[employer]- retired retired HPI HPI Details: DARIELA GRIMES, is a 63 F who presents to the office today for follow up. PMH HLD, Vit D deficiency, endometriosis s/p hysterectomy and bilateral oophorectomy 2004, GERD, depression/anxiety, osteoporosis. Neurology fibromyalgia, fatigue, migraine, cervical spine stenosis. *BGI established 11.18.21 upper abdominal pain extending into chest with a burning sensation of mouth/tongue for many years with worsening intensity/frequent. Omeprazole (rash); famotidine 20mg QD somewhat helpful. Intermittent loose stools with abdominal discomfort several days a month. ? Biochemical 11.18.21 ESR, CRP, LDH, GAME, ANCA, celiac WNL ? EGD and colonoscopy 03.04.22 EGD LA Grade B esophagitis, metaplasia +. ? (more content not included)... Normal [facility] CBC W/Diff, Automatedon 08-0 2-2024 Absolute Lymph 1.35 X10 3/uL Normal 0.83-4.[address] [facility] Comment on above: Performed By: #### L 501.9520, L500.4050, L100.0100 ####[facility] [address] [place], [address] Absolute Neut 3.3 X10 3/uL Normal 2.0-7.[address] [facility] Comment on above: Performed By: #### L 501.9520, L500.4050, L100.0100 ####[facility] [address] [place], [address] Basophils/100 WBC (Bld) 1.3 % High 0-[address] [facility] Comment on above: Performed By: #### L 501.9520, L500.4050, L100.0100 ####[facility] [address] [place], [address] Eosinophils/100 WBC (Bld) 1.2 % Normal 0-[address] [facility] Comment on above: Performed By: #### L 501.9520, L500.4050, L100.0100 ####[facility] [address] [place], [address] Erythrocyte distribution width (RBC) [Ratio] 13.8 % Normal 11.6-14.[address] [facility] Comment on above: Performed By: #### L 501.9520, L500.4050, L100.0100 ####[facility] [address] [place], [address] Hematocrit (Bld) [Volume fraction] 42.5 % Normal 37-[address] [facility] Comment on above: Performed By: #### L 501.9520, L500.4050, L100.0100 ####[facility] [address] [place], [address] Hemoglobin (Bld) [Mass/Vol] 13.2 g/dL Normal 12.0-15.[address] [facility] Comment on above: Performed By: #### L 501.9520, L500.4050, L100.0100 ####[facility] [address] [place], [address] IG% 0.200 Normal 0.0-0.[address] [facility] Comment on above: Result Comment: IG% - Immature Granulocytes (promyelocytes, myelocytes and metamyelocytes) > 1% indicates that a LEFT SHIFT is Present. Performed By: #### L 501.9520, L500.4050, L100.0100 ####[facility] [address] [place], [address] Lymphocytes/100 WBC (Bld) 25.9 % Normal 19-[address] [facility] Comment on above: Performed By: #### L 501.9520, L500.4050, L100.0100 ####[facility] [address] [place], [address] MCH (RBC) [Entitic mass] 29.8 pg Normal 27.0-32.[address] [facility] Comment on above: Performed By: #### L 501.9520, L500.4050, L100.0100 ####[facility] [address] [place], [address] MCHC (RBC) [Mass/Vol] 31.1 g/dL Low 32-36 [facility] Comment on above: Performed By: #### L 501.9520, L500.4050, L100.0100 ####[facility] [address] [place], [address] MCV (RBC) [Entitic vol] 95.9 fL Normal 81-[address] [facility] Comment on above: Performed By: #### L 501.9520, L500.4050, L100.0100 ####[facility] [address] [place], [address] Monocytes/100 WBC (Bld) 8.1 % Normal 0-[address] [facility] Comment on above: Performed By: #### L 501.9520, L500.4050, L100.0100 ####[facility] [address] [place], [address] Neutrophils/100 WBC (Bld) 63.3 % Normal 47-[address] [facility] Comment on above: Performed By: #### L 501.9520, L500.4050, L100.0100 ####[facility] [address] [place], [address] Nucleated RBC (Bld) [#/Vol] 0 10*3/uL Normal 0-[address] [facility] Comment on above: Performed By: #### L 501.9520, L500.4050, L100.0100 ####[facility] [address] [place], [address] Platelet mean volume (Bld) [Entitic vol] 11.5 fL Normal 6.2-12.[address] [facility] Comment on above: Performed By: #### L 501.9520, L500.4050, L100.0100 ####[facility] [address] [place], [address] Platelets (Bld) [#/Vol] 344 10*3/uL Normal 150-[address] [facility] Comment on above: Performed By: #### L 501.9520, L500.4050, L100.0100 ####[facility] [address] [place], [address] RBC (Bld) [#/Vol] 4.43 10*6/uL Normal 4.2-5.4 [facility] Comment on above: Performed By: #### L 501.9520, L500.4050, L100.0100 ####[facility] [address] [place], [address] RDW SD 49.1 fl High 35.1-43.[address] [facility] Comment on above: Performed By: #### L 501.9520, L500.4050, L100.0100 ####[facility] [address] [place], [address] WBC (Bld) [#/Vol] 5.2 10*3/uL Normal 4.4-11.0 [facility] Comment on above: Performed By: #### L 501.9520, L500.4050, L100.0100 ####[facility] [address] [place], [address] Comprehensive Metabolic [facility] 06-02-2024 Albumin [Mass/Vol] 3.9 g/dL Normal 3.2-5.0 [facility] Comment on above: Performed By: #### L 501.9520, L500.4050, L100.0100 ####[facility] [address] [place], [address] Albumin/Globulin [Mass ratio] 1.1 {ratio} Normal 0.9-2.[address] [facility] Comment on above: Performed By: #### L 501.9520, L500.4050, L100.0100 ####[facility] [address] [place], [address] ALK P 87 U/L Normal 45-[address] [facility] Comment on above: Performed By: #### L 501.9520, L500.4050, L100.0100 ####[facility] [address] [place], [address] ALT [Catalytic activity/Vol] 36 U/L Normal 13-[address] [facility] Comment on above: Performed By: #### L 501.9520, L500.4050, L100.0100 ####[facility] [address] [place], [address] AST [Catalytic activity/Vol] 29 U/L Normal 15-[address] [facility] Comment on above: Performed By: #### L 501.9520, L500.4050, L100.0100 ####[facility] [address] [place], [address] Bilirubin [Mass/Vol] 0.70 mg/dL Normal 0.20-1.00 [facility] Comment on above: Result Comment: For patients on eltrombopag therapy, use of Dimension Davidson TBIL is not recommended. Performed By: #### L 501.9520, L500.4050, L100.0100 ####[facility] [address] [place], [address] BUN/CRE 18.7 RATIO Normal 10-[address] [facility] Comment on above: Performed By: #### L 501.9520, L500.4050, L100.0100 ####[facility] [address] [place], [address] CA,Total 9.2 mg/dL Normal 8.5-10.[address] [facility] Comment on above: Performed By: #### L 501.9520, L500.4050, L100.0100 ####[facility] [address] [place], [address] Chloride [Moles/Vol] 107 mmol/L Normal 98-107 [facility] Comment on above: Performed By: #### L 501.9520, L500.4050, L100.0100 ####[facility] [address] [place], [address] CO2 [Moles/Vol] 26.0 mmol/L Normal 21.0-32.[address] [facility] Comment on above: Performed By: #### L 501.9520, L500.4050, L100.0100 ####[facility] [address] [place], [address] Creatinine [Mass/Vol] 0.75 mg/dL Normal 0.55-1.02 [facility] Comment on above: Result Comment: The validity of the calculated GFR GFRAA in patients over 70 years has not been determined. Clinical correlation is essential. Performed By: #### L 501.9520, L500.4050, L100.0100 ####[facility] [address] [place], [address] EST GFR - AA 100 mL/min Normal >[address] [facility] Comment on above: Result Comment: Afri can Gu[place] GFR Calc Performed By: #### L 501.9520, L500.4050, L100.0100 ####[facility] [address] [place], [address] GAP 7 Normal 5-[address] [facility] Comment on above: Performed By: #### L 501.9520, L500.4050, L100.0100 ####[facility] [address] [place], [address] GFR/1.73 sq M.predicted among non-blacks MDRD (S/P/Bld) [Vol rate/Area] 83 mL/min/{1.73_m2} Normal >[address] [facility] Comment on above: Result Comment: Non- GFR Calc Performed By: #### L 501.9520, L500.4050, L100.0100 ####[facility] [address] [place], [address] Globulin (S) [Mass/Vol] 3.4 g/dL Normal 2.2-4.[address] [facility] Comment on above: Performed By: #### L 501.9520, L500.4050, L100.0100 ####[facility] [address] [place], [address] Glucose [Mass/Vol] 103 mg/dL Normal 74-106 [facility] Comment on above: Result Comment: Fast ing Glucose result from 100 to 125 mg/dL suggests IMPAIRED HOMEOSTASIS per A.D.A. criteria. Performed By: #### L 501.9520, L500.4050, L100.0100 ####[facility] [address] [place], [address] Potassium [Moles/Vol] 4.3 mmol/L Normal 3.5-5.1 [facility] Comment on above: Performed By: #### L 501.9520, L500.4050, L100.0100 ####[facility] [address] [place], [address] Sodium [Moles/Vol] 140 mmol/L Normal 136-145 [facility] Comment on above: Performed By: #### L 501.9520, L500.4050, L100.0100 ####[facility] [address] [place], [address] T PROT 7.3 g/dL Normal 6.4-8.[address] [facility] Comment on above: Performed By: #### L 501.9520, L500.4050, L100.0100 ####[facility] [address] [place], [address] Urea nitrogen [Mass/Vol] 14 mg/dL Normal 7-[address] [facility] Comment on above: Performed By: #### L 501.9520, L500.4050, L100.0100 ####[facility] [address] [place], [address] Thyroid Stim Hormone (TSH)on 06-02-2024 TSH 1.85 uIU/mL Normal 0.358-3.[address] [facility] Comment on above: Performed By: #### L 501.9520, L500.4050, L100.0100 ####[facility] [address] [place], [address] Basophil percentageOrdered B y: Carmelina Blanco on 10-19-2023 Bilirubin [Mass/Vol] 0.60 mg/dL 0.20-1.00 [facility] Comment on above: For patients on eltr ombopag therapy, use of Dimension Davidson TBIL is not recommended. Cholesterol [Mass/Vol] 268 mg/dL <[address] [facility] Comment on above: <200 mg/dL Desirable 200-240 mg/dL Borderline >240 mg/dL High Risk Protein [Mass/Vol] 7.3 g/dL 6.4-8.2 [facility] Triglyceride [Mass/Vol] 89 mg/dL <[address] [facility] Comment on above: The drugs N-Acetylcy steine and Metamizole may falsely depress this assay.Serum Triglycerides Reference Interval Normal <150 mg/dL Borderline high 150 - 199 mg/dL High 200 - 499 mg/dL Very High > or = 500 mg/dL Direct bilirubinOrdered By: Carmelina Blanco on 10-19-2023 Bilirubin.direct [Mass/Vol] 0.12 mg/dL 0.00-0.[address] [facility] Laboratory - Chemistry and C hemistry - challengeOrdered By: Carmelina Blanco on 10-19-2023 ALP [Catalytic activity/Vol] 79 U/L 45-[address] [facility] ALT [Catalytic activity/Vol] 27 U/L 13-[address] [facility] Globulin (S) [Mass/Vol] 3.7 g/dL 2.2-4.[address] [facility] Serum or plasma albumin artie urement (mass/volume)Ordered By: Carmelina Blanco on 10-19-2023 Albumin [Mass/Vol] 3.6 g/dL 3.2-5.0 [facility] Serum or plasma cholesterol in HDL measurement (mass/volume)Ordered By: Carmelina Blanco on 10-19-2023 Cholesterol in HDL [Mass/Vol] 58 mg/dL >[address] [facility] Comment on above: The drugs N-Acetylcy steine and Metamizole may falsely depress this assay. Reference Range HDL <40 mg/dL Low HDL Cholesterol HDL >or= 60 mg/dL High HDL Cholesterol Serum or plasma cholesterol in VLDL measurement (mass/volume)Ordered By: Carmelina Blanco on 10-19-2023 Cholesterol in VLDL [Mass/Vol] 18 mg/dL 5-[address] [facility] Serum or plasma low density lipoprotein (LDL) cholesterol measurement (mass/volume)Ordered By: Carmelina Blanco on 10-19-2023 Cholesterol in LDL [Mass/Vol] 192 mg/dL 0-[address] [facility] Thin prep Papanicolaou smear with manual screeningOrdered By: Carmelina Blanco on 10-19-2023 Thin prep Papanicolaou smear with manual screening 26 U/L 15-[address] [facility] Chocolate RASTOrdered By: Ra carlos Bellamy on 07-09-2023 Chocolate IgE Qn (S) <0.10 kU/L Class 0 [facility] Comment on above: Effective August 02, 2023 [id number] Allergen Profile, BasicFood be made non-orderable. [employer] offers [id number](14).Performed at: [facility] [employer] [facility] [id number] Director: Clay Mathis MD, Phone: [phone] Laboratory - Miscellaneous t estsOrdered By: Floyd Bellamy on 07-09-2023 Service comment (Unsp spec) [Interp] Comment . [facility] Comment on above: Levels of Specific I gE Class Description of Class ----- < 0.10 0 Negative 0.10 - 0.31 0/I Equivocal/Low 0.32 - 0.55 I Low 0.56 - 1.40 II Moderate 1.41 - 3.90 III High 3.91 - 19.00 IV Very High 19.01 - 100.00 V Very High >100.00 Very High No Panel InformationOrdered By: Floyd Bellamy on 07-09-2023 Scallop Allergen 0.36 kU/L Class I [facility] Seafood Group Allergens (RAST) Positive . [facility] Comment on above: Allergens in this mi x are: Blue mussel Fish [place] Shrimp TunaEffective August 02, 2023 [id number] Food Mix(Seafoods) will be made non-orderable. [facility] [id number] Allergens(5). Sesame Seed Allergen IgE Antibody 0.27 kU/L Class 0/I [facility] Shrimp Allergen 0.65 kU/L Class II [facility] Serum beef IgE antibody assa y (units/volume)Ordered By: Floyd Bellamy on 07-09-2023 Beef IgE Qn (S) <0.10 kU/L Class [address] [facility] Serum black walnut IgE antib quita assay (units/volume)Ordered By: Floyd Bellamy on 07-09-2023 Black [place] IgE Qn (S) 0.10 kU/L Class 0/I [facility] Serum clam IgE antibody assa y (units/volume)Ordered By: Floyd Bellamy on 07-09-2023 Clam IgE Qn (S) 0.20 kU/L Class 0/I [facility] Serum codfish IgE antibody a ssay (units/volume)Ordered By: Floyd Bellamy on 07-09-2023 Codfish IgE Qn (S) <0.10 kU/L Class 0 [facility] Serum corn IgE antibody assa y (units/volume)Ordered By: Floyd Bellamy on 07-09-2023 [place] IgE Qn (S) 0.19 kU/L Class 0/I [facility] Serum cow milk IgE antibody assay (units/volume)Ordered By: Floyd Bellamy on 07-09-2023 Cow milk IgE Qn (S) 0.12 kU/L Class 0/I [facility] Serum egg white IgE antibody assay (units/volume)Ordered By: Floyd Bellamy on 07-09-2023 Egg white IgE Qn (S) 0.14 kU/L Class 0/I [facility] Serum peanut IgE antibody as say (units/volume)Ordered By: Floyd Bellamy on 07-09-2023 Peanut IgE Qn (S) 0.26 kU/L Class 0/I [facility] Serum pork IgE antibody assa y (units/volume)Ordered By: Floyd Bellamy on 07-09-2023 Pork IgE Qn (S) <0.10 kU/L Class [address] [facility] Serum soybean IgE antibody a ssay (units/volume)Ordered By: Floyd Bellamy on 07-09-2023 Soybean IgE Qn (S) 0.12 kU/L Class 0/I [facility] Serum wheat IgE antibody ass ay (units/volume)Ordered By: Floyd Bellamy on 07-09-2023 Wheat IgE Qn (S) 0.18 kU/L Class 0/I [facility] Serum whole egg IgE antibody assay (units/volume)Ordered By: Floyd Bellamy on 07-09-2023 Whole Egg IgE Qn (S) 0.13 kU/L Class 0/I [facility] Basophil percentageOrdered B y: Carmelina Blanco on 04-22-2023 Basophil percentage < 0.9 mg/dL 0.55-1.02 [facility] No Panel InformationOrdered By: Carmelina Blanco on 04-22-2023 Bedside Estimated GFR (eGFR) > 60.0000 mL/min >[address] [facility] Basophil percentageOrdered B y: Carmelina Blanco on 04-13-2023 Bilirubin [Mass/Vol] 0.90 mg/dL 0.20-1.00 [facility] Comment on above: For patients on eltr ombopag therapy, use of Dimension Davidson TBIL is not recommended. Cholesterol [Mass/Vol] 273 mg/dL <[address] [facility] Comment on above: <200 mg/dL Desirable 200-240 mg/dL Borderline >240 mg/dL High Risk Protein [Mass/Vol] 7.4 g/dL 6.4-8.2 [facility] Triglyceride [Mass/Vol] 133 mg/dL <[address] [facility] Comment on above: The drugs N-Acetylcy steine and Metamizole may falsely depress this assay.Serum Triglycerides Reference Interval Normal <150 mg/dL Borderline high 150 - 199 mg/dL High 200 - 499 mg/dL Very High > or = 500 mg/dL Direct bilirubinOrdered By: Carmelina Blanco on 04-13-2023 Bilirubin.direct [Mass/Vol] 0.16 mg/dL 0.00-0.[address] [facility] Laboratory - Chemistry and C hemistry - challengeOrdered By: Carmelina Blanco on 04-13-2023 ALP [Catalytic activity/Vol] 93 U/L 45-[address] [facility] ALT [Catalytic activity/Vol] 28 U/L 13-[address] [facility] Globulin (S) [Mass/Vol] 3.6 g/dL 2.2-4.[address] [facility] Serum or plasma albumin artie urement (mass/volume)Ordered By: Carmelina Blanco on 04-13-2023 Albumin [Mass/Vol] 3.8 g/dL 3.2-5.0 [facility] Serum or plasma cholesterol in HDL measurement (mass/volume)Ordered By: Carmelina Blanco on 04-13-2023 Cholesterol in HDL [Mass/Vol] 61 mg/dL >[address] [facility] Comment on above: The drugs N-Acetylcy steine and Metamizole may falsely depress this assay. Reference Range HDL <40 mg/dL Low HDL Cholesterol HDL >or= 60 mg/dL High HDL Cholesterol Serum or plasma cholesterol in VLDL measurement (mass/volume)Ordered By: Carmelina Blanco on 04-13-2023 Cholesterol in VLDL [Mass/Vol] 27 mg/dL 5-[address] [facility] Serum or plasma low density lipoprotein (LDL) cholesterol measurement (mass/volume)Ordered By: Carmelina Blanco on 04-13-2023 Cholesterol in LDL [Mass/Vol] 185 mg/dL 0-[address] [facility] Thin prep Papanicolaou smear with manual screeningOrdered By: Carmelina Blanco on 04-13-2023 Thin prep Papanicolaou smear with manual screening 23 U/L 15-[address] [facility] Absolute lymphocyte countOrd ered By: Dr. Ponce on 02-16-2023 Lymphocytes Auto (Unsp spec) [#/Vol] 1.08 10*3/uL 0.83-4.[address] [facility] Basophil percentageOrdered B y: Dr. Ponce on 02-16-2023 Basophils/100 WBC (Bld) 1.5 % 0-[address] [facility] Eosinophils/100 WBC (Bld) 1.3 % 0-[address] [facility] Neutrophils (Bld) [#/Vol] 3.2 10*3/uL 2.0-7.[address] [facility] Neutrophils/100 WBC (Bld) 66.9 % 47-[address] [facility] WBC (Bld) [#/Vol] 4.8 10*3/uL 4.4-11.0 [facility] Blood erythrocytes count (nu mber/volume)Ordered By: Dr. Ponce on 02-16-2023 RBC (Bld) [#/Vol] 4.52 10*6/uL 4.2-5.4 [facility] Blood hemoglobin measurement (mass/volume)Ordered By: Dr. Ponce on 02-16-2023 Hemoglobin (Bld) [Mass/Vol] 13.7 g/dL 12.0-15.[address] [facility] Blood lymphocytes/100 leukoc ytesOrdered By: Dr. Ponce on 02-16-2023 Lymphocytes/100 WBC (Bld) 22.6 % 19-[address] [facility] Blood monocytes/100 leukocyt esOrdered By: Dr. Ponce on 02-16-2023 Monocytes/100 WBC (Bld) 7.5 % 0-[address] [facility] Blood platelet mean volumeOr dered By: Dr. Ponce on 02-16-2023 Platelet mean volume (Bld) [Entitic vol] 11.7 fL 6.2-12.[address] [facility] Determination of erythrocyte mean corpuscular volume (MCV)Ordered By: Dr. Ponce on 02-16-2023 MCV (RBC) [Entitic vol] 95.4 fL 81-[address] [facility] Hematocrit Auto (Bld) [Volum e fraction]Ordered By: Dr. Ponce on 02-16-2023 Hematocrit (Bld) [Volume fraction] 43.1 % 37-[address] [facility] Laboratory - Hematology and Cell countsOrdered By: Dr. Ponce on 02-16-2023 Erythrocyte distribution width (RBC) [Entitic vol] 48.1 fL 35.1-43.[address] [facility] Erythrocyte distribution width (RBC) [Ratio] 13.6 % 11.6-14.[address] [facility] Immature granulocytes/100 WBC (Bld) 0.200 % 0.0-0.[address] [facility] Comment on above: IG% - Immature Granu locytes (promyelocytes, myelocytes and metamyelocytes) > 1% indicates that a LEFT SHIFT is Present. MCH (RBC) [Entitic mass] 30.3 pg 27.0-32.[address] [facility] Nucleated RBC/100 WBC (Bld) [Ratio] 0 % 0-[address] [facility] MCHC Auto (RBC) [Mass/Vol]Or dered By: Dr. Ponce on 02-16-2023 MCHC (RBC) [Mass/Vol] 31.8 g/dL 32-36 [facility] No Panel InformationOrdered By: Dr. Ponce on 02-16-2023 Ionized Calcium 4.9 mg/dL 4.5-5.[address] [facility] Comment on above: Performed at: [facility] [address] Director: Dani Spivey PhD, Phone: [phone] Miscellaneous Test See comment [facility] Comment on above: TEST RESULTS LIMITSP THrP (PTH-Related Peptide)PTHrP (PTH- Related Peptide) <2.0 pmol/LThis test was developed and its performance characteristicsdetermined by [employer]. It has not been cleared or approvedby the Food and Drug Administration.Reference Range:All Ages: <2.0The PTHrP assay should not be used to exclude cancer orscreen tumor patients for humoral hypercalcemia ofmalignancy (HHM). The results should always be assessed inconjunction with the patient's medical history, clinicalexamination, and other findings. If test results areclinically discordant, please contact the laboratory. TESTING PERFORMED AT [facility]. ORIGINAL REPORT ON FILE IN LAB CONTAINS ADDITIONAL TEST SITE INFORMATION. Parathyroid Hormone (Intact) 44.1 pg/mL 18.4-80.[address] [facility] Vitamin D 25-Hydroxy 30.8 ng/mL [facility] Comment on above: Vitamin D 25(OH) Sta tus Range Deficiency <20 ng/mL (50nmol/L) Insufficiency 20 - 30 ng/mL (50 - 75 nmol/L) Sufficiency 30 - 100 ng/mL (75 - 250 nmol/L) Toxicity >100 ng/mL (>250 nmol/L) Platelets bldOrdered By: Dr. Ponce on 02-16-2023 Platelets (Bld) [#/Vol] 300 10*3/uL 150-[address] [facility] Serum or plasma calcitriol m easurement (mass/volume)Ordered By: Dr. Ponce on 02-16-2023 1,25-dihydroxyvitamin D3 [Mass/Vol] 51.7 pg/mL 24.8-81.[address] [facility] Comment on above: Performed at: [address] [id number] Director: Clay Mathis MD, Phone: [phone] Basophil percentageOrdered B y: Floyd Bellamy on 12-03-2022 Bilirubin [Mass/Vol] 0.80 mg/dL 0.20-1.00 [facility] Comment on above: For patients on eltr ombopag therapy, use of Dimension Davidson TBIL is not recommended. Cholesterol [Mass/Vol] 303 mg/dL <[address] [facility] Comment on above: <200 mg/dL Desirable 200-240 mg/dL Borderline >240 mg/dL High Risk Protein [Mass/Vol] 7.8 g/dL 6.4-8.2 [facility] Triglyceride [Mass/Vol] 190 mg/dL <[address] [facility] Comment on above: The drugs N-Acetylcy steine and Metamizole may falsely depress this assay.Serum Triglycerides Reference Interval Normal <150 mg/dL Borderline high 150 - 199 mg/dL High 200 - 499 mg/dL Very High > or = 500 mg/dL Direct bilirubinOrdered By: Floyd Bellamy on 12-03-2022 Bilirubin.direct [Mass/Vol] 0.13 mg/dL 0.00-0.[address] [facility] Laboratory - Chemistry and C hemistry - challengeOrdered By: Floyd Bellamy on 12-03-2022 ALP [Catalytic activity/Vol] 96 U/L 45-[address] [facility] ALT [Catalytic activity/Vol] 25 U/L 13-[address] [facility] Globulin (S) [Mass/Vol] 3.9 g/dL 2.2-4.[address] [facility] Serum or plasma albumin artie urement (mass/volume)Ordered By: Floyd Bellamy on 12-03-2022 Albumin [Mass/Vol] 3.9 g/dL 3.2-5.0 [facility] Serum or plasma cholesterol in HDL measurement (mass/volume)Ordered By: Floyd Bellamy on 12-03-2022 Cholesterol in HDL [Mass/Vol] 51 mg/dL >[address] [facility] Comment on above: The drugs N-Acetylcy steine and Metamizole may falsely depress this assay. Reference Range HDL <40 mg/dL Low HDL Cholesterol HDL >or= 60 mg/dL High HDL Cholesterol Serum or plasma cholesterol in VLDL measurement (mass/volume)Ordered By: Floyd Bellamy on 12-03-2022 Cholesterol in VLDL [Mass/Vol] 38 mg/dL 5-[address] [facility] Serum or plasma low density lipoprotein (LDL) cholesterol measurement (mass/volume)Ordered By: Floyd Bellamy on 12-03-2022 Cholesterol in LDL [Mass/Vol] 214 mg/dL 0-[address] [facility] Thin prep Papanicolaou smear with manual screeningOrdered By: Floyd Bellamy on 12-03-2022 Thin prep Papanicolaou smear with manual screening 19 U/L 15-[address] [facility] Absolute lymphocyte counton 06-03-2022 Lymphocytes Auto (Unsp spec) [#/Vol] 1.76 10*3/uL 0.83-4.[address] [facility] Work Phone: Basophil percentageon 2021 Basophils/100 WBC (Bld) 1.2 % 0-[address] [facility] Work Phone: Bilirubin [Mass/Vol] 0.70 mg/dL 0.20-1.00 [facility] Work Phone: Comment on above: For patients on eltr ombopag therapy, use of Dimension Davidson TBIL is not recommended. Chloride [Moles/Vol] 110 mmol/L 98-107 [facility] Work Phone: Eosinophils/100 WBC (Bld) 0.9 % 0-[address] [facility] Work Phone: Glucose [Mass/Vol] 103 mg/dL 74-106 [facility] Work Phone: Comment on above: Fasting Glucose resu lt from 100 to 125 mg/dL suggests IMPAIRED HOMEOSTASIS per A.D.A. criteria. Neutrophils (Bld) [#/Vol] 4.5 10*3/uL 2.0-7.[address] [facility] Work Phone: Neutrophils/100 WBC (Bld) 65.5 % 47-[address] [facility] Work Phone: Potassium [Moles/Vol] 4.1 mmol/L 3.5-5.1 [facility] Work Phone: Protein [Mass/Vol] 7.7 g/dL 6.4-8.2 [facility] Work Phone: Sodium [Moles/Vol] 142 mmol/L 136-145 [facility] Work Phone: WBC (Bld) [#/Vol] 6.9 10*3/uL 4.4-11.0 [facility] Work Phone: Blood erythrocytes count (nu mber/volume)on 06-03-2022 RBC (Bld) [#/Vol] 4.51 10*6/uL 4.2-5.4 [facility] Work Phone: Blood hemoglobin measurement (mass/volume)on 06-03-2022 Hemoglobin (Bld) [Mass/Vol] 14.2 g/dL 12.0-15.[address] [facility] Work Phone: Blood lymphocytes/100 leukoc yteson 06-03-2022 Lymphocytes/100 WBC (Bld) 25.5 % 19-[address] [facility] Work Phone: Blood monocytes/100 leukocyt eson 06-03-2022 Monocytes/100 WBC (Bld) 6.8 % 0-[address] [facility] Work Phone: Blood platelet mean volumeon 06-03-2022 Platelet mean volume (Bld) [Entitic vol] 10.3 fL 6.2-12.[address] [facility] Work Phone: Determination of erythrocyte mean corpuscular volume (MCV)on 06-03-2022 MCV (RBC) [Entitic vol] 94.7 fL 81-[address] [facility] Work Phone: Hematocrit Auto (Bld) [Volum e fraction]on 06-03-2022 Hematocrit (Bld) [Volume fraction] 42.7 % 37-[address] [facility] Work Phone: Laboratory - Chemistry and C hemistry - challengeon 06-03-2022 ALP [Catalytic activity/Vol] 96 U/L 45-[address] [facility] Work Phone: ALT [Catalytic activity/Vol] 27 U/L 13-[address] [facility] Work Phone: CO2 [Moles/Vol] 27.0 mmol/L 21.0-32.[address] [facility] Work Phone: Globulin (S) [Mass/Vol] 3.7 g/dL 2.2-4.[address] [facility] Work Phone: Urea nitrogen/Creatinine [Mass ratio] 15.5 mg/mg 10-[address] [facility] Work Phone: Laboratory - Hematology and Cell countson 06-03-2022 Erythrocyte distribution width (RBC) [Entitic vol] 46.9 fL 35.1-43.[address] [facility] Work Phone: Erythrocyte distribution width (RBC) [Ratio] 13.3 % 11.6-14.[address] [facility] Work Phone: Immature granulocytes/100 WBC (Bld) 0.100 % 0.0-0.[address] [facility] Work Phone: Comment on above: IG% - Immature Granu locytes (promyelocytes, myelocytes and metamyelocytes) > 1% indicates that a LEFT SHIFT is Present. MCH (RBC) [Entitic mass] 31.5 pg 27.0-32.[address] [facility] Work Phone: Nucleated RBC/100 WBC (Bld) [Ratio] 0 % 0-[address] [facility] Work Phone: MCHC Auto (RBC) [Mass/Vol]on 06-03-2022 MCHC (RBC) [Mass/Vol] 33.3 g/dL 32-36 [facility] Work Phone: No Panel Informationon 06-03 Estimated GFR (MDRD) Amer 89 mL/min >[address] [facility] Work Phone: Comment on above: GFR Calc Estimated GFR (MDRD) Non-Af Amer 73 mL/min >[address] [facility] Work Phone: Comment on above: Non- GFR Calc Platelets bldon 06-03-2022 Platelets (Bld) [#/Vol] 306 10*3/uL 150-[address] [facility] Work Phone: Serum or plasma albumin artie urement (mass/volume)on 06-03-2022 Albumin [Mass/Vol] 4.0 g/dL 3.2-5.0 [facility] Work Phone: Serum or plasma albumin/glob ulin mass ratioon 06-03-2022 Albumin/Globulin [Mass ratio] 1.1 {ratio} 0.9-2.[address] [facility] Work Phone: Serum or plasma calcium artie urement (mass/volume)on 06-03-2022 Calcium [Mass/Vol] 9.4 mg/dL 8.5-10.1 [facility] Work Phone: Serum or plasma creatinine m easurement (mass/volume)on 06-03-2022 Creatinine [Mass/Vol] 0.84 mg/dL 0.55-1.02 [facility] Work Phone: Comment on above: The validity of the calculated GFR & GFRAA in patients over 70 years has not been determined. Clinical correlation is essential. Serum or plasma urea nitroge n measurement (mass/volume)on 06-03-2022 Urea nitrogen [Mass/Vol] 13 mg/dL 7-[address] [facility] Work Phone: Thin prep Papanicolaou smear with manual screeningon 06-03-2022 Thin prep Papanicolaou smear with manual screening 21 U/L 15-[address] [facility] Work Phone: Thin prep Papanicolaou smear with manual screening 5 5-[address] [facility] Work Phone: Serum or plasma gastrin artie urement (mass/volume)on 03-25-2022 Gastrin [Mass/Vol] See comment [facility] Work [facility]: Comment on above: TEST RESULT LIMITSGa strin, Serum < 10 pg/mL 0 - 115[email or web address] 2000 Immunochemiluminometric assay (ICMA)Values obtained with different assay methods or kits cannot be used interchangeably. Results cannot be interpreted as absolute evidence of the presence or absence of malignant disease. _ TESTING PERFORMED AT [facility]. ORIGINAL REPORT ON FILE IN LAB CONTAINS ADDITIONAL TEST SITE INFORMATION. Basophil percentageon 2021 Chloride [Moles/Vol] 107 mmol/L 98-[address] [facility] [address] [facility] Work Phone: Glucose [Mass/Vol] 99 mg/dL 74-106 [facility] Work Phone: Potassium [Moles/Vol] 4.0 mmol/L 3.5-5.1 [facility] Work Phone: Sodium [Moles/Vol] 140 mmol/L 136-145 [facility] Work Phone: Laboratory - Chemistry and C hemistry - challengeon 01-20-2022 CO2 [Moles/Vol] 32.0 mmol/L 21.0-32.[address] [facility] Work Phone: Magnesium [Mass/Vol] 2.2 mg/dL 1.6-2.6 [facility] Work Phone: Urea nitrogen/Creatinine [Mass ratio] 15.9 mg/mg 10-[address] [facility] Work Phone: No Panel Informationon 01-20 Estimated GFR (MDRD) Amer 91 mL/min >[address] [facility] Work Phone: Comment on above: GFR Calc Estimated GFR (MDRD) Non-Af Amer 76 mL/min >[address] [facility] Work Phone: Comment on above: Non- GFR Calc Thyroid Stimulating Hormone (TSH) 2.62 uIU/mL 0.358-3.[address] [facility] Work Phone: Serum or plasma calcium artie urement (mass/volume)on 01-20-2022 Calcium [Mass/Vol] 9.5 mg/dL 8.5-10.1 [facility] Work Phone: Serum or plasma creatinine m easurement (mass/volume)on 01-20-2022 Creatinine [Mass/Vol] 0.82 mg/dL 0.55-1.02 [facility] Work Phone: Comment on above: The validity of the calculated GFR & GFRAA in patients over 70 years has not been determined. Clinical correlation is essential. Serum or plasma urea nitroge n measurement (mass/volume)on 01-20-2022 Urea nitrogen [Mass/Vol] 13 mg/dL 7-[address] [facility] Work Phone: Thin prep Papanicolaou smear with manual screeningon 01-20-2022 Thin prep Papanicolaou smear with manual screening 1 5-[address] [facility] Work Phone: Basophil percentageon 2021 Bilirubin [Mass/Vol] 0.90 mg/dL 0.20-1.00 [facility] Work Phone: Comment on above: For patients on eltr ombopag therapy, use of Dimension Davidson TBIL is not recommended. Cholesterol [Mass/Vol] 277 mg/dL <[address] [facility] Work Phone: Comment on above: <200 mg/dL Desirable 200-240 mg/dL Borderline >240 mg/dL High Risk Protein [Mass/Vol] 7.3 g/dL 6.4-8.2 [facility] Work Phone: Triglyceride [Mass/Vol] 110 mg/dL [facility] Work Phone: Comment on above: The drugs N-Acetylcy steine and Metamizole may falsely depress this assay.Serum Triglycerides Reference Interval Normal <150 mg/dL Borderline high 150 - 199 mg/dL High 200 - 499 mg/dL Very High > or = 500 mg/dL Direct bilirubinon 2 Bilirubin.direct [Mass/Vol] 0.15 mg/dL 0.00-0.[address] [facility] Work Phone: Laboratory - Chemistry and C hemistry - challengeon 12-03-2021 ALP [Catalytic activity/Vol] 90 U/L 45-[address] [facility] Work Phone: ALT [Catalytic activity/Vol] 34 U/L 13-[address] [facility] Work Phone: Globulin (S) [Mass/Vol] 3.5 g/dL 2.2-4.[address] [facility] Work Phone: Serum or plasma albumin artie urement (mass/volume)on 12-03-2021 Albumin [Mass/Vol] 3.8 g/dL 3.2-5.0 [facility] Work Phone: Serum or plasma cholesterol in HDL measurement (mass/volume)on 12-03-2021 Cholesterol in HDL [Mass/Vol] 62 mg/dL [facility] Work Phone: Comment on above: The drugs N-Acetylcy steine and Metamizole may falsely depress this assay. Reference Range HDL <40 mg/dL Low HDL Cholesterol HDL >or= 60 mg/dL High HDL Cholesterol Serum or plasma cholesterol in VLDL measurement (mass/volume)on 12-03-2021 Cholesterol in VLDL [Mass/Vol] 22 mg/dL 5-[address] [facility] Work Phone: Serum or plasma low density lipoprotein (LDL) cholesterol measurement (mass/volume)on 12-03-2021 Cholesterol in LDL [Mass/Vol] 193 mg/dL 0-[address] [facility] Work Phone: Thin prep Papanicolaou smear with manual screeningon 12-03-2021 Thin prep Papanicolaou smear with manual screening 25 U/L 15-[address] [facility] Work Phone: Atypical perinuclear antineu trophil cytoplasmic antibodies measurementon 11-18-2021 Neutrophil cytoplasmic Ab.perinuclear.atypic al IF (S) [Titer] <1:20 titer Neg:<1:[address] [facility] Work Phone: Comment on above: The atypical pANCA p attern has been observed in asignificant percentage of patients with ulcerative colitis,primary sclerosing cholangitis and autoimmune hepatitis. Erythrocyte sedimentation ra darlene 11-18-2021 ESR (Bld) [Velocity] 7 mm/h 0-30 [facility] Work Phone: No Panel Informationon 11-18 Endomysial IgA Antibody Negative Negative [facility] Work Phone: Immunoglobulin E 276 IU/mL [facility] Work Phone: Serum classic neutrophil cyt oplasmic antibody assay (units/volume)on 11-18-2021 Neutrophil cytoplasmic Ab.classic Qn (S) <1:20 titer Neg:<1:[address] [facility] Work Phone: Serum or plasma C reactive p rotein measurement (mass/volume)on 11-18-2021 CRP [Mass/Vol] mg/L 0.0-3.[address] [facility] Work Phone: Comment on above: C-Reactive Protein ( CRP) provides useful information for thediagnosis, therapy and monitoring of inflammatory processesand associated diseases. For the evaluation of Relative Riskfor Cardiovascular Disease, a High Sensitivity CRP (HSCRP)should be ordered. Serum or plasma IgA measurem ent (mass/volume)on 11-18-2021 IgA [Mass/Vol] 265 mg/dL [facility] Work Phone: Serum or plasma IgG measurem ent (mass/volume)on 11-18-2021 IgG [Mass/Vol] 911 mg/dL [facility] Work Phone: Serum or plasma IgM measurem ent (mass/volume)on 11-18-2021 IgM [Mass/Vol] 45 mg/dL [facility] Work Phone: Comment on above: Performed at: [employer] [address] [id number] Director: Dani Spivey PhD, Phone: [phone] at: [facility] [id number] Director: Clay Mathis MD, Phone: [phone] Serum perinuclear neutrophil cytoplasmic antibody titer by immunofluorescenceon 11-18-2021 Neutrophil cytoplasmic Ab.perinuclear IF (S) [Titer] <1:20 titer Neg:<1:[address] [facility] Work Phone: Comment on above: The presence of posi tive fluorescence exhibiting P-ANCA orC- ANCA patterns alone is not specific for the diagnosis ofWegener's Granulomatosis (WG) or microscopic polyangiitis.Decisions about treatment should not be based solely onANCA IFA results. The [employer] ANCA [employer] Consensusrecommends follow up testing of positive sera with both RI-3 and MPO-ANCA enzyme immunoassays. As many as 5% serumsamples are positive only by EIA. Ref. AM J Clin Xfikca8434;111:507-513. Serum tissue transglutaminas e IgA antibody assay (units/volume)on 11-18-2021 tTG IgA Qn (S) <2 U/mL [facility] Work Phone: Comment on above: Negative 0 - 3 Weak Positive 4 - 10 Positive >10 Tissue Transglutaminase (tTG) has been identified as the endomysial antigen. Studies have demonstr- ated that endomysial IgA antibodies have over 99% specificity for gluten sensitive enteropathy. Thin prep Papanicolaou smear with manual screeningon 11-18-2021 Thin prep Papanicolaou smear with manual screening 213 U/L 84-[address] [facility] Work Phone: URINE YUDY CULTURE-IDENTIFICA [place] ([phone])Ordered By: [employer] Supervisor on 02-21-2016 Bacteria identified Cx Nom (U) MUG Normal [facility] Work Phone: Comment on above: Mixed urogenital joão ra1,000 Colonies/mL PATIENT NOT FASTINGP ERFORMED BY: [facility] [id number] Information: [id number] Bacteria identified Cx Nom (U) Final report Normal [facility]; [facility] Work Phone: Comment on above: PATIENT NOT FASTINGP ERFORMED BY: [id number] [id number] Information: [id number] Urinalysis, Office ([phone])Or dered By: Ramesh Johnson on 02-21-2016 Bilirubin Ql (U) Negative Normal Comprehe nsive [facility] Medicine; [facility] Work Phone: Glucose Test strip (U) [Mass/Vol] Negative Normal [facility]; [facility] Work Phone: Hemoglobin Ql (U) Negative Normal Compreh ensive Internal Medicine; [facility] Work Phone: Ketones Ql (U) Negative Normal Comprehens sae Internal Medicine; [facility] Work Phone: Leukocyte esterase Test strip Ql (U) Small Normal [facility]; [facility] Work Phone: Nitrite Ql (U) Negative Normal Comprehens sae Internal Medicine; [facility] Work Phone: pH (U) 6.5 [pH] Normal [facility]; [facility] Work Phone: Protein Ql (U) Negative Normal Comprehens sae Internal Medicine; [facility] Work Phone: Specific gravity (U) [Rel density] 1.010 1 Normal [facility]; [facility] Work Phone: Urobilinogen (24H U) [Mass/Time] Normal Normal [facility]; [facility] Work Phone: CALCIFIDIOL (50714) VIT D 25 Ordered By: Pumping Station Supervisor on 10-07-2015 25-Hydroxyvitamin D2+25-Hydroxyvitamin D3 [Mass/Vol] 17.9 ng/mL Abnormal 30.0-100.0 [facility]; [facility] Work Phone: Comment on above: Vitamin D deficiency has been defined by the [place] ofMedicine and an Endocrine Society practice guideline as alevel of serum 25-OH vitamin D less than 20 ng/mL (1,2).The Endocrine Society went on to further define vitamin Dinsufficiency as a level between 21 and 29 ng/mL (2).1. IOM ([place] of Medicine). 2010. Dietary reference intakes for calcium and D. [place]: The National Academies Press.2. Kev MF, Jose FRIAS, Louise OCHOA, et al. Evaluation, treatment, and prevention of vitamin D deficiency: an Endocrine Society clinical practice guideline. JCEM. 2010; 96(7):1911-30. PATIENT WAS FASTINGP ERFORMED BY: 3DMGAMETriStar [facility] [id number] LIPID PANEL (93501)Ordered B y: Pumping Station Supervisor on 10-07-2015 Cholesterol [Mass/Vol] 282 mg/dL Abnormal 100-199 [facility]; [facility] Work Phone: Comment on above: PATIENT WAS FASTINGP ERFORMED BY: Isonas70 H3 [facility]osUNC [facility] [id number]; apt. 1218-15 Cholesterol in HDL [Mass/Vol] 58 mg/dL Normal [facility]; [facility] Work Phone: Comment on above: According to ATP-III Guidelines, HDL-C >59 mg/dL is considered anegative risk factor for CHD. PATIENT WAS FASTINGP ERFORMED BY: Isonas70 H3 PolímerosUNC Health Southeastern [id number]; apt. 12-18-15 Cholesterol in LDL [Mass/Vol] 198 mg/dL Abnormal 0-99 [facility]; [facility] Work Phone: Comment on above: PATIENT WAS FASTINGP ERFORMED BY: Thuuz LabKOEZY Fzwesz2320 H[address] PolímerosUNC Health Southeastern [id number]; apt. 10-18-15 Cholesterol in LDL/Cholesterol in HDL [Mass ratio] 3.4 {ratio_units} Abnormal 0.0-3.2 [facility]; [facility] Work Phone: Comment on above: LDL/HDL Ratio Men Wo men 1/2 Avg.Risk 1.0 1.5 Avg.Risk 3.6 3.2 2X Avg.Risk 6.2 5.0 3X Avg.Risk 8.0 6.1 PATIENT WAS FASTINGP ERFORMED BY: [employer]6370 H[address] PolímerosUNC Health Southeastern [id number]; apt. 15 Cholesterol in VLDL [Mass/Vol] 26 mg/dL Normal 5-40 [facility]; [facility] Work Phone: Comment on above: PATIENT WAS FASTINGP ERFORMED BY: [employer] [facility] [id number]; apt. 10-18-15 Laboratory comment Kvng (Report) LDLCOM Normal [facility]; [facility] Work Phone: Comment on above: Possible Familial Hy percholesterolemia. FH should be suspected whenfasting LDL cholesterol is above 189 mg/dL or non-HDL cholesterolis above 219 mg/dL. A family history of high cholesterol and heartdisease in 1st degree relatives should be collected. J Clin Doemyky5687;5:133-140 PATIENT WAS FASTINGP ERFORMED BY: Thuuz LabKOEZYrp Rulwhd4[address] [place] [id number]; apt. 15 Triglyceride [Mass/Vol] 129 mg/dL Normal 0-149 [facility]; [facility] Work Phone: Comment on above: PATIENT WAS FASTINGP ERFORMED BY: Thuuz [facility] Ntdsmr3987 [address] [facility] [id number]; apt. 12-18-15 METABOLIC PANEL, COMPREHENSI VE (55367)Ordered By: Pumping Station Supervisor on 10-07-2015 Albumin [Mass/Vol] 4.5 g/dL Normal 3.5-5.5 [facility] Internal Medicine; [facility] Work Phone: Comment on above: PATIENT WAS FASTINGP ERFORMED BY: CB [facility] Zigrlr6537 Santiago RoadDublin [place] [id number] Information: [id number] Albumin/Globulin [Mass ratio] 1.9 {ratio} Normal 1.1-2.5 [facility]; [facility] Work Phone: Comment on above: PATIENT WAS FASTINGP ERFORMED BY: CB [facility] Fpnbfj3545 Santiago RoadDublin [place] [id number] Information: [id number] ALP [Catalytic activity/Vol] 81 [iU]/L Normal 39-117 [facility]; [facility] Work Phone: Comment on above: PATIENT WAS FASTINGP ERFORMED BY: CB [facility] Tgukrm9052 Santiago RoadDublin [place] [id number] Information: [id number] ALT [Catalytic activity/Vol] 19 [iU]/L Normal 0-32 [facility]; [facility] Work Phone: Comment on above: PATIENT WAS FASTINGP ERFORMED BY: [facility] Ubjmam2207 Santiago RoadAsheville Specialty Hospitalin [place] [id number] Information: [id number] AST [Catalytic activity/Vol] 23 [iU]/L Normal 0-40 [facility]; [facility] Work Phone: Comment on above: PATIENT WAS FASTINGP ERFORMED BY: CB [facility] Nktdoy9201 Santiago Roadblin [place] [id number] Information: [id number] Bilirubin [Mass/Vol] 0.5 mg/dL Normal 0.0-1.2 [facility] Internal Medicine; [facility] Work Phone: Comment on above: PATIENT WAS FASTINGP ERFORMED BY: CB [facility] Mxzqrc3914 [facility] [id number] Information: [id number] Calcium [Mass/Vol] 9.5 mg/dL Normal 8.7-10.2 [facility] Internal Medicine; [facility] Work Phone: Comment on above: PATIENT WAS FASTINGP ERFORMED BY: LabCo Jrtvxl2307 [facility] [id number] Information: [id number] Chloride [Moles/Vol] 105 mmol/L Normal 97-108 [facility] rehensive Internal Medicine; [facility] Work Phone: Comment on above: PATIENT WAS FASTINGP ERFORMED BY: [facility] Nymuix0841 [facility] [id number] Information: [id number] CO2 [Moles/Vol] 22 mmol/L Normal 18-29 [facility] Internal Medicine; [facility] Work Phone: Comment on above: PATIENT WAS FASTINGP ERFORMED BY: [facility] Bujqio1932 [facility] [id number] Information: [id number] Creatinine [Mass/Vol] 0.72 mg/dL Normal 0.57-1.00 [facility]; [facility] Work Phone: Comment on above: PATIENT WAS FASTINGP ERFORMED BY: [facility] Fzmjuq8811 [facility] [id number] Information: [id number] GFR/1.73 sq M predicted among blacks CKD-EPI (S/P/Bld) [Vol rate/Area] 110 mL/min/1.73 Normal [facility]; [facility] Work Phone: Comment on above: PATIENT WAS FASTINGP ERFORMED BY: [facility] Gnbgkl2297 [facility] [id number] Information: [id number] GFR/1.73 sq M predicted among non-blacks CKD-EPI (S/P/Bld) [Vol rate/Area] 95 mL/min/1.73 Normal [facility]; [facility] Work Phone: Comment on above: PATIENT WAS FASTINGP ERFORMED BY: CORTEZ Dye6370 [facility] [id number] Information: [id number] Globulin (S) [Mass/Vol] 2.4 g/dL Normal 1.5-4.5 [facility] Internal Medicine; [facility] Work Phone: Comment on above: PATIENT WAS FASTINGP ERFORMED BY: CORTEZ [facility] Oydclt3309 [facility] [id number] Information: [id number],[id number] Glucose [Mass/Vol] 93 mg/dL Normal 65-99 [facility] Internal Medicine; [facility] Work Phone: Comment on above: PATIENT WAS FASTINGP ERFORMED BY: [facility]Gold[facility] Bgiypw1933 [facility] [id number] Information: [id number],[id number] Potassium [Moles/Vol] 4.3 mmol/L Normal 3.5-5.2 [facility] Internal Medicine; [facility] Work Phone: Comment on above: PATIENT WAS FASTINGP ERFORMED BY: CORTEZ Daveylin6370 [facility] [id number] Information: [id number] Protein [Mass/Vol] 6.9 g/dL Normal 6.0-8.5 [facility] Internal Medicine; [facility] Work Phone: Comment on above: PATIENT WAS FASTINGP ERFORMED BY: [facility] Lfnjgx4268 [facility] [id number] Information: [id number] Sodium [Moles/Vol] 143 mmol/L Normal 134-144 [facility] Internal Medicine; [facility] Work Phone: Comment on above: PATIENT WAS FASTINGP ERFORMED BY: [facility]Sur[facility]6370 [facility] [id number] Information: [id number] Urea nitrogen [Mass/Vol] 8 mg/dL Normal 6-24 [facility]; [facility] Work Phone: Comment on above: PATIENT WAS FASTINGP ERFORMED BY: CORTEZ [facility] Qosgmd7852 [facility] [id number] Information: [id number] Urea nitrogen/Creatinine [Mass ratio] 11 mg/mg Normal 9-23 [facility]; [facility] Work Phone: Comment on above: PATIENT WAS FASTINGP ERFORMED BY: CORTEZ [facility] Wrsstn2892 [facility] [id number] Information: [id number] LIPID PANEL (58496)Ordered B y: Pumping Station Supervisor on 01-07-2015 Cholesterol [Mass/Vol] 227 mg/dL Abnormal 100-199 [facility]; [facility] Work Phone: Comment on above: PATIENT WAS FASTINGP ERFORMED BY: [facility] Fqrobm0468 [facility] [id number] Cholesterol in HDL [Mass/Vol] 66 mg/dL Normal [facility]; [facility] Work Phone: Comment on above: According to ATP-III Guidelines, HDL-C >59 mg/dL is considered anegative risk factor for CHD. PATIENT WAS FASTINGP ERFORMED BY: CORTEZ [facility] Yfqicj8432 [facility] [id number] Cholesterol in LDL [Mass/Vol] 142 mg/dL Abnormal 0-99 [facility]; [facility] Work Phone: Comment on above: PATIENT WAS FASTINGP ERFORMED BY: [facility] Dvclin1756 [facility] [id number] Cholesterol in LDL/Cholesterol in HDL [Mass ratio] 2.2 {ratio_units} Normal 0.0-3.2 [facility]; [facility] Work Phone: Comment on above: LDL/HDL Ratio Men Wo men 1/2 Avg.Risk 1.0 1.5 Avg.Risk 3.6 3.2 2X Avg.Risk 6.2 5.0 3X Avg.Risk 8.0 6.1 PATIENT WAS FASTINGP ERFORMED BY: CORTEZ ThanhHitesh Urdlyu7719 [facility] [id number] Cholesterol in VLDL [Mass/Vol] 19 mg/dL Normal 5-40 [facility]; [facility] Work Phone: Comment on above: PATIENT WAS FASTINGP ERFORMED BY: CORTEZ LabYanci Kobefu1243 [facility] [id number] Triglyceride [Mass/Vol] 95 mg/dL Normal 0-149 [facility]; [facility] Work Phone: Comment on above: PATIENT WAS FASTINGP ERFORMED BY: CORTEZ Dye6370 [facility] [id number] METABOLIC PANEL, COMPREHENSI VE (35798)Ordered By: Pumping Station Supervisor on 01-07-2015 Albumin [Mass/Vol] 4.5 g/dL Normal 3.5-5.5 [facility] Internal Medicine; [facility] Work Phone: Comment on above: PATIENT WAS FASTINGP ERFORMED BY: CORTEZ Daveylin6370 [facility] [id number] Information: [id number] Albumin/Globulin [Mass ratio] 1.8 {ratio} Normal 1.1-2.5 [facility]; [facility] Work Phone: Comment on above: PATIENT WAS FASTINGP ERFORMED BY: CORTEZ Dye6370 [facility] [id number] Information: [id number] ALP [Catalytic activity/Vol] 88 [iU]/L Normal 39-117 [facility]; [facility] Work Phone: Comment on above: PATIENT WAS FASTINGP ERFORMED BY: CORTEZ LabAklauren DaveyAcobzx9785 [facility] [id number] Information: [id number] ALT [Catalytic activity/Vol] 30 [iU]/L Normal 0-32 [facility]; [facility] Work Phone: Comment on above: PATIENT WAS FASTINGP ERFORMED BY: CORTEZ LabCo Skkztn3532 [facility] [id number] Information: [id number] AST [Catalytic activity/Vol] 29 [iU]/L Normal 0-40 [facility]; [facility] Work Phone: Comment on above: PATIENT WAS FASTINGP ERFORMED BY: [facility]6370 [facility] [id number] Information: [id number] Bilirubin [Mass/Vol] 0.7 mg/dL Normal 0.0-1.2 [facility] rehensive Internal Medicine; [facility] Work Phone: Comment on above: PATIENT WAS FASTINGP ERFORMED BY: [facility] Aylzev6723 [facility] [id number] Information: [id number] Calcium [Mass/Vol] 9.5 mg/dL Normal 8.7-10.2 [facility] Internal Medicine; [facility] Work Phone: Comment on above: PATIENT WAS FASTINGP ERFORMED BY: [facility]6370 [facility] [id number] Information: [id number],[id number] Chloride [Moles/Vol] 101 mmol/L Normal 97-108 [facility] rehensive Internal Medicine; [facility] Work Phone: Comment on above: PATIENT WAS FASTINGP ERFORMED BY: [facility]6370 [facility] [id number] Information: [id number] CO2 [Moles/Vol] 25 mmol/L Normal 18-29 [facility] Internal Medicine; [facility] Work Phone: Comment on above: PATIENT WAS FASTINGP ERFORMED BY: [facility] Wzgwzx6272 [facility] [id number] Information: [id number],[id number] Creatinine [Mass/Vol] 0.71 mg/dL Normal 0.57-1.00 [facility]; [facility] Work Phone: Comment on above: PATIENT WAS FASTINGP ERFORMED BY: [facility] Qkawcr8002 [facility] [id number] Information: [id number] GFR/1.73 sq M predicted among blacks CKD-EPI (S/P/Bld) [Vol rate/Area] 112 mL/min/1.73 Normal [facility]; [facility] Work Phone: Comment on above: PATIENT WAS FASTINGP ERFORMED BY: [facility] Rakkge2053 [facility] [id number] Information: [id number] GFR/1.73 sq M predicted among non-blacks CKD-EPI (S/P/Bld) [Vol rate/Area] 97 mL/min/1.73 Normal [facility]; [facility] Work Phone: Comment on above: PATIENT WAS FASTINGP ERFORMED BY: LabCarondelet HealthXurvoz4421 [facility] [id number] Information: [id number] Globulin (S) [Mass/Vol] 2.5 g/dL Normal 1.5-4.5 [facility]; [facility] Work Phone: Comment on above: PATIENT WAS FASTINGP ERFORMED BY: [facility] Iwuern6906 [facility] [id number] Information: [id number],[id number] Glucose [Mass/Vol] 93 mg/dL Normal 65-99 [facility] Internal Medicine; [facility] Work Phone: Comment on above: PATIENT WAS FASTINGP ERFORMED BY: [facility] Mdcroq2754 [facility] [id number] Information: [id number] Potassium [Moles/Vol] 4.3 mmol/L Normal 3.5-5.2 [facility] prehensive Internal Medicine; [facility] Work Phone: Comment on above: PATIENT WAS FASTINGP ERFORMED BY: [facility] Ulqwsy7214 [facility] [id number] Information: [id number] Protein [Mass/Vol] 7.0 g/dL Normal 6.0-8.5 [facility] Internal Medicine; [facility] Work Phone: Comment on above: PATIENT WAS FASTINGP ERFORMED BY: [place] 6331470 [facility] [id number] Information: [id number] Sodium [Moles/Vol] 143 mmol/L Normal 134-144 [facility] Internal Medicine; [facility] Work Phone: Comment on above: PATIENT WAS FASTINGP ERFORMED BY: [address] [id number] Information: [id number] Urea nitrogen [Mass/Vol] 12 mg/dL Normal 6-24 [facility]; [facility] Work Phone: Comment on above: PATIENT WAS FASTINGP ERFORMED BY: [address] [id number] Information: [id number] Urea nitrogen/Creatinine [Mass ratio] 17 mg/mg Normal 9-23 [facility]; [facility] Work Phone: Comment on above: PATIENT WAS FASTINGP ERFORMED BY: [place] 6331470 [facility] [id number] Information: [id number] LIPID PANEL (55395)Ordered B y: Pumping Station Supervisor on 10-08-2014 Cholesterol [Mass/Vol] 239 mg/dL Abnormal 100-199 [facility]; [facility] Work Phone: Comment on above: PATIENT WAS FASTINGP ERFORMED BY: [facility]6370 [facility] [id number] Information: [id number] Cholesterol in HDL [Mass/Vol] 58 mg/dL Normal [facility]; [facility] Work Phone: Comment on above: According to ATP-III Guidelines, HDL-C >59 mg/dL is considered anegative risk factor for CHD. PATIENT WAS FASTINGP ERFORMED BY: [facility] Ekqhmc7446 [facility] [id number] Information: [id number] Cholesterol in LDL [Mass/Vol] 156 mg/dL Abnormal 0-99 [facility]; [facility] Work Phone: Comment on above: PATIENT WAS FASTINGP ERFORMED BY: [place] 6331470 [facility] [id number] Information: [id number],[id number] Cholesterol in LDL/Cholesterol in HDL [Mass ratio] 2.7 {ratio_units} Normal 0.0-3.2 [facility]; [facility] Work Phone: Comment on above: LDL/HDL Ratio Men Wo men 1/2 Avg.Risk 1.0 1.5 Avg.Risk 3.6 3.2 2X Avg.Risk 6.2 5.0 3X Avg.Risk 8.0 6.1 PATIENT WAS FASTINGP ERFORMED BY: [place] 6331470 [facility] [id number] Information: [id number] Cholesterol in VLDL [Mass/Vol] 25 mg/dL Normal 5-40 [facility]; [facility] Work Phone: Comment on above: PATIENT WAS FASTINGP ERFORMED BY: [facility]6370 [facility] [id number] Information: [id number] Triglyceride [Mass/Vol] 124 mg/dL Normal 0-149 [facility]; [facility] Work Phone: Comment on above: PATIENT WAS FASTINGP ERFORMED BY: [facility]6370 [facility] [id number] Information: 545335,[id number] Methymalonic Acid, Serum (83 921)Ordered By: Pumping Station Supervisor on 01-23-2014 Methylmalonate [Moles/Vol] 167 nmol/L Normal 0-378 [facility]; [facility] Work Phone: Comment on above: Please note refere nce interval change PATIENT NOT FASTINGP ERFORMED BY: CORTEZ [facility] Moznqf3341 [address] RoadDublin [place] [id number] BY: wutabout[address] [id number] TSH (31610)Ordered By: Fits.meceline [employer] Ladies Attendant on 01-23-2014 TSH Qn 3.440 {uIU/mL} Normal 0.450-4.50 0 [facility]; [facility] Work Phone: Comment on above: PATIENT NOT FASTINGP ERFORMED BY: Thuuz [facility] Sgrovu2594 [address] RoadDublin [place] [id number] BY: wutabout[address] [id number] Information: [id number] VITAMIN B-12 (CYANOCOBALAMIN ) (20467)Ordered By: Pumping Station Supervisor on 01-23-2014 Cobalamin (Vitamin B12) [Mass/Vol] 762 pg/mL Normal 211-946 [facility]; [facility] Work Phone: Comment on above: PATIENT NOT FASTINGP ERFORMED BY: Thuuz LabKOEZYrp Knbdsf8595 [address] RoadDublin [place] [id number] BY: wutabout[address] [id number] HEPATIC FUNCTION PANEL (8007 6)Ordered By: Pumping Station Supervisor on 01-11-2014 Albumin [Mass/Vol] 4.5 g/dL Normal 3.5-5.5 [facility] Internal Medicine; [facility] Work Phone: Comment on above: PATIENT WAS FASTINGP ERFORMED BY: CB [facility] Fghaga4701 [address] RoadDublin [place] [id number] ALP [Catalytic activity/Vol] 82 [iU]/L Normal 39-117 [facility]; [facility] Work Phone: Comment on above: PATIENT WAS FASTINGP ERFORMED BY: CB [facility] Wgkvgx2387 [address] RoadDublin [place] [id number] ALT [Catalytic activity/Vol] 17 [iU]/L Normal 0-32 [facility]; [facility] Work Phone: Comment on above: PATIENT WAS FASTINGP ERFORMED BY: CB [facility] Enqjqu6319 [address] RoadDublin [place] [id number] AST [Catalytic activity/Vol] 20 [iU]/L Normal 0-40 [facility]; [facility] Work Phone: Comment on above: PATIENT WAS FASTINGP ERFORMED BY: CB [facility] Xrxiew4260 [address] RoadDublin [place] [id number] Bilirubin [Mass/Vol] 0.8 mg/dL Normal 0.0-1.2 [facility] Internal Medicine; [facility] Work Phone: Comment on above: PATIENT WAS FASTINGP ERFORMED BY: CB [facility] Unfwou4102 [address] RoadDublin [place] [id number] Bilirubin.direct [Mass/Vol] 0.15 mg/dL Normal 0.00-0.40 [facility]; [facility] Work Phone: Comment on above: PATIENT WAS FASTINGP ERFORMED BY: CB [facility] Ovtkay0226 [address] RoadDublin [place] [id number] Protein [Mass/Vol] 6.9 g/dL Normal 6.0-8.5 [facility] Internal Medicine; [facility] Work Phone: Comment on above: PATIENT WAS FASTINGP ERFORMED BY: CB [facility] Hwcmiw7659 [address] RoadDublin [place] [id number] LIPID PANEL (35213)Ordered B y: Pumping Station Supervisor on 01-11-2014 Cholesterol [Mass/Vol] 249 mg/dL Abnormal 100-199 [facility]; [facility] Work Phone: Comment on above: PATIENT WAS FASTINGP ERFORMED BY: CB [facility] Ysklhs6932 [address] RoadDublin [place] [id number] Information: [id number] Cholesterol in HDL [Mass/Vol] 57 mg/dL Normal [facility]; [facility] Work Phone: Comment on above: According to ATP-III Guidelines, HDL-C >59 mg/dL is considered anegative risk factor for CHD. PATIENT WAS FASTINGP ERFORMED BY: CORTEZ [employer] Pzauoe8078 [facility] [id number] Information: [id number] Cholesterol in LDL [Mass/Vol] 173 mg/dL Abnormal 0-99 [facility]; [facility] Work Phone: Comment on above: PATIENT WAS FASTINGP ERFORMED BY: [facility] Zimeou[address] [facility]in [place] [id number] Information: [id number] Cholesterol in LDL/Cholesterol in HDL [Mass ratio] 3.0 {ratio_units} Normal 0.0-3.2 [facility]; [facility] Work Phone: Comment on above: PATIENT WAS FASTINGP ERFORMED BY: CORTEZ LawCo Cuhrpt7673 [facility] [id number] Information: [id number] Cholesterol in VLDL [Mass/Vol] 19 mg/dL Normal 5-40 [facility]; [facility] Work Phone: Comment on above: PATIENT WAS FASTINGP ERFORMED BY: CORTEZ [employer] Xtvkor9123 [facility] [id number] Information: [id number] Triglyceride [Mass/Vol] 97 mg/dL Normal 0-149 [facility]; [facility] Work Phone: Comment on above: PATIENT WAS FASTINGP ERFORMED BY: LabCo Uhdvcw0499 [facility] [id number] Information: [id number] CALCIFIDIOL (23042) VIT D 25 Ordered By: Pumping Station Supervisor on 10-17-2013 25-Hydroxyvitamin D2+25-Hydroxyvitamin D3 [Mass/Vol] 29.1 ng/mL Abnormal 30.0-100.0 [facility]; [facility] Work Phone: Comment on above: Vitamin D deficiency has been defined by the [place] ofMedicine and an Endocrine Society practice guideline as alevel of serum 25-OH vitamin D less than 20 ng/mL (1,2).The Endocrine Society went on to further define vitamin Dinsufficiency as a level between 21 and 29 ng/mL (2).1. IOM ([place] of Medicine). 2010. Dietary reference intakes for calcium and D. [place]: The National Academies Press.2. Kev MF, Jose FRIAS, Louise OCHOA, et al. Evaluation, treatment, and prevention of vitamin D deficiency: an Endocrine Society clinical practice guideline. JCEM. 2010; 96(7):1911-30. PATIENT WAS FASTINGP ERFORMED BY: Thuuz LabCoDole Tian Bzaxiw7451 [place] Energy[place] [id number] Lipid Panel (89765)Ordered B y: Pumping Station Supervisor on 10-17-2013 Cholesterol [Mass/Vol] 185 mg/dL Normal 100-199 [facility]; [facility] Work Phone: Comment on above: PATIENT WAS FASTINGP ERFORMED BY: Thuuz LabShanghai [employer] Waqvyh3506 [place] [employer] EnergyDublin [place] [id number] Cholesterol in HDL [Mass/Vol] 59 mg/dL Normal [facility]; [facility] Work Phone: Comment on above: According to ATP-III Guidelines, HDL-C >59 mg/dL is considered anegative risk factor for CHD. PATIENT WAS FASTINGP ERFORMED BY: Thuuz LabKOEZYrp Ewubnl3712 [place] [employer] EnergyDublin [place] [id number] Cholesterol in LDL [Mass/Vol] 109 mg/dL Abnormal 0-99 [facility]; [facility] Work Phone: Comment on above: PATIENT WAS FASTINGP ERFORMED BY: Thuuz LabShanghai Muhe [employer] Rknpcs8353 [place] [id number] Cholesterol in LDL/Cholesterol in HDL [Mass ratio] 1.8 {ratio_units} Normal 0.0-3.2 [facility]; [facility] Work Phone: Comment on above: PATIENT WAS FASTINGP ERFORMED BY: Thuuz LabKOEZYrp Ljticx4601 [place] [id number] Cholesterol in VLDL [Mass/Vol] 17 mg/dL Normal 5-40 [facility]; [facility] Work Phone: Comment on above: PATIENT WAS FASTINGP ERFORMED BY: CORTEZ LabHitesh DaveyBctznj5818 [facility] [id number] Triglyceride [Mass/Vol] 83 mg/dL Normal 0-149 [facility]; [facility] Work Phone: Comment on above: PATIENT WAS FASTINGP ERFORMED BY: CORTEZ LabCo Fraeiw7710 [facility] [id number] Metabolic Panel, Comprehensi ve (68115)Ordered By: Pumping Station Supervisor on 10-17-2013 Albumin [Mass/Vol] 4.2 g/dL Normal 3.5-5.5 [facility] Internal [facility]; [facility] Work Phone: Comment on above: PATIENT WAS FASTINGP ERFORMED BY: CORTEZ Daveylin6370 [facility] [id number] Information: [id number] Albumin/Globulin [Mass ratio] 1.8 {ratio} Normal 1.1-2.5 [facility]; [facility] Work Phone: Comment on above: PATIENT WAS FASTINGP ERFORMED BY: CORTEZ [facility] Dicokg0298 [facility] [id number] Information: 212808,[id number] ALP [Catalytic activity/Vol] 87 [iU]/L Normal 39-117 [facility]; [facility] Work Phone: Comment on above: PATIENT WAS FASTINGP ERFORMED BY: CORTEZ Daveylin6370 [facility] [id number] Information: 140096,[id number] ALT [Catalytic activity/Vol] 37 [iU]/L Abnormal 0-32 [facility]; [facility] Work Phone: Comment on above: PATIENT WAS FASTINGP ERFORMED BY: CORTEZ LabCo Sckhmp6050 [facility] [id number] Information: 540402,[id number] AST [Catalytic activity/Vol] 37 [iU]/L Normal 0-40 [facility]; [facility] Work Phone: Comment on above: PATIENT WAS FASTINGP ERFORMED BY: [facility]6370 [facility] [id number] Information: [id number],[id number] Bilirubin [Mass/Vol] 0.7 mg/dL Normal 0.0-1.2 [facility] rehensive Internal Medicine; [facility] Work Phone: Comment on above: PATIENT WAS FASTINGP ERFORMED BY: [place] 6331470 [facility] [id number] Information: 122591,M67210 Calcium [Mass/Vol] 9.4 mg/dL Normal 8.7-10.2 [facility] Internal Medicine; [facility] Work Phone: Comment on above: PATIENT WAS FASTINGP ERFORMED BY: [facility]6370 [facility] [id number] Information: 252981,[id number] Chloride [Moles/Vol] 106 mmol/L Normal 97-108 [facility] rehensive Internal Medicine; [facility] Work Phone: Comment on above: PATIENT WAS FASTINGP ERFORMED BY: [place] 6331470 [facility] [id number] Information: 070348,[id number] CO2 [Moles/Vol] 23 mmol/L Normal 19-28 [facility] Internal Medicine; [facility] Work Phone: Comment on above: PATIENT WAS FASTINGP ERFORMED BY: [place] 6331470 [facility] [id number] Information: 263456,K19153 Creatinine [Mass/Vol] 0.72 mg/dL Normal 0.57-1.00 [facility] prehensive Internal Medicine; [facility] Work Phone: Comment on above: PATIENT WAS FASTINGP ERFORMED BY: [facility]6370 [facility] [id number] Information: 547938,X93062 GFR/1.73 sq M predicted among blacks CKD-EPI (S/P/Bld) [Vol rate/Area] 111 mL/min/1.73 Normal [facility]; [facility] Work Phone: Comment on above: PATIENT WAS FASTINGP ERFORMED BY: CORTEZ [facility]Gold[facility] Tmvzws9880 [facility] [id number] Information: [id number],N90776 GFR/1.73 sq M predicted among non-blacks CKD-EPI (S/P/Bld) [Vol rate/Area] 97 mL/min/1.73 Normal [facility]; [facility] Work Phone: Comment on above: PATIENT WAS FASTINGP ERFORMED BY: CORTEZ [facility] Uyzcum4053 [facility] [id number] Information: 196339,[id number] Globulin (S) [Mass/Vol] 2.3 g/dL Normal 1.5-4.5 [facility] Internal Medicine; [facility] Work Phone: Comment on above: PATIENT WAS FASTINGP ERFORMED BY: [facility]6370 [facility] [id number] Information: 312626,J74905 Glucose [Mass/Vol] 86 mg/dL Normal 65-99 [facility] Internal Medicine; [facility] Work Phone: Comment on above: PATIENT WAS FASTINGP ERFORMED BY: Adri Sfxuyk0436 [facility] [id number] Information: 467177,T34007 Potassium [Moles/Vol] 4.0 mmol/L Normal 3.5-5.2 [facility] prehensive Internal Medicine; [facility] Work Phone: Comment on above: PATIENT WAS FASTINGP ERFORMED BY: [facility]6370 [facility] [id number] Information: 655562,M99000 Protein [Mass/Vol] 6.5 g/dL Normal 6.0-8.5 [facility] Internal Medicine; [facility] Work Phone: Comment on above: PATIENT WAS FASTINGP ERFORMED BY: [facility]6370 [facility] [id number] Information: 557781,I00280 Sodium [Moles/Vol] 142 mmol/L Normal 134-144 [facility] Internal [facility]; [facility] Work Phone: Comment on above: PATIENT WAS FASTINGP ERFORMED BY: [facility] Qzcvpm6266 [facility] [id number] Information: 002422,V84948 Urea nitrogen [Mass/Vol] 11 mg/dL Normal 6-24 [facility]; [facility] Work Phone: Comment on above: PATIENT WAS FASTINGP ERFORMED BY: [address] [id number] Information: 343564,B66174 Urea nitrogen/Creatinine [Mass ratio] 15 mg/mg Normal 9-23 [facility]; [facility] Work Phone: Comment on above: PATIENT WAS FASTINGP ERFORMED BY: [address] [id number] Information: 291228,R42574 HEPATIC FUNCTION PANEL (8007 6)Ordered By: Pumping Station Supervisor on 07-20-2013 Albumin [Mass/Vol] 4.4 g/dL Normal 3.5-5.5 [facility] Internal [facility]; [facility] Work Phone: Comment on above: PATIENT NOT FASTINGP ERFORMED BY: [address] [id number] Information: ADD B46924 AND DRAW FEE 99 6660 ALP [Catalytic activity/Vol] 100 [iU]/L Normal 42-107 [facility]; [facility] Work Phone: Comment on above: PATIENT NOT FASTINGP ERFORMED BY: [address] [id number] Information: ADD [id number] AND DRAW FEE 99 6660 ALT [Catalytic activity/Vol] 32 [iU]/L Normal 0-32 [facility]; [facility] Work Phone: Comment on above: PATIENT NOT FASTINGP ERFORMED BY: CB LabSur[facility]6370 [facility] [id number] Information: ADD [id number] AND DRAW FEE 99 6660 AST [Catalytic activity/Vol] 27 [iU]/L Normal 0-40 [facility]; [facility] Work Phone: Comment on above: PATIENT NOT FASTINGP ERFORMED BY: LabSur[facility]6370 [facility] [id number] Information: ADD M08389 AND DRAW FEE 99 6660 Bilirubin [Mass/Vol] 0.6 mg/dL Normal 0.0-1.2 [facility] Internal Medicine; [facility] Work Phone: Comment on above: PATIENT NOT FASTINGP ERFORMED BY: LabSur[facility]6370 [facility] [id number] Information: ADD X83278 AND DRAW FEE 99 6660 Bilirubin.direct [Mass/Vol] 0.14 mg/dL Normal 0.00-0.40 [facility]; [facility] Work Phone: Comment on above: PATIENT NOT FASTINGP ERFORMED BY: [place] 6331470 [facility] [id number] Information: ADD M24767 AND DRAW FEE 99 6660 Protein [Mass/Vol] 6.9 g/dL Normal 6.0-8.5 [facility] Internal [facility]; [facility] Work Phone: Comment on above: PATIENT NOT FASTINGP ERFORMED BY: LabRebekah Ville 6058970 [facility] [id number] Information: ADD V81024 AND DRAW FEE 99 6660 HEPATIC FUNCTION PANEL (8007 6)Ordered By: Pumping Station Supervisor on 06-06-2013 Albumin [Mass/Vol] 4.3 g/dL Normal 3.5-5.5 [facility]; [facility] Work Phone: Comment on above: PATIENT NOT FASTINGP ERFORMED BY: [place] 6331470 [facility] [id number] Information: 609220,[id number] ALP [Catalytic activity/Vol] 98 [iU]/L Normal 42-107 [facility]; [facility] Work Phone: Comment on above: PATIENT NOT FASTINGP ERFORMED BY: CORTEZ LabColauren DyeVszncc8370 [place] High[facility] Hospitalbl[facility] [place] [id number] Information: 361738,[id number] ALT [Catalytic activity/Vol] 38 [iU]/L Abnormal 0-32 [facility]; [facility] Work Phone: Comment on above: PATIENT NOT FASTINGP ERFORMED BY: CB [facility] Kbhtyz6019 [place] [facility] [id number] Information: 739909,[id number] AST [Catalytic activity/Vol] 30 [iU]/L Normal 0-40 [facility]; [facility] Work Phone: Comment on above: PATIENT NOT FASTINGP ERFORMED BY: CORTEZ [facility] Pvsxvx5610 [facility] [id number] Information: 796212,H62195 Bilirubin [Mass/Vol] 0.5 mg/dL Normal 0.0-1.2 [facility] Internal Medicine; [facility] Work Phone: Comment on above: PATIENT NOT FASTINGP ERFORMED BY: CORTEZ LabColauren DaveyKgrppo4666 [facility] [id number] Information: 997095,V01785 Bilirubin.direct [Mass/Vol] 0.09 mg/dL Normal 0.00-0.40 [facility]; [facility] Work Phone: Comment on above: PATIENT NOT FASTINGP ERFORMED BY: CB [facility] Mvwlqq9274 [facility] [id number] Information: 030694,G15115 Protein [Mass/Vol] 6.7 g/dL Normal 6.0-8.5 [facility] Internal [facility]; [facility] Work Phone: Comment on above: PATIENT NOT FASTINGP ERFORMED BY: CB [facility] Iiffko4754 [facility] [id number] Information: 366904,I29636 CALCIFIDIOL (59956) VIT D 25 Ordered By: Pumping Station Supervisor on 04-24-2013 25-Hydroxyvitamin D2+25-Hydroxyvitamin D3 [Mass/Vol] 31.3 ng/mL Normal 30.0-100.0 [facility]; [facility] Work Phone: Comment on above: Vitamin D deficiency has been defined by the [place] of[facility] and an Endocrine Society practice guideline as alevel of serum 25-OH vitamin D less than 20 ng/mL (1,2).The Endocrine Society went on to further define vitamin Dinsufficiency as a level between 21 and 29 ng/mL (2).1. IOM ([place] of Medicine). 2010. Dietary reference intakes for calcium and D. [place]: The National Academies Press.2. Kev MF, Jose FRIAS, Louise OCHOA, et al. Evaluation, treatment, and prevention of vitamin D deficiency: an Endocrine Society clinical practice guideline. JCEM. 2010; 96(7):1911-30. PATIENT WAS FASTINGP ERFORMED BY: S7 [employer] Byl2601 [facility] [id number] BY: CB [facility] Mpevtw6786 Santiago RoadDublin [place] [id number] LIPOPROTEIN, BLD, BY NMR (43 694)Ordered By: Pumping Station Supervisor on 04-24-2013 Cholesterol [Mass/Vol] 240 mg/dL Abnormal [facility]; [facility] Work Phone: Comment on above: PATIENT WAS FASTINGP ERFORMED BY: S7 [employer] Bvh6319 [facility] [id number] BY: CB [facility] Hssubv1309 Santiago RoadDublin [place] [id number] Information: 024418,Q26233 Cholesterol in HDL [Mass/Vol] 59 mg/dL Normal [facility]; [facility] Work Phone: Comment on above: PATIENT WAS FASTINGP ERFORMED BY: S7 [employer] Zrw3797 [facility] [id number] BY: CB [facility] Htbbnd0656 Santiago RoadDublin [place] [id number] Information: 341831,C14275 Cholesterol in LDL [Mass/Vol] 168 mg/dL Abnormal [facility]; [facility] Work Phone: Comment on above: . Optimal < 100 Abov e optimal 100 - 129 Borderline 130 - 159 High 160 - 189 Very high > 189 . PATIENT WAS FASTINGP ERFORMED BY: S7 [employer]oSciQualgen[employer] Ncb2207 [facility] [id number] BY: wutaboutCare One at [facility] Medical CenterZecysh5222 [facility] [id number] Information: 506391,F78751 Lipoprotein.alpha [Moles/Vol] 32.6 umol/L Normal [facility]; [facility] Work Phone: Comment on above: PATIENT WAS FASTINGP ERFORMED BY: S7 [employer]oSciQualgen[employer] Qfh6081 [facility] [id number] BY: [employer]6370 [facility] [id number] Information: 704048,X54976 Lipoprotein.beta.subp article [Entitic length] 21.4 nm Normal [facility]; [facility] Work Phone: Comment on above: INTERPRETATIVE INFORMATION PARTICLE CONCENTRATION AND SIZE <--Lower CVD Risk Higher CVD Risk--> LDL AND HDL PARTICLES Percentile in Reference Population HDL-P (total) High 75th 50th 25th Low >34.9 34.9 30.5 26.7 <26.7 . Small LDL-P Low 25th 50th 75th High <117 117 527 839 >839 . LDL Size <-Large (Pattern A)-> <-Small (Pattern B)-> 23.0 20.6 20.5 19.0 PATIENT WAS FASTINGP ERFORMED BY: LipoSciha[facility] Qls2625 [facility] [id number] BY: CORTEZ LabGold[facility] Sqmtwe4653 [facility] [id number] Information: 782108,H15939 Lipoprotein.beta.subp article [Moles/Vol] 1372 nmol/L Abnormal Comprehensiv e Internal Medicine; [facility] Work Phone: Comment on above: Low < 1000 Moderate 1000 - 1299 Borderline-High 1300 - 1599 High 1600 - 2000 Very High > 2000 PATIENT WAS FASTINGP ERFORMED BY: [employer] Siz6114 [facility] [id number] BY: CORTEZ [facility] Hospitallin6370 [facility] [id number] Information: 247315,C76565 Lipoprotein.beta.subp article.small [Moles/Vol] 557 nmol/L Abnormal [facility]; [facility] Work Phone: Comment on above: PATIENT WAS FASTINGP ERFORMED BY: [employer] Wkk9220 [facility] [id number] BY: CORTEZ LabGold[facility] Eugqxu1477 [facility] [id number] Information: 738032,K74547 Triglyceride [Mass/Vol] 63 mg/dL Normal [facility]; [facility] Work Phone: Comment on above: PATIENT WAS FASTINGP ERFORMED BY: [employer] Ryn4357 [facility] [id number] BY: LabGold[facility] Sdmwql2730 [facility] [id number] Information: 386593,F81120 Metabolic Panel, Comprehensi ve (80757)Ordered By: Pumping Station Supervisor on 04-24-2013 Albumin [Mass/Vol] 4.4 g/dL Normal 3.5-5.5 Compre [facility] Internal Medicine; [facility] Work Phone: Comment on above: PATIENT WAS FASTINGP ERFORMED BY: S7 [employer] Bhx5015 [facility] [id number] BY: CORTEZ [facility] Qbmiyf4077 Santiago RoadDublin [place] [id number] Albumin/Globulin [Mass ratio] 1.9 {ratio} Normal 1.1-2.5 [facility]; [facility] Work Phone: Comment on above: PATIENT WAS FASTINGP ERFORMED BY: S7 [employer] Blh0040 [facility] [id number] BY: CORTEZ [facility] Jetmli9672 [address] RoadDublin [place] [id number] ALP [Catalytic activity/Vol] 98 [iU]/L Normal 25-150 [facility]; [facility] Work Phone: Comment on above: PATIENT WAS FASTINGP ERFORMED BY: S7 [employer] Cim2282 [facility] [id number] BY: CORTEZ [facility] Iahzik7446 Santiago RoadDublin [place] [id number] ALT [Catalytic activity/Vol] 62 [iU]/L Abnormal 0-32 [facility]; [facility] Work Phone: Comment on above: PATIENT WAS FASTINGP ERFORMED BY: S7 [employer] Kfl4673 [facility] [id number] BY: CORTEZ [facility] Tdgqgf3541 [place] RoadDublin [place] [id number] AST [Catalytic activity/Vol] 64 [iU]/L Abnormal 0-40 [facility]; [facility] Work Phone: Comment on above: PATIENT WAS FASTINGP ERFORMED BY: S7 [employer] Jhp2708 [facility] [id number] BY: CORTEZ [facility] Tdojen0818 [address] RoadDublin [place] [id number] Bilirubin [Mass/Vol] 0.5 mg/dL Normal 0.0-1.2 [facility] Internal Medicine; [facility] Work Phone: Comment on above: PATIENT WAS FASTINGP ERFORMED BY: S7 [employer] [address] [facility] ClinicsvdBroaddus Hospital [id number] BY: CB [facility] Bxtehn9819 Santiago RoadDublin [place] [id number] Calcium [Mass/Vol] 9.4 mg/dL Normal 8.7-10.2 [facility] Internal Medicine; [facility] Work Phone: Comment on above: PATIENT WAS FASTINGP ERFORMED BY: S7 [employer] [address] [facility] ClinicsvdBroaddus Hospital [id number] BY: CB [facility] Ubpmyq7667 [address] RoadDublin [place] [id number] Chloride [Moles/Vol] 107 mmol/L Normal 97-108 [facility] Centerensive Internal Medicine; [facility] Work Phone: Comment on above: PATIENT WAS FASTINGP ERFORMED BY: S7 [employer] Zaf7580 [facility] [id number] BY: CORTEZ [facility] Nxiyhk5218 [address] RoadDublin [place] [id number] CO2 [Moles/Vol] 23 mmol/L Normal 19-28 [facility] Internal Medicine; [facility] Work Phone: Comment on above: Please note refere nce interval change PATIENT WAS FASTINGP ERFORMED BY: S7 [employer] Ttr0412 [facility] [id number] BY: CB [facility] Kggglq4849 [address] RoadDublin [place] [id number] Creatinine [Mass/Vol] 0.70 mg/dL Normal 0.57-1.00 [facility] prehensive Internal Medicine; [facility] Work Phone: Comment on above: PATIENT WAS FASTINGP ERFORMED BY: S7 [employer] Tgg1027 [facility] [id number] BY: CB [facility] Ofayus1822 [address] RoadDublin [place] [id number] GFR/1.73 sq M predicted among blacks CKD-EPI (S/P/Bld) [Vol rate/Area] 115 mL/min/1.73 Normal [facility]; [facility] Work Phone: Comment on above: PATIENT WAS FASTINGP ERFORMED BY: S7 [employer] Ffa6666 James souleymaneBroaddus Hospital [id number] BY: CORTEZ LabColauren Gkyhqx2017 [address] RoadDublin [place] [id number] GFR/1.73 sq M predicted among non-blacks CKD-EPI (S/P/Bld) [Vol rate/Area] 100 mL/min/1.73 Normal [facility]; [facility] Work Phone: Comment on above: PATIENT WAS FASTINGP ERFORMED BY: S7 [employer] Kca0756 [facility] [id number] BY: CORTEZ [facility] Sevpus4968 [address] RoadDublin [place] [id number] Globulin (S) [Mass/Vol] 2.3 g/dL Normal 1.5-4.5 [facility]; [facility] Work Phone: Comment on above: PATIENT WAS FASTINGP ERFORMED BY: S7 [employer] Ltp7511 [facility] [id number] BY: CORTEZ [facility] Qmioyz0757 [address] RoadDublin [place] [id number] Glucose [Mass/Vol] 89 mg/dL Normal 65-99 [facility] Internal Medicine; [facility] Work Phone: Comment on above: PATIENT WAS FASTINGP ERFORMED BY: S7 [employer] Vbl2448 [facility] [id number] BY: CORTEZ [facility] Htghhr6750 [address] RoadDublin [place] [id number] Potassium [Moles/Vol] 4.4 mmol/L Normal 3.5-5.2 [facility] prehensive Internal Medicine; [facility] Work Phone: Comment on above: PATIENT WAS FASTINGP ERFORMED BY: S7 [employer] [id number] [facility] [id number] BY: CORTEZ [facility] Tfciow3478 Santiago RoadDublin [place] [id number] Protein [Mass/Vol] 6.7 g/dL Normal 6.0-8.5 [facility]; [facility] Work Phone: Comment on above: PATIENT WAS FASTINGP ERFORMED BY: [employer] [id number] [facility] [id number] BY: CORTEZ [facility] Oublwl0074 Santiago RoadDublin [place] [id number] Sodium [Moles/Vol] 144 mmol/L Normal 134-144 [facility]; [facility] Work Phone: Comment on above: PATIENT WAS FASTINGP ERFORMED BY: [employer] [id number] [facility] [id number] BY: CORTEZ [facility] Trenla9[address] RoadDublin [place] [id number] Urea nitrogen [Mass/Vol] 9 mg/dL Normal 6-24 [facility]; [facility] Work Phone: Comment on above: PATIENT WAS FASTINGP ERFORMED BY: [employer] [id number] [facility] [id number] BY: [facility] Osylgc5479 [address] RoadDublin [place] [id number] Urea nitrogen/Creatinine [Mass ratio] 13 mg/mg Normal 9-23 [facility]; [facility] Work Phone: Comment on above: PATIENT WAS FASTINGP ERFORMED BY: [employer] Efv7611 [facility] [id number] BY: [facility] Fqbukf6029 [address] RoadDublin [place] [id number] CBC (Auto) (11272)Ordered By : Pumping [employer] Supervisor on 02-16-2013 Erythrocyte distribution width (RBC) [Ratio] 13.2 % Normal 12.3-15.4 [facility]; [facility] Work Phone: Comment on above: PERFORMED BY: CORTEZ [facility]h Rjurbm7517 [address] RoadDublin [place] [id number] Hematocrit (Bld) [Volume fraction] 38.3 % Normal 34.0-46.6 [facility]; [facility] Work Phone: Comment on above: PERFORMED BY: [employer] InternationalUNC [facility] [id number] Hemoglobin (Bld) [Mass/Vol] 12.8 g/dL Normal 11.1-15.9 [facility]; [facility] Work Phone: Comment on above: PERFORMED BY: [facility] [id number] MCH (RBC) [Entitic mass] 29.7 pg Normal 26.6-33.0 [facility]; [facility] Work Phone: Comment on above: PERFORMED BY: [employer]erm[employer] InternationalUNC [facility] [id number] MCHC (RBC) [Mass/Vol] 33.4 g/dL Normal 31.5-35.7 [facility] Internal Medicine; [facility] Work Phone: Comment on above: PERFORMED BY: [facility] [id number] MCV (RBC) [Entitic vol] 89 fL Normal 79-97 [facility]; [facility] Work Phone: Comment on above: PERFORMED BY: [employer]70 [address] [facility] [id number] Platelets (Bld) [#/Vol] 294 {x10E3/uL} Normal 140-415 [facility]; [facility] Work Phone: Comment on above: PERFORMED BY: [employer]70 [address] [facility] [id number] RBC (Bld) [#/Vol] 4.31 {x10E6/uL} Normal 3.77-5.28 [facility] Internal Medicine; [facility] Work Phone: Comment on above: PERFORMED BY: [employer]70 [facility] [id number] WBC (Bld) [#/Vol] 3.9 {x10E3/uL} Abnormal 4.0-10.5 [facility] prehensive Internal Medicine; [facility] Work Phone: Comment on above: PERFORMED BY: [employer]70 H3 PolímerosUNC Health Southeastern [id number] LDH (LD) (LACTATE DEHYDROGEN ASE) (69121)Ordered By: P[employer] Supervisor on 02-16-2013 LDH [Catalytic activity/Vol] 153 [iU]/L Normal 0-214 [facility]; [facility] Work Phone: Comment on above: PERFORMED BY: [employer] InternationalUNC [facility] [id number] Metabolic Panel, Comprehensi ve (39235)Ordered By: P[employer] Supervisor on 02-16-2013 Albumin [Mass/Vol] 4.3 g/dL Normal 3.5-5.5 [facility]; [facility] Work Phone: Comment on above: PERFORMED BY: [employer]erm[employer] InternationalUNC [facility] [id number] Albumin/Globulin [Mass ratio] 2.0 {ratio} Normal 1.1-2.5 [facility]; [facility] Work Phone: Comment on above: PERFORMED BY: e[employer]6370 H3 PolímerosUNC Health Southeastern [id number] ALP [Catalytic activity/Vol] 81 [iU]/L Normal 25-150 [facility]; [facility] Work Phone: Comment on above: PERFORMED BY: ePrep6370 H3 PolímerosUNC Health Southeastern [id number] ALT [Catalytic activity/Vol] 19 [iU]/L Normal 0-32 [facility]; [facility] Work Phone: Comment on above: PERFORMED BY: [employer] InternationalUNC [facility] [id number] AST [Catalytic activity/Vol] 22 [iU]/L Normal 0-40 [facility]; [facility] Work Phone: Comment on above: PERFORMED BY: [employer] InternationalUNC [facility] [id number] Bilirubin [Mass/Vol] 0.4 mg/dL Normal 0.0-1.2 Comp rehensive Internal Medicine; [facility] Work Phone: Comment on above: PERFORMED BY: ePrep6370 [address] RoadDublin [place] [id number] Calcium [Mass/Vol] 9.4 mg/dL Normal 8.7-10.2 [facility]ive [facility]; [facility] Work Phone: Comment on above: PERFORMED BY: ePrep6370 [address] RoadDublin [place] [id number] Chloride [Moles/Vol] 105 mmol/L Normal 97-108 Comp rehensive Internal Medicine; [facility] Work Phone: Comment on above: PERFORMED BY: ePrep6370 [address] RoadScaled Inferenceblin [place] [id number] CO2 [Moles/Vol] 24 mmol/L Normal 20-32 [facility]; [facility] Work Phone: Comment on above: PERFORMED BY: ePrep6370 [address] RoadDublin [place] [id number] Creatinine [Mass/Vol] 0.68 mg/dL Normal 0.57-1.00 Com prehensive Internal Medicine; [facility] Work Phone: Comment on above: PERFORMED BY: ePrep6370 [address] RoadAsheville Specialty Hospitalin [place] [id number] GFR/1.73 sq M predicted among blacks CKD-EPI (S/P/Bld) [Vol rate/Area] 116 mL/min/1.73 Normal [facility]; [facility] Work Phone: Comment on above: PERFORMED BY: ePrep6370 [address] RoadDublin [place] [id number] GFR/1.73 sq M predicted among non-blacks CKD-EPI (S/P/Bld) [Vol rate/Area] 101 mL/min/1.73 Normal [facility]; [facility] Work Phone: Comment on above: PERFORMED BY: [employer]70 [address] RoadDuUNC Health Southeastern [id number] Globulin (S) [Mass/Vol] 2.1 g/dL Normal 1.5-4.5 [facility] Internal Medicine; [facility] Work Phone: Comment on above: PERFORMED BY: e[employer]6370 [place] [employer] [place] [id number] Glucose [Mass/Vol] 93 mg/dL Normal 65-99 [facility] Internal [facility]; [facility] Work Phone: Comment on above: PERFORMED BY: ePrep6370 [address] OptifyUNC Health Southeastern [id number] Potassium [Moles/Vol] 4.1 mmol/L Normal 3.5-5.2 [facility] prehensive Internal Medicine; [facility] Work Phone: Comment on above: PERFORMED BY: ePrep6370 H3 PolímerosUNC Health Southeastern [id number] Protein [Mass/Vol] 6.4 g/dL Normal 6.0-8.5 [facility]; [facility] Work Phone: Comment on above: PERFORMED BY: [employer]70 H3 PolímerosUNC Health Southeastern [id number] Sodium [Moles/Vol] 142 mmol/L Normal 134-144 [facility] Medicine; [facility] Work Phone: Comment on above: PERFORMED BY: [employer]70 [address] [facility] HospitalScaled InferenceUNC Health Southeastern [id number] Urea nitrogen [Mass/Vol] 12 mg/dL Normal 6-24 [facility] Internal Medicine; [facility] Work Phone: Comment on above: PERFORMED BY: ePrep6370 SantiagoOcean Renewable Power CompanyUNC Health Southeastern [id number] Urea nitrogen/Creatinine [Mass ratio] 18 mg/mg Normal 9-23 [facility] Internal Medicine; [facility] Work Phone: Comment on above: PERFORMED BY: ePrep6370 [facility] [id number] T4, FREE (THYROXINE) (97838) Ordered By: Pumping Station Supervisor on 02-16-2013 Free T4 [Mass/Vol] 1.11 ng/dL Normal 0.82-1.77 Compre hensive Internal Medicine; [facility] Work Phone: Comment on above: PERFORMED BY: ePrep6370 [employer] [place] [id number] TSH (67195)Ordered By: Donn Carnes on 02-16-2013 TSH Qn 2.170 {uIU/mL} Normal 0.450-4.50 0 [facility]; [facility] Work Phone: Comment on above: PERFORMED BY: ePrep6370 [employer] [place] [id number] Urinalysis, Office (19562)Or dered By: DERREK Cha on 02-16-2013 Bilirubin Ql (U) Negative Normal Comprehe nsive Internal Medicine; [facility] Work Phone: Glucose Test strip (U) [Mass/Vol] Negative Normal [facility]; [facility] Work Phone: Hemoglobin Ql (U) Hemolyzed Trace Normal Co mprehensive [facility] Medicine; [facility] Work Phone: Ketones Ql (U) Negative Normal Comprehens sae Internal Medicine; [facility] Work Phone: Leukocyte esterase Test strip Ql (U) Negative Normal [facility]; [facility] Work Phone: Nitrite Ql (U) Negative Normal Comprehens sae [facility]; [facility] Work Phone: pH (U) 6.0 [pH] Normal [facility]; [facility] Work Phone: Protein Ql (U) Negative Normal Comprehens sae [facility]; [facility] Work Phone: Specific gravity (U) [Rel density] 1.020 1 Normal [facility]; [facility] Work Phone: Urobilinogen (24H U) [Mass/Time] 2 mg/dL Normal [facility]; [facility] Work Phone: Vital Signs Date Time Vital Sign Value Performing Clinician Facility 02-15-2025 10:52-0400 Body height 162.[address] Mary Ponce MD Work Phone: [facility] 02-15-2025 10:52-0400 Body mass index (BMI) [Ratio] 24.7 kg/m2 Dr. Mary Ponce MD Work Phone: [facility] 02-15-2025 10:52-0400 Body temperature 98.2 [degF] Dr. Mary Ponce MD Work Phone: [facility] 02-15-2025 10:52-0400 Body weight 65.[address] Mary Ponce MD Work Phone: [facility] 02-15-2025 10:52-0400 Diastolic blood pressure 76 mm[Hg] Dr. Mary Ponce MD Work Phone: [phone] [place] [address] 02-15-2025 10:52-0400 Heart rate 95 /min Dr. Mary Ponce MD Work Phone: [facility] 02-15-2025 10:52-0400 Respiratory rate 17 /min Dr. Mary Ponce MD Work Phone: [facility] 02-15-2025 10:52-0400 SaO2% (BldA) [Mass fraction] 97 % Dr. Mary Ponce MD Work Phone: [facility] 02-15-2025 10:52-0400 Systolic blood pressure 110 mm[Hg] Dr. Mary Ponce MD Work Phone: [facility] 12-25-2024 18:24-0500 Body temperature 97.6 [degF] Dr. Mary Ponce MD Work Phone: [facility] 12-25-2024 18:24-0500 Diastolic blood pressure 61 mm[Hg] Dr. Mary Ponce MD Work Phone: [facility] 12-25-2024 18:24-0500 Heart rate 75 /min Dr. Mary Ponce MD Work Phone: [facility] 12-25-2024 18:24-0500 Respiratory rate 16 /min Dr. Mary Ponce MD Work Phone: [facility] 12-25-2024 18:24-0500 SaO2% (BldA) [Mass fraction] 98 % Dr. Mary Ponce MD Work Phone: [facility] 12-25-2024 18:24-0500 Systolic blood pressure 128 mm[Hg] Dr. Mary Ponce MD Work Phone: [facility] 12-25-2024 14:04-0500 Body mass index (BMI) [Ratio] 25.7 kg/m2 Dr. Mary Ponce MD Work Phone: [facility] 12-25-2024 14:04-0500 Body weight 68.[address] Mary Ponce MD Work Phone: [facility] 11-15-2024 08:45-0500 Body mass index (BMI) [Ratio] 24.3 kg/m2 Dr. Mary Ponce MD Work Phone: [facility] 11-15-2024 08:45-0500 Body temperature 98.2 [degF] Dr. Mary Ponce MD Work Phone: [facility] 11-15-2024 08:45-0500 Body weight 64.[address] Mary Ponce MD Work Phone: [facility] 11-15-2024 08:45-0500 Diastolic blood pressure 74 mm[Hg] Dr. Mary Ponce MD Work Phone: [facility] 11-15-2024 08:45-0500 Heart rate 96 /min Dr. Mary Ponce MD Work Phone: [facility] 01-15-2025 08:45-0500 Respiratory rate 14 /min Dr. Mary Ponce MD Work Phone: [facility] 11-15-2024 08:45-0500 SaO2% (BldA) [Mass fraction] 99 % Dr. Mary Ponce MD Work Phone: [facility] 11-15-2024 08:45-0500 Systolic blood pressure 110 mm[Hg] Dr. Mary Ponce MD Work Phone: 5(240)[phone] [place] [address] 10-30-2024 13:14-0500 Body mass index (BMI) [Ratio] 24.3 kg/m2 Dr. Mary Ponce MD Work Phone: [phone])[phone] [address] 10-30-2024 13:14-0500 Body weight 64.[address] Mary Ponce MD Work Phone: 1(035)[phone] [place] [address] 10-30-2024 13:14-0500 Diastolic blood pressure 80 mm[Hg] Dr. Mary Ponce MD Work Phone: 8(732)[phone] [place] [address] 10-30-2024 13:14-0500 Systolic blood pressure 110 mm[Hg] Dr. Mary Ponce MD Work Phone: [facility] 10-11-2023 10:05-0500 Body temperature 96.9 [degF] Dr. Mary Ponce Work Phone: [facility] 10-11-2023 10:05-0500 Diastolic blood pressure 69 mm[Hg] Dr. Mary Ponce Work Phone: [facility] 10-11-2023 10:05-0500 Heart rate 62 /min Dr. Mary Ponce Work Phone: [facility] 10-11-2023 10:05-0500 Respiratory rate 18 /min Dr. Mary Ponce Work Phone: [facility] 10-11-2023 10:05-0500 SaO2% (BldA) [Mass fraction] 100 % Dr. Mary Ponce Work Phone: [facility] 10-11-2023 10:05-0500 Systolic blood pressure 107 mm[Hg] Dr. Mary Ponce Work Phone: [facility] 10-11-2023 08:50-0500 Body height 162.[address] Mary Ponce Work Phone: [facility] 10-11-2023 08:50-0500 Body mass index (BMI) [Ratio] 24.7 kg/m2 Dr. Mary Ponce Work Phone: [facility] 10-11-2023 08:50-0500 Body weight 65.[address] Mary Ponce Work Phone: [facility] 08-30-2023 15:31-0400 Body temperature 97.6 [degF] Dr. Mary Ponce Work Phone: [facility] 08-30-2023 15:31-0400 Diastolic blood pressure 69 mm[Hg] Dr. Mary Ponce Work Phone: [facility] 08-30-2023 15:31-0400 Heart rate 68 /min Dr. Mary Ponce Work Phone: [facility] 08-30-2023 15:31-0400 Respiratory rate 16 /min Dr. Mary Ponce Work Phone: [facility] 08-30-2023 15:31-0400 SaO2% (BldA) [Mass fraction] 100 % Dr. Mary Ponce Work Phone: [facility] 08-30-2023 15:31-0400 Systolic blood pressure 129 mm[Hg] Dr. Mary Ponce Work Phone: [facility] 08-30-2023 14:34-0400 Body height 162.[address] Mary Ponce Work Phone: [facility] 08-30-2023 14:34-0400 Body mass index (BMI) [Ratio] 24.7 kg/m2 Dr. Mary Ponce Work Phone: [facility] 08-30-2023 14:34-0400 Body weight 65.[address] Mary Ponce Work Phone: [facility] 08-06-2023 10:53-0400 Body mass index (BMI) [Ratio] 25 kg/m2 Dr. Mary Ponce Work Phone: [facility] 08-06-2023 10:53-0400 Body temperature 97.6 [degF] Dr. Mary Ponce Work Phone: [facility] 08-06-2023 10:53-0400 Body weight 65.[address] Mary Ponce Work Phone: [facility] 08-06-2023 10:53-0400 Diastolic blood pressure 70 mm[Hg] Dr. Mary Ponce Work Phone: [facility] 08-06-2023 10:53-0400 Heart rate 70 /min Dr. Mary Ponce Work Phone: [facility] 08-06-2023 10:53-0400 Respiratory rate 16 /min Dr. Mary Ponce Work Phone: [facility] 08-06-2023 10:53-0400 SaO2% (BldA) [Mass fraction] 97 % Dr. Mary Ponce Work Phone: [facility] 08-06-2023 10:53-0400 Systolic blood pressure 116 mm[Hg] Dr. Mary Ponce Work Phone: [facility] 07-23-2023 09:55-0400 Body mass index (BMI) [Ratio] 24.9 kg/m2 Dr. Mary Ponce Work Phone: [facility] 07-23-2023 09:55-0400 Body weight 65.[address] Mary Ponce Work Phone: [facility] 07-23-2023 09:55-0400 Diastolic blood pressure 74 mm[Hg] Dr. Mary Ponce Work Phone: [facility] 07-23-2023 09:55-0400 Heart rate 75 /min Dr. Mary Ponce Work Phone: [facility] 07-23-2023 09:55-0400 Respiratory rate 16 /min Dr. Mary Ponce Work Phone: [facility] 07-23-2023 09:55-0400 Systolic blood pressure 122 mm[Hg] Dr. Mary Ponce Work Phone: [facility] 04-22-2023 14:09-0400 Diastolic blood pressure 72 mm[Hg] Dr. Mary Ponce Work Phone: [facility] 04-22-2023 14:09-0400 Systolic blood pressure 133 mm[Hg] Dr. Mary Ponce Work Phone: [facility] 04-22-2023 13:59-0400 Heart rate 62 /min Dr. Mary Ponce Work Phone: [facility] 04-22-2023 13:32-0400 Respiratory rate 18 /min Dr. Mary Ponce Work Phone: [facility] 04-22-2023 13:32-0400 SaO2% (BldA) [Mass fraction] 99 % Dr. Mary Ponce Work Phone: [facility] 03-03-2023 10:41-0400 Body height 162.[address] Mary Ponce Work Phone: [facility] 01-12-2023 13:54-0400 Body height 162.[address] Mary Ponce Work Phone: [facility] 01-12-2023 13:43-0400 Body mass index (BMI) [Ratio] 25.2 kg/m2 Dr. Mary Ponce Work Phone: [facility] 01-12-2023 13:43-0400 Body weight 66.[address] Mary Ponce Work Phone: [facility] 01-12-2023 13:43-0400 Diastolic blood pressure 75 mm[Hg] Dr. Mary Ponce Work Phone: [facility] 01-12-2023 13:43-0400 Heart rate 67 /min Dr. Mary Ponce Work Phone: [facility] 01-12-2023 13:43-0400 Respiratory rate 18 /min Dr. Mary Ponce Work Phone: [facility] 01-12-2023 13:43-0400 SaO2% (BldA) [Mass fraction] 98 % Dr. Mary Ponce Work Phone: [facility] 01-12-2023 13:43-0400 Systolic blood pressure 121 mm[Hg] Dr. Mary Ponce Work Phone: [facility] 12-18-2022 09:19-0500 Body mass index (BMI) [Ratio] 24.7 kg/m2 Dr. Mary Ponce Work Phone: [facility] 12-18-2022 09:19-0500 Body weight 65.[address] Mary Ponce Work Phone: [facility] 12-18-2022 09:19-0500 Diastolic blood pressure 82 mm[Hg] Dr. Mary Ponce Work Phone: [facility] 12-18-2022 09:19-0500 Heart rate 71 /min Dr. Mary Ponce Work Phone: [facility] 12-18-2022 09:19-0500 SaO2% (BldA) [Mass fraction] 97 % Dr. Mary Ponce Work Phone: [facility] 12-18-2022 09:19-0500 Systolic blood pressure 120 mm[Hg] Dr. Mary Ponce Work Phone: [facility] 12-03-2022 10:50-0500 Body temperature 96.9 [degF] Dr. Mary Ponce Work Phone: [facility] 12-03-2022 10:50-0500 Diastolic blood pressure 73 mm[Hg] Dr. Mary Ponce Work Phone: [facility] 12-03-2022 10:50-0500 Heart rate 59 /min Dr. Mary Ponce Work Phone: [facility] 12-03-2022 10:50-0500 Respiratory rate 16 /min Dr. Mary Ponce Work Phone: [facility] 12-03-2022 10:50-0500 SaO2% (BldA) [Mass fraction] 99 % Dr. Mary Ponce Work Phone: [facility] 12-03-2022 10:50-0500 Systolic blood pressure 133 mm[Hg] Dr. Mary Ponce Work Phone: [facility] 12-03-2022 08:58-0500 Body mass index (BMI) [Ratio] 24.5 kg/m2 Dr. Mary Ponce Work Phone: [facility] 12-03-2022 08:58-0500 Body weight [address] Mary Ponce Work Phone: [facility] 06-03-2022 14:25-0400 Diastolic blood pressure 70 mm[Hg] Dr. Mary Ponce Work Phone: [facility] Work Phone: 06-03-2022 14:25-0400 Systolic blood pressure 110 mm[Hg] Dr. Mary Ponce Work Phone: [facility] Work Phone: 06-03-2022 13:40-0400 Body height 162.[address] Mary Ponce Work Phone: [facility] Work Phone: 06-03-2022 13:40-0400 Body mass index (BMI) [Ratio] 24.5 kg/m2 Dr. Mary Ponce Work Phone: [facility] Work Phone: 06-03-2022 13:40-0400 Body weight 64.[address] Mary Ponce Work Phone: [facility] Work Phone: 06-03-2022 13:40-0400 Heart rate 75 /min Dr. Mary Ponce Work Phone: [facility] Work Phone: 06-03-2022 13:40-0400 Respiratory rate 16 /min Dr. Mary Ponce Work Phone: [facility] Work Phone: 06-01-2022 09:44-0400 Body mass index (BMI) [Ratio] 25 kg/m2 Dr. Mary Ponce Work Phone: [facility] Work Phone: 06-01-2022 09:44-0400 Body weight 66.[address] Mary Ponce Work Phone: [facility] Work Phone: 06-01-2022 09:44-0400 Diastolic blood pressure 80 mm[Hg] Dr. Mary Ponce Work Phone: [facility] Work Phone: 06-01-2022 09:44-0400 Heart rate 67 /min Dr. Mary Ponce Work Phone: [facility] Work Phone: 06-01-2022 09:44-0400 SaO2% (BldA) [Mass fraction] 97 % Dr. Mary Ponce Work Phone: [facility] Work Phone: 06-01-2022 09:44-0400 Systolic blood pressure 133 mm[Hg] Dr. Mary Ponce Work Phone: [facility] Work Phone: 03-18-2022 12:27-0400 Body mass index (BMI) [Ratio] 24.7 kg/m2 Dr. Mary Ponce Work Phone: [facility] Work Phone: 03-18-2022 12:27-0400 Body weight 65.[address] Mary Ponce Work Phone: [facility] Work Phone: 03-18-2022 12:27-0400 Diastolic blood pressure 68 mm[Hg] Dr. Mary Ponce Work Phone: [facility] Work Phone: 03-18-2022 12:27-0400 Heart rate 71 /min Dr. Mary Ponce Work Phone: [facility] Work Phone: 03-18-2022 12:27-0400 SaO2% (BldA) [Mass fraction] 97 % Dr. Mary Ponce Work Phone: [facility] Work Phone: 03-18-2022 12:27-0400 Systolic blood pressure 124 mm[Hg] Dr. Mary Ponce Work Phone: [facility] Work Phone: 03-18-2022 12:27-0400 Body height 162.[address] Mary Ponce Work Phone: [facility] Work Phone: 03-18-2022 12:27-0400 Body mass index (BMI) [Ratio] 24.7 kg/m2 Dr. Mary Ponce Work Phone: [facility] Work Phone: 03-18-2022 12:27-0400 Body weight 65.[address] Mary Ponce Work Phone: [facility] Work Phone: 03-18-2022 12:27-0400 Diastolic blood pressure 68 mm[Hg] Dr. Mary Ponce Work Phone: [facility] Work Phone: 03-18-2022 12:27-0400 Heart rate 71 /min Dr. Mary Ponce Work Phone: [facility] Work Phone: 03-18-2022 12:27-0400 SaO2% (BldA) [Mass fraction] 97 % Dr. Mary Ponce Work Phone: [facility] Work Phone: 03-18-2022 12:27-0400 Systolic blood pressure 124 mm[Hg] Dr. Mary Ponce Work Phone: [facility] Work Phone: 03-04-2022 10:50-0400 Body temperature 96.9 [degF] Dr. Mary Ponce Work Phone: [facility] Work Phone: 03-04-2022 10:50-0400 Diastolic blood pressure 66 mm[Hg] Dr. Mary Ponce Work Phone: [facility] Work Phone: 03-04-2022 10:50-0400 Heart rate 57 /min Dr. Mary Ponce Work Phone: [facility] Work Phone: 03-04-2022 10:50-0400 Respiratory rate 16 /min Dr. Mary Ponce Work Phone: [facility] Work Phone: 03-04-2022 10:50-0400 SaO2% (BldA) [Mass fraction] 100 % Dr. Mary Ponce Work Phone: [facility] Work Phone: 03-04-2022 10:50-0400 Systolic blood pressure 106 mm[Hg] Dr. Mary Ponce Work Phone: [facility] Work Phone: 03-04-2022 09:16-0400 Body height 162.[address] Mary Ponce Work Phone: [facility] Work Phone: 03-04-2022 09:16-0400 Body mass index (BMI) [Ratio] 24.2 kg/m2 Dr. Mary Ponce Work Phone: [facility] Work Phone: 03-04-2022 09:16-0400 Body weight [address] Mary Ponce Work Phone: [facility] Work Phone: 12-03-2021 07:56-0500 Body height 162.[address] Mary Ponce Work Phone: [facility] Work Phone: 12-03-2021 07:56-0500 Body mass index (BMI) [Ratio] 24.7 kg/m2 Dr. Mary Ponce Work Phone: [facility] Work Phone: 12-03-2021 07:56-0500 Body weight 65.[address] Mary Ponce Work Phone: [facility] Work Phone: 12-03-2021 07:56-0500 Diastolic blood pressure 79 mm[Hg] Dr. Mary Ponce Work Phone: [facility] Work Phone: 12-03-2021 07:56-0500 Heart rate 72 /min Dr. Mary Ponce Work Phone: [facility] Work Phone: 12-03-2021 07:56-0500 Respiratory rate 16 /min Dr. Mary Ponce Work Phone: [facility] Work Phone: 12-03-2021 07:56-0500 SaO2% (BldA) [Mass fraction] 995 % Dr. Mary Ponce Work Phone: [facility] Work Phone: 12-03-2021 07:56-0500 Systolic blood pressure 141 mm[Hg] Dr. Mary Ponce Work Phone: [facility] Work Phone: 10-14-2021 09:06-0500 Body mass index (BMI) [Ratio] 24.7 kg/m2 Dr. Mary Ponce Work Phone: [facility] Work Phone: 10-14-2021 09:06-0500 Body weight 65.[address] Mary Ponce Work Phone: [facility] Work Phone: 10-14-2021 09:06-0500 Diastolic blood pressure 98 mm[Hg] Dr. Mary Ponce Work Phone: [facility] Work Phone: 10-14-2021 09:06-0500 Systolic blood pressure 136 mm[Hg] Dr. Mary Ponce Work Phone: [facility] Work Phone: 02-21-2016 10:14-0400 BMI (Body Mass Index) 23.46 kg/m2 Maribell Kwok [facility]; [facility] Work Phone: 02-21-2016 10:14-0400 Body Temperature 97.8 [degF] Maribell Kwok [facility]; [facility] Work Phone: Comment on above: Method: Temporal 02-21-2016 10:140400 Body weight 63.96 kg Maribell Kwok [facility]; [facility] Work Phone: 02-21-2016 10:14-0400 BP Diastolic 76 mm[Hg] Maribell Kwok [facility]; [facility] Work Phone: Comment on above: Patient Position: Sitting; Cuff Location : Left Arm; Cuff Size: Standard 02-21-2016 10:140400 BP Systolic 110 mm[Hg] Maribell Kwok [facility]; [facility] Work Phone: Comment on above: Patient Position: Sitting; Cuff Location : Left Arm; Cuff Size: Standard 02-21-2016 10:140400 BSA (Body Surface Area) 1.71 m2 Maribell Kwok [facility]; [facility] Work Phone: 02-21-2016 10:140400 Height 165.1 cm Mraibell Kwok [facility]; [facility] Work Phone: 02-21-2016 10:14-0400 Pulse (Heart Rate) 68 /min Maribell Kwok [facility]; [facility] Work Phone: Comment on above: Pattern: Regular 02-21-2016 10:14-0400 Pulse Oximetry 98 % Maribell Kwok [facility]; [facility] Work Phone: Comment on above: Room air 02-21-2016 10:140400 Respiratory Rate 20 /min Maribell Kwok [facility]; [facility] Work Phone: Comment on above: Pattern: Unlabored 01-10-2016 10:22-0500 BMI (Body Mass Index) 23.46 kg/m2 [facility]; [facility] Work Phone: 01-10-2016 10:22-0500 Body Temperature 97.6 [degF] Maribell Sageadi [facility]; [facility] Work Phone: Comment on above: Method: Temporal 01-10-2016 10:220500 Body weight 63.96 kg Maribellronny Sageadi [facility]; [facility] Work Phone: 01-10-2016 10:22-0500 BP Diastolic 70 mm[Hg] Maribell Kwok [facility]; [facility] Work Phone: Comment on above: Patient Position: Sitting; Cuff Location : Left Arm; Cuff Size: Standard 01-10-2016 10:220500 BP Systolic 110 mm[Hg] Maribell Sageadi [facility]; [facility] Work Phone: Comment on above: Patient Position: Sitting; Cuff Location : Left Arm; Cuff Size: Standard 01-10-2016 10:220500 BSA (Body Surface Area) 1.71 m2 Maribellronny Sageadi [facility]; [facility] Work Phone: 01-10-2016 10:220500 Height 165.1 cm Maribell Sageadi [facility]; [facility] Work Phone: 01-10-2016 10:22-0500 Pulse (Heart Rate) 74 /min Maribellronny Sageadi [facility]; [facility] Work Phone: Comment on above: Pattern: Regular 01-10-2016 10:22-0500 Pulse Oximetry 98 % Maribell Arcosyovanyadi [facility]; [facility] Work Phone: Comment on above: Room air 01-10-2016 10:22-0500 Respiratory Rate 18 /min Maribell Kwok [facility]; [facility] Work Phone: Comment on above: Pattern: Unlabored 10-18-2015 10:09-0500 BMI (Body Mass Index) 23.63 kg/m2 Maribell Kwok [facility]; [facility] Work Phone: 10-18-2015 10:09-0500 Body Temperature 97.4 [degF] Maribell Kwok [facility]; [facility] Work Phone: 10-18-2015 10:09-0500 Body weight 64.41 kg Maribell Kwok [facility]; [facility] Work Phone: 10-18-2015 10:09-0500 BP Diastolic 80 mm[Hg] Maribell Kwok [facility]; [facility] Work Phone: Comment on above: Patient Position: Sitting; Cuff Location : Left Arm; Cuff Size: Standard 10-18-2015 10:09-0500 BP Systolic 110 mm[Hg] Maribell Kwok [facility]; [facility] Work Phone: Comment on above: Patient Position: Sitting; Cuff Location : Left Arm; Cuff Size: Standard 10-18-2015 10:09-0500 BSA (Body Surface Area) 1.71 m2 Maribell Kwok [facility]; [facility] Work Phone: 10-18-2015 10:09-0500 Height 165.1 cm Maribell Sageadi [facility]; [facility] Work Phone: 10-18-2015 10:09-0500 Pulse (Heart Rate) 87 /min Maribell Kwok [facility]; [facility] Work Phone: Comment on above: Pattern: Regular 10-18-2015 10:09-0500 Pulse Oximetry 97 % Maribell Kwok [facility]; [facility] Work Phone: Comment on above: Room air 10-18-2015 10:09-0500 Respiratory Rate 16 /min Maribell Sageadi [facility]; [facility] Work Phone: Comment on above: Pattern: Unlabored 08-21-2015 15:39-0400 BMI (Body Mass Index) 23.63 kg/m2 Maribell Boneyovanyi [facility]; [facility] Work Phone: 08-21-2015 15:39-0400 Body Temperature 97.3 [degF] Maribell Bonezzi [facility]; [facility] Work Phone: Comment on above: Method: Temporal 08-21-2015 15:39-0400 Body weight 64.41 kg Maribell Boneyovanyi [facility]; [facility] Work Phone: 08-21-2015 15:39-0400 BSA (Body Surface Area) 1.71 m2 Maribell Boneyovanyi [facility]; [facility] Work Phone: 08-21-2015 15:39-0400 Height 165.1 cm Maribell Boneyovanyi [facility]; [facility] Work Phone: 08-21-2015 15:39-0400 Pulse (Heart Rate) 66 /min Maribell Boneyovanyi [facility]; [facility] Work Phone: Comment on above: Pattern: Regular 08-21-2015 15:39-0400 Pulse Oximetry 97 % Maribell Boneyovanyi [facility]; [facility] Work Phone: Comment on above: Room air 08-21-2015 15:39-0400 Respiratory Rate 15 /min Maribell Boneyovanyi [facility]; [facility] Work Phone: Comment on above: Pattern: Unlabored 04-19-2015 10:42-0400 BMI (Body Mass Index) 22.8 kg/m2 Maribell Boneyovanyi [facility]; [facility] Work Phone: 04-19-2015 10:42-0400 Body Temperature 97.8 [degF] Maribell Boneyovanyi [facility]; [facility] Work Phone: Comment on above: Method: Temporal 04-19-2015 10:42-0400 Body weight 62.14 kg Maribell Sagei [facility]; [facility] Work Phone: 04-19-2015 10:42-0400 BP Diastolic 74 mm[Hg] Maribell Arcostorsten [facility]; [facility] Work Phone: Comment on above: Patient Position: Sitting; Cuff Location : Left Arm; Cuff Size: Standard 04-19-2015 10:42-0400 BP Systolic 114 mm[Hg] Maribell Sageadi [facility]; [facility] Work Phone: Comment on above: Patient Position: Sitting; Cuff Location : Left Arm; Cuff Size: Standard 04-19-2015 10:42-0400 BSA (Body Surface Area) 1.68 m2 Maribell Sageadi [facility]; [facility] Work Phone: 04-19-2015 10:42-0400 Height 165.1 cm Maribell Sageadi [facility]; [facility] Work Phone: 04-19-2015 10:42-0400 Pulse (Heart Rate) 80 /min Maribell Sageadi [facility]; [facility] Work Phone: Comment on above: Pattern: Regular 04-19-2015 10:42-0400 Pulse Oximetry 98 % Maribell Sageadi [facility]; [facility] Work Phone: Comment on above: Room air 04-19-2015 10:42-0400 Respiratory Rate 18 /min Maribell Sageadi [facility]; [facility] Work Phone: Comment on above: Pattern: Unlabored 01-18-2015 11:02-0400 BMI (Body Mass Index) 22.3 kg/m2 Maribell Kwok [facility]; [facility] Work Phone: 01-18-2015 11:02-0400 Body Temperature 97.4 [degF] Maribellronny Sageadi [facility]; [facility] Work Phone: Comment on above: Method: Temporal 01-18-2015 11:02-0400 Body weight 60.78 kg Maribell Sundar [facility]; [facility] Work Phone: 01-18-2015 11:02-0400 BP Diastolic 74 mm[Hg] Maribell Sageadi [facility]; [facility] Work Phone: Comment on above: Patient Position: Sitting; Cuff Location : Left Arm; Cuff Size: Standard 01-18-2015 11:02-0400 BP Systolic 114 mm[Hg] Maribell Isrraelyovanyadi [facility]; [facility] Work Phone: Comment on above: Patient Position: Sitting; Cuff Location : Left Arm; Cuff Size: Standard 01-18-2015 11:02-0400 BSA (Body Surface Area) 1.67 m2 Maribell Sundar [facility]; [facility] Work Phone: 01-18-2015 11:02-0400 Height 165.1 cm Maribell Sageadi [facility]; [facility] Work Phone: 01-18-2015 11:02-0400 Pulse (Heart Rate) 68 /min Maribell Sageadi [facility]; [facility] Work Phone: Comment on above: Pattern: Regular 01-18-2015 11:02-0400 Pulse Oximetry 99 % Maribell Isrraelyovanyadi [facility]; [facility] Work Phone: Comment on above: Room air 01-18-2015 11:02-0400 Respiratory Rate 20 /min Maribell Sageadi [facility]; [facility] Work Phone: Comment on above: Pattern: Unlabored 10-19-2014 13:10-0500 BMI (Body Mass Index) 21.97 kg/m2 Maribell Kwok [facility]; [facility] Work Phone: 10-19-2014 13:10-0500 Body Temperature 97.3 [degF] Maribell Sundar [facility]; [facility] Work Phone: Comment on above: Method: Temporal 10-19-2014 13:10-0500 Body weight 59.88 kg Maribell Sundar [facility]; [facility] Work Phone: 10-19-2014 13:10-0500 BP Diastolic 72 mm[Hg] Maribell Sageadi [facility]; [facility] Work Phone: Comment on above: Patient Position: Sitting; Cuff Location : Left Arm; Cuff Size: Standard 10-19-2014 13:10-0500 BP Systolic 112 mm[Hg] Maribell Kwok [facility]; [facility] Work Phone: Comment on above: Patient Position: Sitting; Cuff Location : Left Arm; Cuff Size: Standard 10-19-2014 13:10-0500 BSA (Body Surface Area) 1.66 m2 Maribell Sageadi [facility]; [facility] Work Phone: 10-19-2014 13:10-0500 Height 165.1 cm Maribell Sageadi [facility]; [facility] Work Phone: 10-19-2014 13:10-0500 Pulse (Heart Rate) 70 /min Maribell Sageadi [facility]; [facility] Work Phone: Comment on above: Pattern: Regular 10-19-2014 13:10-0500 Pulse Oximetry 98 % Maribell Sageadi [facility]; [facility] Work Phone: Comment on above: Room air 10-19-2014 13:10-0500 Respiratory Rate 20 /min Maribell Sageadi [facility]; [facility] Work Phone: Comment on above: Pattern: Unlabored 09-17-2014 12:06-0500 BMI (Body Mass Index) 21.97 kg/m2 Maribell Sageadi [facility]; [facility] Work Phone: 09-17-2014 12:06-0500 Body Temperature 97.1 [degF] Maribell Isrraelyovanyadi [facility]; [facility] Work Phone: Comment on above: Method: Temporal 09-17-2014 12:06-0500 Body weight 59.88 kg Maribell Sageadi [facility]; [facility] Work Phone: 09-17-2014 12:06-0500 BP Diastolic 70 mm[Hg] Maribell Arcosyovanyadi [facility]; [facility] Work Phone: Comment on above: Patient Position: Sitting; Cuff Location : Left Arm; Cuff Size: Standard 09-17-2014 12:06-0500 BP Systolic 114 mm[Hg] [facility]; [facility] Work Phone: Comment on above: Patient Position: Sitting; Cuff Location : Left Arm; Cuff Size: Standard 09-17-2014 12:06-0500 BSA (Body Surface Area) 1.66 m2 [facility]; [facility] Work Phone: 09-17-2014 12:06-0500 [facility] Work Phone: 09-17-2014 12:06-0500 Pulse (Heart Rate) 70 /min [facility] Work Phone: Comment on above: Pattern: Regular 09-17-2014 12:06-0500 Respiratory Rate 20 /min [facility]; [facility] Work Phone: Comment on above: Pattern: Unlabored 08-27-2014 14:03-0400 BMI (Body Mass Index) 22.04 kg/m2 [facility]; [facility] Work Phone: 08-27-2014 14:03-0400 Body weight 60.07 kg [facility]; [facility] Work Phone: 08-27-2014 14:03-0400 BP Diastolic 70 mm[Hg] [facility] Work Phone: Comment on above: Patient Position: Sitting; Cuff Location : Left Arm; Cuff Size: Standard 08-27-2014 14:03-0400 BP Systolic 128 mm[Hg] [facility] Work Phone: Comment on above: Patient Position: Sitting; Cuff Location : Left Arm; Cuff Size: Standard 08-27-2014 14:03-0400 BSA (Body Surface Area) 1.66 m2 [facility]; [facility] Work Phone: 08-27-2014 14:030400 Height 165.1 cm [facility] Work Phone: 08-27-2014 14:03-0400 Pulse (Heart Rate) 70 /min Maribell Sage [facility]; [facility] Work Phone: Comment on above: Pattern: Regular 08-27-2014 14:03-0400 Pulse Oximetry 98 % Maribell Kwok [facility]; [facility] Work Phone: Comment on above: Room air 08-27-2014 14:03-0400 Respiratory Rate 18 /min Maribell Kwok [facility]; [facility] Work Phone: Comment on above: Pattern: Unlabored 01-23-2014 11:24-0400 BMI (Body Mass Index) 21.97 kg/m2 Maribell Kwok [facility]; [facility] Work Phone: 01-23-2014 11:24-0400 Body weight 59.88 kg [facility] Work Phone: 01-23-2014 11:24-0400 BP Diastolic 68 mm[Hg] [facility]; [facility] Work Phone: Comment on above: Patient Position: Sitting; Cuff Location : Left Arm; Cuff Size: Standard 01-23-2014 11:24-0400 BP Systolic 115 mm[Hg] Maribell Sage [facility]; [facility] Work Phone: Comment on above: Patient Position: Sitting; Cuff Location : Left Arm; Cuff Size: Standard 01-23-2014 11:24-0400 BSA (Body Surface Area) 1.66 m2 [facility]; [facility] Work Phone: 01-23-2014 11:24-0400 Height 165.1 cm [facility]; [facility] Work Phone: 01-23-2014 11:24-0400 Pulse (Heart Rate) 69 /min Maribell Kwok [facility]; [facility] Work Phone: Comment on above: Pattern: Regular 01-23-2014 11:24-0400 Pulse Oximetry 98 % Maribell Isrraelyovanyadi [facility]; [facility] Work Phone: Comment on above: Room air 01-23-2014 11:24-0400 Respiratory Rate 16 /min Maribell Sundar [facility]; [facility] Work Phone: Comment on above: Pattern: Unlabored 10-27-2013 12:49-0500 BMI (Body Mass Index) 22.46 kg/m2 [facility]; [facility] Work Phone: 10-27-2013 12:49-0500 Body Temperature 97.6 [degF] Maribell Kwok [facility]; [facility] Work Phone: Comment on above: Method: Oral 10-27-2013 12:49-0500 Body weight 61.24 kg Maribell Sageadi [facility]; [facility] Work Phone: 10-27-2013 12:49-0500 BP Diastolic 74 mm[Hg] Maribell Kwok [facility]; [facility] Work Phone: Comment on above: Patient Position: Sitting; Cuff Location : Left Arm; Cuff Size: Standard 10-27-2013 12:49-0500 BP Systolic 114 mm[Hg] Maribell Kwok [facility]; [facility] Work Phone: Comment on above: Patient Position: Sitting; Cuff Location : Left Arm; Cuff Size: Standard 10-27-2013 12:49-0500 BSA (Body Surface Area) 1.67 m2 Maribell Kwok [facility]; [facility] Work Phone: 10-27-2013 12:49-0500 Height 165.1 cm Maribell Kwok [facility]; [facility] Work Phone: 10-27-2013 12:49-0500 Pulse (Heart Rate) 70 /min Maribell Kwok [facility]; [facility] Work Phone: Comment on above: Pattern: Regular 10-27-2013 12:49-0500 Respiratory Rate 20 /min Maribell Sundar [facility]; [facility] Work Phone: Comment on above: Pattern: Unlabored 07-27-2013 09:06-0400 BMI (Body Mass Index) 23.63 kg/m2 Maribell Isrraelyovanyadi [facility]; [facility] Work Phone: 07-27-2013 09:06-0400 Body Temperature 97.6 [degF] Maribell Sundar [facility]; [facility] Work Phone: Comment on above: Method: Oral 07-27-2013 09:06-0400 Body weight 64.41 kg Maribellronny Sageadi [facility]; [facility] Work Phone: 07-27-2013 09:06-0400 BP Diastolic 76 mm[Hg] Maribell Kwok [facility]; [facility] Work Phone: Comment on above: Patient Position: Sitting; Cuff Location : Left Arm; Cuff Size: Standard 07-27-2013 09:06-0400 BP Systolic 116 mm[Hg] Maribell Isrraelyovanyadi [facility]; [facility] Work Phone: Comment on above: Patient Position: Sitting; Cuff Location : Left Arm; Cuff Size: Standard 07-27-2013 09:06-0400 BSA (Body Surface Area) 1.71 m2 Maribell Sundar [facility]; [facility] Work Phone: 07-27-2013 09:06-0400 Height 165.1 cm Maribell Kwok [facility]; [facility] Work Phone: 07-27-2013 09:06-0400 Pulse (Heart Rate) 74 /min Maribell Kwok [facility]; [facility] Work Phone: Comment on above: Pattern: Regular 07-27-2013 09:06-0400 Respiratory Rate 20 /min Maribell Kwok [facility]; [facility] Work Phone: Comment on above: Pattern: Unlabored 07-04-2013 12:05-0400 Body Temperature 96.4 [degF] Maribell Kwok [facility]; [facility] Work Phone: Comment on above: Method: Temporal 07-04-2013 12:05-0400 BP Diastolic 74 mm[Hg] Maribell Sageadi [facility]; [facility] Work Phone: Comment on above: Patient Position: Sitting; Cuff Location : Left Arm; Cuff Size: Standard 07-04-2013 12:05-0400 BP Systolic 138 mm[Hg] Maribell Sageadi [facility]; [facility] Work Phone: Comment on above: Patient Position: Sitting; Cuff Location : Left Arm; Cuff Size: Standard 07-04-2013 12:05-0400 Pulse (Heart Rate) 96 /min Maribell Sageadi [facility]; [facility] Work Phone: Comment on above: Pattern: Regular 07-04-2013 12:05-0400 Pulse Oximetry 98 % Maribell Sageadi [facility]; [facility] Work Phone: Comment on above: Room air 07-04-2013 12:05-0400 Respiratory Rate 16 /min Maribell Sageadi [facility]; [facility] Work Phone: Comment on above: Pattern: Unlabored 05-22-2013 12:54-0400 BMI (Body Mass Index) 23.96 kg/m2 [facility]; [facility] Work Phone: 05-22-2013 12:54-0400 Body Temperature 97.9 [degF] Maribellronny Sageadi [facility]; [facility] Work Phone: Comment on above: Method: Oral 05-22-2013 12:54-0400 Body weight 65.32 kg Maribell Sageadi [facility]; [facility] Work Phone: 05-22-2013 12:54-0400 BP Diastolic 78 mm[Hg] Maribell Kwok [facility]; [facility] Work Phone: Comment on above: Patient Position: Sitting; Cuff Location : Left Arm; Cuff Size: Standard 05-22-2013 12:54-0400 BP Systolic 110 mm[Hg] [facility]; [facility] Work Phone: Comment on above: Patient Position: Sitting; Cuff Location : Left Arm; Cuff Size: Standard 05-22-2013 12:54-0400 BSA (Body Surface Area) 1.72 m2 Maribell Kwok [facility]; [facility] Work Phone: 05-22-2013 12:54-0400 Height 165.1 cm [facility]; [facility] Work Phone: 05-22-2013 12:54-0400 Pulse (Heart Rate) 68 /min [facility]; [facility] Work Phone: Comment on above: Pattern: Regular 05-22-2013 12:54-0400 Respiratory Rate 18 /min [facility]; [facility] Work Phone: Comment on above: Pattern: Unlabored 03-06-2013 14:46-0400 BMI (Body Mass Index) 23.96 kg/m2 Maribell Kwok [facility]; [facility] Work Phone: 03-06-2013 14:46-0400 Body Temperature 98.2 [degF] Maribell Kwok [facility]; [facility] Work Phone: Comment on above: Method: Temporal 03-06-2013 14:46-0400 Body weight 65.32 kg Maribell Kwok [facility]; [facility] Work Phone: 03-06-2013 14:46-0400 BP Diastolic 72 mm[Hg] [facility]; [facility] Work Phone: Comment on above: Patient Position: Sitting; Cuff Location : Left Arm; Cuff Size: Standard 03-06-2013 14:46-0400 BP Systolic 114 mm[Hg] Maribell Kwok [facility]; [facility] Work Phone: Comment on above: Patient Position: Sitting; Cuff Location : Left Arm; Cuff Size: Standard 03-06-2013 14:46-0400 BSA (Body Surface Area) 1.72 m2 [facility]; [facility] Work Phone: 03-06-2013 14:46-0400 Height 165.1 cm [facility]; [facility] Work Phone: 03-06-2013 14:46-0400 Pulse (Heart Rate) 80 /min [facility]; [facility] Work Phone: Comment on above: Pattern: Regular 03-06-2013 14:46-0400 Pulse Oximetry 95 % [facility]; [facility] Work Phone: Comment on above: Room air 03-06-2013 14:46-0400 Respiratory Rate 16 /min [facility]; [facility] Work Phone: Comment on above: Pattern: Unlabored 02-16-2013 10:00-0400 BMI (Body Mass Index) 23.96 kg/m2 [facility]; [facility] Work Phone: 02-16-2013 10:00-0400 Body Temperature 97.6 [degF] [facility]; [facility] Work Phone: Comment on above: Method: Oral 02-16-2013 10:00-0400 Body weight 65.32 kg [facility]; [facility] Work Phone: 02-16-2013 10:00-0400 BP Diastolic 68 mm[Hg] [facility]; [facility] Work Phone: Comment on above: Patient Position: Sitting; Cuff Location : Left Arm; Cuff Size: Standard 02-16-2013 10:00-0400 BP Systolic 112 mm[Hg] [facility]; [facility] Work Phone: Comment on above: Patient Position: Sitting; Cuff Location : Left Arm; Cuff Size: Standard 02-16-2013 10:00-0400 BSA (Body Surface Area) 1.72 m2 Maribell [facility]; [facility] Work Phone: 02-16-2013 10:00-0400 Height 165.1 cm [facility]; [facility] Work Phone: 02-16-2013 10:00-0400 Pulse (Heart Rate) 64 /min Maribell [facility]; [facility] Work Phone: Comment on above: Pattern: Regular 02-16-2013 10:00-0400 Respiratory Rate 18 /min Maribell [facility]; [facility] Work Phone: Comment on above: Pattern: Unlabored 11-25-2012 13:35-0500 BMI (Body Mass Index) 23.96 kg/m2 [facility]; [facility] Work Phone: 11-25-2012 13:35-0500 Body Temperature 97.8 [degF] [facility]; [facility] Work Phone: Comment on above: Method: Oral 11-25-2012 13:35-0500 Body weight 65.32 kg [facility]; [facility] Work Phone: 11-25-2012 13:35-0500 BP Diastolic 70 mm[Hg] Maribell [facility]; [facility] Work Phone: Comment on above: Patient Position: Sitting; Cuff Location : Left Arm; Cuff Size: Standard 11-25-2012 13:35-0500 BP Systolic 110 mm[Hg] [facility]; [facility] Work Phone: Comment on above: Patient Position: Sitting; Cuff Location : Left Arm; Cuff Size: Standard 11-25-2012 13:35-0500 BSA (Body Surface Area) 1.72 m2 Maribell [facility]; [facility] Work Phone: 11-25-2012 13:35-0500 Height 165.1 cm [facility]; [facility] Work Phone: 11-25-2012 13:35-0500 Pulse (Heart Rate) 62 /min Maribell Sage [facility]; [facility] Work Phone: Comment on above: Pattern: Regular 11-25-2012 13:35-0500 Respiratory Rate 18 /min Maribell Sage [facility]; [facility] Work Phone: Comment on above: Pattern: Unlabored 08-22-2012 13:49-0400 BMI (Body Mass Index) 23.8 kg/m2 Maribell Sageadi [facility]; [facility] Work Phone: 08-22-2012 13:49-0400 Body Temperature 97.9 [degF] [facility]; [facility] Work Phone: Comment on above: Method: Oral 08-22-2012 13:49-0400 Body weight 64.86 kg Maribell Sage [facility]; [facility] Work Phone: 08-22-2012 13:49-0400 BP Diastolic 80 mm[Hg] [facility]; [facility] Work Phone: Comment on above: Patient Position: Sitting; Cuff Location : Left Arm; Cuff Size: Standard 08-22-2012 13:49-0400 BP Systolic 114 mm[Hg] [facility]; [facility] Work Phone: Comment on above: Patient Position: Sitting; Cuff Location : Left Arm; Cuff Size: Standard 08-22-2012 13:49-0400 BSA (Body Surface Area) 1.72 m2 Maribellronny Sage [facility]; [facility] Work Phone: 08-22-2012 13:49-0400 Height 165.1 cm [facility]; [facility] Work Phone: 08-22-2012 13:49-0400 Pulse (Heart Rate) 64 /min [facility]; [facility] Work Phone: Comment on above: Pattern: Regular 08-22-2012 13:49-0400 Respiratory Rate 20 /min Maribell Kwok [facility]; [facility] Work Phone: Comment on above: Pattern: Unlabored 02-16-2012 10:44-0400 BMI (Body Mass Index) 23.96 kg/m2 Maribell Kwok [facility]; [facility] Work Phone: 02-16-2012 10:44-0400 Body Temperature 97.9 [degF] Maribell Kwok [facility]; [facility] Work Phone: Comment on above: Method: Oral 02-16-2012 10:44-0400 Body weight 65.32 kg Maribell Kwok [facility]; [facility] Work Phone: 02-16-2012 10:44-0400 BP Diastolic 60 mm[Hg] [facility]; [facility] Work Phone: Comment on above: Patient Position: Sitting; Cuff Location : Left Arm; Cuff Size: Standard 02-16-2012 10:44-0400 BP Systolic 102 mm[Hg] [facility]; [facility] Work Phone: Comment on above: Patient Position: Sitting; Cuff Location : Left Arm; Cuff Size: Standard 02-16-2012 10:44-0400 BSA (Body Surface Area) 1.72 m2 [facility]; [facility] Work Phone: 02-16-2012 10:44-0400 Height 165.1 cm [facility]; [facility] Work Phone: 02-16-2012 10:44-0400 Pulse (Heart Rate) 60 /min [facility]; [facility] Work Phone: Comment on above: Pattern: Regular 02-16-2012 10:44-0400 Respiratory Rate 18 /min [facility]; [facility] Work Phone: Comment on above: Pattern: Unlabored 10-02-2011 09:58-0500 BMI (Body Mass Index) 24.46 kg/m2 Maribell Sagei [employer] [facility]; [facility] Work Phone: 10-02-2011 09:58-0500 Body Temperature 97.9 [degF] Maribell Sagei [facility]; [facility] Work Phone: Comment on above: Method: Oral 10-02-2011 09:58-0500 Body weight 66.68 kg Maribell Sagei [facility]; [facility] Work Phone: 10-02-2011 09:58-0500 BP Diastolic 64 mm[Hg] Maribell Boneyovanyi [facility]; [facility] Work Phone: Comment on above: Patient Position: Sitting; Cuff Location : Left Arm; Cuff Size: Standard 10-02-2011 09:58-0500 BP Systolic 122 mm[Hg] Maribell Sagei [facility]; [facility] Work Phone: Comment on above: Patient Position: Sitting; Cuff Location : Left Arm; Cuff Size: Standard 10-02-2011 09:58-0500 BSA (Body Surface Area) 1.74 m2 Maribell Sagei [facility]; [facility] Work Phone: 10-02-2011 09:58-0500 Height 165.1 cm Maribell Sageadi [facility]; [facility] Work Phone: 10-02-2011 09:58-0500 Pulse (Heart Rate) 72 /min Maribell Sagei [facility]; [facility] Work Phone: Comment on above: Pattern: Regular 10-02-2011 09:58-0500 Respiratory Rate 16 /min Maribell Sagei [facility]; [facility] Work Phone: Comment on above: Pattern: Unlabored 06-02-2011 10:29-0400 BMI (Body Mass Index) 24.46 kg/m2 Maribell Sagei [employer] [facility]; [facility] Work Phone: 06-02-2011 10:29-0400 Body Temperature 98 [degF] Maribell Kwok [facility]; [facility] Work Phone: 06-02-2011 10:29-0400 Body weight 66.68 kg Maribell wKok [facility]; [facility] Work Phone: 06-02-2011 10:29-0400 BP Diastolic 72 mm[Hg] Maribell Sageadi [facility]; [facility] Work Phone: Comment on above: Patient Position: Sitting; Cuff Location : Left Arm; Cuff Size: Standard 06-02-2011 10:29-0400 BP Systolic 104 mm[Hg] Maribell Kwok [facility]; [facility] Work Phone: Comment on above: Patient Position: Sitting; Cuff Location : Left Arm; Cuff Size: Standard 06-02-2011 10:290400 BSA (Body Surface Area) 1.74 m2 Maribell Sageadi [facility]; [facility] Work Phone: 06-02-2011 10:29-0400 Height 165.1 cm [facility]; [facility] Work Phone: 06-02-2011 10:29-0400 Pulse (Heart Rate) 68 /min Maribell Sageadi [facility]; [facility] Work Phone: Comment on above: Pattern: Regular 06-02-2011 10:29-0400 Respiratory Rate 16 /min Maribell Sageadi [facility]; [facility] Work Phone: Comment on above: Pattern: Unlabored 04-14-2011 09:42-0400 BMI (Body Mass Index) 24.13 kg/m2 Maribell Kwok [facility]; [facility] Work Phone: 04-14-2011 09:42-0400 Body Temperature 98.2 [degF] Maribell Sageadi [facility]; [facility] Work Phone: Comment on above: Method: Oral 04-14-2011 09:42-0400 Body weight 65.77 kg Maribellronny Sageadi [facility]; [facility] Work Phone: 04-14-2011 09:42-0400 BP Diastolic 70 mm[Hg] Maribell [facility]; [facility] Work Phone: Comment on above: Patient Position: Sitting; Cuff Location : Left Arm; Cuff Size: Standard 04-14-2011 09:42-0400 BP Systolic 104 mm[Hg] [facility]; [facility] Work Phone: Comment on above: Patient Position: Sitting; Cuff Location : Left Arm; Cuff Size: Standard 04-14-2011 09:42-0400 BSA (Body Surface Area) 1.73 m2 Maribell [facility]; [facility] Work Phone: 04-14-2011 09:42-0400 Height 165.1 cm [facility]; [facility] Work Phone: 04-14-2011 09:42-0400 Pulse (Heart Rate) 64 /min [facility]; [facility] Work Phone: Comment on above: Pattern: Regular 04-14-2011 09:42-0400 Respiratory Rate 18 /min [facility]; [facility] Work Phone: Comment on above: Pattern: Unlabored 03-24-2011 10:50-0400 BMI (Body Mass Index) 24.13 kg/m2 Maribell Kwok [facility]; [facility] Work Phone: 03-24-2011 10:50-0400 Body Temperature 97.6 [degF] [facility]; [facility] Work Phone: Comment on above: Method: Oral 03-24-2011 10:50-0400 Body weight 65.77 kg [facility]; [facility] Work Phone: 03-24-2011 10:50-0400 BP Diastolic 78 mm[Hg] [facility]; [facility] Work Phone: Comment on above: Patient Position: Sitting; Cuff Location : Left Arm; Cuff Size: Standard 03-24-2011 10:50-0400 BP Systolic 118 mm[Hg] [facility]; [facility] Work Phone: Comment on above: Patient Position: Sitting; Cuff Location : Left Arm; Cuff Size: Standard 03-24-2011 10:50-0400 BSA (Body Surface Area) 1.73 m2 [facility]; [facility] Work Phone: 03-24-2011 10:50-0400 Height 165.1 cm [facility]ell [facility]; [facility] Work Phone: 03-24-2011 10:50-0400 Pulse (Heart Rate) 68 /min [facility]; [facility] Work Phone: Comment on above: Pattern: Regular 03-24-2011 10:50-0400 Respiratory Rate 18 /min [facility]; [facility] Work Phone: Comment on above: Pattern: Unlabored 09-16-2010 11:50-0500 BMI (Body Mass Index) 24.13 kg/m2 [facility]; [facility] Work Phone: 09-16-2010 11:50-0500 Body Temperature 97.6 [degF] [facility]; [facility] Work Phone: Comment on above: Method: Oral 09-16-2010 11:50-0500 Body weight 65.77 kg Maribell Sage [facility]; [facility] Work Phone: 09-16-2010 11:50-0500 BP Diastolic 80 mm[Hg] [facility]; [facility] Work Phone: Comment on above: Patient Position: Sitting; Cuff Location : Left Arm; Cuff Size: Standard 09-16-2010 11:50-0500 BP Systolic 118 mm[Hg] [facility]; [facility] Work Phone: Comment on above: Patient Position: Sitting; Cuff Location : Left Arm; Cuff Size: Standard 09-16-2010 11:50-0500 BSA (Body Surface Area) 1.73 m2 Maribell Kwok [facility]; [facility] Work Phone: 09-16-2010 11:50-0500 Height 165.1 cm Maribell Kwok [facility]; [facility] Work Phone: 09-16-2010 11:50-0500 Pulse (Heart Rate) 68 /min Maribell Kwok [facility]; [facility] Work Phone: Comment on above: Pattern: Regular 09-16-2010 11:50-0500 Respiratory Rate 18 /min Maribell Sagei [facility]; [facility] Work Phone: Comment on above: Pattern: Unlabored 06-20-2010 10:45-0400 Body Temperature 98 [degF] Maribell Sagei [facility]; [facility] Work Phone: Comment on above: Method: Oral 06-20-2010 10:45-0400 Body weight 66.88 kg Maribell Kwok [facility]; [facility] Work Phone: 06-20-2010 10:45-0400 BP Diastolic 78 mm[Hg] Maribell Kwok [facility]; [facility] Work Phone: Comment on above: Patient Position: Sitting; Cuff Location : Left Arm; Cuff Size: Standard 06-20-2010 10:45-0400 BP Systolic 120 mm[Hg] Maribell Kwok [facility]; [facility] Work Phone: Comment on above: Patient Position: Sitting; Cuff Location : Left Arm; Cuff Size: Standard 06-20-2010 10:45-0400 Pulse (Heart Rate) 76 /min Maribell Kwok [facility]; [facility] Work Phone: Comment on above: Pattern: Regular 06-20-2010 10:45-0400 Respiratory Rate 18 /min Maribell Sagei [facility]; [facility] Work Phone: Comment on above: Pattern: Unlabored 03-25-2010 08:09-0400 Body Temperature 97.4 [degF] Maribell Sagei [facility]; [facility] Work Phone: 03-25-2010 08:09-0400 BP Diastolic 76 mm[Hg] [facility]ell [facility]; [facility] Work Phone: Comment on above: Patient Position: Sitting; Cuff Location : Left Arm; Cuff Size: Large 03-25-2010 08:09-0400 BP Systolic 104 mm[Hg] Maribell [facility]; [facility] Work Phone: Comment on above: Patient Position: Sitting; Cuff Location : Left Arm; Cuff Size: Large 03-25-2010 08:09-0400 Pulse (Heart Rate) 78 /[facility]; [facility] Work Phone: Comment on above: Pattern: Regular 03-25-2010 08:09-0400 Respiratory Rate 16 /min Maribell [facility]; [facility] Work Phone: Comment on above: Pattern: Unlabored 03-14-2010 10:51-0400 Body weight 66.23 kg [facility]ell [facility]; [facility] Work Phone: 03-14-2010 10:51-0400 BP Diastolic 78 mm[Hg] Maribell [facility]; [facility] Work Phone: Comment on above: Patient Position: Sitting; Cuff Location : Left Arm; Cuff Size: Standard 03-14-2010 10:51-0400 BP Systolic 118 mm[Hg] Mar[facility]ell [facility]; [facility] Work Phone: Comment on above: Patient Position: Sitting; Cuff Location : Left Arm; Cuff Size: Standard 03-14-2010 10:51-0400 Pulse (Heart Rate) 68 /min Maribell [facility]; [facility] Work Phone: Comment on above: Pattern: Regular 03-14-2010 10:51-0400 Respiratory Rate 18 /min Maribell [facility]; [facility] Work Phone: Comment on above: Pattern: Unlabored 02-11-2010 14:56-0400 Body weight 66.23 kg Maribell Sage [facility]; [facility] Work Phone: 02-11-2010 14:56-0400 BP Diastolic 78 mm[Hg] Maribell Bonei [facility]; [facility] Work Phone: Comment on above: Patient Position: Sitting; Cuff Location : Left Arm; Cuff Size: Standard 02-11-2010 14:56-0400 BP Systolic 118 mm[Hg] Maribell Bonei [facility]; [facility] Work Phone: Comment on above: Patient Position: Sitting; Cuff Location : Left Arm; Cuff Size: Standard 02-11-2010 14:56-0400 Pulse (Heart Rate) 64 /min [facility]ell [facility]; [facility] Work Phone: Comment on above: Pattern: Regular 02-11-2010 14:56-0400 Respiratory Rate 18 /min Maribell Bonei [facility]; [facility] Work Phone: Comment on above: Pattern: Unlabored 10-29-2009 10:44-0500 Body weight 66.68 kg Maribell [facility]new [facility]; [facility] Work Phone: 10-29-2009 10:44-0500 BP Diastolic 74 mm[Hg] Maribell Bonei [facility]; [facility] Work Phone: Comment on above: Patient Position: Sitting; Cuff Location : Left Arm; Cuff Size: Standard 10-29-2009 10:44-0500 BP Systolic 110 mm[Hg] Maribell Bonei [facility]; [facility] Work Phone: Comment on above: Patient Position: Sitting; Cuff Location : Left Arm; Cuff Size: Standard 10-29-2009 10:44-0500 Pulse (Heart Rate) 64 /min Maribell Bonei [facility]; [facility] Work Phone: Comment on above: Pattern: Regular 10-29-2009 10:44-0500 Respiratory Rate 16 /min Maribell Bonei [facility]; [facility] Work Phone: Comment on above: Pattern: Unlabored 07-30-2009 10:30-0400 Body weight 66.23 kg Maribell Sage [facility]; [facility] Work Phone: 07-30-2009 10:30-0400 BP Diastolic 78 mm[Hg] Maribell Bonei [facility]; [facility] Work Phone: Comment on above: Patient Position: Sitting; Cuff Location : Left Arm; Cuff Size: Standard 07-30-2009 10:30-0400 BP Systolic 116 mm[Hg] Maribell Bonei [facility]; [facility] Work Phone: Comment on above: Patient Position: Sitting; Cuff Location : Left Arm; Cuff Size: Standard 07-30-2009 10:30-0400 Head Circumference 0 cm [facility]ny [facility]; [facility] Work Phone: 07-30-2009 10:30-0400 Height 0 cm [facility]ellronny [facility]new [facility]; [facility] Work Phone: 07-30-2009 10:30-0400 Pulse (Heart Rate) 78 /min Maribell Sage [facility]; [facility] Work Phone: Comment on above: Pattern: Regular 07-30-2009 10:30-0400 Respiratory Rate 16 /min Maribell Sage [facility]; [facility] Work Phone: Comment on above: Pattern: Unlabored 06-13-2009 13:11-0400 Body weight 65.77 kg [facility]; [facility] Work Phone: 06-13-2009 13:11-0400 BP Diastolic 64 mm[Hg] Maribell Bonei [facility]; [facility] Work Phone: Comment on above: Patient Position: Supine; Cuff Location: Left Arm; Cuff Size: Standard 06-13-2009 13:11-0400 BP Systolic 100 mm[Hg] Maribell Bonei [facility]; [facility] Work Phone: Comment on above: Patient Position: Supine; Cuff Location: Left Arm; Cuff Size: Standard 06-13-2009 13:11-0400 Head Circumference 0 cm [facility]; [facility] Work Phone: 06-13-2009 13:11-0400 Height 0 cm Maribell Bonei [facility]; [facility] Work Phone: 06-13-2009 13:11-0400 Pulse (Heart Rate) 110 /min Maribell Bonei [facility]; [facility] Work Phone: Comment on above: Pattern: Regular 06-13-2009 13:11-0400 Respiratory Rate 16 /min Maribell Bonei [facility]; [facility] Work Phone: Comment on above: Pattern: Unlabored 06-06-2009 11:46-0400 [facility]; [facility] Work Phone: 06-06-2009 11:46-0400 BP Diastolic 70 mm[Hg] [facility]ell [facility]; [facility] Work Phone: Comment on above: Patient Position: Sitting; Cuff Location : Left Arm; Cuff Size: Standard 06-06-2009 11:46-0400 BP Systolic 114 mm[Hg] [facility]; [facility] Work Phone: Comment on above: Patient Position: Sitting; Cuff Location : Left Arm; Cuff Size: Standard 06-06-2009 11:46-0400 Head Circumference 0 cm [facility]ell [facility]; [facility] Work Phone: 06-06-2009 11:46-0400 Height 0 cm [facility]; [facility] Work Phone: 06-06-2009 11:46-0400 Pulse (Heart Rate) 76 /min [facility]ell [facility]; [facility] Work Phone: Comment on above: Pattern: Regular 06-06-2009 11:46-0400 Respiratory Rate 16 /min Maribell Bonei [facility]; [facility] Work Phone: Comment on above: Pattern: Unlabored 04-29-2009 10:05-0400 Body weight 65.77 kg Maribell Sage [facility]; [facility] Work Phone: 04-29-2009 10:05-0400 BP Diastolic 72 mm[Hg] [facility]ell [facility]; [facility] Work Phone: Comment on above: Patient Position: Sitting; Cuff Location : Left Arm; Cuff Size: Standard 04-29-2009 10:05-0400 BP Systolic 118 mm[Hg] [facility]new [facility]; [facility] Work Phone: Comment on above: Patient Position: Sitting; Cuff Location : Left Arm; Cuff Size: Standard 04-29-2009 10:05-0400 Head Circumference [facility]; [facility] Work Phone: 04-29-2009 10:05-0400 Height [facility]; [facility] Work Phone: 04-29-2009 10:05-0400 Pulse (Heart Rate) 70 /min [facility]; [facility] Work Phone: Comment on above: Pattern: Regular 04-29-2009 10:05-0400 Respiratory Rate 16 /min [facility]; [facility] Work Phone: Comment on above: Pattern: Unlabored 01-29-2009 10:00-0400 Body weight 0 kg Mar[facility]ellronny Arcosnew [facility]; [facility] Work Phone: 01-29-2009 10:00-0400 BP Diastolic 70 mm[Hg] Maribell [facility]; [facility] Work Phone: Comment on above: Patient Position: Sitting; Cuff Location : Left Arm; Cuff Size: Standard 01-29-2009 10:00-0400 BP Systolic 108 mm[Hg] [facility]ell Isrraelnew [facility]; [facility] Work Phone: Comment on above: Patient Position: Sitting; Cuff Location : Left Arm; Cuff Size: Standard 01-29-2009 10:00-0400 Head Circumference 0 [facility]; [facility] Work Phone: 01-29-2009 10:00-0400 [facility]; [facility] Work Phone: 01-29-2009 10:00-0400 Pulse (Heart Rate) 68 /min [facility]; [facility] Work Phone: Comment on above: Pattern: Regular 01-29-2009 10:00-0400 Respiratory Rate 16 /min [facility]new [facility]; [facility] Work Phone: Comment on above: Pattern: Unlabored 01-15-2009 11:39-0400 Body Temperature 97.6 [degF] [facility]raelnew [facility]; [facility] Work Phone: Comment on above: Method: Oral 01-15-2009 11:39-0400 Body weight 0 [facility]; [facility] Work Phone: 01-15-2009 11:39-0400 BP Diastolic 72 mm[Hg] [facility]; [facility] Work Phone: Comment on above: Patient Position: Sitting; Cuff Location : Left Arm; Cuff Size: Standard 01-15-2009 11:39-0400 BP Systolic 110 mm[Hg] [facility]raelnew [facility]; [facility] Work Phone: Comment on above: Patient Position: Sitting; Cuff Location : Left Arm; Cuff Size: Standard 01-15-2009 11:39-0400 Head Circumference 0 [facility]; [facility] Work Phone: 01-15-2009 11:39-0400 Height 0 cm [facility]; [facility] Work Phone: 01-15-2009 11:39-0400 Pulse (Heart Rate) 72 /min [facility]ell Is[facility]raelnew [facility]; [facility] Work Phone: Comment on above: Pattern: Regular 01-15-2009 11:39-0400 Respiratory Rate 16 /min Maribell Kwok [facility]; [facility] Work Phone: Comment on above: Pattern: Unlabored 09-04-2008 09:42-0500 Body Temperature 97.8 [degF] Maribell Sage [facility]; [facility] Work Phone: Comment on above: Method: Oral 09-04-2008 09:42-0500 Body weight 0 kg Maribell Kwok [facility]; [facility] Work Phone: 09-04-2008 09:42-0500 BP Diastolic 72 mm[Hg] Maribell Sage [facility]; [facility] Work Phone: Comment on above: Patient Position: Sitting; Cuff Location : Left Arm; Cuff Size: Standard 09-04-2008 09:42-0500 BP Systolic 108 mm[Hg] [facility]; [facility] Work Phone: Comment on above: Patient Position: Sitting; Cuff Location : Left Arm; Cuff Size: Standard 09-04-2008 09:42-0500 Head Circumference 0 cm [facility]; [facility] Work Phone: 09-04-2008 09:42-0500 Height 0 cm [facility]; [facility] Work Phone: 09-04-2008 09:42-0500 Pulse (Heart Rate) 60 /min [facility]; [facility] Work Phone: Comment on above: Pattern: Regular 09-04-2008 09:42-0500 Respiratory Rate 16 /min Maribell Kwok [facility]; [facility] Work Phone: Comment on above: Pattern: Unlabored 08-07-2008 10:12-0400 BMI (Body Mass Index) 24.13 kg/m2 [facility]ell Sageadi [facility]; [facility] Work Phone: 08-07-2008 10:12-0400 Body weight 65.77 kg Maribell Arcosyovany [facility]; [facility] Work Phone: 08-07-2008 10:12-0400 BP Diastolic 70 mm[Hg] [facility]; [facility] Work Phone: Comment on above: Patient Position: Sitting; Cuff Location : Left Arm; Cuff Size: Standard 08-07-2008 10:12-0400 BP Systolic 106 mm[Hg] [facility]; [facility] Work Phone: Comment on above: Patient Position: Sitting; Cuff Location : Left Arm; Cuff Size: Standard 08-07-2008 10:12-0400 BSA (Body Surface Area) 1.73 m2 [facility]; [facility] Work Phone: 08-07-2008 10:12-0400 Head Circumference 0 cm [facility]; [facility] Work Phone: 08-07-2008 10:12-0400 Height 165.1 cm [facility]; [facility] Work Phone: 08-07-2008 10:12-0400 Pulse (Heart Rate) 60 /min [facility]; [facility] Work Phone: Comment on above: Pattern: Regular 08-07-2008 10:12-0400 Respiratory Rate 16 /min Maribell [facility]; [facility] Work Phone: Comment on above: Pattern: Unlabored 07-03-2008 09:57-0400 Body Temperature 98.2 [degF] [facility]; [facility] Work Phone: Comment on above: Method: Oral 07-03-2008 09:57-0400 Body weight 0 kg [facility]; [facility] Work Phone: 07-03-2008 09:57-0400 BP Diastolic 68 mm[Hg] [facility]; [facility] Work Phone: Comment on above: Patient Position: Sitting; Cuff Location : Left Arm; Cuff Size: Standard 07-03-2008 09:57-0400 BP Systolic 108 mm[Hg] Maribell Bonei [facility]; [facility] Work Phone: Comment on above: Patient Position: Sitting; Cuff Location : Left Arm; Cuff Size: Standard 07-03-2008 09:57-0400 Head Circumference 0 cm [facility]; [facility] Work Phone: 07-03-2008 09:57-0400 Height 0 cm [facility]; [facility] Work Phone: 07-03-2008 09:57-0400 Pulse (Heart Rate) 68 /min [facility]; [facility] Work Phone: Comment on above: Pattern: Regular 07-03-2008 09:57-0400 Respiratory Rate 16 /[facility]; [facility] Work Phone: Comment on above: Pattern: Unlabored 05-25-2008 10:10-0400 Body weight 65.32 kg [facility]; [facility] Work Phone: 05-25-2008 10:10-0400 BP Diastolic 70 mm[Hg] [facility]; [facility] Work Phone: Comment on above: Patient Position: Sitting; Cuff Location : Left Arm; Cuff Size: Standard 05-25-2008 10:10-0400 BP Systolic 110 mm[Hg] [facility]; [facility] Work Phone: Comment on above: Patient Position: Sitting; Cuff Location : Left Arm; Cuff Size: Standard 05-25-2008 10:10-0400 Head Circumference 0 cm [facility]; [facility] Work Phone: 05-25-2008 10:10-0400 Height 0 cm [facility]; [facility] Work Phone: 05-25-2008 10:10-0400 Pulse (Heart Rate) 72 /min [facility]; [facility] Work Phone: Comment on above: Pattern: Regular 05-25-2008 10:10-0400 Respiratory Rate 18 /min Maribell Boneyovanyi [facility]; [facility] Work Phone: Comment on above: Pattern: Unlabored 05-22-2008 10:07-0400 Body Temperature 97.8 [degF] Maribell Boneyovanyi [facility]; [facility] Work Phone: Comment on above: Method: Oral 05-22-2008 10:0400 Body weight 65.32 kg Maribell Sagei [facility]; [facility] Work Phone: 05-22-2008 10:07-0400 BP Diastolic 68 mm[Hg] Maribell Bonei [facility]; [facility] Work Phone: Comment on above: Patient Position: Sitting; Cuff Location : Left Arm; Cuff Size: Standard 05-22-2008 10:070400 BP Systolic 114 mm[Hg] Maribell Boneyovanyi [facility]; [facility] Work Phone: Comment on above: Patient Position: Sitting; Cuff Location : Left Arm; Cuff Size: Standard 05-22-2008 10:070400 Head Circumference 0 cm Maribell Sage [facility]; [facility] Work Phone: 05-22-2008 10:070400 Height 0 cm Maribell Sagei [facility]; [facility] Work Phone: 05-22-2008 10:07-0400 Pulse (Heart Rate) 62 /min Maribell Sagei [facility]; [facility] Work Phone: Comment on above: Pattern: Regular 05-22-2008 10:070400 Respiratory Rate 16 /min Maribell Boneyovanyi [facility]; [facility] Work Phone: Comment on above: Pattern: Unlabored 02-20-2008 10:230400 Body Temperature 98.2 [degF] Maribell Sagei [facility]; [facility] Work Phone: Comment on above: Method: Oral 02-20-2008 10:0400 Body weight 64.41 kg Maribell Kwok [facility]; [facility] Work Phone: 02-20-2008 10:23-0400 BP Diastolic 74 mm[Hg] [facility]; [facility] Work Phone: Comment on above: Patient Position: Sitting; Cuff Location : Left Arm; Cuff Size: Standard 02-20-2008 10:23-0400 BP Systolic 108 mm[Hg] [facility]; [facility] Work Phone: Comment on above: Patient Position: Sitting; Cuff Location : Left Arm; Cuff Size: Standard 02-20-2008 10:23-0400 Head Circumference 0 cm [facility]; [facility] Work Phone: 02-20-2008 10:23-0400 Height 0 cm [facility]; [facility] Work Phone: 02-20-2008 10:23-0400 Pulse (Heart Rate) 64 /min [facility]; [facility] Work Phone: Comment on above: Pattern: Regular 02-20-2008 10:23-0400 Respiratory Rate 18 /min [facility]; [facility] Work Phone: Comment on above: Pattern: Unlabored 09-13-2007 10:24-0500 Body Temperature 98.4 [degF] [facility]; [facility] Work Phone: Comment on above: Method: Oral 09-13-2007 10:24-0500 Body weight 63.96 kg [facility]; [facility] Work Phone: 09-13-2007 10:24-0500 BP Diastolic 78 mm[Hg] [facility]; [facility] Work Phone: Comment on above: Patient Position: Sitting; Cuff Location : Left Arm; Cuff Size: Standard 09-13-2007 10:24-0500 BP Systolic 120 mm[Hg] [facility]; [facility] Work Phone: Comment on above: Patient Position: Sitting; Cuff Location : Left Arm; Cuff Size: Standard 09-13-2007 10:24-0500 Head Circumference 0 [facility]; [facility] Work Phone: 09-13-2007 10:24-0500 Height 0 cm [facility]; [facility] Work Phone: 09-13-2007 10:24-0500 Pulse (Heart Rate) 74 /min [facility]; [facility] Work Phone: Comment on above: Pattern: Regular 09-13-2007 10:24-0500 Respiratory Rate 18 /min [facility]; [facility] Work Phone: Comment on above: Pattern: Unlabored 06-16-2007 10:08-0400 Body Temperature 97.6 [degF] [facility]; [facility] Work Phone: Comment on above: Method: Oral 06-16-2007 10:08-0400 Body weight 63.5 kg [facility]; [facility] Work Phone: 06-16-2007 10:08-0400 BP Diastolic 76 mm[Hg] [facility]; [facility] Work Phone: Comment on above: Patient Position: Sitting; Cuff Location : Left Arm; Cuff Size: Standard 06-16-2007 10:08-0400 BP Systolic 114 mm[Hg] [facility]; [facility] Work Phone: Comment on above: Patient Position: Sitting; Cuff Location : Left Arm; Cuff Size: Standard 06-16-2007 10:08-0400 Head Circumference 0 cm [facility]; [facility] Work Phone: 06-16-2007 10:08-0400 Height 0 cm [facility]; [facility] Work Phone: 06-16-2007 10:08-0400 Pulse (Heart Rate) 70 /min Maribell Bonezzi [facility]; [facility] Work Phone: Comment on above: Pattern: Regular 06-16-2007 10:08-0400 Respiratory Rate 20 /min [facility]; [facility] Work Phone: Comment on above: Pattern: Unlabored 03-04-2007 09:32-0400 Body Temperature 97.6 [degF] [facility]; [facility] Work Phone: Comment on above: Method: Oral 03-04-2007 09:32-0400 Body weight 0 [facility]; [facility] Work Phone: 03-04-2007 09:32-0400 BP Diastolic 60 mm[Hg] [facility]; [facility] Work Phone: Comment on above: Patient Position: Sitting; Cuff Location : Left Arm; Cuff Size: Standard 03-04-2007 09:32-0400 BP Systolic 110 mm[Hg] [facility]new [facility]; [facility] Work Phone: Comment on above: Patient Position: Sitting; Cuff Location : Left Arm; Cuff Size: Standard 03-04-2007 09:32-0400 Head Circumference 0 [facility]; [facility] Work Phone: 03-04-2007 09:32-0400 Height 0 cm [facility]; [facility] Work Phone: 03-04-2007 09:32-0400 Pulse (Heart Rate) 68 /min [facility]; [facility] Work Phone: Comment on above: Pattern: Regular 03-04-2007 09:32-0400 Respiratory Rate 20 /min Maribell [facility]; [facility] Work Phone: Comment on above: Pattern: Unlabored 02-18-2007 07:12-0400 Body Temperature 97.8 [degF] [facility]; [facility] Work Phone: Comment on above: Method: Oral 02-18-2007 07:12-0400 Body weight 0 kg [facility]; [facility] Work Phone: 02-18-2007 07:12-0400 BP Diastolic 64 mm[Hg] [facility]; [facility] Work Phone: Comment on above: Patient Position: Sitting; Cuff Location : Left Arm; Cuff Size: Standard 02-18-2007 07:12-0400 BP Systolic 108 mm[Hg] [facility]; [facility] Work Phone: Comment on above: Patient Position: Sitting; Cuff Location : Left Arm; Cuff Size: Standard 02-18-2007 07:12-0400 Head Circumference 0 cm [facility]; [facility] Work Phone: 02-18-2007 07:12-0400 Height 0 cm [facility]; [facility] Work Phone: 02-18-2007 07:12-0400 Pulse (Heart Rate) 76 /min [facility]; [facility] Work Phone: Comment on above: Pattern: Regular 02-18-2007 07:12-0400 Respiratory Rate 14 /min [facility]; [facility] Work Phone: Comment on above: Pattern: Unlabored 12-31-2006 11:11-0500 Body weight 63.05 kg [facility]; [facility] Work Phone: 12-31-2006 11:11-0500 BP Diastolic 68 mm[Hg] [facility]; [facility] Work Phone: Comment on above: Patient Position: Sitting; Cuff Location : Left Arm; Cuff Size: Standard 12-31-2006 11:11-0500 BP Systolic 98 mm[Hg] [facility] [facility]; [facility] Work Phone: Comment on above: Patient Position: Sitting; Cuff Location : Left Arm; Cuff Size: Standard 12-31-2006 11:11-0500 Head Circumference 0 cm [facility]; [facility] Work Phone: 12-31-2006 11:11-0500 Height 0 [facility] Work Phone: 12-31-2006 11:11-0500 Pulse (Heart Rate) 66 /[facility]; [facility] Work Phone: Comment on above: Pattern: Regular 12-31-2006 11:11-0500 Respiratory Rate 17 /min [facility]; [facility] Work Phone: Comment on above: Pattern: Unlabored 12-01-2006 09:04-0500 Body Temperature 97.8 [degF] [facility]; [facility] Work Phone: Comment on above: Method: Oral 12-01-2006 09:04-0500 Body weight 63.05 kg [facility]; [facility] Work Phone: 12-01-2006 09:04-0500 BP Diastolic 70 mm[Hg] [facility]; [facility] Work Phone: Comment on above: Patient Position: Sitting; Cuff Location : Left Arm; Cuff Size: Standard 12-01-2006 09:04-0500 BP Systolic 100 mm[Hg] [facility]; [facility] Work Phone: Comment on above: Patient Position: Sitting; Cuff Location : Left Arm; Cuff Size: Standard 12-01-2006 09:04-0500 Head Circumference 0 cm [facility]; [facility] Work Phone: 12-01-2006 09:04-0500 Height 0 cm [facility]; [facility] Work Phone: 12-01-2006 09:04-0500 Pulse (Heart Rate) 68 /min [facility]; [facility] Work Phone: Comment on above: Pattern: Regular 12-01-2006 09:04-0500 Respiratory Rate 16 /min Maribell Arcostorsten [facility]; [facility] Work Phone: Comment on above: Pattern: Unlabored 11-23-2006 10:16-0500 Body Temperature 97.4 [degF] Maribell Arcostorsten [facility]; [facility] Work Phone: Comment on above: Method: Undefined 11-23-2006 10:16-0500 Body weight 63.5 kg Maribell Isrraeltorsten [facility]; [facility] Work Phone: 11-23-2006 10:16-0500 BP Diastolic 72 mm[Hg] Maribell Arcostorsten [facility]; [facility] Work Phone: Comment on above: Patient Position: Sitting; Cuff Location : Left Arm; Cuff Size: Standard 11-23-2006 10:16-0500 BP Systolic 104 mm[Hg] Maribell Isrraeltorsten [facility]; [facility] Work Phone: Comment on above: Patient Position: Sitting; Cuff Location : Left Arm; Cuff Size: Standard 11-23-2006 10:16-0500 Head Circumference 0 cm Maribellronny Arcosyovany [facility]; [facility] Work Phone: 11-23-2006 10:16-0500 Height 0 cm Maribell Isrraeltorsten [facility]; [facility] Work Phone: 11-23-2006 10:16-0500 Pulse (Heart Rate) 72 /min Maribell Isrraeltorsten [facility]; [facility] Work Phone: Comment on above: Pattern: Regular 11-23-2006 10:16-0500 Respiratory Rate 16 /min Maribell Isrraeltorsten [facility]; [facility] Work Phone: Comment on above: Pattern: Undefined Encounters Encounter Date Encounter Type Care Provider Facility Start: 06-01-2025 ambulatory Mary Ponce Facility: [facility] Start: 03-27-2025 Non-patient / Non-visit Dr. Peyman Mora MD -[facility]- Start: 03-27-2025 End: 03-27-[address] Mary Ponce MD Work Phone: [facility] Work Phone: Start: 03-27-2025 End: 03-27-[address] Hugh Carranza MD -Pulmonary Services/Neurology Work Phone: Start: 03-27-2025 End: 03-27-2025 ambulatory Mary Ponce Facility:[facility] Start: 02-15-2025 End: 02-15-[address] Mary Ponce MD Work Phone: [facility] Work Phone: Start: 02-15-2025 End: 02-15-[address] [facility] Work [facility]: Start: 02-15-2025 End: 02-15-[address] Hugh Carranza MD -[place] [facility] Work Phone: Start: 02-15-2025 End: 02-15-2025 ambulatory Mary Ponce Facility:[facility] Start: 02-14-2025 End: 02-15-[address] Mary Ponce MD Work Phone: [facility] Work Phone: Start: 02-14-2025 End: 02-14-2025 Patient encounter [facility] Work [facility]: Start: 02-14-2025 End: 02-14-2025 ambulatory Floyd Bellamy Facility:[facility] Start: 01-15-2025 End: 01-15-2025 Patient encounter procedure Floyd Bellamy DO -[place] [facility] Work Phone: Start: 01-15-2025 End: 01-15-2025 ambulatory Floyd Bellamy Facility:[facility] Start: 12-25-2024 End: 12-25-2024 Emergency department patient visit Dr. Ranjith Vides DO -Emergency Department Work Phone: Start: 12-19-2024 End: 12-19-[address] Hugh Carranza MD -MRI - [facility] Work Phone: Start: 12-19-2024 End: 12-19-2024 [facility] Start: 12-05-2024 End: 12-05-[address] Hugh Carranza MD -Sleep Lab Work Phone: Start: 12-04-2024 End: 12-04-2024 Patient encounter procedure Floyd Bellamy -[place] [facility] Work Phone: Start: 12-04-2024 End: 12-05-2024 [facility] Start: 11-17-2024 End: 11-17-[address] [facility] Work Phone: Start: 11-17-2024 End: 11-17-2024 ambulatory [facility] Facility:[facility] Start: 11-15-2024 End: 11-15-[address] Hugh Carranza MD -[place] [facility] Work Phone: Start: 11-15-2024 End: 11-15-2024 ambulatory [facility] Facility:[facility] Start: 2024 End: 2024 Patient encounter procedure Fallon BAY -Radiology, [facility] Work Phone: Start: 2024 End: 2024 ambulatory Fallon Mckinley Facility:[facility] Start: 10-30-2024 End: 10-30-2024 Patient encounter procedure Felisha BAY [facility] [facility]: Start: 10-30-2024 End: 10-30-2024 Patient encounter status Felisha FUNKC [facility] Start: 10-30-2024 End: 10-30-2024 ambulatory Mary Mied Facility:[facility] Start: 09-25-2024 End: 09-25-2024 [facility] Start: 09-08-2024 End: 09-08-2024 ambulatory [facility] Facility:[facility] Start: 07-29-2024 End: 07-29-2024 Emergency department patient visit Harshal RhodesJeaneth Facility:[facility] Start: 07-21-2024 End: 07-21-2024 ambulatory [facility] Facility:[facility] Start: 06-20-2024 End: 06-20-2024 ambulatory [facility] Facility:[facility] Start: 06-02-2024 End: 06-02-2024 ambulatory [facility] Facility:[facility] Start: 05-08-2024 End: 05-08-2024 ambulatory [facility] Facility:[facility] Start: 10-19-2023 End: 10-19-[address] Mary Ponce Work Phone: [facility] Work Phone: Start: 10-19-2023 End: 10-19-[address] Mary Ponce Work Phone: [facility]-Laboratory Work Phone: Start: 10-11-2023 Non-patient / Non-visit Dr. Mary Ponce Work Phone: [facility] Start: 10-11-2023 End: 10-11-2023 Admission to same day surgery center Dr. Mary Ponce Work Phone: [facility]-Endoscopy Work Phone: Start: 09-24-2023 End: 09-24-[address] Mary Ponce Work Phone: [facility]-Outpatient Breast Imaging Work Phone: Start: 08-30-2023 End: 08-30-[address] Mary Ponce Work Phone: [facility] Work Phone: Start: 08-30-2023 End: 08-30-[address] Mary Ponce Work Phone: [facility]-Medical Out Work Phone: Start: 08-06-2023 End: 08-06-[address] Mary Ponce Work Phone: [facility] Work Phone: Start: 08-03-2023 Non-patient / Non-visit Dr. Mary Ponce Work Phone: [facility] Start: 08-03-2023 End: 08-03-[address] Mary Ponce [facility] Work [facility]: Start: 07-23-2023 End: 07-23-[address] Mary Ponce Work Phone: [facility] Work Phone: Start: 07-09-2023 End: 07-09-[address] Mary Ponce Work Phone: [facility] Work Phone: Start: 07-09-2023 End: 07-09-[address] Mary Ponce Work Phone: [facility] Work Phone: Start: 04-23-2023 Non-patient / Non-visit Dr. Mary Ponce Work Phone: [facility] Start: 04-22-2023 End: 04-22-[address] Mary Ponce Work Phone: [facility] Work Phone: Start: 04-22-2023 End: 04-22-[address] Mary Ponce Work Phone: [facility]-Cat Scan, [facility] Start: 04-13-2023 End: 04-13-[address] Mary Ponce Work Phone: [facility] Work Phone: Start: 04-13-2023 End: 04-13-[address] Mary Ponce Work Phone: [facility]-Laboratory Start: 03-03-2023 End: 03-03-[address] Mary Ponce Work Phone: [facility] Work Phone: Start: 03-03-2023 End: 03-03-[address] Mary Ponce Work Phone: [facility]-Outpatient Bone Densitometry Start: 02-16-2023 End: 02-16-[address] Mary Ponce Work Phone: [facility] Work Phone: Start: 02-16-2023 End: 02-16-[address] Mary Ponce Work Phone: [facility]-Laboratory, [place] [facility] Start: 01-12-2023 End: 01-12-[address] Mary Ponce Work Phone: [facility] Start: 12-18-2022 End: 12-18-[address] Mary Ponce Work Phone: [facility] Gastroenterology Start: 12-03-2022 Non-patient / Non-visit Dr. Mary Ponce Work Phone: [facility] Start: 12-03-2022 End: 12-03-2022 Admission to same day surgery center Dr. Mary Ponce Work Phone: [facility]-Endoscopy Start: 09-23-2022 End: 09-23-[address] Mary Ponce Work Phone: [facility] Work Phone: Start: 09-23-2022 End: 09-23-[address] Mary Ponce Work Phone: [facility]-Outpatient Breast Imaging Start: 09-03-2022 End: 09-03-[address] Mary Ponce Work Phone: [facility] Work Phone: Start: 09-03-2022 End: 09-03-[address] Mary Ponce Work Phone: [facility] Start: 06-03-2022 End: 06-03-[address] Mary Ponce Work Phone: [facility]-Laboratory Start: 06-03-2022 End: 06-03-[address] Mary Ponce Work Phone: [facility] [facility] Start: 06-01-2022 End: 06-01-[address] Mary Ponce Work Phone: [facility] Gastroenterology Start: 03-25-2022 End: 03-25-[address] Mary Ponce Work Phone: [facility]-Laboratory Start: 03-18-2022 End: 03-18-[address] Mary Ponce Work Phone: [facility] Gastroenterology Start: 03-04-2022 Non-patient / Non-visit Dr. Mary Ponce Work Phone: [facility] Start: 03-04-2022 End: 03-04-2022 Admission to same day surgery center Dr. Mary Ponce Work Phone: [facility]-Endoscopy Start: 01-20-2022 End: 01-20-[address] Mary Ponce [facility] Start: 12-03-2021 End: 12-03-[address] Mary Ponce [facility] Start: 12-03-[address] Mary Ponce Work Phone: [facility]-Cardiovascular Services Start: 11-20-2021 End: 11-20-[address] Mary Ponce Work Phone: [facility] Start: 11-18-2021 End: 11-18-[address] Mary Ponce [facility] Start: 11-18-2021 End: 11-18-[address] Mary Ponce Work Phone: [facility] Gastroenterology Start: 10-21-2021 End: 10-21-[address] Mary Ponce Work Phone: [facility] Start: 10-14-2021 End: 10-14-[address] Mary Ponce Work Phone: [facility] Start: 10-07-2021 End: 10-07-[address] Mary Ponce Work Phone: [facility] Start: 02-21-2016 End: 02-27-2016 Office outpatient visit 40 minutes Maribell Kwok [facility] Start: 02-21-2016 End: 02-21-2016 Office outpatient visit 40 minutes Maribell Bonetorsten [facility] Start: 01-10-2016 End: 01-10-2016 Office outpatient visit 40 minutes Maribell Kwok [facility] Start: 12-12-2015 End: 12-12-2015 Phone Encounter Maribell Kwok [facility] [employer] [employer] [facility] Start: 10-18-2015 End: 10-18-2015 Office outpatient visit 25 minutes Maribell Kwok [facility] Start: 08-21-2015 End: 08-21-2015 Office outpatient visit 25 minutes Maribell Kwok [facility] Start: 08-19-2015 End: 08-19-2015 Phone Encounter Maribell Kwok [facility] Start: 07-25-2015 End: 07-26-2015 Periodic preventive med est patient 18-39 yrs Maribell Kwok [facility] Start: 04-19-2015 End: 04-19-2015 Office outpatient visit 40 minutes Maribell Boneyovanyi [facility] Start: 01-18-2015 End: 01-18-2015 Office outpatient visit 15 minutes Maribell Bonetorsten [facility] Start: 12-14-2014 End: 12-14-2014 Historical Summary Maribell Kwok [facility] [facility] Start: 10-19-2014 End: 10-19-2014 Office outpatient visit 10 minutes Maribell Boneyovanyi [facility] Start: 09-17-2014 End: 09-17-2014 Periodic preventive med est patient 40-64yrs Maribell Boneyovanyi [facility] Start: 08-27-2014 End: 08-27-2014 Office outpatient visit 40 minutes Maribell Boneyovanyi [facility] Start: 08-09-2014 End: 08-09-2014 Office outpatient visit 5 minutes Maribell Bonetorsten [facility] Start: 01-23-2014 End: 01-23-2014 Annotation/Addendum Maribell Kwok [facility] [facility] Start: 01-23-2014 End: 01-23-2014 Patient encounter procedure Maribell Kwok [facility] Start: 10-27-2013 End: 10-27-2013 Patient encounter procedure Maribellronny Kwok [facility] Start: 07-27-2013 End: 07-27-2013 Patient encounter procedure Maribell Kwok [facility] Start: 07-04-2013 End: 07-04-2013 Patient encounter procedure Maribell Kwok [facility] Start: 06-08-2013 End: 06-08-2013 Error Encounter Maribell Evans [employer] [facility] [employer] [facility] Start: 05-22-2013 End: 05-22-2013 Patient encounter procedure Maribell Kwok [facility] Internal Medicine Start: 03-06-2013 End: 03-06-2013 Patient encounter procedure Maribell Kwok [facility] Internal Medicine Start: 02-16-2013 End: 02-16-2013 Patient encounter procedure Maribell Kwok [facility] Internal Medicine Start: 12-27-2012 End: 12-27-2012 Lab Order Maribell Kwok [facility] [employer] [facility] Start: 11-25-2012 End: 11-25-2012 Phone Encounter Maribell Kwok [facility] [employer] [facility] [employer] [facility] Start: 11-25-2012 End: 11-25-2012 Patient encounter procedure Maribell Kwok [facility] Internal Medicine Start: 08-22-2012 End: 08-22-2012 Patient encounter procedure Maribell Kwok [facility] Internal Medicine Start: 02-16-2012 End: 02-16-2012 Patient encounter procedure Maribell Kwok [facility] Start: 10-02-2011 End: 10-02-2011 Patient encounter procedure Maribell Kwok [facility] Start: 06-02-2011 End: 06-02-2011 Patient encounter procedure Maribell Kwok [facility] Internal Medicine Start: 04-14-2011 End: 04-14-2011 Patient encounter procedure Maribell Kwok [facility] Internal Medicine Start: 03-24-2011 End: 03-24-2011 Patient encounter procedure Maribell Kwok [facility] Internal Medicine Start: 09-16-2010 End: 09-16-2010 Patient encounter procedure Maribell Kwok [facility] Start: 08-05-2010 End: 08-06-2010 Nursing evaluation of patient and report Maribell Kwok [facility] Internal Medicine Start: 06-20-2010 End: 06-20-2010 Patient encounter procedure Maribell Kwok [facility] Start: 03-25-2010 End: 03-25-2010 Patient encounter procedure Maribell Kwok [facility] Internal Medicine Start: 03-14-2010 End: 03-14-2010 Office outpatient visit 15 minutes Maribell Bonezzi [facility] Start: 02-17-2010 End: 02-17-2010 Annotation/Addendum Maribell Kwok [facility] [employer] [facility] Start: 02-11-2010 End: 02-11-2010 Patient encounter procedure Maribell Kwok [facility] Start: 02-11-2010 End: 02-11-2010 Patient encounter procedure Maribell Kwok [facility] Start: 10-29-2009 End: 10-29-2009 Patient encounter procedure Maribell Kwok [facility] Start: 07-30-2009 End: 07-30-2009 Patient encounter procedure Maribell Kwok [facility] Start: 06-13-2009 End: 06-13-2009 Patient encounter procedure Maribell Kwok [facility] Internal Medicine Start: 06-06-2009 End: 06-06-2009 Patient encounter procedure Maribell Kwok [facility] Internal Medicine Start: 04-29-2009 End: 04-29-2009 Patient encounter procedure Maribell Kwok [facility] Internal Medicine Start: 02-01-2009 End: 02-01-2009 Phone Encounter Maribell Kwok [facility] [employer] [facility] Start: 01-29-2009 End: 01-29-2009 Office outpatient visit 15 minutes Maribell Kwok [facility] Internal Medicine Start: 01-15-2009 End: 01-15-2009 Patient encounter procedure Maribell Kwok [facility] Internal Medicine Start: 09-04-2008 End: 09-04-2008 Office outpatient visit 15 minutes Maribell Kwok [facility] Internal Medicine Start: 08-17-2008 End: 08-17-2008 Nursing evaluation of patient and report Maribell Kwok [facility] Internal Medicine Start: 08-07-2008 End: 08-07-2008 Office outpatient visit 15 minutes Maribell Kwok [facility] Internal Medicine Start: 07-03-2008 End: 07-10-2008 Patient encounter procedure Maribell Kwok [facility] Start: 05-25-2008 End: 05-25-2008 Patient encounter procedure Maribell Kwok [facility] Start: 05-22-2008 End: 05-22-2008 Patient encounter procedure Maribell Kwok [facility] Start: 02-20-2008 End: 02-20-2008 Patient encounter procedure Maribell Kwok [facility] Start: 09-13-2007 End: 09-13-2007 Patient encounter procedure Maribell Kwok [facility] Start: 08-26-2007 End: 08-26-2007 Nursing evaluation of patient and report [facility] Start: 06-16-2007 End: 06-16-2007 [facility] Start: 03-04-2007 End: 03-04-2007 Office outpatient visit 25 minutes Maribell [facility] Internal Medicine Start: 02-18-2007 End: 02-18-2007 [facility] Start: 12-31-2006 End: 12-31-2006 [facility] Start: 12-01-2006 End: 12-01-2006 Patient encounter [facility] Start: 11-23-2006 End: 11-23-2006 [facility] Start: 11-22-2006 End: 11-22-2006 Historical Summary Maribell Bonei [facility] [employer] [facility] Start: 09-20-2006 End: 09-20-2006 Historical Summary [facility] Start: 08-25-2006 End: 08-25-2006 Nursing evaluation of patient and report [facility] Internal Medicine Procedures Date Procedure Procedure Detail Performing Clinician Start: 02-14-2025 Computed tomography of abdomen and pelvis with contrast Dr. Mary Ponce MD Work Phone: Start: 12-25-2024 CT of head without contrast Dr. Mary Ponce MD Work Phone: Start: 12-25-[address] Mary Ponce MD Work Phone: Start: 12-25-2024 Measurement of renal function Dr. Mary Ponce MD Work Phone: Comment on above: GFR Calc Start: 12-25-2024 SARS-CoV-2, Influenz a & RSV (PCR) Dr. Mary Ponce MD Work Phone: Start: 12-19-2024 MRI of brain with contrast Dr. Mary Ponce MD Work Phone: Start: 12-19-2024 MRI of cervical spine Ivan Ponce MD Work Phone: Start: 12-19-2024 MRI of lumbar spine Dr. Mary Ponce MD Work Phone: Start: [address] Mary Ponce MD Work Phone: Start: 09-24-2023 Screening mammography Ivan Ponce Work Phone: Start: 08-03-2023 Radionuclide imaging of perfusion of myocardium under exercise stress Dr. Mary Ponce Work Phone: Start: 04-22-2023 Cardiac computed tomography for calcium scoring Dr. Mary Ponce Work Phone: Start: 03-03-2023 Dual energy X-ray absorptiometry Dr. Mary Ponce Work Phone: Start: 09-23-2022 Screening mammography Ivan Ponce Work Phone: Start: 09-03-2022 Plain X-ray of shoulder Dr. Mary Ponce Work Phone: Start: 03-04-[address] Mary Ponce Work Phone: Start: 03-03-2022 End: 03-03-[address] Mary Ponce Work Phone: Start: 09-04-2015 End: 09-04-2015 Bilat Scrn Digital AND CAD Comments: See Note; NOTES: [facility] Imaging Services [address] [place] [address] Verdana 4d Bilat Scrn Digital AND CAD MR#: [id number] Acct: [id number] Name: DARIELA GRIMES Rep #: [id number] : 1960 F 54 From: Ranulfo Jon MD PCP: Maribell Kwok MD Status: REG CLI Study: Bilat Scrn Digital AND CAD Date of Exam: 09/04/15 Exam# [id number] Ordering Dr: Maribell Kwok MD MAMMOGRAPHY - BILATERAL SCREENING REASON FOR EXAM: Female, 54 years old. Routine annual screening examination. PERTINENT HISTORY: Prior bilateral stereotactic breast biopsies. TECHNIQUE: Digital examination. Mediolateral oblique (MLO) and craniocaudad (CC) views of both breasts were obtained. CAD: CAD was performed on this study. COMPARISON: Comparison is made with prior study dated September 03, 2014 and September 01, 2013. FINDINGS: Breast Composition: The breasts are heterogeneously dense, which may obscure small masses. There are no dominant masses or suspicious calcifications. No other significant abnormalities are identified. There has been no significant change since the prior study. IMPRESSION: Stable bilateral screening mammogram. Yearly follow-up recommended. (A) ASSESSMENT CATEGORY: BIRADS Category 1: Negative. A letter regarding these results will be sent to the patient by the facility within 30 days. Approximately 10% of breast cancers are not detected by mammography. A normal mammogram should not delay biopsy of a clinically suspicious abnormality. Electronically Signed: Ranulfo Jon MD at 12:51 EST Tel [phone], Service support [phone], CC: Maribell Kwok MD Hydraulics Engineer: Signed Maribell Kwok Work Phone: Start: 11-29-2014 End: 11-29-2014 PT Discharge Summary Comments: See Note; NOTES: [facility] Physical Therapy [facility] [address] [place] [address]. [address] [place] [address] Fax REHABILITATION SERVICES DISCHARGE SUMMARY MR#: [id number] Acct: [id number] Name: DARIELA GRIMES Rep #: [id number] : 1960 54 From: Gabriel Woodson Referring DrOwen: Maribell Kwok MD Status: PRE RCR Eval Date: Discharge Date: DATE OF SERVICE: 11/28/2014 PHYSICIAN: Maribell Kwok M.D. DIAGNOSIS: Vertigo. Marcy Grimes was seen in my office for initial evaluation on September 25, 2014 , where she was treated with left barbecue roll for horizontal canal positional vertigo. She followed up about a week later where she had 2 episodes of dizziness in her bed and felt off the rest of that day, but otherwise had been better. She was driving without difficulty. She had negative bilateral Hallpike Javier, negative bilateral roll test. She was little bit put out with increased symptoms with VOR x2 in the busy gym, but was scoring 30/30 on a functional gait assessment and had no real positive tests that day. The plan was to recheck in 2 weeks. She was to call if her situation worsened prior to that; however, she neglected to attend that visit and at this point that has been 6 weeks ago. At this time, I am discontinuing her from my care. I would be happy to see her again in the future if found appropriate by physician. Gabriel Woodson, PT T: [place] JOB: [id number] <Electronically signed by Gbariel Woodson > 11/29/14 0936 CC: Signed Maribell Kwok Start: 09-26-2014 End: 09-26-2014 Inital Evaluation - PT Comments: See Note; NOTES: [facility] Physical Therapy [address] [place] [address] Fax REHABILITATION SERVICES INITIAL EVALUATION MR#: [id number] Acct: [id number] Name: DARIELA GRIMES Rep #: [id number] : 1960 53 From: Gabriel Woodson Referring : Maribell Kwok MD Status: REG RCR Insurance: [facility] Eval Date: DATE OF SERVICE: 09/25/2014 PHYSICIAN: Maribell Kwok M.D. DIAGNOSIS: Vertigo. SUBJECTIVE: Kaila Grimes is a 53-year-old female, who reports that about 1 month ago she got up in the morning and felt like there was weird movement around her. She describes it as vertigo. It lasted for 3-4 days. She went to see her doctor, who ordered MRI and EKG. All of them were okay. It has slowly gotten better and has until recently been worse in the morning, worse if she rolls in bed. Her activities are pretty normal. She has not driven since the end of August. She is not on any medications for this and she does say that she has felt normal pretty much for the last 6 days, seeing doctor about 9 days ago. Her last bout of this weird movement was the day after she saw doctor last time. She says she is not avoiding any activities because of this and she is otherwise healthy. OBJECTIVE: The patient ambulates into physical therapy in no acute distress. She ambulates normally, transfers normally. No signs of imbalance. Able to inspector rubber stamp die Romberg position eyes open 30 seconds, eyes closed 30 seconds. Her ocular motor exam is fairly normal. No signs of problem with gaze. No nystagmus with head shaking. Pursuit and saccades appeared normal. VOR appears normal. There are no symptoms with this. VOR x2 is normal. She has negative head thrust test. Cervical range of motion is within functional limits and without pain. She has negative right and left Hallpike Pound test today. Does have some dizziness, little bit of slight 3-second dizziness with left-sided roll test, which was not apparent with the right-sided test. I am unable to notice nystagmus today, but I do treat her with a left sided barbecue roll based on these subjective complaints. 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 She is appropriate for therapy monitoring with a good prognosis. GOALS: 1. Her dizziness will be abolished for a period of 1 week. 2. She will return to driving. PLAN: At this point, I have treated with the left sided barbecue roll for horizontal canal vertigo and educated her on appropriate expectations. I will follow up with her weekly for 2-4 visits as needed to gradually progress her as needed if her dizziness returns. I have reviewed with her today expectations as well as how to safely return to driving if she goes the next couple of days without any dizziness and she was agreeable to her course of therapy. Gabriel Woodson, PT T: NTS JOB: [id number] <Electronically signed by Gabriel Woodson > 09/26/14 0740 CC: Signed For Medicare only, by signing this I certify the plan of care. ___ Physicians Signature Date Maribell Kwok Start: 09-04-2014 End: 09-04-2014 Nuclear Stress Test - Treadmil Comments: See Note; NOTES: [facility] Imaging Services [address] [place] [address] Nuclear Medicine Report MR#: [id number] Acct: [id number] Name: DARIELA GRIMES Rep #: [id number] : 1960 F 53 From: James Garrido MD PCP: Maribell Kwok MD Status: REG CLI Study: Nuclear Stress Test - Treadmil Date of Exam: 09/04/14 Exam# [id number] Ordering Dr: Kimberly Dye DO EXERCISE TOLERANCE TEST: The patient exercised on a Steven protocol for 7 minutes 45 seconds completing stage 2 and 1 minute 45 seconds of stage 3 achieving a peak heart rate of 173 beats per minute (103% predicted maximum heart rate) and a peak blood pressure of 152/80 mmHg and a peak MET capacity of approximately 9 METS. The baseline ECG demonstrated normal sinus rhythm. The peak exercise ECG demonstrated bdwo-ei-awbf nonspecific ST-segment variability. There were no cardiac dysrhythmias pretest, during exercise, or recovery. The functional capacity was considered average. The patient had no complaint of chest discomfort during exercise or recovery. The examination was discontinued secondary to dyspnea and fatigue. IMPRESSION: 1. Technically adequate (percent predicted maximum heart rate greater than 85%) exercise tolerance test. 2. Peak exercise ECG rahy-sy-ozow nonspecific ST-segment variability. 3. Nuclear images pending. MYOCARDIAL PERFUSION IMAGING STUDY: TECHNIQUE: The patient was injected with 11.7 mCi of Tc99m Cardiolite and subsequently rest SPECT Cardiolite nuclear imaging was obtained in the horizontal long, vertical long, and short axes views. The patient exercised on a Steven protocol for 7 minutes 45 seconds achieving a peak heart rate of 173 beats per minute (103% predicted maximum heart rate) with a peak blood pressure of 152/80 mmHg and a peak MET capacity of approximately 9 METS. The patient was injected with 35.8 mCi of Tc99m Cardiolite and subsequently stress SPECT Cardiolite nuclear imaging was obtained in the horizontal long, vertical long, and short axes views. A gated Cardiolite study at peak stress was obtained. INTERPRETATION: Rest and stress SPECT Cardiolite nuclear imaging both demonstrate areas of extracardiac/hepatic and gastrointestinal tracer uptake, which appears to be much more prominent at rest as opposed to stress. Otherwise, there appears to be relative uniform tracer uptake. There was end systolic thickening and brightening. The gated Cardiolite study demonstrates myocardial thickening and inward wall motion. The reported LVEF was 65%. There are no myocardial perfusion changes considered diagnostic for stress induced myocardial ischemia or previous myocardial injury/infarction. IMPRESSION: 1. Rest and stress SPECT Cardiolite nuclear imaging demonstrate relative uniform tracer uptake with no myocardial perfusion changes considered diagnostic for stress induced myocardial ischemia or previous myocardial injury/infarction. 2. The gated Cardiolite study reports an LVEF of 65%. CC: Maribell Kwok MD; Kimberly Dye DO Hydraulics Engineer: OCHOA Signed Kimberly Dye Work Phone: Start: 09-03-2014 End: 09-03-2014 Bilat Scrn Digital & CAD Comments: See Note; NOTES: [facility] Imaging Services [address] [place] [address] Breast Imaging Report MR#: [id number] Acct: [id number] Name: DARIELA GRIMES Rep #: [id number] : 1960 F 53 From: Ranulfo Jon MD PCP: Maribell Kwok MD Status: REG CLI Exam# [id number] Ordering Dr: Maribell Kwok MD MAMMOGRAPHY - BILATERAL SCREENING REASON FOR EXAM: Female, 53 years old. Routine annual screening examination. PERTINENT HISTORY: Prior left stereotactic right stereotactic biopsies. TECHNIQUE: Digital examination. Mediolateral oblique (MLO) and craniocaudad (CC) views of both breasts were obtained. CAD: CAD was performed on this study. COMPARISON: Comparison is made with prior study dated September 01, 2013 and August 31, 2012. FINDINGS: Breast Composition: The breasts are heterogeneously dense, which may obscure small masses. There are no dominant masses or suspicious calcifications. No other significant abnormalities are identified. There has been no significant change since the prior study. IMPRESSION: Stable bilateral screening mammogram. Yearly follow-up recommended. (A) ASSESSMENT CATEGORY: BIRADS Category 2: Benign finding(s). A letter regarding these results will be sent to the patient by the facility within 30 days. Approximately 10% of breast cancers are not detected by mammography. A normal mammogram should not delay biopsy of a clinically suspicious abnormality. Electronically Signed: Ranulfo Jon MD at 11:50 EST Tel [phone], Service support [phone], CC: Maribell Kwok MD Hydraulics Engineer: Signed Maribell Kwok Work Phone: Start: 09-01-2014 End: 09-01-2014 Carotid Duplex Ultrasound Comments: See Note; NOTES: [facility] Cardiovascular Services [address] [place] [address] Carotid Duplex Ultrasound 08/31/14812 MR#: [id number] Acct: [id number] Name: DARIELA GRIMES Rep #: [id number] : 1960 53 From: Pravin Barnes MD Attending Dr: Kimberly Dye DO Status: REG CLI Ordering Dr: Kimberly Dye DO Date: 08/31/14 Location: MRI Sex: F C Admitted: Rt. Velocities/BP Lt. Velocities/BP Prox CCA 74.5/24.6 cm/sec. Prox CCA 89.1/ 32.2 cm/sec. Mid CCA 74.5/24.6 cm/sec. Mid CCA 85.6/33.4 cm/sec. Dist CCA 67.4/23.5 cm/sec. Dist CCA 83.8/ 28.1 cm/sec. Prox ICA 59.8/22.3 cm/sec. Prox ICA 86.2/ 34.0 cm/sec. Mid ICA 73.9/31.7 cm/sec. Mid ICA 96.2/42.2 cm/sec. Dist ICA 80.3/33.4 cm/sec. Dist ICA 93.8/ 42.5 cm/sec. Rt. ICA/CCA = 1.1. Lt. ICA/CCA = 1.1. Prox ECA 77.4/19.9 cm/sec. Prox ECA 75.0/ 18.2 cm/sec. Rt. Vert. 48.1/13.5 cm/sec. Lt. Vert. 55.7/ 24.0 cm/sec. Right Extracranial There is no significant atherosclerotic plaque noted in the right common carotid artery. There is intimal thickening but no significant atherosclerotic plaque noted in the right internal carotid artery. There is no significant atherosclerotic plaque noted in the right external carotid artery. Antegrade flow is noted in the right vertebral artery. Left Extracranial There is no significant atherosclerotic plaque noted in the left common carotid artery. There is homogeneous, smooth atherosclerotic plaque noted in the left internal carotid artery. There is no significant atherosclerotic plaque noted in the left external carotid artery. Antegrade flow is noted in the left vertebral artery. Procedure Carotid Duplex 14555. Exam performed in department. Interpretation Summary Mild (<50%) stenosis right extracranial internal carotid. Mild (<50%) stenosis left extracranial internal carotid. Flow within the vertebral arteries is antegrade bilaterally. ____ Ordering Physician: Kimberly Dye Performed By: Haley Harper RVT 09/01/142112 Date Pravin Barnes MD CC: Maribell Kwok MD; Kimberly Dye DO Date Dictated: 08/31/14812 Date Transcribed: 09/01/142112 Hydraulics Engineer: Signed Maribell Kwok Start: 08-31-2014 End: 08-31-2014 Echocardiogram Complete Comments: See Note; NOTES: [facility] Cardiovascular Services [address] [place] [address] Echo Complete 08/31/1436 MR#: [id number] Acct: [id number] Name: DARIELA GRIMES Rep #: [id number] : 1960 53 From: Ochoa Hernandez MD Attending Dr: Kimberly Dye DO Status: REG I Ordering Dr: Kimberly Dye DO Date: 08/31/14 Location: MRI Sex: F C Admitted: Procedure This was a 2D Doppler, Color Flow transthoracic echocardiogram. Exam performed in department. Left Ventricle Normal LV size. Left ventricular systolic function is normal. The estimated ejection fraction is 55 %. No regional wall motion abnormalities noted. Right Ventricle Normal RV size. Normal systolic function. Atria Normal left atrium. Normal right atrium. Mitral Valve Normal mitral valve. Tricuspid Valve Normal tricuspid valve. Mild (1+) tricuspid valve insufficiency. Pulmonary artery systolic pressure is 22 mmHg. Aortic Valve Trisinus/trileaflet aortic valve. Trivial aortic valve insufficiency. Pulmonic Valve Normal pulmonic valve. Great Vessels Normal aortic root. The pulmonary artery is normal size. Normal inferior vena cava. Pericardium/Pleural No pericardial effusion. LVIDd: 4.4 cm IVSd: 0.86 cm Ao root diam: 2.9 cm LAV(MOD-bp): 38.0 ml LVIDs: 3.0 cm LVPWd: 0.73 cm Ao root area: 6.7 cm2 LAV(MOD-bp) Indexed: 23.1 ml/m2 RVDd: 2.8 cm FS: 31.4 % LA dimension: 3.2 cm LAV(MOD-sp2): 32.7 ml LAV(MOD-sp4): 35.8 ml LA A4 area: 15.9 cm2 RA A4 area: 12.0 cm2 MV E max presley: Lat Peak E' Presley: Med Peak E' Presley: Ao V2 max: 133.6 cm/sec 61.1 cm/sec 14.5 cm/sec 9.5 cm/sec Ao max P.1 mmHg MV A max presley: 53.2 cm/sec MV E/A: 1.1 AI max presley: 346.4 cm/sec LV V1 max: 112.7 cm/sec PA V2 max: 61.2 cm/sec PI max presley: 125.6 cm/sec AI max P.0 mmHg LV V1 max P.1 mmHg PA max P.5 mmHg PI max P.3 mmHg AI dec slope: PI dec slope: 197.0 cm/sec2 156.8 cm/sec2 AI P1/2t: 514.9 msec TR max presley: 216.7 cm/sec E/E' lat: 4.2 E/E' med: 6.5 TR max P.8 mmHg Interpretation Summary Normal LV size. Left ventricular systolic function is normal. The estimated ejection fraction is 55 %. Trisinus/trileaflet aortic valve. Trivial aortic valve insufficiency. Mild (1+) tricuspid valve insufficiency. ____ Ordering Physician: Kimberly Dye Performed By: Madie Gutierrez RDCS 08/31/1444 Date Ochoa Hernandez MD CC: Maribell Kwok MD; Kimberly Dye DO Date Dictated: 08/31/1436 Date Transcribed: 08/31/1444 Hydraulics Engineer: Signed Maribell Kwok Start: 08-31-2014 End: 08-31-2014 Brain without Contrast Comments: See Note; NOTES: [facility] Imaging Services [address] [place] [address] MRI Report MR#: [id number] Acct: [id number] Name: DARIELA GRIMES Rep #: [id number] : 1960 F 53 From: Brittni Baker MD PCP: Maribell Kwok MD Status: REG CLI Study: Brain without Contrast Date of Exam: 08/31/14 Exam# [id number] Ordering Dr: Kimberly Dye DO STUDY: MRI BRAIN WITHOUT CONTRAST REASON FOR EXAM: Female, 53 years old. Blurred vision, dizziness, and off balance. TECHNIQUE: Standardized multiplanar fat and water weighted pulse sequences were obtained. COMPARISON: None. FINDINGS: The study has significant limitations from severe metallic artifacts from orthodontic braces. This renders the diffusion and FLAIR weighted sequences nondiagnostic. The spin echo T1 and fast spin echo T2 weighted images are diagnostic. The cortical sulci and ventricles are normal in size. No signal abnormalities are seen in the cerebral white matter, except for the artifactual signal projected over the temporal, and parietal lobes from the braces. The basal ganglia and thalami appear normal. No lesion is identified in the brainstem or cerebellum. No abnormality is identified in the pituitary, optic chiasm, or pineal. The cavernous sinuses appear normal. Expected major vascular structures at the base of the brain show patency. The visualized internal auditory canals appear normal. No acute orbital abnormality is seen. Metallic artifacts are present. There is slight mucosal thickening in the bilateral ethmoid sinus. The maxillary sinuses cannot be evaluated due to the artifacts. No lesion is identified in the calvarium or skull base. IMPRESSION: Normal unenhanced MRI of the brain, allowing for extensive orthodontic artifacts. Electronically Signed: Brittni Lee MD at 9:16 EDT , Service support [phone], CC: Maribell Kwok MD; Kimberly Dye DO Hydraulics Engineer: Signed Kimberly Dye Work Phone: Start: 08-27-2014 End: 08-27-2014 Abdomen WITH IV Contrast Comments: See Note; NOTES: [facility] Imaging Services [address] [place] [address] CAT Scan Report MR#: [id number] Acct: [id number] Name: SYDNEYDARIELA A Rep #: [id number] : 1960 F 53 From: Fabio aSm MD PCP: Maribell Kwok MD Status: REG CLI Study: Abdomen WITH IV Contrast Date of Exam: 08/27/14 Exam# [id number] Ordering Dr: Kimberly Dye DO STUDY: CT ABDOMEN WITH CONTRAST REASON FOR EXAM: Female, 53 years old. Left upper quadrant pain, nausea RADIATION DOSAGE (If Supplied By Facility): CTDIvol = ( 10.18 ) mGy, DLP = ( 485.62 ) mGycm TECHNIQUE: Transaxial images were obtained post I.V. administration of 100CC ml of Isovue 300 contrast. Sagittal and coronal images were reconstructed. COMPARISON: None. FINDINGS: The visualized lung bases are unremarkable. The visualized portions of the heart are within normal limits. Normal liver. Normal gallbladder and extrahepatic biliary system. Normal spleen. Normal pancreas. Normal bilateral adrenal glands. Normal right kidney. Normal left kidney. Normal visualized stomach. Normal small intestine. Constipation There is non-visualization of the appendix. Normal abdominal aorta. Normal inferior vena cava. Normal retroperitoneum. Normal abdominal wall. There are diffuse degenerative changes of the visualized lumbar spine. IMPRESSION: No suspicious solid organ abnormality No CT evidence of acute inflammatory process Constipation Electronically Signed: Hal Sam MD at 17:18 EDT , Service support [phone], CC: Maribell Kwok MD; Kimberly Dye DO Hydraulics Engineer: Signed Kimberly Dye Work Phone: Start: 09-01-2013 End: 09-01-2013 Bilat Scrn Digital & CAD Comments: See Note; NOTES: [facility] Imaging Services [address] [place] [address] Breast Imaging Report MR#: [id number] Acct: [id number] Name: SYDNEYDARIELA Ronny Rep #: [id number] : 1960 F 52 From: Ranulfo Jon MD PCP: Maribell Kwok MD Status: REG CLI Exam# [id number] Ordering Dr: Maribell Kwok MD MAMMOGRAPHY - BILATERAL SCREENING REASON FOR EXAM: Female, 52 years old. Routine annual screening examination. PERTINENT HISTORY: Non-contributory. TECHNIQUE: Digital examination. Mediolateral oblique (MLO) and craniocaudad (CC) views of both breasts were obtained. CAD: CAD was performed on this study. COMPARISON: Comparison is made with prior study dated August 31, 2012 and August 28, 2011.. FINDINGS: The breast composition is heterogeneously dense - ranging from 51% to 75% of the breast tissue. There are no dominant masses or suspicious calcifications. No other significant abnormalities are identified. There has been no significant change since the prior study. IMPRESSION: Stable bilateral screening mammogram. Yearly follow-up recommended. (A) ASSESSMENT CATEGORY: BIRADS Category 2: Benign finding(s). A letter regarding these results will be sent to the patient by the facility within 30 days. Approximately 10% of breast cancers are not detected by mammography. A normal mammogram should not delay biopsy of a clinically suspicious abnormality. Signed: Ranulfo Jon M.D. September 01, 2013 at 10:56:27 AM EDT [phone] Electronically Signed GP/GP If you are the referring physician and would like to consult with the radiologist who provided this interpretation, please contact Ranulfo Jon M.D. at [phone]. If this radiologist is unavailable, you will be directed to another radiologist to assist. If you are a patient with a question regarding this report, please contact your referring physician directly. Professional Interpretation Provided By: [employer], Phone , These documents contain legally protected and confidential health information intended only for the use of the individual or entity named above. If you are not the intended recipient, you are hereby notified that any disclosure, copying, distribution, or other use of these documents is strictly prohibited. If you have received this information in error, please notify the sender immediately and arrange for the return or destruction of these documents. CC: Maribell Kwok MD Hydraulics Engineer: Signed Maribell Kwok Work Phone: Screening colonoscopy DERREK Cha Comment on above: 11-27-14 Dr. Abdias jacobo in [address] Mike Ponce Work Phone: Plan of Treatment Date Care Activity Detail Author Start: 03-27-2025 [facility] Start: 12-25-2024 [facility] Start: 10-11-2023 Egd transoral biopsy single/multiple EGD BIOPSY SINGLE/MULTIPLE [facility] Start: 10-11-2023 Patient discharge [facility] Start: 08-30-2023 Iv infusion therapy/prophylaxis /dx 1st to 1 hr THER/PROPH/DIAG IV INF INIT [facility] Start: 04-22-2023 Following clinical pathway protocol [facility] Start: 02-16-2023 Procedure [facility] Start: 12-03-2022 Egd insert guide wir e dilator passage esophagus EGD GUIDE WIRE INSERTION [facility] Start: 12-03-2022 Egd transoral biopsy single/multiple EGD BIOPSY SINGLE/MULTIPLE [facility] Start: 12-03-2022 Patient discharge [facility] Start: 03-04-2022 Colonoscopy flx dx w/collj spec when pfrmd DIAGNOSTIC COLONOSCOPY [facility] Work Phone: Start: 03-04-2022 Egd transoral biopsy single/multiple EGD BIOPSY [facility]/MULTIPLE [facility] Work Phone: Start: 03-04-2022 Patient discharge [facility] Work Phone: Start: 02-21-2016 Urnls dip stick/tabl et rgnt non-auto w/o micrscp Urinalysis, Office ([id number]) [facility]; [facility] Work Phone: Start: 02-21-2016 Antibody helicobacte r pylori HELICOBACTER PYLORI ANTIBODY (23754) [facility]; [facility] Work Phone: Start: 02-21-2016 Assay of lipase Lipase (42415) [facility] [facility] Work Phone: Start: 02-21-2016 Amylase [Catalytic activity/Vol] Amylase (28056) [facility]; [facility] Work Phone: Start: 02-21-2016 Comprehensive metabo lic panel Metabolic Panel, Comprehensive (98864) [facility]; [facility] Work Phone: Start: 02-21-2016 Blood count complete automated CBC (Auto) (05702) [facility]; [facility] Work Phone: Start: 10-18-2015 Comprehensive metabo lic panel METABOLIC PANEL, COMPREHENSIVE (16091) [facility]; [facility] Work Phone: Start: 10-18-2015 [facility]EL (79353[facility] Work Phone: Start: 10-18-2015 25 hydroxy includes fractions if performed CALCIFIDIOL (81905) VIT D 25 [facility]; [facility] Work Phone: Start: 08-21-2015 Procedure Education Eprescribe d prescriptions (G8553) [facility]; [facility] Work Phone: Start: 08-21-2015 Provider Instruction s for Treatment GERD Education [facility]; [facility] Work Phone: Start: 04-19-2015 Patient Education High Cholest lupe (Hypercholesterolemia) *: diet [facility]; [facility] Work Phone: Start: 01-18-2015 Lipid panel LIPID PANEL (08880) [facility] prehensive Internal Medicine; [facility] Work Phone: Start: 01-18-2015 25 hydroxy includes fractions if performed CALCIFIDIOL (14057) VIT D 25 [facility]; [facility] Work Phone: Start: 10-19-2014 Procedure Education Eprescribe d prescriptions (G8553) [facility]; [facility] Work Phone: Start: 08-27-2014 CRP [Mass/Vol] C-REACTIVE PRO TEIN (93839) [facility] Internal Medicine; [facility] Work Phone: Start: 08-27-2014 Assay of lipase LIPASE (39793) [facility]; [facility] Work Phone: Start: 08-27-2014 Sedimentation rate r bc non-automated ESR-F (SED RATE ERYTHROCYTE - FEMALE) (04817) [facility]; [facility] Work Phone: Start: 08-27-2014 Amylase [Catalytic activity/Vol] AMYLASE (81474) [facility] Medicine; [facility] Work Phone: Start: 08-27-2014 Fibrin dgradj produc ts d-dimer quantitative D-Dimer (26288) [facility] Work [facility]: Start: 08-27-2014 TSH Qn TSH (59464) [facility]; [facility] Work Phone: Start: 08-27-2014 Comprehensive metabo lic panel METABOLIC PANEL, [facility] (59967) [facility] Work Phone: Start: 08-27-2014 Blood count complete auto&auto difrntl wbc CBC W/AUTO DIFF WBC (13184) [facility] Work Phone: Start: 08-09-2014 Patient Education [facility] Internal Medicine Work Phone: Start: 01-23-2014 Patient Education Osteoporosis in Women *: aging [facility]; [facility] Work Phone: Start: 07-27-2013 Patient Education Flu (Influen za) *: flu shot [facility]; [facility] Work Phone: Start: 05-22-2013 Patient Education High Cholest lupe (Hypercholesterolemia) *: cardiovascular health [facility]; [facility] Work Phone: Start: 02-16-2013 Patient Education High Cholest lupe (Hypercholesterolemia) *: cardiovascular health [facility] Medicine; [facility] Work Phone: Start: 11-25-2012 Patient Education Allergic Rhi nitis *: allergic rhinitis [facility]; [facility] Work Phone: Start: 08-22-2012 Creatine kinase total Creatine Kinase Total (61993) [facility]; [facility] Work Phone: Start: 08-22-2012 Protein [Mass/Vol] LIPOPROTEIN , BLD, BY NMR (33528) [facility]; [facility] Work Phone: Start: 08-22-2012 Hepatic function panel HEPATIC FUNCTION PANEL (95204) [facility]; [facility] Work Phone: Start: 08-22-2012 25 hydroxy includes fractions if performed CALCIFIDIOL (81596) VIT D 25 [facility]; [facility] Work Phone: Start: 08-22-2012 Patient Education High Cholest lupe (Hypercholesterolemia) *: cardiovascular health [facility]; [facility] Work Phone: Start: 02-16-2012 Protein [Mass/Vol] LIPOPROTEIN , BLD, BY NMR (04274) [facility]; [facility] Work Phone: Start: 10-02-2011 C-reactive protein h igh sensitivity C-REACT PROT HIGH SENS(hsCRP) (26021) [facility]; [facility] Work Phone: Start: 10-02-2011 Protein [Mass/Vol] LIPOPROTEIN , BLD, BY NMR (51325) [facility]; [facility] Work Phone: Start: 06-02-2011 Lipid panel LIPID PANEL (10134) [facility]; [facility] Work Phone: Start: 06-02-2011 25 hydroxy includes fractions if performed CALCIFIDIOL (31504) VIT D 25 [facility]; [facility] Work Phone: Start: 03-24-2011 Basic metabolic pane l calcium total Metabolic Panel, Basic (79040) [facility]; [facility] Work Phone: Start: 03-24-2011 TSH Qn TSH (15094) [facility]; [facility] Work Phone: Start: 06-20-2010 Cul bact xcpt urine blood/stool aerobic isol YUDY CULTURE-OTHER (77543) [facility]; [facility] Work Phone: Start: 06-20-2010 Comprehensive metabo lic panel Metabolic Panel, Comprehensive (09873) [facility]; [facility] Work Phone: Start: 06-20-2010 Lipid panel Lipid Panel (16304) [facility] prehensive Internal Medicine; [facility] Work Phone: Start: 06-20-2010 25 hydroxy includes fractions if performed CALCIFIDIOL (27112) VIT D 25 [facility]; [facility] Work Phone: Start: 03-14-2010 25 hydroxy includes fractions if performed CALCIFIDIOL (82367) VIT D 25 [facility]; [facility] Work Phone: Comment on above: 8 weeks Start: 02-11-2010 25 hydroxy includes fractions if performed CALCIFIDIOL (97268) VIT D 25 [facility]; [facility] Work Phone: Start: 02-11-2010 Assay of folic acid serum Folate (86044) [facility]; [facility] Work Phone: Start: 02-11-2010 Cobalamin (Vitamin B 12) [Mass/Vol] VITAMIN B-12 (CYANOCOBALAMIN) (89086) [facility]; [facility] Work Phone: Start: 02-11-2010 TSH Qn TSH (86208) [facility]; [facility] Work Phone: Start: 02-11-2010 Sedimentation rate r bc non-automated SED RATE ERYTHROCYTE (78118) [facility]; [facility] Work Phone: Start: 02-11-2010 Comprehensive metabo lic panel METABOLIC PANEL, COMPREHENSIVE (39792) [facility]; [facility] Work Phone: Start: 02-11-2010 CRP [Mass/Vol] C-REACTIVE PRO TEIN (29526) [facility]; [facility] Work Phone: Start: 02-11-2010 Blood count complete automated CBC (AUTO) (99371) [facility]; [facility] Work Phone: Start: 02-11-2010 Nuclear Ab IF (S) [Titer] ETHEL (ANTINUCLEAR ANTIBODY) (36544) [facility]; [facility] Work Phone: Start: 10-29-2009 Lipid panel LIPID PANEL (26856) [facility] prehensive Internal Medicine; [facility] Work Phone: Start: 10-29-2009 Protein [Mass/Vol] LIPOPROTEIN , BLD, BY NMR (63068) [facility]; [facility] Work Phone: Comment on above: 4 months Start: 07-30-2009 Lipid panel Lipid Panel (58389) [facility] prehensive Internal Medicine; [facility] Work Phone: Start: 04-29-2009 Lipid panel LIPID PANEL (01317) [facility] prehens[facility] Internal [facility]; [facility] Work Phone: Start: 09-04-2008 Lipid panel Lipid Panel (60925) [facility] prehensive Internal Medicine; [facility] Work Phone: Start: 09-04-2008 Organic acid 1 quantitative Methylmalonic acid, serum 00913 [facility]; [facility] Work Phone: Start: 09-04-2008 Assay of folic acid serum Folate (33184) [facility]; [facility] Work Phone: Start: 09-04-2008 Blood count complete automated CBC (AUTO) (14518) [facility]; [facility] Work Phone: Start: 09-04-2008 Cobalamin (Vitamin B 12) [Mass/Vol] VITAMIN B-12 (CYANOCOBALAMIN) (25445) [facility]; [facility] Work Phone: Start: 09-04-2008 Comprehensive metabo lic panel METABOLIC PANEL, COMPREHENSIVE (63622) [facility]; [facility] Work Phone: Start: 09-04-2008 CRP [Mass/Vol] C-REACTIVE PRO TEIN (03394) [facility]; [facility] Work Phone: Start: 09-04-2008 Sedimentation rate r bc non-automated SED RATE ERYTHROCYTE (60759) [facility]; [facility] Work Phone: Start: 09-04-2008 TSH Qn TSH (31748) [facility]; [facility] Work Phone: Start: 05-25-2008 Provider Instruction s for Treatment Skin Tags [facility]; [facility] Work Phone: Start: 06-16-2007 Blood count complete automated CBC (Auto) (77351) [facility]; [facility] Work Phone: Start: 06-16-2007 Sedimentation rate r bc non-automated Sed Rate Erythrocyte (12721) [facility]; [facility] Work Phone: Start: 06-16-2007 Assay of lipase Lipase (25838) [facility]; [facility] Work Phone: Start: 06-16-2007 Amylase [Catalytic activity/Vol] Amylase (42664) [facility]; [facility] Work Phone: Start: 06-16-2007 Comprehensive metabo lic panel Metabolic Panel, Comprehensive (81863) [facility]; [facility] Work Phone: Start: 02-18-2007 Provider Instruction s for Treatment [facility]; [facility] Work Phone: Start: 02-18-2007 Blood count manual c ell count each CBC WITH MANUAL DIFF (86096) [facility]; [facility] Work Phone: Start: 02-18-2007 Comprehensive metabo lic panel METABOLIC PANEL, COMPREHENSIVE (49241) [facility]; [facility] Work Phone: Start: 02-18-2007 TSH Qn TSH (06842) [facility]; [facility] Work Phone: Start: 12-01-2006 Provider Instruction s for Treatment Shave Biopsy with Epi [facility]; [facility] Work Phone: Start: 11-23-2006 Provider Instruction s for Treatment [facility]; [facility] Work Phone: Lipid 1996 panel - Serum or Plasma [facility] Patient Education [facility] Work Phone: Patient referral [facility] Work Phone: [place] Thyroid gland [facility]; [facility] Work Phone: [facility]; [facility] Work Phone: [facility]; [facility] Work Phone: [facility] Work Phone: [facility] Work Phone: [facility]; [facility] Work Phone: [facility]; [facility] Work Phone: [facility]; [facility] Work Phone: [facility]; [facility] Work Phone: [facility] Work Phone: [facility]; [facility] Work Phone: [facility]; [facility] Work Phone: [facility] Work Phone: [facility]; [facility] Work Phone: [facility] Work Phone: [facility] Work Phone: [facility]; [facility] Work Phone: [facility] Work Phone: [facility]; [facility] Work Phone: [facility] Work Phone: [facility]; [facility] Work Phone: [facility] Work Phone: [facility] Work Phone: [facility]; [facility] Work Phone: [facility]; [facility] Work Phone: [facility]; [facility] Work Phone: [facility]; [facility] Work Phone: [facility] Immunizations Immunization Date Immunization Notes Care Provider Sarai castillo 06-06-2021 [place] ([place]) Dr. Mary lackey Work Phone: [facility] 07-30-2009 influenza, seasonal, injectable Maribell Bonezzi [facility]; [facility] Work Phone: Comment on above: Lot #[id number] Site-left deltoidDose0.5mlgiven by Paloma Vargas LPN 08-17-2008 influenza, seasonal, injectable Maribell Bonezzi [facility]; [facility] Work Phone: Comment on above: 0.5cc given im rt dl t HOwen Manriquez 07-03-2008 tetanus and diphther ia toxoids, adsorbed, preservative free, for adult use (2 Lf of tetanus toxoid and 2 Lf of diphtheria toxoid) Maribell Bonezzi [facility]; [facility] Work Phone: Comment on above: waiver signedAmt: 0. 5mlLot: [id number]: 09/16/2009Route: IMSite: left deltoidTolerated: wellGiven By: BHARAT Baum 08-26-2007 influenza, seasonal, injectable Maribell Bonezzi [facility]; [facility] Work Phone: 09-20-2006 influenza, seasonal, injectable Maribell Bonezzi [facility]; [facility] Work Phone: Payers Date Payer Category Payer Self-pay [id number] [id number] 2024 Unknown [id number] 2013 Unknown [id number] Unknown Unknown [id number] Unknown [id number] 2.16.8 40.1.553249.3.579.2.462 Unknown [id number] 2.16.8 40.1.551329.3.579.2.462 Unknown [id number] 2.16.8 40.1.133460.3.579.2.462 Unknown [id number] 2.16.8 40.1.546824.3.579.2.462 Unknown [id number] 2.16.8 40.1.367634.3.579.2.462 Unknown [id number] 2.16.8 40.1.668236.3.579.2.462 Unknown [id number] 2.16.8 40.1.559827.3.579.2.462 Unknown [id number] 2.16.8 40.1.097996.3.579.2.462 Unknown [id number] 2.16.8 40.1.332811.3.579.2.462 Unknown [id number] 2.16.8 40.1.988166.3.579.2.462 Unknown [id number] 2.16.8 40.1.944767.3.579.2.462 Unknown [id number] 2.16.8 40.1.021274.3.579.2.462 Unknown [id number] 2.16.8 40.1.348714.3.579.2.462 Unknown [id number] 2.16.8 40.1.014429.3.579.2.462 Unknown [id number] 2.16.8 40.1.727965.3.579.2.462 Unknown [id number] 2.16.8 40.1.059757.3.579.2.462 Unknown [id number] 2.16.8 40.1.487711.3.579.2.462 Unknown [id number] 2.16.8 40.1.740039.3.579.2.462 Unknown [id number] 2.16.8 40.1.363739.3.579.2.462 Unknown [id number] 2.16.8 40.1.934960.3.579.2.462 Unknown [id number] 2.16.8 40.1.727337.3.579.2.462 Unknown [id number] 2.16.8 40.1.100735.3.579.2.462 Unknown [id number] 2.16.8 40.1.055549.3.579.2.462 Social History Date Type Detail Facility Caffeine Use Caffeine Use [facility]; [facility] Work Phone: Comment on above: 1 [address] [place] [facility] Unemployed not looki ng for work [employer] , Lives with spouse Tobacco use: Tobacco use: [facility]; [facility] Work Phone: Start: 12-03-2021 End: 10-07-2023 Tobacco smoking status NHIS Unknown if ever smoked [facility] Start: 1960 Sex Assigned At Female W [facility] Start: 12-25-2024 Tobacco smoking status NHIS Never smoked tobacco (finding) [facility] Start: 02-19-2025 End: 02-20-2025 Sex Female (finding) [facility] NEGATED: Highlighted row [facility] Goals Date Patient Goal Desired Activity /State Functional Status Date Assessment Result Facility 04-24-2013 LP-IR Score LP-IR Score 36 [facility]; [facility] Work Phone: Comment on above: The LP-IR Score comb anna information from lipoproteinparticle concentration and size to give improvedassessment of insulin resistance and diabetes risk.Small LDL-P, LDL Particle Size, HDL-Particle, andLP-IR Score have been validated by Roojo[employer]but not cleared by [place] FDA; the clinical utilityof these test results has not been fully established.INSULIN RESISTANCE MARKER <--Insulin Sensitive Insulin Resistant--> Percentile in Reference PopulationInsulin Resistance ScoreLP-IR Score Low 25th 50th 75th High <27 27 45 63 >63 PATIENT WAS FASTINGP ERFORMED BY: Kennedy [employer] [id number] [facility] [id number] BY: CORTEZ [employer] [id number] [facility] [id number] Information: [id number] Mental Status Date Assessment Result Facility 12-25-2024 Cognitive function Level Of Cons ciousness Awake;Alert;Appropriate;Follow s Commands [facility] Work Phone: 10-11-2023 Cognitive function Level Of Consciousness Sedated [facility] Work Phone: 10-11-2023 Cognitive function Voice/Name [facility] Work Phone: 08-30-2023 Cognitive function Awake;Alert;A ppropriate;Follow s Commands [facility] Work Phone: 04-22-2023 Cognitive function Level Of Cons ciousness Awake;Alert;Appropriate [facility] Work Phone: 12-03-2022 Cognitive function Voice/Name [facility] Work Phone: 03-04-2022 Cognitive function Voice/Name [facility] Work Phone: Clinical Notes 10-30-2024 to 03-27-2025 Note Date & Type Note Facility 03-27-2025 Procedure [address] [facility] 02-14-2025 Radiology Diagnostic study note [facility] Imaging Services [address] [place], [place] [address] Abdomen/Pelvis WITH Contrast MR#: [id number] Acct: [id number] Name: DARIELA GRIMES Rep #: [id number] : 1960 F 64 From: Serafin Jon MD PCP: Dr. Mary Ponce MD Status: REG CLI Study:Abdomen/Pelvis WITH Contrast Date of Ex am: 02/14/25 Exam# [id number] Ordering Dr: Gerry Bellamy DO PROCEDURE: ABDOMEN/PELVIS WITH CONTRAST 02/14/2025 REASON FOR EXAM: DIVERTICULITIS Prior hysterectomy. TECHNIQUE: Abdomen and pelvis CT with intravenous contrast. Coronal and Sagittal reconstruction series were provided. PATIENT PREPARATION: Per protocol ORAL CONTRAST TYPE: Gastrografin CONTRAST: Isovue-300 VOLUME: 95 mL Gauge IV One or more dose reduction techniques were used (e.g., Automated exposure control, adjustment of the mA and/or kV according to patient size, use of iterative reconstruction technique. RADIATION DOSE SUMMARY: CTDlvol: 14.4 mGy DLP: 685.10 mGycm COMPARISON: None FINDINGS: Lung bases: Mild dependent atelectasis Liver: Diffuse fatty infiltration. Gallbladder: Unremarkable Spleen: Normal size. Pancreas: Normal size without evidence of mass surrounding inflammation or ductal dilation. Adrenals: Unremarkable Kidneys: Normal renal sizes. No hydronephrosis. Bladder: Unremarkable Reproductive Organs: Prior hysterectomy. Adnexal regions are unremarkable. Bowel: Colonic diverticulosis without diverticulitis. Appendix: The appendix is not identified. There is no inflammatory process identified in the right lower quadrant to suggest appendicitis. Lymph nodes: Unremarkable. Vasculature: The abdominal aorta and IVC are normal. Peritoneum / Retroperitoneum: Unremarkable Bones: Degenerative changes of the spine. CT/Abdomen/Pelvis WITH Contrast IMPRESSION: Fatty infiltration of the liver. Scattered sigmoid diverticula. No evidence of diverticulitis. Reading Location: [facility] CC: Dr. Mary Ponce MD; Floyd Bellamy DO ~ Hydraulics Engineer: Signed [facility] 12-04-2024 Evaluation note Diagnosis Onset Date Resolution Ledbetter's esophagus chronic Febru 2024 10:42am Dysphagia chronic December 04, 2024 10:42am IBS (irritable bowel syndrome) chronic December 04 10:42am Diverticulitis large intestine w/o perforation or abscess w/o bleeding acute January 15, 2025 1:11pm Ledbetter's esophagus chronic January 15, 2025 1:11pm Dysphagia chronic January 15 1:11pm IBS (irritable bowel syndrome) chronic January 15, 2025 1:11pm Cervical spinal stenosis acute February 15, 2025 10:45am Fibromyalgia acute February 15, 2025 10:45am Hyperglycemia acute February 15, 2025 10:45am Lumbar back pain with radiculopathy affecting left lower extremity acute February 15, 2025 10:45am Paresthesias acute February 15, 2025 10:45am Thyroid nodule acute January 10:45am Migraine headache without aura inactive February 15, 2025 10:45am [facility] Work Phone: [phone]) 791-151112-30-2024 Evaluation note* Diagnosis Onset Date Resolution Status Admit Date Atrophic vaginitis acute Decemb er 2023 1:02pm Encounter for routine gynecological examination noneactive Decemb er 2023 1:02pm Cervical spinal stenosis acute November 15, 2024 8:42am Fatigue acute November 15, 2024 8:42am Fibromyalgia acute November 8:42am History of vitamin D deficiency acute November 15 8:42am Low back pain acute November 8:42am Lumbar back pain with radiculopathy affecting left lower extremity acute November 15 8:42am Neck pain acute November 15, 2024 8:42am Paresthesias acute November 8:42am Tinnitus acute November 15, 2024 8:42am Migraine headache without aura inactive November 15 8:42am Ledbetter's esophagus chronic 2024 10:42am Dysphagia chronic December 04, 2024 10:42am IBS (irritable bowel syndrome) chronic December 04 10:42am Diverticulitis large intestine w/o perforation or abscess w/o bleeding acute January 15, 2025 1:11pm Ledbetter's esophagus chronic January 15, 2025 1:11pm Dysphagia chronic January 15 1:11pm IBS (irritable bowel syndrome) chronic January 15, 2025 1:11pm Cervical spinal stenosis acute February 15, 2025 10:45am Fibromyalgia acute February 15, 2025 10:45am Hyperglycemia acute February 15, 2025 10:45am Lumbar back pain with radiculopathy affecting left lower extremity acute February 15, 2025 10:45am Paresthesias acute February 15, 2025 10:45am Thyroid nodule acute January 10:45am Migraine headache without aura inactive February 15, 2025 10:45am [facility] Work Phone: Evaluation note* Diagnosis Onset Date Resolution Status Neck pain acute Atrophic vaginitis acute Neck pain acute Diarrhea acute Cervical spinal stenosis acu te Neck pain acute Tachycardia acute Hyperlipidemia chronic [facility] Work Phone: Evaluation note* Diagnosis Onset Date Resolution Status Diarrhea acute Cervical spinal stenosis acu te Neck pain acute Tachycardia acute Hyperlipidemia chronic [facility] Work Phone: Evaluation note* Diagnosis Onset Date Resolution Status Tachycardia acute Hyperlipidemia chronic Ledbetter's esophagus acute Diarrhea acute GERD (gastroesophageal reflux disease) acute IBS (irritable bowel syndrome) chronic [facility] Work Phone: Evaluation note* Diagnosis Onset Date Resolution Status Ledbetter's esophagus acute Diarrhea acute GERD (gastroesophageal reflux disease) acute IBS (irritable bowel syndrome) chronic Ledbetter's esophagus acute GERD (gastroesophageal reflux disease) acute Lightheadedness acute Hyperlipidemia chronic [facility] Work Phone: Evaluation note* Diagnosis Onset Date Resolution Status Ledbetter's esophagus acute GERD (gastroesophageal reflux disease) acute Lightheadedness acute Hyperlipidemia chronic [facility] Work Phone: Evaluation note* Diagnosis Onset Date Resolution Status Lightheadedness acute Hyperlipidemia chronic [facility] Work Phone: Evaluation note* Diagnosis Onset Date Resolution Status Ledbetter's esophagus chronic Dysphagia chronic IBS (irritable bowel syndrome) chronic Chest pain acute Hyperlipidemia chronic [facility] Work Phone: Evaluation note* Diagnosis Onset Date Resolution Status Chest pain acute Hyperlipidemia chronic [facility] Work Phone: Evaluation note* Diagnosis Onset Date Resolution Status Ledbetter's esophagus chronic Dysphagia chronic IBS (irritable bowel syndrome) chronic [facility] Work Phone: Evaluation note* Diagnosis Onset Date Resolution Status Ledbetter's esophagus chronic Dysphagia chronic IBS (irritable bowel syndrome) chronic Chest pain acute Palpitations acute Osteoporosis chronic [facility] Work Phone: Reason for referral (narrative)No reason for referral information [facility]WC[facility] Work [facility]: Family History No Family History Records FoundUnknown Family Member Name Dates Details Father Comments:melanoma at 55 Status:Active Mother Comments:amy brambila COPD, CV A, AAA. Status:Active Relationship Condition Age at Onset Recorded Date/T kayy mother Hypertension Unknown Chronic obstructive pulmonary disease Unk nown Cerebrovascular accident (CVA) Unknown Kidney disorder Unknown Anemia Unknown Arthritis Unknown Cardiac disease Unknown Osteoporosis Unknown Pulmonary emphysema Unknown Ascending aortic aneurysm Unknown father Malignant melanoma Unknown sister Hypertension Unknown Rheumatoid arthritis Unknown brother Attempted suicide Unknown sister Rheumatoid arthritis Unknown Hypertension Unknown grandmother Arthritis Unknown grandfather Cerebrovascular accident (CVA) Unknown aunt Cerebrovascular accident (CVA) Unknown uncle Malignant neoplasm of skin Unknown Malignant neoplasm Unknown uncle Malignant neoplasm Unknown Instructions Name Dates Details How to access health informa tion online Indication:Gastroesophageal reflux disease with ulceration Start:10-Jan-2016 Instruction Type:Patient Education How to access health informa tion online - Detail Indication:Gastroesophageal reflux disease with ulceration Start:10-Jan-2016 Instruction Type:Patient Education Patient Instructions Indication:Gastroesophageal reflux disease with ulceration Start:10-Jan-2016 Instruction Type:Provider Instructions for Treatment How to access health informa tion online Indication:Gastroesophageal reflux disease with ulceration Start:21-Aug-2015 Instruction Type:Patient Education How to access health informa tion online - Detail Indication:Gastroesophageal reflux disease with ulceration Start:21-Aug-2015 Instruction Type:Patient Education Patient Instructions Indication:Gastroesophageal reflux disease with ulceration Start:21-Aug-2015 Instruction Type:Provider Instructions for Treatment How to access health informa tion online Indication:Hypercholesteremia Start:19-Apr-2015 Instruction Type:Patient Education How to access health informa tion online - Detail Indication:Hypercholesteremia Start:19-Apr-2015 Instruction Type:Patient Education Patient Instructions Indication:Hypercholesteremia Start:19-Apr-2015 Instruction Type:Provider Instructions for Treatment Patient Instructions Indication:Osteoporosis Start:23-Jan-2014 Instruction Type:Provider Instructions for Treatment Patient Instructions Indication:Hypercholesteremia Start:22-May-2013 Instruction Type:Provider Instructions for Treatment Patient Instructions Indication:Fibromyalgia Start:06-Mar-2013 Instruction Type:Provider Instructions for Treatment Patient Instructions Indication:Hypercholesteremia Start:16-Feb-2013 Instruction Type:Provider Instructions for Treatment Patient Instructions Indication:Seasonal allergic reaction Start:25-Nov-2012 Instruction Type:Provider Instructions for Treatment DISCONTINUED - LIPID PANEL ( [id number]) Indication:Hypercholesteremia Start:22-Aug-2012 Instruction Type:Patient Education Patient Instructions Indication:Hypercholesteremia Start:22-Aug-2012 Instruction Type:Provider Instructions for Treatment Chief Complaint and Reason for Visit Chief Complaint Back pain 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) Back pain ACID REFLUX/STOMACH PAINS EORDERS Back pain TACHYCARDIA LIGHT HEADED, TIRED EORDERS INT LABS Reason for Visit Neck pain Atrophic vaginitis Neck pain Diarrhea Cervical spinal stenosis Neck pain Tachycardia Hyperlipidemia Chief Complaint ACID REFLUX/STOMACH PAINS EORDERS Back pain TACHYCARDIA LIGHT HEADED, TIRED EORDERS INT LABS preop preop Reason for Visit Diarrhea Cervical spinal stenosis Neck pain Tachycardia Hyperlipidemia Chief Complaint TACHYCARDIA LIGHT HEADED, TIRED EORDERS INT LABS preop preop 2 Week f/u INT LABS Reason for Visit Tachycardia Hyperlipidemia Ledbetter's esophagus Diarrhea GERD (gastroesophageal reflux disease) IBS (irritable bowel syndrome) Chief Complaint preop preop 2 Week f/u INT LABS 3 MO FU 6 M FU Reason for Visit Ledbetter's esophagus Diarrhea GERD (gastroesophageal reflux disease) IBS (irritable bowel syndrome) Ledbetter's esophagus GERD (gastroesophageal reflux disease) Lightheadedness Hyperlipidemia Chief Complaint 3 MO FU 6 M FU PAIN IN RIGHT SHOULDER Reason for Visit Ledbetter's esophagus GERD (gastroesophageal reflux disease) Lightheadedness Hyperlipidemia Chief Complaint 6 M FU PAIN IN RIGHT SHOULDER SCREENING Reason for Visit Lightheadedness Hyperlipidemia Chief Complaint 2 ORDERING DRS/LABS H.MIEDEL 2 ORDERING DRS/LABS H.MIEDEL 2 WK FU PT CONCERNED ABOUT RECENT HLD RESULTS Reason for Visit Ledbetter's esophagus Dysphagia IBS (irritable bowel syndrome) Chest pain Hyperlipidemia Chief Complaint 2 ORDERING DRS/LABS H.MIEDEL 2 ORDERING DRS/LABS H.MIEDEL 2 WK FU PT CONCERNED ABOUT RECENT HLD RESULTS OSTEO Reason for Visit Ledbetter's esophagus Dysphagia IBS (irritable bowel syndrome) Chest pain Hyperlipidemia Chief Complaint 2 WK FU PT CONCERNED ABOUT RECENT HLD RESULTS OSTEO E ORDERS Reason for Visit Ledbetter's esophagus Dysphagia IBS (irritable bowel syndrome) Chest pain Hyperlipidemia Chief Complaint PT CONCERNED ABOUT R ECENT HLD RESULTS OSTEO E ORDERS chest pain chest pain Reason for Visit Chest pain Hyperlipidemia Chief Complaint E ORDERS chest pain chest pain 1 YR FU Reason for Visit Ledbetter's esophagus Dysphagia IBS (irritable bowel syndrome) Chief Complaint 1 YR FU 1 Y FU PALPITATIONS PALPITATIONS Osteoporosis RECLAST Reason for Visit Ledbetter's esophagus Dysphagia IBS (irritable bowel syndrome) Chest pain Palpitations Osteoporosis Chief Complaint 1 YR FU 1 Y FU PALPITATIONS PALPITATIONS Osteoporosis RECLAST Encounter for other screening for malignant neopla INT LABS Reason for Visit Ledbetter's esophagus Dysphagia IBS (irritable bowel syndrome) Chest pain Palpitations Osteoporosis Chief Complaint Admit Date 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) October 30, 2024 1:02pm FOLLOW UP November 15, 2024 8 :42am EORDERS November 17, 2024 8 :56am 6 Month f/u December 04, 2024 1 0:42am Hypersomnia, unspecified December 05, 2 025 11:53am CERVICALGIA, LOW BACK PAIN, TINNITUS Feb rubaggs 2024 6:10am GENERAL ILLNESS December 25, 2024 2:03pm 6 wk FU January 15, 2025 1:1 1pm DIVERTICULITIS February 14, 2025 1:0 1pm 3 M FU February 15, 2025 10: 45am E-ORDER February 15, 2025 1:3 7pm Reason for Visit Admit Date Atrophic vaginitis October 30, 2024 1:02pm Encounter for routine gynecological exam ination October 30, 2024 1:02pm Cervical spinal stenosis November 15, 2 025 8:42am Fatigue November 15, 2024 8 :42am Fibromyalgia November 15, 2024 8 :42am History of vitamin D deficiency November 15, 2024 8:42am Low back pain November 15, 2024 8 :42am Lumbar back pain with radicu lopathy affecting left lower extremity November 15, 2024 8:42am Neck pain November 15, 2024 8 :42am Paresthesias November 15, 2024 8 :42am Tinnitus November 15, 2024 8 :42am Migraine headache without aura November 012024 8:42am Ledbetter's esophagus December 04, 2024 1 0:42am Dysphagia December 04, 2024 1 0:42am IBS (irritable bowel syndrome) December 04, 2024 10:42am Diverticulitis large intesti ne w/o perforation or abscess w/o bleeding January 15, 2025 1:11pm Ledbetter's esophagus January 15, 2025 1:1 1pm Dysphagia January 15, 2025 1:1 1pm IBS (irritable bowel syndrome) December 1:11pm Cervical spinal stenosis February 15 10:45am Fibromyalgia February 15, 2025 10: 45am Hyperglycemia February 15, 2025 10: 45am Lumbar back pain with radicu lopathy affecting left lower extremity February 15, 2025 10:45am Paresthesias February 15, 2025 10: 45am Thyroid nodule February 15, 2025 10: 45am Migraine headache without aura January 10:45am Chief Complaint Admit Date 6 Month f/u December 04, 2024 1 0:42am Hypersomnia, unspecified December 05 025 11:53am CERVICALGIA, LOW BACK PAIN, TINNITUS Feb rubaggs 2024 6:10am GENERAL ILLNESS December 25, 2024 2:03pm 6 wk FU January 15, 2025 1:1 1pm DIVERTICULITIS February 14, 2025 1:0 1pm 3 M FU February 15, 2025 10: 45am E-ORDER February 15, 2025 1:3 7pm LLE; low back pain, radicular pain March 022024 12:01pm LLE; low back pain, radicular pain March 022024 12:59pm Reason for Visit Admit Date Ledbetter's esophagus December 04, 2024 1 0:42am Dysphagia December 04, 2024 1 0:42am IBS (irritable bowel syndrome) December 04, 2024 10:42am Diverticulitis large intesti ne w/o perforation or abscess w/o bleeding January 15, 2025 1:11pm Ledbetter's esophagus January 15, 2025 1:1 1pm Dysphagia January 15, 2025 1:1 1pm IBS (irritable bowel syndrome) December 1:11pm Cervical spinal stenosis February 15 10:45am Fibromyalgia February 15, 2025 10: 45am Hyperglycemia February 15, 2025 10: 45am Lumbar back pain with radicu lopathy affecting left lower extremity February 15, 2025 10:45am Paresthesias February 15, 2025 10: 45am Thyroid nodule February 15, 2025 10: 45am Migraine headache without aura January 10:45am Advance Directives No Advanced Directives Records Found Advance Directive Response Recorded Date/ Time Living Will No February 12, 2019 7:10pm Power of Supervisor Dehydrogenation No February 12 7:10pm Advance Directive Response Recorded Date/ Time Living Will Yes February 27, 2022 3:43pm Power of Supervisor Dehydrogenation Yes February 27 3:43pm Advance Directive Response Recorded Date/ Time Name of Medical Power of Supervisor Dehydrogenation Bakari Grimes February 27, 2022 3:43pm Living Will Yes February 27, 2022 3:43pm Power of Supervisor Dehydrogenation Yes February 27 3:43pm Advance Directive Response Recorded Date/ Time Living Will Yes February 27, 2022 2:43pm Power of Supervisor Dehydrogenation Yes February 27 2:43pm Advance Directive Response Recorded Date/ Time Name of Medical Power of Supervisor Dehydrogenation SPOUSE November 30, 2022 4:40pm Living Will Yes November 30 4:40pm Power of Supervisor Dehydrogenation Yes November 30, 2022 4:40pm Advance Directive Response Recorded Date/ Time Living Will Yes November 30 4:40pm Power of Supervisor Dehydrogenation Yes November 30, 2022 4:40pm Advance Directive Response Recorded Date/ Time Name of Medical Power of Supervisor Dehydrogenation MONI VILLEGAS October 07, 2023 8:29am Living Will Yes October 07 8:29am Power of Supervisor Dehydrogenation Yes October 07, 2023 8:29am Advance Directive Response Recorded Date/ Time Living Will Yes October 07 9:29am Do you have a Healthcare Pow er of Supervisor Dehydrogenation? Yes October 07, 2023 9:29am Living Will Yes December 25, 3:08pm Do you have a Healthcare Pow er of Supervisor Dehydrogenation? Yes December 25, 2024 3:08pm Name of Medical Power of Supervisor Dehydrogenation BAKARI ESCOBAR December 25, 2024 3:08pm Summary Purpose Additional Source Comments Care Teams (unrecognized sec tion and content) Team Status: Active Member Role Status Dates Dr. Mary Ponce MD Family Provider Active Dr. Mary Ponce MD Primary Care Provider Active Team Status: Inactive Member Role Status Dates Dr. Mary Ponce MD Primary Care Provider, Referrin g Provider Active Lakisha Fairbanks MANAGER TREASURY, MANAGER TREASURY-C Attending Provider Active Team Status: Active Member Role Status Dates Dr. Mary Ponce MD Primary Care Provider, Referrin g Provider Active Dr. Floyd Bellamy DO Attending Provider, Other Prov ider Active Team Status: Inactive Member Role Status Dates Dr. Mary Ponce MD Primary Care Provider, Referrin g Provider Active Carmelina Blanco PA, PA Attending Provider Active Team Status: Inactive Member Role Status Dates Dr. Mary Ponce MD Primary Care Provider, Referrin g Provider Active Dr. Floyd Bellamy DO Attending Provider Active Team Status: Inactive Member Role Status Dates Dr. Mary Ponce MD Primary Care Prov ider, Attending Provider, Referring Provider Active Team Status: Inactive Member Role Status Dates Dr. Mary Ponce MD Primary Care Provider Active Carmelina Blanco PA, PA Attending Provider, Referr ing Provider Active Team Status: Active Member Role Status Dates Dr. Mary Ponce MD Primary Care Provider Active Dr. Ochoa Hernandez MD Attending Provider, Other Provide r Active Carmelina Blanco PA, PA Referring Provider, Other Provider Active Team Status: Inactive Member Role Status Dates Dr. Mary Ponce MD Primary Care Provider Active Dr. Ochoa Hernandez MD Other Provider Active Carmelina Blanco PA, PA Attending Provider, Referr ing Provider Active Team Status: Inactive Member Role Status Dates Dr. Mary Ponce MD Primary Care Provider Active Dr. Floyd Bellamy DO Attending Provider, Referring Provider Active Team Status: Inactive Member Role Status Dates Dr. Mary Ponce MD Primary Care Provider, Referrin g Provider Active Dr. Ochoa Hernandez MD Attending Provider Active Team Status: Inactive Member Role Status Dates Dr. Mary Ponce MD Primary Care Provider, Referrin g Provider Active Dr. Scott Do MD Attending Provider Active Team Status: Active Member Role Status Dates Dr. Mary Ponce MD Primary Care Provider Active Dr. Ochoa Hernandez MD Attending Provider, Referring Provider, Other Provider Active Team Status: Inactive Member Role Status Dates Dr. Mary Ponce MD Primary Care Provider Active Dr. Ochoa Hernandez MD Attending Provider, Referring Pro vider Active Team Status: Inactive Member Role Status Dates Dr. Mary Ponce MD Primary Care Provider Active Dr. Scott Do MD Attending Provider, Referring Provi issa Active Team Status: Inactive Member Role Status Dates Dr. Mary Ponce MD Primary Care Provider, Attendin g Provider Active Team Status: Active Member Role Status Dates Dr. Mary Ponce MD Primary Care Provider Active Team Status: Inactive Member Role Status Dates Dr. Mary Ponce MD Primary Care Provider Active Start: October 30, 2024 End: October 30, 2024 Dr. Mary Ponce MD Referring Provider Active Start: October 30, 2024 End: October 30, 2024 Felisha Ross NP, MANAGER TREASURY-C Attending Provider Active Start: October 30, 2024 End: October 30, 2024 Team Status: Inactive Member Role Status Dates Dr. Mary Ponce MD Primary Care Provider Active Start: 2024 End: 2024 [facility] Tran Attending Provider Active St art: 2024 End: 2024 [facility] Tran Referring Provider Active St art: 2024 End: 2024 Team Status: Inactive Member Role Status Dates Dr. Mary Ponce MD Primary Care Provider Active Start: November 15, 2024 End: November 15, 2024 Dr. Mary Ponce MD Referring Provider Active Start: November 15, 2024 End: November 15, 2024 Dr. Hugh Carranza MD Attending Provider Active Start: November 15, 2024 End: November 15, 2024 Team Status: Inactive Member Role Status Dates Dr. Mary Ponce MD Primary Care Provider Active Start: November 17, 2024 End: November 17, 2024 Dr. Hugh Carranza MD Attending Provider Active Start: November 17, 2024 End: November 17, 2024 Dr. Hugh Carranza MD Referring Provider Active Start: November 17, 2024 End: November 17, 2024 Team Status: Inactive Member Role Status Dates Dr. Mary Ponce MD Primary Care Provider Active Start: December 04, 2024 End: December 04, 2024 Dr. Mary Ponce MD Referring Provider Active Start: December 04, 2024 End: December 04, 2024 Dr. Floyd Bellamy DO Attending Provider Active Start: December 04, 2024 End: December 04, 2024 Team Status: Inactive Member Role Status Dates Dr. Mary Ponce MD Primary Care Provider Active Start: December 05, 2024 End: December 05, 2024 Dr. Hugh Carranza MD Attending Provider Active Start: December 05, 2024 End: December 05, 2024 Dr. Hugh Carranza MD Referring Provider Active Start: December 05, 2024 End: December 05, 2024 Team Status: Inactive Member Role Status Dates Dr. Mary Ponce MD Primary Care Provider Active Start: December 19, 2024 End: December 19, 2024 Dr. Hugh Carranza MD Attending Provider Active Start: December 19, 2024 End: December 19, 2024 Dr. Hugh Carranza MD Referring Provider Active Start: December 19, 2024 End: December 19, 2024 Team Status: Inactive Member Role Status Dates Dr. Mary Ponce MD Primary Care Provider Active Start: December 25, 2024 End: December 25, 2024 Dr. Ranjith Vides DO Attending Provider Active Start: December 25, 2024 End: December 25, 2024 Dr. Ranjith Vides DO Emergency Provider Active Start: December 25, 2024 End: December 25, 2024 Team Status: Inactive Member Role Status Dates Dr. Mary Ponce MD Primary Care Provider Active Start: January 15, 2025 End: January 15, 2025 Dr. Mary Ponce MD Referring Provider Active Start: January 15, 2025 End: January 15, 2025 Dr. Floyd Bellamy DO Attending Provider Active Start: January 15, 2025 End: January 15, 2025 Team Status: Inactive Member Role Status Dates Dr. Mary Ponce MD Primary Care Provider Active Start: February 14, 2025 End: February 14, 2025 Dr. Floyd Bellamy DO Attending Provider Active Start: February 14, 2025 End: February 14, 2025 Dr. Floyd Bellamy DO Referring Provider Active Start: February 14, 2025 End: February 14, 2025 Team Status: Inactive Member Role Status Dates Dr. Mary Ponce MD Primary Care Provider Active Start: February 15, 2025 End: February 15, 2025 Dr. Mary Ponce MD Referring Provider Active Start: February 15, 2025 End: February 15, 2025 Dr. Hugh Carranza MD Attending Provider Active Start: February 15, 2025 End: February 15, 2025 Team Status: Active Member Role Status Dates Dr. Mary Ponce MD Primary Care Provider Active Start: February 15, 2025 Dr. Hugh Carranza MD Attending Provider Active Start: February 15, 2025 Dr. Hugh Carranza MD Referring Provider Active Start: February 15, 2025 Team Status: Inactive Member Role Status Dates Dr. Mary Ponce MD Primary Care Provider Active Start: February 15, 2025 End: February 15, 2025 Dr. Hugh Carranza MD Attending Provider Active Start: February 15, 2025 End: February 15, 2025 Dr. Hugh Carranza MD Referring Provider Active Start: February 15, 2025 End: February 15, 2025 Team Status: Inactive Member Role Status Dates Dr. Mary Ponce MD Primary Care Provider Active Start: March 27, 2025 End: March 27, 2025 Dr. Hugh Carranza MD Attending Provider Active Start: March 27, 2025 End: March 27, 2025 Dr. Hugh Carranza MD Referring Provider Active Start: March 27, 2025 End: March 27, 2025 Team Status: Active Member Role Status Dates Dr. Mary Ponce MD Primary Care Provider Active Start: March 27, 2025 Dr. Hugh Carranza MD Referring Provider Active Start: March 27, 2025 Dr. Hugh Carranza MD Other Provider Active S tart: March 27, 2025 Dr. Peyman Mora MD Attending Provider Active Start: March 27, 2025 INFORMATION SOURCE (unrecogn ized section and content) DATE CREATED AUTHOR 05/04/2025 [facility] FOR RECORDS PERTAINING TO PATIENTS WHO ARE OR HAVE BEEN ENROLLED IN A CHEMICAL DEPENDENCY/SUBSTANCEABUSE PROGRAM, SOME INFORMATION MAY BE OMITTED. This clinical summary was aggregated from multiple sources. Caution should be exercised in using it in the provision of clinical care. This summary normalizes information from multiple sources, and as a consequence, information in this document may materially change the coding, format and clinical context of patient data. In addition, data may be omitted in some cases. CLINICAL DECISIONS SHOULD BE BASED ON THE PRIMARY CLINICAL RECORDS. [employer] provides no warranty or guarantee of the accuracy or completeness of information in this document.
== END | disposition home or self-care (01) ==
LOC: US 11:42
PROVIDERS: PCP Family Medicine; Referring Provider Psychiatry & Neurology Neurology; Visit Provider Psychiatry & Neurology Neurology
DX: E04.1 Nontoxic single thyroid nodule (principal)
CPT/HCPCS: 76536

== ENCOUNTER → 2025-08-13 | Outpatient (CLI) | payer OTHER, SELFPAY ==
[2025-08-13 15:19] LABS: Hematocrit 43.9 % (37-47); Hemoglobin 14.3 g/dL (12.0-15.0); Mean Corp Hgb Conc 32.6 g/dL (32-36); Mean Corpuscular Volume 94.2 fL (81-99); Mean Platelet Vol. 11.0 fl (6.2-12.0); Platelet Count 352 K/mm3 (150-450); RBC Distribution Width CV 13.6 % (11.6-14.6); RBC Distribution Width SD 46.8 fl (35.1-43.9); Red Blood Count 4.66 M/mm3 (4.2-5.4); White Blood Count 5.7 K/mm3 (4.4-11.0)
[2025-08-13 15:56] LABS: AST(SGOT) 25 U/L (<=31); Alanine Aminotransfer ALT/SGPT 23 U/L (<=34); Albumin, Serum 4.5 g/dL (3.4-4.8); Alkaline Phosphatase 86 U/L (35-104); Anion Gap 11 (5-15); BUN 11 mg/dL (4-19); BUN/Creat Ratio 14.1 RATIO (10-20); Calcium,Total 9.6 mg/dL (7.6-11.0); Carbon Dioxide 26.1 mmol/L (21.0-32.0); Chloride 104 mmol/L (98-108); Globulin 3.0 g/dL (2.2-4.2); Glucose 102 mg/dL (70-99); Magnesium 2.1 mg/dL (1.5-2.2); Potassium 4.0 mmol/L (3.3-5.1); Vitamin B12 579 pg/mL (180-914)
[2025-08-16 13:08] LABS: Vitamin D 1,25-Dihydroxy 52.0 pg/mL (24.8-81.5)
[2025-08-18 16:08] LABS: Folate, Hemolysate Test 495.0 ng/mL (Not Estab.); Folate, RBC (Hct) Test 45.1 % (34.0-46.6); Folates, RBC Test 1098 ng/mL (>498); VITAMIN B6 5.8 ug/L (3.4-65.2); Vitamin B1, Thiamine 108.0 nmol/L (66.5-200.0)
== END | disposition home or self-care (01) ==
LOC: MTLAB 11:27
PROVIDERS: PCP Family Medicine; Referring Provider Psychiatry & Neurology Neurology; Visit Provider Psychiatry & Neurology Neurology
DX: M79.7 Fibromyalgia (principal); R20.2 Paresthesia of skin; R53.82 Chronic fatigue, unspecified
CPT/HCPCS: 36415; 80053; 82607; 82652; 82747; 83735; 84207; 84425; 84443; 85014; 85027

== ENCOUNTER → 2025-08-23 | Outpatient (CLI) | payer OTHER, SELFPAY | END | disposition home or self-care (01) | LOC: CT 17:44 | PROVIDERS: PCP Family Medicine; Referring Provider Psychiatry & Neurology Neurology; Visit Provider Psychiatry & Neurology Neurology | DX: Q04.6 Congenital cerebral cysts (principal) | CPT/HCPCS: 70450 ==

== ENCOUNTER → 2025-08-29 | Outpatient (CLI) | payer OTHER, SELFPAY ==
--- NOTE | 2025-08-29 13:05 | MRI_ITS ---
PROCEDURE: SPINE THORACIC W/WO CONTRAST 08/29/2025 REASON FOR EXAM: DORSALGIA; PARESTHESIAS; WEAKNESS IN LEGS TECHNIQUE: Procedure Code: [id number] Modality: MR Procedure: SPINE THORACIC W/WO CONTRAST Multiplanar and multisequence images were obtained. FINDINGS: Normal thoracic vertebral body height and alignment. No subluxation. No compression deformity. The thoracic spinal cord exhibits normal caliber and signal. The marrow signal is within normal limits without edema or compression. Axial images demonstrate no paravertebral soft tissue masses. Normal caliber of the adjacent thoracic aorta. Minor disc bulging is seen at T6-7 and T7-8 without cord impingement. Also present at T9-T10. After the administration of gadolinium there is no abnormal enhancement. There are no abnormal flow voids. MRI/Spine Thoracic W/WO Contrast IMPRESSION: Minimal annular bulging. No nerve or spinal cord encroachment or abnormal enha ncement Reading Location: [facility]
--- NOTE | 2025-08-29 13:05 | MRI_ITS ---
PROCEDURE: SPINE THORACIC W/WO CONTRAST 08/29/2025 REASON FOR EXAM: DORSALGIA; PARESTHESIAS; WEAKNESS IN LEGS TECHNIQUE: Procedure Code: [id number] Modality: MR Procedure: SPINE THORACIC W/WO CONTRAST Multiplanar and multisequence images were obtained. FINDINGS: Normal thoracic vertebral body height and alignment. No subluxation. No compression deformity. The thoracic spinal cord exhibits normal caliber and signal. The marrow signal is within normal limits without edema or compression. Axial images demonstrate no paravertebral soft tissue masses. Normal caliber of the adjacent thoracic aorta. Minor disc bulging is seen at T6-7 and T7-8 without cord impingement. Also present at T9-T10. After the administration of gadolinium there is no abnormal enhancement. There are no abnormal flow voids. MRI/Spine Thoracic W/WO Contrast IMPRESSION: Minimal annular bulging. No nerve or spinal cord encroachment or abnormal enha ncement Reading Location: [facility]
== END | disposition home or self-care (01) ==
LOC: MRI 12:56
PROVIDERS: PCP Family Medicine; Referring Provider Psychiatry & Neurology Neurology; Visit Provider Psychiatry & Neurology Neurology
DX: M54.9 Dorsalgia, unspecified (principal); R20.2 Paresthesia of skin; R29.898 Other symptoms and signs involving the musculoskeletal system
CPT/HCPCS: 72157; A9575; A4216

== ENCOUNTER → 2025-09-10 | Outpatient (CLI) | payer OTHER, SELFPAY ==
[2025-09-10 18:14] LABS: CRP < 3.00 mg/L (0.0-3.0)
== END | disposition home or self-care (01) ==
LOC: BFHLAB 16:11
PROVIDERS: PCP Family Medicine; Visit Provider Nurse Practitioner Family
DX: R51.9 Headache, unspecified (principal)
CPT/HCPCS: 36415; 85652; 86140

== ENCOUNTER 2025-09-24 13:00 | Outpatient (RCR) | payer OTHER, SELFPAY ==
--- NOTE | 2025-08-27 14:07 | HP.PTEVAL_ITS ---
Patient's Visit Information Visit Information Visit Information: CHAPITO GRIMES is a 64 year old F referred to Physical Therapy by Dr. Hugh Carranza MD with a diagnosis of Dorsalgia,Chronic fatigue ,fibromyalgia ,symptoms musculoskeletal. Date of Evaluation: 08/27/25 Physical Therapist: Jag Maya, PT, Cert MDT, OCS Visit Plan Frequency: 2x /Week Duration: 4 Weeks Plan: -GRADUAL PROGRESSION - PT INTERVENTIONS BLE STRENGTHENING ,FUNCTIONAL STRENGTHENING ,ENDURANCE PROGRAM ,DLS AND POSTURAL EX'S Subjective Subjective: This 64 y/o female presents to physical therapy with fatigue , back pain and BLE weakness. Patient has these symptoms for several years with back pain and fibromyalgia.Patient seen Neurologist did Blood work . MRI lumbar At L2-L3, left foraminal disc protrusion results in mild left neural foraminal narrowing. Multilevel degenerative disc disease and spondylosis with mild central canal stenosis at Mild neural foraminal narrowing is present from L4- S1, Levoscoliosis.Cervical DDD osteophytes . Plan to have MRI thoracic.Brain CT showed1-2 mm hype density in the region of the foramen of Monro, unchanged from the previous study a could represent a very tiny colloid cyst. No evidence of obstruction. Patient c/o mid back pain . And paresthesia in left leg. Patient has global pain from fibromyalgia. Patient c/o fatigue and endurance not active. Activity aggravates symptoms walking/standing/housework .Pain affects sleeping. Bowel/bladder. Patient c/o weakness in legs ,standing difficulty carrying laundry basket Patient condition affects QOL and function. Patient goals get stronger improve ADL SOCIAL: VOCATION: home Pain Bilateral Back: Pain Intensity (Out of 10): 1 Pain Intensity Range: 8 Bilateral: Pain Intensity (Out of 10): 1 Pain Intensity Range: 8 Comment: legs Objective Objective: POSTURE: mild forward posture GAIT: reciprocal pattern PALPATION: TTP global legs /arms due fibromyalgia NEURO: c/o paresthesia/tingling in legs FLEXABILITY: hamstrings min tight LUMBAR ROM: flexion 25% ,extension 50 % loss ,side glides 25% loss MMT: ( peak force) quads right 7.8 ,left 7.5 ,hamstrings 7.1 right ,left 7.5 ,hip flexion 7.1 right ,left 7.6 Special Tests L/S Slump test left side: Negative L/S Slump test right side: Negative L/S Left Straight Leg Raise: Negative L/S Right Straight Leg Raise: Negative Balance/Special Test Scores Functional Gait Assessment Score: 27 % Disability: 10.0000 Lower Extremity Functional Score: 36 Goals Goal 1:: Patient to be I with HEP for weakness Goal Time Frame: 4-6 Weeks Goal 2:: Patient to improve peak force quads/hams/hip by 5-10 # to improve function and gait Goal Time Frame: 4-6 Weeks Goal 3:: Patient to improve LFES score by 5 point to improve QOL . Goal Time Frame: 4-6 Weeks Goal 4:: Patient to improve functional endurance to ADLS and housework tasks by 50% Goal Time Frame: 4-6 Weeks Rehabilitation Potential Physical Therapy Diagnosis: This patient has generalized weakness BLE ,global pain and decrease endurance thus benefit from skilled PT Rehabilitation Potential: Good Anticipated Interventions Patient/Client Instruction: Educate patient on: Condition and Plan of Care For the Purpose of:: To improve muscle performance and motor function, To improve ability to perform ADL's, To increase tolerance to activity/condition/position, To improve ability of physical actions for home/community/work/leisure, To improve gait and locomotor functions, To improve endurance, To improve balance and To reduce risk of recurrence Therapeutic Exercise to Include: Strength training, Endurance training, Balance training, Postural training and Dynamic Lumbar Stabilization Comment: BLE For the Purpose of:: To decrease pain, To improve muscle performance and motor function, To improve ability to perform ADL's, To increase tolerance to activity/condition/position, To improve ability of physical actions for home/community/work/leisure, To improve gait and locomotor functions, To increase flexibility/ROM, To improve endurance and To improve balance Text: Thank you for the opportunity to evaluate your patient. For Medicare and Medicare HMO plans, please review the plan of care and approve it. It will need to be FAXED BACK to us at [phone] for Medicare purposes. For Medicare only, by signing this I certify the plan of care. Please let me know if there are questions or concerns regarding this plan of care. Physician Signature: Date:
--- NOTE | 2025-09-24 13:27 | HP.PTDCSUM ---
Discharge Summary D/C summary: It has been my pleasure to treat CHAPITO GRIMES referred by Dr. Hugh Carranza MD, with the diagnosis of Dorsalgia,Chronic fatigue ,fibromyalgia ,symptoms musculoskeletal for a total of 8 visit(s). Discharge Date: 09/24/25 Please see the following information for a summary of their discharge status. Subjective Subjective: Pain and stiffness seems worse Cramps at night Pain Bilateral Back: Pain Intensity (Out of 10): 4 Bilateral: Pain Intensity (Out of 10): 4 Overall Improvement % Improvement: 20 Objective Objective/Function: POSTURE: mild forward posture GAIT: reciprocal pattern PALPATION: TTP global legs /arms due fibromyalgia NEURO: c/o paresthesia/tingling in legs FLEXABILITY: hamstrings min tight LUMBAR ROM: flexion 25% ,extension 25 % loss ,side glides 25% loss MMT: ( peak force) quads right 18.1.8 ,left 17.5 ,hamstrings 17.9 right ,left 16 .5 ,hip flexion 19.7 right ,left 18.9 Goals Goal 1:: Patient to be I with HEP for weakness Goal Progress: Progressing Goal 2:: Patient to improve peak force quads/hams/hip by 5-10 # to improve function and gait Goal 3:: Patient to improve LFES score by 5 point to improve QOL . Goal Progress: Progressing Goal 4:: Patient to improve functional endurance to ADLS and housework tasks by 50% Goal Progress: Progressing Plan Plan: D/C to HEP D/C Information Discharge Comments: HEP AND RTD d/c sentence: If there are questions or concerns regarding this patient's physical therapy, please feel free to call me at [phone]. Thank you for the referral of this patient. Sincerely, Jag Maya, PT, Cert MDT, OCS Balance/Gait/Functional tests Balance/Special Test Scores Functional Gait Assessment Score: 27 % Disability: 10.0000 Lower Extremity Functional Score: 36 Improvement % Improvement: 20
== END 2025-09-24 19:00 | disposition home or self-care (01) ==
LOC: PT 13:00
PROVIDERS: PCP Family Medicine; Referring Provider Psychiatry & Neurology Neurology; Visit Provider Psychiatry & Neurology Neurology
DX: R29.898 Other symptoms and signs involving the musculoskeletal system (principal); M54.9 Dorsalgia, unspecified; R53.82 Chronic fatigue, unspecified; M79.7 Fibromyalgia
CPT/HCPCS: 97110; 97162; 97530

== ENCOUNTER → 2025-09-26 | Outpatient (CLI) | payer OTHER, SELFPAY ==
--- NOTE | 2025-09-26 11:49 | BI_ITS ---
EXAM: SCRN MAMM (CAD)W/TIANNA BILAT DATE: 09/26/2025 CLINICAL HISTORY: F, Age 64 y/o , SCREEN TECHNIQUE: Procedure Code: [id number] Modality: MG Procedure: SCRN MAMM (CAD)W/TIANNA BILAT COMPARISON: Prior exam(s) dated 09/25/2024, 09/24/2023, and 09/23/2022. FINDINGS: TISSUE DENSITY: The breasts are heterogeneously dense, which may obscure small masses. Bilateral Breast Mammographic Findings: Benign-appearing round calcifications are seen in both breasts. Stable nodular densities are seen in both breasts. There are no suspicious masses, suspicious cluster of microcalcifications, architectural distortion or secondary signs of malignancy identified in either breast. A radiopaque clip is seen in the superior aspect of the right breast. The biopsy was benign. The post biopsy site is stable. BI/SCRN MAMM (CAD)W/TIANNA BILAT IMPRESSION: Benign screening mammogram OVERALL FINAL ASSESSMENT BI-RADS 2: BENIGN RECOMMENDATION: Routine annual follow-up in 1 Year Additional Recommendation none A letter with findings and recommendations will be mailed to the patient. Reading Location: [id number]
== END | disposition home or self-care (01) ==
LOC: OPBI 11:48
PROVIDERS: PCP Family Medicine; Referring Provider Family Medicine; Visit Provider Family Medicine
DX: Z12.31 Encounter for screening mammogram for malignant neoplasm of breast (principal)
CPT/HCPCS: 77063; 77067

== ENCOUNTER 2025-10-05 08:41 | Day surgery (SDC) | payer OTHER, SELFPAY ==
--- NOTE | 2025-10-02 16:32 | PAT.ANE_ITS ---
Pre-Assessment Diagnosis/Proposed Procedure Planned Operative Procedure(s): EGD Anesthesia History Anesthesia History - heel compressor: Anesthesia History - heel compressor Hx Hospitalization No 10/02/25 12:09 Any Problems With Anesthesia No 10/02/25 12:09 Cholinesterase deficiency No 10/02/25 12:09 You/Your Family Experience No 10/02/25 12:09 fever (hyperthermia) with Relationship Recent Exposure to Contagious No 11/02/24 10:03 Disease Does patient have nerve No 10/02/25 12:09 stimulator Patient instructed to have device shut off --Does patient have Pacemaker or ICD? When Was Last Pacemaker Check QUESTION #4 FULL TEXT: You/Your Family Experience fever (hyperthermia) with Anesthesia Last Oral Intake Last Oral intake: Last Oral Intake NPO since Meds taken in AM with sips of water? Meds patient instructed to take am of surgery PONV PONV - heel compressor: PONV - heel compressor Female Yes 10/02/25 12:09 HX of Motion Sickness No 10/02/25 12:09 HX of N/V After Surgery No 10/02/25 12:09 Non-Smoker Yes 10/02/25 12:09 Duration of Surgery greater No 10/02/25 12:09 than 60 minutes Number of Risk Factors 2 10/02/25 12:09 PONV Score Moderate Risk 10/02/25 12:09 Height & Weight Height & Weight: Anesthesia: Height & Weight Height 5 ft 4 in 08/13/25 10:13 Respiratory Assessment Respiratory Assessment - heel compressor: Respiratory Tract Infection Hx - heel compressor Hx Respiratory Tract Infection No 10/02/25 12:09 STOP Sleep Apnea STOP Sleep Apnea - heel compressor: STOP Sleep Apnea - heel compressor Hx Hypertension No 10/02/25 12:09 Hx Sleep Apnea No 10/02/25 12:09 CPAP BIPAP Do you snore loudly (louder No 10/02/25 12:09 than talking or can be heard Do you often feel tired/ No 10/02/25 12:09 fatigued/ sleepy during daytime? Has anyone observed you stop No 10/02/25 12:09 breathing during sleep? STOP Results Negative 10/02/25 12:09 QUESTION #5 FULL TEXT : Do you snore loudly (louder than talking or can be heard through closed doors)? Tobacco Use History Tobacco Use History - heel compressor: Tobacco Use History - heel compressor Tobacco Use Smoking Status Never smoker 10/02/25 12:09 Hx Tobacco Use No 10/02/25 12:09 Years Smoking Packs Smoked per Day Smoking Cessation Date was within the last 15 years Hx Smoking Cessation Date Hx Smoking Cessation Counseling Hematologic Medial History Hematologic Hx - heel compressor: Hematologic Medical Hx - fixer boarding room Hx of Blood Transfusion No 10/02/25 12:09 Hx of Transfusion in last 3 No 10/02/25 12:09 Months Date of Last Transfusion (if within last 3 months) Ever experience any problems No 10/02/25 12:09 with transfusion(s)? Specify any problems Hx of Preganancy in last 3 No 10/02/25 12:09 Months Nurse Filling Out Transfusion VCHRISTIN 10/02/25 12:09 & Questions: Date: 10/02/25 10/02/25 12:09 Time: 12:10 10/02/25 12:09 Patient unable to answer at this time (ie. confused, unrespo /Reproduction History /Reproductive History - heel compressor: /Reproductive Hx- heel compressor Hx Now No 10/02/25 12:09 Gestational Age (in weeks): EDC: Hx Hx Para Hx Section SAB No 10/02/25 12:09 Does the father of the baby or his family experience fever w Father of the baby Malignant Hypertension history comment PFSH Medical History (Updated 10/02/25 @ 12:09 by Katerin Reyna) History of Holter monitoring Normal Holter exam Post-menopausal Depression Anxiety Back pain Migraine headache Syncope Difficulty swallowing Gastric reflux Leg cramps Ledbetter's esophagus Wears glasses Arthritis History of IBS History of diverticulitis Non-smoker PONV (postoperative nausea and vomiting) History of echocardiogram History of stress test Cardiology follow-up encounter History of irregular heartbeat Diarrhea Neck pain Hyperlipidemia Vitamin D deficiency Degeneration of intervertebral disc of cervical region Segmental and somatic dysfunction of thoracic region Segmental and somatic dysfunction of cervical region Cervicogenic headache GERD (gastroesophageal reflux disease) Cataracts, bilateral Fibromyalgia Anxiety and depression Migraine with aura Migraine headache Osteoporosis Myalgia and myositis Dyspepsia Diverticula of colon Home Medications ?Medication ?Instructions ?Recorded ?Last Taken ?Type acetaminophen 500 mg tablet 500 mg PO Q6H PRN Pain 10/21 Unknown History (Tylenol Extra Strength) diphenhydramine HCl 25 mg capsule 25 mg PO QHS PRN sea rashel allergies 12/03/21 Unknown History (Benadryl) cholecalciferol (vitamin D3) 25 1,000 unit PO DAILY Unknown History mcg (1,000 unit) tablet (Vitamin D3) zoledronic acid 5 mg/100 mL in 1 ea .Route ONCE Unknown History mannitol 5 %-water intravenous piggybck ondansetron 4 mg disintegrating 4 mg PO TID PRN Nausea #90 tabs 08/13/25 Unknown Rx tablet pantoprazole 40 mg tablet,delayed 40 mg PO QDAY #30 ta bs 09/06/25 Unknown Rx release cyclobenzaprine 10 mg tablet 10 mg PO TID PRN muscle p ain 10/02/25 Unknown History Allergy/AdvReac Type Severity Reaction Status Date / Time amoxicillin Allergy Rash Verified 10/02/25 12:04 doxycycline Allergy Rash Verified 10/02/25 12:04 Hvopirn-[id number]-GkM Reductase AdvReac Severe mylagias Verified 10/02/25 12:04 Inhibitor ezetimibe (From Zetia) AdvReac Intermediate Myalgias Verified 10/02/25 12:04 omeprazole AdvReac Intermediate Rash Verified 10/02/25 12:04 codeine AdvReac Unknown Other Verified 10/02/25 12:04 erythromycin base AdvReac Unknown Rash Verified 10/02/25 12:04 aspirin (ASA) AdvReac Gastric Verified 10/02/25 12:04 Reflux/ burning Family History Mother Hypertension COPD (chronic obstructive pulmonary disease) CVA (cerebral vascular accident) Kidney disease Anemia Arthritis Heart disease Osteoporosis Emphysema, unspecified Ascending aortic aneurysm Father , Melanoma Melanoma Sister Hypertension Rheumatoid arthritis Brother , Suicide Suicide attempt Sister Rheumatoid arthritis Hypertension Grandmother Arthritis Heart disease Hypertension Osteoporosis Grandfather CVA (cerebral vascular accident) Aunt CVA (cerebral vascular accident) Uncle Skin cancer Cancer Uncle Cancer Uncle Cancer Uncle Cancer Surgical History (Updated 10/02/25 @ 12:09 by Katerin Reyna) History of esophagogastroduodenoscopy (EGD) History of cataract surgery Hx of colonoscopy H/O bilateral salpingo-oophorectomy History of total abdominal hysterectomy Normal colonoscopy History of breast biopsy Social History Smoking Status: Never smoker Electronic Cigarette Use: not used second hand exposure: No alcohol intake: never substance use type: does not use caffeine: Yes Type: carbonated beverages Number of servings: 1 what type of physical activity do you participate in: none seatbelt use: always do you feel safe at home: Yes additional social history: David- retired retired Audit: Pertinent Findings Pertinent Findings EKG Perinent findings: 04/14/2024. Sinus rhythm. Short SC syndrome. Possible pulmonary disease. Stress test pertinent findings: 08/03/2023. EF is 76%. No areas of reversibility are noted to suggest ischemia. No previous infarct. Echo (EF%) pertinent findings: 08/31/2014. EF of 55%. PASP is 22 mmHg. No aortic stenosis noted. Consult pertinent findings: 07/21/2024. Bella STEINBERG. 1. Chest pain-stable. CTA demonstrated no obstructions. Calcium score was 0. Stress test negative for ischemia. 2. Palpitations-these have improved. (Holter as below) Additional pertinent findings: Holter monitor. 08/03/2023. Baseline rhythm was normal sinus with rare PAC and PVCs. Total of 59 PSVC's comprising 0.1% of total QRS complexes. No atrial fibrillation noted. There was 3 isolated PVCs total. Patient recorded no symptoms of chest discomfort in the diary. 1 symptom of feeling of leg cramping at night. Recommendation Anesthesia Recommendation Anesthesia recommendation: OPTIMIZED for anesthesia
[2025-10-05] VITALS (8 sets, daily range): BP systolic 113–138; BP diastolic 66–75; PULSE 69–81; RESP 16; TEMP 36.1–36.6; O2SAT 95–100; BMI 24.6
--- NOTE | 2025-10-05 09:00 | PCM.HP.STD ---
HPI - General General Date of Admission: 10/05/25 Date of Service: 10/05/25 Chief Complaint: abdominal pain HPI Narrative CHAPITO GRIMES, is a 64 F who presents [ Chief Complaint: Epigastric pain OV 10.12.22 with worsened acid reflux, dysphagia and epigastric discomfort despite protonix use. Start sucralfate. 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 OV 12.18.22 continue PPI. OV 07.09.23 continues to have acid reflux and inconsistent bowels with increased flatulence, bloating. Biochemical RAST Class I: cow?s milk, eggs, clam, corn, peanut, sesame seen, scallop, shrimp, soybean, walnut, wheat. Seafood H Contact, VM 07.22.23 with allergen results; putting list in mail. Can callback with any questions. 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 OV 2.01.23 pt reports nausea that comes and goes throughout the day. Abd pain on the left side under her ribs that she describes as pinching pain that sometimes aches. Pt reports occasional difficulty swallowing food and liquids OV 09/06/2025 - Epigastric pain everyday before or sometimes after eating -no certain food triggers -still taking pantoprazole 40 mg a day -occasional nausea no vomiting, not related to oral intake -Worsening dysphagia, recently a muffin got stuck -no regurgitation -No loose stool in over a month, having formed bowel movement daily, thinks this may be related to eating more fiber [facility] Medical History History of Holter monitoring Normal Holter exam Post-menopausal Depression Anxiety Back pain Migraine headache Syncope Difficulty swallowing Gastric reflux Leg cramps Ledbetter's esophagus Wears glasses Arthritis History of IBS History of diverticulitis Non-smoker PONV (postoperative nausea and vomiting) History of echocardiogram History of stress test Cardiology follow-up encounter History of irregular heartbeat Diarrhea Neck pain Hyperlipidemia Vitamin D deficiency Degeneration of intervertebral disc of cervical region Segmental and somatic dysfunction of thoracic region Segmental and somatic dysfunction of cervical region Cervicogenic headache GERD (gastroesophageal reflux disease) Cataracts, bilateral Fibromyalgia Anxiety and depression Migraine with aura Migraine headache Osteoporosis Myalgia and myositis Dyspepsia Diverticula of colon Home Medications ?Medication ?Instructions ?Recorded ?Last Taken ?Type acetaminophen 500 mg tablet 500 mg PO Q6H PRN Pain 03/12/21 Unknown History (Tylenol Extra Strength) diphenhydramine HCl 25 mg capsule 25 mg PO QHS PRN seasonal allergies 12/03/21 Unknown History (Benadryl) cholecalciferol (vitamin D3) 25 1,000 unit PO DAILY 08/30/23 Unknown History mcg (1,000 unit) tablet (Vitamin D3) zoledronic acid 5 mg/100 mL in 1 ea .Route ONCE 11/15/24 Unknown History mannitol 5 %-water intravenous piggybck ondansetron 4 mg disintegrating 4 mg PO TID PRN Nausea #90 tabs 08/13/25 Unknown Rx tablet pantoprazole 40 mg tablet,delayed 40 mg PO QDAY #30 tabs 09/06/25 Unknown Rx release cyclobenzaprine 10 mg tablet 10 mg PO TID PRN muscle pain 10/02/25 Unknown History Allergy/AdvReac Type Severity Reaction Status Date / Time amoxicillin Allergy Rash Verified 10/05/25 09:01 doxycycline Allergy Rash Verified 10/05/25 09:01 [id number] Reductase AdvReac Severe mylagias Verified 10/05/25 09:01 Inhibitor ezetimibe (From Zetia) AdvReac Intermediate Myalgias Verified 10/05/25 09:01 omeprazole AdvReac Intermediate Rash Verified 10/05/25 09:01 codeine AdvReac Unknown Other Verified 10/05/25 09:01 erythromycin base AdvReac Unknown Rash Verified 10/05/25 09:01 aspirin (ASA) AdvReac Gastric Verified 10/05/25 09:01 Reflux/ burning Family History Mother Hypertension COPD (chronic obstructive pulmonary disease) CVA (cerebral vascular accident) Kidney disease Anemia Arthritis Heart disease Osteoporosis Emphysema, unspecified Ascending aortic aneurysm Father , Melanoma Melanoma Sister Hypertension Rheumatoid arthritis Brother , Suicide Suicide attempt Sister Rheumatoid arthritis Hypertension Grandmother Arthritis Heart disease Hypertension Osteoporosis Grandfather CVA (cerebral vascular accident) Aunt CVA (cerebral vascular accident) Uncle Skin cancer Cancer Uncle Cancer Uncle Cancer Uncle Cancer Surgical History History of esophagogastroduodenoscopy (EGD) History of cataract surgery Hx of colonoscopy H/O bilateral salpingo-oophorectomy History of total abdominal hysterectomy Normal colonoscopy History of breast biopsy Social History Smoking Status: Never smoker Electronic Cigarette Use: not used second hand exposure: No alcohol intake: never substance use type: does not use caffeine: Yes Type: carbonated beverages Number of servings: 1 what type of physical activity do you participate in: none seatbelt use: always do you feel safe at home: Yes additional social history: David- retired retired ROS Constitutional Constitutional: Denies fatigue, fever(s), poor appetite, weight gain or weight loss Gastrointestinal Gastrointestinal: Denies belching, bloating, change in bowel habits, change in stool character, chewing difficulty, coffee ground emesis, constipation, cramping, diarrhea, dyspepsia, dysphagia, early satiety, excessive flatus, fecal incontinence, heartburn, hematemesis, hematochezia, hemorrhoids, loose stools, melena, nausea, odynophagia, rectal bleeding, tenesmus, vomiting or weight changes Physical Exam Const alert, oriented x3, no apparent distress and healthy appearing General Appearance: cooperative GI normal to inspection, nondistended, normoactive bowel sounds, soft to palpation, non-tender and non-distended Percussion: normal to percussion Rectal Exam: deferred Assessment & Plan Assessment/Plan (1) Epigastric pain: (2) Dysphagia: QUALIFIERS: Dysphagia type: esophageal phase Qualified Code(s): R13.19 - Other dysphagia (3) Ledbetter's esophagus: QUALIFIERS: Ledbetter's esophagus type: without dysplasia Qualified Code(s): K22.70 - Ledbetter's esophagus without dysplasia PLAN: ROS Const Constitutional: Positive for fatigue, headache(s) and weakness; No fever(s) or weight change ENT ENT: Positive for headache(s) and difficulty swallowing Gastro GI: Positive for abdominal pain, bloating, heartburn, difficulty swallowing and nausea/dyspepsia; No belching, change in bowel habits, change in stool character, coffee ground emesis, constipation, cramping, diarrhea, feeling full early, excessive flatus, incontinent of stools, Vomiting blood/hematemesis, Blood in stool, loose stools, Black,tarry stools, pain with swallowing, vomiting or other Musc Musculoskeletal: Positive for back pain, muscle cramps, muscle weakness, numbness, stiffness, tingling and Arthritis; No joint pain Skin Skin: No yellowing of the eye or itchy eyes Neuro Neurology: Positive for weakness, headache(s), numbness and tingling Psych Psychiatric: Positive for anxiety and Positive for depression Endo Endocrine: Positive for fatigue; No weight change Aller/Imm Allergy/Immunologic: No itchy eyes Bryan/Lymp Hematologic/Lymphatic: No easy bleeding or easy bruising Exam Const General: cooperative, healthy appearing and comfortable Nutritional Appearance: average body habitus Orientation: alert HENMT Head: normal to inspection Eyes General: appearance normal, both eyes and all related structures Neck Neck: normal visual inspection Chest Chest palpation & inspection: normal inspection of the chest Resp Effort & Inspection: normal respiratory effort Cardio Rate: regular rate Rhythm: regular rhythm GI Inspection: normal to inspection Auscultation: normal bowel sounds Palpation: soft and nontender Assessment and Plan Assessment and Plan (1) Epigastric pain: Status: Acute (2) IBS (irritable bowel syndrome): Status: Chronic Qualifiers: Irritable bowel syndrome type: without diarrhea Qualified Code(s): K58.9 - Irritable bowel syndrome without diarrhea (3) Ledbetter's esophagus: Status: Chronic Qualifiers: Ledbetter's esophagus type: without dysplasia Qualified Code(s): K22.70 - Ledbetter's esophagus without dysplasia (4) Dysphagia: Status: Chronic Qualifiers: Dysphagia type: esophageal phase Qualified Code(s): R13.19 - Other dysphagia Plan: Kaila is a 64-year-old female patient with past medical history of migraine, diverticulitis, tachycardia, spinal stenosis, hyperlipidemia and fibromyalgia here today for follow-up. Patient endorsing worsening epigastric pain recently. Pain is sometimes with eating and sometimes before she eats. She continues with pantoprazole but sometimes has intermittent heartburn. Patient also with worsening dysphagia. It is random and is unable to quantify how often it happens. Last EGD in 2022 which demonstrated intrinsic stenosis, short segment Ledbetter's, small hiatal hernia and gastritis. She has found relief with dilation in the past. Recommended undergoing repeat EGD due to worsening epigastric pain, worsening dysphagia and history of Ledbetter's esophagus. Patient was agreeable to proceed with EGD. I have also prescribed famotidine 40 mg for her to take as needed for breakthrough heartburn. Patient has been having normal bowel movements with 1-2 bowel movements that are formed per day. She has not had loose stool in over a month. She has a history of diverticulitis. Recommended increasing her dietary fiber to prevent loose stool and diverticulitis flares. Last colonoscopy in 2021 with no abnormalities and recommendation for repeat in 10 years. - EGD with dilation if needed - Continue PPI - Famotidine as needed - Increase fiber intake - Follow-up after procedure Note: Portions of this note may have been selectively carried forward from previous documentation to ensure continuity and accuracy of the clinical record. All imported information has been reviewed and updated as necessary to reflect the current patient status, findings, and clinical decision-making for this encounter. [employer]aga speech recognition lane attendant software was used to create portions of this document. Sound alike and misspelled words, as well as other lane attendant errors may be contained in the documentation. Medications: New famotidine 40 mg PO QDAY 30 tabs 3RF Refilled pantoprazole 40 mg PO QDAY 30 tabs 6RF ]
--- NOTE | 2025-10-05 09:01 | PRE.ANES_ITS ---
ASA Classification* ASA Classification ASA Classification: 2 Assessment & Plan Anesthesia* Anesthesia Assessment Anesthesia Assessment: Discussed sedation and/or anesthesia options, risks, benefits, and alternatives with patient/parents/legal guardian/POA. Questions invited. The patient/parents/legal guardian/POA seems to understand and agrees to proceed with anesthesia plan. Reviewed the physical assessment, medical history, allergy history and patient home medications list prior to surgery/procedure/anesthetic and documented any changes. Performed airway and anesthesia risk assessments. Anesthesia Type Anesthesia Type: MAC Anesthesia Focused Assessment* Airway Assessment Mouth opens: >3 cm Mallampati Score: II Labs Anesthesia Preop lab: CBC WBC, (4.4-11.0) 5.7 K/mm3 08/13/25, : RBC, (4.2-5.4) 4.66 M/mm3 08/13/25, : Hgb, (12.0-15.0) 14.3 g/dL 08/13/25, Hct, (37-47) 43.9 % 08/13/25, : Plt Count, (150-450) 352 K/mm3 08/13/25, : CHEMISTRY Potassium, (3.3-5.1) 4.0 mmol/L 08/13/25, : Sodium, (133-145) 141 mmol/L 08/13/25, : Magnesium, (1.5-2.2) 2.1 mg/dL 08/13/25, : BUN, (4-19) 11 mg/dL 08/13/25, : Creatinine, (0.70-1.20) 0.81 mg/dL 08/13/25, : Glucose, (70-99) 102 mg/dL H 08/13/25, : TSH, (0.300-4.200) 1.950 uIU/mL 08/13/25, : COAG Pre-Assessment Diagnosis/Proposed Procedure Planned Operative Procedure(s): EGD Anesthesia History Anesthesia History - tongue carrier: Anesthesia History - tongue carrier Hx Hospitalization No 10/02/25 12:09 Any Problems With Anesthesia No 10/02/25 12:09 Cholinesterase deficiency No 10/02/25 12:09 You/Your Family Experience No 10/02/25 12:09 fever (hyperthermia) with Relationship Recent Exposure to Contagious No 11/02/24 10:03 Disease Does patient have nerve No 10/02/25 12:09 stimulator Patient instructed to have device shut off --Does patient have Pacemaker or ICD? When Was Last Pacemaker Check QUESTION #4 FULL TEXT: You/Your Family Experience fever (hyperthermia) with Anesthesia Last Oral Intake Last Oral intake: Last Oral Intake NPO since Meds taken in AM with sips of water? Meds patient instructed to take am of surgery PONV PONV - tongue carrier: PONV - tongue carrier Female Yes 10/02/25 12:09 HX of Motion Sickness No 10/02/25 12:09 HX of N/V After Surgery No 10/02/25 12:09 Non-Smoker Yes 10/02/25 12:09 Duration of Surgery greater No 10/02/25 12:09 than 60 minutes Number of Risk Factors 2 10/02/25 12:09 PONV Score Moderate Risk 10/02/25 12:09 Height & Weight Height & Weight: Anesthesia: Height & Weight Height 5 ft 4 in 08/13/25 10:13 Respiratory Assessment Respiratory Assessment - tongue carrier: Respiratory Tract Infection Hx - tongue carrier Hx Respiratory Tract Infection No 10/02/25 12:09 STOP Sleep Apnea STOP Sleep Apnea - tongue carrier: STOP Sleep Apnea - tongue carrier Hx Hypertension No 10/02/25 12:09 Hx Sleep Apnea No 10/02/25 12:09 CPAP BIPAP Do you snore loudly (louder No 10/02/25 12:09 than talking or can be heard Do you often feel tired/ No 10/02/25 12:09 fatigued/ sleepy during daytime? Has anyone observed you stop No 10/02/25 12:09 breathing during sleep? STOP Results Negative 10/02/25 12:09 QUESTION #5 FULL TEXT : Do you snore loudly (louder than talking or can be heard through closed doors)? 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 Specify any problems Hx of Preganancy in last 3 No 10/02/25 12:09 Months Nurse Filling Out Transfusion VCHRISTIN 10/02/25 12:09 & Questions: Date: 10/02/25 10/02/25 12:09 Time: 12:10 10/02/25 12:09 Patient unable to answer at this time (ie. confused, unrespo /Reproduction History /Reproductive History - tongue carrier: /Reproductive Hx- tongue carrier Hx Now No 10/02/25 12:09 Gestational Age (in weeks): EDC: Hx Hx Para Hx Section SAB No 10/02/25 12:09 Does the father of the baby or his family experience fever w Father of the baby Malignant Hypertension history comment COUNT INCLUDES THE [facility] Medical History History of Holter monitoring Normal Holter exam Post-menopausal Depression Anxiety Back pain Migraine headache Syncope Difficulty swallowing Gastric reflux Leg cramps Ledbetter's esophagus Wears glasses Arthritis History of IBS History of diverticulitis Non-smoker PONV (postoperative nausea and vomiting) History of echocardiogram History of stress test Cardiology follow-up encounter History of irregular heartbeat Diarrhea Neck pain Hyperlipidemia Vitamin D deficiency Degeneration of intervertebral disc of cervical region Segmental and somatic dysfunction of thoracic region Segmental and somatic dysfunction of cervical region Cervicogenic headache GERD (gastroesophageal reflux disease) Cataracts, bilateral Fibromyalgia Anxiety and depression Migraine with aura Migraine headache Osteoporosis Myalgia and myositis Dyspepsia Diverticula of colon Home Medications ?Medication ?Instructions ?Recorded ?Last Taken ?Type acetaminophen 500 mg tablet 500 mg PO Q6H PRN Pain 10/21 Unknown History (Tylenol Extra Strength) diphenhydramine HCl 25 mg capsule 25 mg PO QHS PRN sea rashel allergies 12/03/21 Unknown History (Benadryl) cholecalciferol (vitamin D3) 25 1,000 unit PO DAILY Unknown History mcg (1,000 unit) tablet (Vitamin D3) zoledronic acid 5 mg/100 mL in 1 ea .Route ONCE Unknown History mannitol 5 %-water intravenous piggybck ondansetron 4 mg disintegrating 4 mg PO TID PRN Nausea #90 tabs 08/13/25 Unknown Rx tablet pantoprazole 40 mg tablet,delayed 40 mg PO QDAY #30 ta bs 09/06/25 Unknown Rx release cyclobenzaprine 10 mg tablet 10 mg PO TID PRN muscle p ain 10/02/25 Unknown History Allergy/AdvReac Type Severity Reaction Status Date / Time amoxicillin Allergy Rash Verified 10/05/25 09:01 doxycycline Allergy Rash Verified 10/05/25 09:01 [id number]-OpV Reductase AdvReac Severe mylagias Verified 10/05/25 09:01 Inhibitor ezetimibe (From Zetia) AdvReac Intermediate Myalgias Verified 10/05/25 09:01 omeprazole AdvReac Intermediate Rash Verified 10/05/25 09:01 codeine AdvReac Unknown Other Verified 10/05/25 09:01 erythromycin base AdvReac Unknown Rash Verified 10/05/25 09:01 aspirin (ASA) AdvReac Gastric Verified 10/05/25 09:01 Reflux/ burning Family History Mother Hypertension COPD (chronic obstructive pulmonary disease) CVA (cerebral vascular accident) Kidney disease Anemia Arthritis Heart disease Osteoporosis Emphysema, unspecified Ascending aortic aneurysm Father , Melanoma Melanoma Sister Hypertension Rheumatoid arthritis Brother , Suicide Suicide attempt Sister Rheumatoid arthritis Hypertension Grandmother Arthritis Heart disease Hypertension Osteoporosis Grandfather CVA (cerebral vascular accident) Aunt CVA (cerebral vascular accident) Uncle Skin cancer Cancer Uncle Cancer Uncle Cancer Uncle Cancer Surgical History History of esophagogastroduodenoscopy (EGD) History of cataract surgery Hx of colonoscopy H/O bilateral salpingo-oophorectomy History of total abdominal hysterectomy Normal colonoscopy History of breast biopsy Social History Smoking Status: Never smoker Electronic Cigarette Use: not used second hand exposure: No alcohol intake: never substance use type: does not use caffeine: Yes Type: carbonated beverages Number of servings: 1 what type of physical activity do you participate in: none seatbelt use: always do you feel safe at home: Yes additional social history: David- retired retired Review of Systems (Anesthesia) ROS Narrative System reviewed and no additional complaints, except as documented.
[2025-10-05] MEDS: Lactated Ringers 1,000 ML 15 ML IV (09:15)
--- NOTE | 2025-10-05 09:30 | EGD_PTH ---
PATIENT: CHAPITO GRIMES LOC: EN U#:[id number] AGE/SX: 64/F ROOM: RE10/05/[address]: Dr. Floyd Bellamy DO : 1960 BED: DIS: 10/05/2025 SPEC #: [id number] RECD: 10/05/25 11:34 STATUS: STEVIE REDoc #: [id number] JESSY: 10/05/25 09:[address]: Floyd Bellamy DEPT: SURGICAL PATHOLOGY RECD BY: Brooklynn Kimbruogh ENTERED: 10/05/25 13:23 SP TYPE: EGD BIOPSY OT DR: Dr. Mary Ponce MD Tissues: Esophagus, NOS Procedures: Surgery Specimen Level IV HEADER OPERATION: EGD with biopsy PRE-OP DIAGNOSIS: Epigastric pain, dysphagia, Ledbetter's esophagus TISSUE SUBMITTED: A- Distal esophagus biopsy MICROSCOPIC DIAGNOSIS A. Esophagus, distal, biopsy: - Benign squamous and columnar mucosa, negative for goblet cell metaplasia. - Negative for dysplasia. MICROSCOPIC DESCRIPTION Slides are reviewed. GROSS DESCRIPTION A. Received in fixative is one container labeled with the patient's name and designated Distal esophagus biopsy. The specimen consists of multiple irregular fragments of guevara tissue that in aggregate measure 0.9 x 0.6 x 0.1 cm. The specimen is totally submitted in one cassette. ID 10/05/2025 CPT:71839
--- NOTE | 2025-10-05 10:07 | OP.PROVAT_ITS ---
10/05/2025 Mary Ponce [place] [id number] [place] [address] Re : Upper GI endoscopy procedure for Dariela Ledezmalizbet Dear Dr. Ponce This procedure was performed on Sunday, October 05, 2025. My impressions and recommendations are as follows: Impressions : - Esophageal mucosal changes secondary to established short-segment Ledbetter's disease. Biopsied. - Multiple gastric polyps. - No gross lesions in the entire examined duodenum. Recommendations : - Discharge patient to home. - Resume previous diet. - Continue present medications. My findings are described in the full procedure note, which is enclosed. If I can be of further assistance, please feel free to contact me at . Sincerely, Floyd Bellamy, 10/05/2025 10:06:30 AM This report has been signed electronically.
--- NOTE | 2025-10-05 10:07 | OP.EGD_ITS ---
Patient Name: Dariela Horan Procedure Date: 10/05/2025 9:37 AM Date of : 1960 Age: 64 Procedure: Upper GI endoscopy Indications: Ledbetter's esophagus, Follow-up of Ledbetter's esophagus Providers: Floyd Bellamy DO Medicines: Monitored Anesthesia Care Patient Profile: This is a 64 year old female. Refer to note in patient chart for documentation of history and physical. Patient has symptoms of chronic heartburn. Complications: No immediate complications. Procedure: Pre-Anesthesia Assessment: - Prior to the procedure, a History and Physical was performed, and patient medications and allergies were reviewed. The patient is competent. The risks and benefits of the procedure and the sedation options and risks were discussed with the patient. All questions were answered and informed consent was obtained. Patient identification and proposed procedure were verified by the physician in the pre-procedure area. Mental Status Examination: alert and oriented. Airway Examination: normal oropharyngeal airway and neck mobility. Respiratory Examination: clear to auscultation. CV Examination: normal. Prophylactic Antibiotics: The patient does not require prophylactic antibiotics. Prior Anticoagulants: The patient has taken no anticoagulant or antiplatelet agents. ASA Grade Assessment: II - A patient with mild systemic disease. After reviewing the risks and benefits, the patient was deemed in satisfactory condition to undergo the procedure. The anesthesia plan was to use monitored anesthesia care (MAC). Immediately prior to administration of medications, the patient was re-assessed for adequacy to receive sedatives. The heart rate, respiratory rate, oxygen saturations, blood pressure, adequacy of pulmonary ventilation, and response to care were monitored throughout the procedure. The physical status of the patient was re-assessed after the procedure. After obtaining informed consent, the endoscope was passed under direct vision. Throughout the procedure, the patient's blood pressure, pulse, and oxygen saturations were monitored continuously. The gastroscope was introduced through the mouth, and advanced to the second part of duodenum. The upper GI endoscopy was accomplished without difficulty. The upper GI endoscopy was accomplished without difficulty. The patient tolerated the procedure well. Scope In: 9:52:31 AM Scope Out: 9:57:10 AM Total Procedure Duration Time 0 hours 4 minutes 39 seconds Findings: There were esophageal mucosal changes secondary to established short-segment Ledbetter's disease present in the lower third of the esophagus. The maximum longitudinal extent of these mucosal changes was 3 cm in length. Mucosa was biopsied with a cold forceps for histology in 4 quadrants at intervals of 1 cm in the lower third of the esophagus. One specimen bottle was sent to pathology. Verification of patient identification for the specimen was done. Estimated blood loss was minimal. Multiple hyperplastic polyps with no bleeding and no stigmata of recent bleeding were found in the entire examined stomach. Estimated blood loss was minimal. No gross lesions were noted in the entire examined duodenum. Impression: - Esophageal mucosal changes secondary to established short-segment Ledbetter's disease. Biopsied. - Multiple gastric polyps. - No gross lesions in the entire examined duodenum. Recommendation: - Discharge patient to home. - Resume previous diet. - Continue present medications. Procedure Code(s): --- Professional --- 84654, Esophagogastroduodenoscopy, flexible, transoral; with biopsy, single or multiple CPT copyright 2021 [employer]. All rights reserved. The codes documented in this report are preliminary and upon drum sander review may be revised to meet current compliance requirements. Floyd Bellamy DO 10/05/2025 10:06:30 AM This report has been signed electronically. Number of Addenda: 0 Note Initiated On: 10/05/2025 9:37 AM
--- NOTE | 2025-10-05 10:11 | PCM.POST.ANE ---
Anesthesia: Postop Eval I Current Vital Signs Temperature: 97.5 F Pulse Rate: 81 Blood Pressure: 118/66 Respiratory Rate: 16 Pulse Ox: 97 Oxygen Delivery Method: Room Air Assessment Airway patent: Yes Spontaneous unlabored respirations: Yes Mental status: Awake and Calm nausea: No Vomiting: No Anesthesia Complication: No Fluid Hydration Crystalloid volume administer (ml): 400 Total IV fluid infused: 400 Progress Note Anesthesia document: Postop Eval 1 completed: Yes
--- NOTE | 2025-10-05 10:18 | PCM.POSTANE2 ---
Anesthesia Postop Eval I Sum Postop Eval Completion status Anesthesia document: Postop Eval 1 completed: Yes Anesthesia Postop Eval I Summary Anesthesia Postop Eval I Summary: Anesthesia Postop Eval I: Assessment Summary Airway patent Yes 10/05/25 10:11 [email or web address] Spontaneous unlabored Yes 10/05/25 10:11 [email or web address] respirations Mental status Awake,Calm 10/05/25 10:11 [email or web address] nausea No 10/05/25 10:11 [email or web address] Vomiting No 10/05/25 10:11 [email or web address] Anesthesia Postop Eval I: Fluid Summary Crystalloid volume administer 400 10/05/25 10:11 [email or web address] (ml) Colloids volume administered ( ml) Blood Product volume administered (ml) Total IV fluid infused 400 10/05/25 10:11 [email or web address] Anesthesia Postop Eval I: Summary Notes Anesthesia Complication No 10/05/25 10:11 [email or web address] Anesthesia Complication Comment: Post-operative progress note Anesthesia: Postop Eval II Evaluation Mental status: Awake Pain Level: 0 nausea: No Vomiting: No
== END 2025-10-05 10:57 | disposition home or self-care (01) ==
LOC: EN 08:42 → AC 08:44
PROVIDERS: PCP Family Medicine; Referring Provider Internal Medicine Gastroenterology; Visit Provider Internal Medicine Gastroenterology
PROC: 0DJ08ZZ Inspection of Upper Intestinal Tract, Via Natural or Artificial Opening Endoscopic (ICD-10-PCS; CPT 43235; principal; 2025-10-05 09:25)
DX: K31.7 Polyp of stomach and duodenum (principal); K29.70 Gastritis, unspecified, without bleeding; K58.9 Irritable bowel syndrome, unspecified; K22.70 Barrett's esophagus without dysplasia; E78.5 Hyperlipidemia, unspecified; Z79.899 Other long term (current) drug therapy; K21.9 Gastro-esophageal reflux disease without esophagitis
CPT/HCPCS: 43239; 88305; J2405

== ENCOUNTER 2025-10-11 12:30 | Outpatient (CLI) | payer OTHER, SELFPAY ==
[2025-10-11 13:05] VITALS: BP 123/78; PULSE 89; RESP 16; TEMP 36.1; O2SAT 98; BMI 24.9
[2025-10-11] MEDS: 0.9% NaCl Peripheral Flush Adult IV (13:11)
[2025-10-11 13:32] VITALS: BP 129/70; PULSE 86; RESP 16; TEMP 35.8
== END 2025-10-11 23:59 | disposition home or self-care (01) ==
LOC: MEDOUTP 12:31
PROVIDERS: PCP Family Medicine; Referring Provider Family Medicine; Visit Provider Family Medicine
DX: M81.0 Age-related osteoporosis without current pathological fracture (principal)
CPT/HCPCS: 96365; A4216; J3489